=== PATIENT | male | born 1945 | race Caucasian/White ===

== ENCOUNTER 2017-09-14 15:09 | Inpatient (IN) | payer MEDICARE, OTHER ==
[~2017-09-14] VITALS: Ht 172.7 cm; Wt 85.5 kg
[2017-09-14] MEDS ORDERED: ASPIRIN 324 MG CHEW PO STA (15:37)
[2017-09-14] MEDS ORDERED: ALBUT/IPRATROP 3MG/0.5MG NEB 3 ML VIAL INH STA (15:42)
--- NOTE | 2017-09-14 15:45 | EMERGENCY ROOM VISIT NOTE ---
History Report prepared by Nely: Dory Santiago Under the Supervision of: Dr. Ailyn Shepherd M.D. First contact with patient: 15:31 Chief Complaint: RESPIRATORY PROBLEMS Stated Complaint: DIFFICULTY BREATHING Nursing Triage Summary: Patient report shortness of breath for last 3-4 weeks. Patient was admitted to [facility] for shortness of breath and an elevated troponin this weekend. Patient reports that he is feeling more short of breath today than he was this weekend. Shortness of breath worse when lying flat or with exertion. Denies chest pain. Denies cough or congestion. History of Present Illness The patient is a 72 year old male who presents to the Emergency Room with complaints of worsening respiratory problems for the past 3-4 weeks. The patient was hospitalized in [place] 4 days ago. He was kept for 24 hours and discharged 3 days ago. He states that he was feeling better at the time of discharge. He felt fine the next day. Yesterday the patient began to feel short of breath again. He states that this has worsened today. His shortness of breath is worse with exertion or lying flat. He does not have a nebulizer but he does have 2 inhalers. The patient denies fevers, cough, chest pain, and abdominal pain. He had an appointment with his PCP yesterday and they scheduled follow-up with pulmonology for next week. The patient is currently taking Levaquin and steroids. He has a history of an aortic aneurysm. He quit smoking about 2 months ago. Source of History: patient Onset: 3-4 weeks ago Position: chest (respiratory) Quality: other (shortness of breath) Timing: worsening Modifying Factors (Worsening): exertion, other (laying flat) Associated Symptoms: No fevers, No cough, No chest pain, No abdominal pain Review of Systems See HPI for pertinent positives & negatives. A total of 10 systems reviewed and were otherwise negative. Past Medical & Surgical Medical Problems: (1) Aortic aneurysm Family History No pertinent history stated. Social History Smoking Status: Former Smoker Marital Status: Housing Status: lives with family Occupation Status: retired Current/Historical Medications Scheduled Amlodipine (Norvasc), 2.5 MG PO DAILY Clopidogrel (Plavix), 75 MG PO DAILY Fluticasone Furoate-Vilanterol (Breo Ellipta 200-25 Mcg/INH), 1 PUFF PO DAILY Hydrochlorothiazide (Hydrochlorothiazide), 25 MG PO DAILY Levofloxacin (Levaquin), 500 MG PO DAILY Levothyroxine Sodium (Synthroid), 125 MCG PO DAILY Magnesium Oxide (Mag-Ox), 400 MG PO DAILY Prednisone (Sterapred 12 Day), Unknown Dose PO UD Sertraline (Zoloft), 25 MG PO DAILY Scheduled PRN Albuterol Hfa (Ventolin Hfa), 2 PUFFS INH Q6H PRN for SOB/Wheezing Lorazepam (Ativan), 0.5 MG PO DAILY PRN for Anxiety Allergies Coded Allergies: No Known Allergies (Unverified , 09/14/17) Physical Exam Vital Signs Date Time Temp Pulse Resp B/P (MAP) Pulse Ox O2 Delivery O2 Flow Rate FiO2 09/14/17 15:26 80 09/14/17 15:20 97 Room Air 09/14/17 15:16 97 Room Air 09/14/17 15:15 36.5 85 145/91 96 Room Air Physical Exam Vital signs reviewed. General: Chronically ill-appearing male, in no significant distress. HEENT: No scleral icterus, PERRLA, neck supple. Atraumatic. Cardiovascular: Regular rate and rhythm, no extra sounds. Pulmonary: Clear to auscultation bilaterally, normal work of breathing. Abdomen: Soft, nontender, nondistended, positive bowel sounds. Musculoskeletal: Atraumatic, no peripheral edema. Neurologic: Patient awake alert and oriented x 3, full strength in all 4 extremities. Cranial nerves 2 through 12 grossly intact. Skin: Warm, dry, no rash Medical Decision & Procedures ER Provider Diagnostic Interpretation: Radiology results as stated below per my review and radiologist interpretation: CHEST ONE VIEW PORTABLE HISTORY: 72 years-old Male CP, CHF acute atypical chest pain with difficulty breathing. History of congestive heart failure COMPARISON: None available TECHNIQUE: Portable upright AP view of the chest FINDINGS: Cardiac silhouette is mildly enlarged, unchanged. There is atherosclerosis of the aorta. No pneumothorax, pleural effusion or focal airspace consolidation. Linear subsegmental right perihilar opacity is noted. The bones are grossly intact. IMPRESSION: Linear subsegmental right perihilar opacity suggest atelectasis or scarring. The above report was generated using voice recognition software. It may contain grammatical, syntax or spelling errors. Electronically signed by: Sergio Rich M.D. 09/14/2017 3:57 PM Laboratory Results 09/14/17 14:45 Red Blood Count 4.62, Mean Corpuscular Volume 94.2, Mean Corpuscular Hemoglobin 35.3, Mean Corpuscular Hemoglobin Concent 37.5, Mean Platelet Volume 9.5, Neutrophils (%) (Auto) 85.6, Lymphocytes (%) (Auto) 8.4, Monocytes (%) (Auto) 5.5, Eosinophils (%) (Auto) 0.0, Basophils (%) (Auto) 0.0, Neutrophils # (Auto) 6.52, Lymphocytes # (Auto) 0.64, Monocytes # (Auto) 0.42, Eosinophils # (Auto) 0.00, Basophils # (Auto) 0.00 09/14/17 14:45 Test 09/14/17 14:45 09/14/17 15:56 White Blood Count 7.62 K/uL (4.8-10.8) Red Blood Count 4.62 M/uL (4.7-6.1) Hemoglobin 16.3 g/dL (14.0-18.0) Hematocrit 43.5 % (42-52) Mean Corpuscular Volume 94.2 fL (80-100) Mean Corpuscular Hemoglobin 35.3 pg (25-34) Mean Corpuscular Hemoglobin Concent 37.5 g/dl (32-36) Platelet Count 190 K/uL (130-400) Mean Platelet Volume 9.5 fL (7.4-10.4) Neutrophils (%) (Auto) 85.6 % Lymphocytes (%) (Auto) 8.4 % Monocytes (%) (Auto) 5.5 % Eosinophils (%) (Auto) 0.0 % Basophils (%) (Auto) 0.0 % Neutrophils # (Auto) 6.52 K/uL (1.4-6.5) Lymphocytes # (Auto) 0.64 K/uL (1.2-3.4) Monocytes # (Auto) 0.42 K/uL (0.11-0.59) Eosinophils # (Auto) 0.00 K/uL (0-0.5) Basophils # (Auto) 0.00 K/uL (0-0.2) RDW Standard Deviation 44.2 fL (36.4-46.3) RDW Coefficient of Variation 12.8 % (11.5-14.5) Immature Granulocyte % (Auto) 0.5 % Immature Granulocyte # (Auto) 0.04 K/uL (0.00-0.02) Anion Gap 12.0 mmol/L (3-11) Est Creatinine Clear Calc Drug Dose 69.9 ml/min Estimated GFR () 84.5 Estimated GFR (Non- 72.9 BUN/Creatinine Ratio 13.0 (10-20) Calcium Level 9.2 mg/dl (8.5-10.1) Magnesium Level 1.9 mg/dl (1.8-2.4) Total Bilirubin 1.3 mg/dl (0.2-1) Direct Bilirubin 0.3 mg/dl (0-0.2) Aspartate Amino Transf (AST/SGOT) 39 U/L (15-37) Alanine Aminotransferase (ALT/SGPT) 26 U/L (12-78) Alkaline Phosphatase 126 U/L (45-117) Total Creatine Kinase 27 U/L (39-308) Creatine Kinase MB < 0.5 ng/ml (0.5-3.6) Creatine Kinase MB Ratio (0-3.0) Total Protein 8.0 gm/dl (6.4-8.2) Albumin 3.9 gm/dl (3.4-5.0) Bedside Troponin I 0.060 ng/ml (0-0.045) Laboratory results per my review. Medications Administered Medications (Trade) Dose Ordered Sig/Gus Route Start Time Stop Time Status Last Admin Dose Admin Aspirin (Aspirin Chew) 324 mg NOW STAT PO 09/14/17 15:37 09/14/17 15:39 DC 09/14/17 15:57 324 MG Albuterol/ Ipratropium (Duoneb) 3 ml NOW STAT INH 09/14/17 15:42 09/14/17 15:43 DC 09/14/17 15:58 3 ML ECG Indication: SOB/dyspnea Rate (beats per minute): 79 Rhythm: normal sinus Findings: no acute ischemic change, no ectopy Comparison ECG Date: no prior available ED Course 1531: Past medical records reviewed. The patient was evaluated in room C11B. A complete history and physical examination was performed. 1537: Aspirin 324 mg PO 1542: Duoneb 3 ml INH 1634: I reassessed the patient at this time. He is feeling better and resting comfortably. I discussed the results and treatment plan with the patient. I answered all pertaining questions that he had. He expressed understanding and verbalized agreement. 1639: I spoke with Dr. Moreno. We discussed the patient's case. The patient will be evaluated by the [facility] for further management. Medical Decision The patient is a 72 year old male who presents to the ED with complaints of shortness of breath. Differentials include infections, reactive airway disease , pneumonia, pneumothorax, COPD, CHF, cardiac ischemia, pulmonary embolism, musculoskeletal, gastrointestinal, as well as others were entertained. This patient was evaluated and appeared to be in no significant distress. IV access was obtained and laboratory work was drawn. EKG reveals no evidence of acute ischemic change. Patient was given a DuoNeb treatments and subsequently had some discomfort, anxiety. Patient was placed on nasal cannula oxygen with improvement. Chest x-ray was obtained and is clear. Patient's laboratory work reveals a mildly elevated troponin at 0.06. Patient's sodium is found be 123. According to laboratory work from the weekend at the outside hospital, the patient's sodium was 131. The etiology of the hyponatremia is unclear. Normal saline solution 125 MLS per hour has been initiated. Case was discussed with the hospitalist service will evaluate the patient for further management. Medication Reconcilliation Current Medication List: was personally reviewed by me Blood Pressure Screening Patient's blood pressure: Elevated blood pressure Blood pressure disposition: Referred to PCP Consults Time Called: 1636 Consulting Physician: Dr. Moreno Returned Call: [phone] Moreno. We discussed the patient's case. The patient will be evaluated by the [facility] for further management. Impression Primary Impression: Elevated troponin Additional Impressions: Dyspnea on exertion Hyponatremia Scribe Attestation The scribe's documentation has been prepared under my direction and personally reviewed by me in its entirety. I confirm that the note above accurately reflects all work, treatment, procedures, and medical decision making performed by me. Departure Information Dispostion Being Evaluated By Hospitalist Referrals Meenu Avitia D.O. (PCP) Patient Instructions My [facility] Problem Qualifiers
--- NOTE | 2017-09-14 15:58 | DIAGNOSTIC IMAGING REPORT ---
CHEST ONE VIEW PORTABLE HISTORY: 72 years-old Male CP, CHF acute atypical chest pain with difficulty breathing. History of congestive heart failure COMPARISON: None available TECHNIQUE: Portable upright AP view of the chest FINDINGS: Cardiac silhouette is mildly enlarged, unchanged. There is atherosclerosis of the aorta. No pneumothorax, pleural effusion or focal airspace consolidation. Linear subsegmental right perihilar opacity is noted. The bones are grossly intact. IMPRESSION: Linear subsegmental right perihilar opacity suggest atelectasis or scarring. The above report was generated using voice recognition software. It may contain grammatical, syntax or spelling errors. Electronically signed by: Sergio Rich M.D. 09/14/2017 3:57 PM Dictated Date/Time: 09/14/2017 3:55 PM
[2017-09-14 16:03] LABS: ALT/SGPT 26 U/L (12-78); BLOOD UREA NITROGEN 13 mg/dl (7-18); CALCIUM 9.2 mg/dl (8.5-10.1); CARBON DIOXIDE 21 mmol/L (21-32); CHLORIDE 90 mmol/L (98-107); CREATININE 1.01 mg/dl (0.60-1.40); GLUCOSE 193 mg/dl (70-99); MAGNESIUM 1.9 mg/dl (1.8-2.4); POTASSIUM 3.4 mmol/L (3.5-5.1); SODIUM 123 mmol/L (136-145)
[2017-09-14 16:06] LABS: COMPLETE YES; HEMATOCRIT 43.5 % (42-52); IG% 0.5 %; LYMPH % 8.4 %; LYMPH ABS # 0.64 K/uL (1.2-3.4); MEAN CELL VOLUME 94.2 fL (80-100); MEAN CORPUSCULAR HEMOGLOBIN 35.3 pg (25-34); MEAN CORPUSCULAR HGB CONC 37.5 g/dl (32-36); MEAN PLATELET VOLUME 9.5 fL (7.4-10.4); MONO % 5.5 %; NEUT % 85.6 %; PLATELET COUNT 190 K/uL (130-400); RED BLOOD COUNT 4.62 M/uL (4.7-6.1); WHITE BLOOD COUNT 7.62 K/uL (4.8-10.8)
[2017-09-14 16:08] LABS: ALKALINE PHOSPHATASE 126 U/L (45-117); AST/SGOT 39 U/L (15-37)
[2017-09-14] MEDS ORDERED: FLUT1INH7 PO (16:12)
[2017-09-14] MEDS ORDERED: CLOP1TAB15 PO (16:12)
[2017-09-14] MEDS ORDERED: AMLO2.5T PO (16:12)
[2017-09-14] MEDS ORDERED: VNTHFA/IN INH (16:12)
[2017-09-14] MEDS ORDERED: PRED5PAK3 PO (16:12)
[2017-09-14] MEDS ORDERED: LEVO1TAB34 PO (16:12)
[2017-09-14] MEDS ORDERED: MAGN400T6 PO (16:12)
[2017-09-14] MEDS ORDERED: LEVO125T72 PO (16:12)
[2017-09-14] MEDS ORDERED: HYDR25TA5 PO (16:12)
[2017-09-14] MEDS ORDERED: LORA-741 PO (16:12)
[2017-09-14] MEDS ORDERED: SERT25TA PO (16:12)
[2017-09-14] MEDS ORDERED: SODIUM CHLORIDE 0.9% 1000ML 1,000 ML IV STA (16:40)
--- NOTE | 2017-09-14 16:46 | History and Physical ---
History & Physical Date & Time of Service: Sep 14, 2017 at 16:45 Chief Complaint: Difficulty Breathing Primary Care Physician: Meenu Avitia D.O. History of Present Illness This is a 72-year-old male with PMHx COPD, of 45 year 1-2+ ppd smoking history and quit 2 months ago, KRISTEN, hypothyroidism, CAD, aortic aneurysm and anxiety. He reports after a worsening shortness of breath 3 days. Patient reports he was recently hospitalized in [place] on 09/12 for a 24-hour period, and that on Tuesday when he was there, his breathing felt quite good. He was sent home on a 5 day Levaquin course, as well as a prednisone taper. He denies any cough, sputum production, sneeze, runny nose, upper respiratory infection like symptoms or sick contacts. The patient has been using his home Ventolin and Breo elliptra inhaler as directed. He does not have a nebulizer at home. The patient does not wear any supplemental O2 at baseline. The patient reports he did turn on his heat and his home within the past month, and that it is hot oil heat. He also has a wood burner in his garage which he uses often. The patient typically has no trouble with ambulation, and is able to walk up and down his driveway ~25 yard and on a steep incline without difficulty. He reports being short of breath with exertion and unable to ambulate much at present. He has been afraid to eat due to fear of not being able to breathe, so therefore his diet has been quite poor in the past 3 days. He has been able to keep some fluids down. Here in the ER the patient was treated with a nebulizer treatment CXR reviewed without any acute process. EKG showing NSR, he is slightly tachy upon my exam. Hyponatremic, decreased magnesium, no WBC, afebrile. Past Medical/Surgical History Medical Problems: (1) Aortic aneurysm Status: Resolved COPD exacerbation ? KRISTEN Elevated troponin CAD Aortic aneurysm History of tobacco smoking Hypothyroidism Hypomagnesemia Hyponatremia Elevated transaminase Social History Smoking Status: Former Smoker (45 years with 1-2+ ppd, quit 2 month ago) Smokeless Tobacco Use: No Alcohol Use: none Drug Use: none Marital Status: Housing status: lives with family Occupational Status: retired Allergies Coded Allergies: No Known Allergies (Unverified , 09/14/17) Home Medications Scheduled Amlodipine (Norvasc), 2.5 MG PO DAILY Clopidogrel (Plavix), 75 MG PO DAILY Fluticasone Furoate-Vilanterol (Breo Ellipta 200-25 Mcg/INH), 1 PUFF PO DAILY Hydrochlorothiazide (Hydrochlorothiazide), 25 MG PO DAILY Levofloxacin (Levaquin), 500 MG PO DAILY Levothyroxine Sodium (Synthroid), 125 MCG PO DAILY Magnesium Oxide (Mag-Ox), 400 MG PO DAILY Prednisone (Sterapred 12 Day), Unknown Dose PO UD Sertraline (Zoloft), 25 MG PO DAILY Scheduled PRN Albuterol Hfa (Ventolin Hfa), 2 PUFFS INH Q6H PRN for SOB/Wheezing Lorazepam (Ativan), 0.5 MG PO DAILY PRN for Anxiety Review of Systems Constitutional: No fever, sweats or chills Eyes: No diplopia, no worsening or blurred vision ENT: normal hearing, no trouble swallowing Respiratory: See history of present illness Cardiovascular: No chest pain, tightness or palpitations Abdomen: No pain, nausea, vomiting, diarrhea or constipation Musculoskeletal: No joint pain, calf pain, swelling Neurologic: No weakness, numbness/tingling, or balance problems Psychiatric: + anxiety, no depression Skin: No rash or itch Physical Exam Vital Signs Date Time Temp Pulse Resp B/P (MAP) Pulse Ox O2 Delivery O2 Flow Rate FiO2 09/14/17 15:26 80 09/14/17 15:20 97 Room Air 09/14/17 15:16 97 Room Air 09/14/17 15:15 36.5 85 145/91 96 Room Air General: awake, alert, mild apparent distress on 2 L via NC Head: Normocephalic, atraumatic ENT: PERRL, EOMI, no pharyngeal exudate, mucous membranes moist Chest: ON 2 L via NC, diminished breath sounds throughout, no wheezing rhonchi or rales. Cardiac: + Tachycardic, Regular rhythm, no murmur, no JVD, normal peripheral pulses, good capillary refill Abdominal: NABS x 4 quadrants, soft, nontender to palpation, no rebound, guarding or tenderness Extremities: Normal inspection, no peripheral edema or erythema, calfs nontender to palpation Psych: Normal mood and affect Neuro: AAO x 3, strength intact bilaterally and related 5/5, no motor deficits, speech is clear, no peripheral sensory deficits Diagnostics Laboratory Results Results Past 24 Hours Test 09/14/17 14:45 09/14/17 15:56 Range/Units White Blood Count 7.62 4.8-10.8 K/uL Red Blood Count 4.62 4.7-6.1 M/uL Hemoglobin 16.3 14.0-18.0 g/dL Hematocrit 43.5 42-52 % Mean Corpuscular Volume 94.2 80-100 fL Mean Corpuscular Hemoglobin 35.3 25-34 pg Mean Corpuscular Hemoglobin Concent 37.5 32-36 g/dl Platelet Count 190 130-400 K/uL Mean Platelet Volume 9.5 7.4-10.4 fL Neutrophils (%) (Auto) 85.6 % Lymphocytes (%) (Auto) 8.4 % Monocytes (%) (Auto) 5.5 % Eosinophils (%) (Auto) 0.0 % Basophils (%) (Auto) 0.0 % Neutrophils # (Auto) 6.52 1.4-6.5 K/uL Lymphocytes # (Auto) 0.64 1.2-3.4 K/uL Monocytes # (Auto) 0.42 0.11-0.59 K/uL Eosinophils # (Auto) 0.00 0-0.5 K/uL Basophils # (Auto) 0.00 0-0.2 K/uL RDW Standard Deviation 44.2 36.4-46.3 fL RDW Coefficient of Variation 12.8 11.5-14.5 % Immature Granulocyte % (Auto) 0.5 % Immature Granulocyte # (Auto) 0.04 0.00-0.02 K/uL Sodium Level 123 136-145 mmol/L Potassium Level 3.4 3.5-5.1 mmol/L Chloride Level 90 98-107 mmol/L Carbon Dioxide Level 21 21-32 mmol/L Anion Gap 12.0 3-11 mmol/L Blood Urea Nitrogen 13 7-18 mg/dl Creatinine 1.01 0.60-1.40 mg/dl Est Creatinine Clear Calc Drug Dose 69.9 ml/min Estimated GFR () 84.5 Estimated GFR (Non- 72.9 BUN/Creatinine Ratio 13.0 10-20 Random Glucose 193 70-99 mg/dl Calcium Level 9.2 8.5-10.1 mg/dl Magnesium Level 1.9 1.8-2.4 mg/dl Total Bilirubin 1.3 0.2-1 mg/dl Direct Bilirubin 0.3 0-0.2 mg/dl Aspartate Amino Transf (AST/SGOT) 39 15-37 U/L Alanine Aminotransferase (ALT/SGPT) 26 12-78 U/L Alkaline Phosphatase 126 45-117 U/L Total Creatine Kinase 27 39-308 U/L Creatine Kinase MB < 0.5 0.5-3.6 ng/ml Creatine Kinase MB Ratio 0-3.0 Total Protein 8.0 6.4-8.2 gm/dl Albumin 3.9 3.4-5.0 gm/dl Bedside Troponin I 0.060 0-0.045 ng/ml Diagnostic Radiology CHEST ONE VIEW PORTABLE HISTORY: 72 years-old Male CP, CHF acute atypical chest pain with difficulty breathing. History of congestive heart failure COMPARISON: None available TECHNIQUE: Portable upright AP view of the chest FINDINGS: Cardiac silhouette is mildly enlarged, unchanged. There is atherosclerosis of the aorta. No pneumothorax, pleural effusion or focal airspace consolidation. Linear subsegmental right perihilar opacity is noted. The bones are grossly intact. IMPRESSION: Linear subsegmental right perihilar opacity suggest atelectasis or scarring. The above report was generated using voice recognition software. It may contain grammatical, syntax or spelling errors. Electronically signed by: Sergio Rich M.D. 09/14/2017 3:57 PM EKG Normal sinus rhythm Normal ECG No previous ECGs available Vent. rate 79 BPM NC interval 148 ms QRS duration 88 ms QT/QTc 406/465 ms P-R-T axes 60 45 62 Impression Assessment and Plan This is a 72-year-old male with PMHx COPD, of 45 year 1-2+ ppd, smoking history , quit 2 months ago, KRISTEN and anxiety. He reports after a worsening shortness of breath 3 days. COPD exacerbation ? KRISTEN - Admit patient to telemetry - Pulmonary consult - Start the patient on Solu-Medrol 40 mg Q8H, and continue on levaquin 500 mg daily, this will be day #3 for the patient. - Check CTA for PE since there was minimal improvement with prednisone taper and Levaquin in the past 3 days since patient was discharged from [place]. Also check Dopplers of bilateral lower extremity to rule out DVT - CXR reviewed showing atelectasis and/or scarring but no focal infiltrate - Xopenex inhalers Q6H and Q2H prn sob - Normally does not require supplemental O2, currently on 2 L Elevated troponin CAD HTN - Initial elevated at 0.060, will trend cardiac biomarkers 2 more sets - EKG reviewed and is in normal sinus rhythm without ST-T wave inversions or signs of ischemia - Continue plavix - hold hydrochlorothiazide while on IVFs Aortic aneurysm - Patient follows with cardiology in [place] - Unable to tell me how large the aneurysm is but reports no history of surgical intervention, will see size on CTA as above. Patient without chest pain. History of tobacco smoking - Noted, increased anxiety related to lack of nicotine as the patient quit cold turkey 2 months ago Hypothyroidism Continue levothyroxine sodium 125 g daily Hypomagnesemia - Slightly decreased at 1.5, continue daily Mag-Ox for replacement, trend with prp Hyponatremia - We will start the patient on NSS at 125 ml/hr for 12 hours as PO intake has been poor - Follow prp Elevated transaminase - Trend LFTs with a.m. labs, total bili elevated at 1.3, direct 0.3, AST was 39 , alkaline phosphatase equals 126 - Patient denies any EtOH use Anxiety - Continue Zoloft 25 mg daily, and Ativan 0.5 mg twice a day DVT ppx: heparin subq q12 CODE STATUS: DO NOT RESUSCITATE Disposition: Patient from home, lives with , admit to telemetry Level of Care Telemetry Resuscitation Status DO NOT RESUSCITATE VTE Prophylaxis Risk Level: Low Given or contraindicated: Unfractionated heparin SQ Note Supervising Note I agree with above note. I examined patient and discussed analysis and plan with patient and APC. I answered all of the patients questions. My exam did not differ from the one presented by the APC.
[2017-09-14] MEDS ORDERED: POLYETHYLENE (MIRALAX) 17 GM PACK PO PRN (17:15)
[2017-09-14] MEDS ORDERED: ACETAMINOPHEN 325 MG TAB PO PRN (17:15)
[2017-09-14] MEDS ORDERED: MAGNESIUM HYDROXIDE SUSP 30 ML UDC PO PRN (17:15)
[2017-09-14] MEDS ORDERED: LORAZEPAM 0.5 MG TAB PO PRN (17:15)
[2017-09-14] MEDS ORDERED: ONDANSETRON INJ 2 MG/ML 2 ML VIAL IV PRN (17:15)
[2017-09-14] MEDS ORDERED: OPTIRAY 320 IV PRN (17:30)
--- NOTE | 2017-09-14 18:06 | DIAGNOSTIC IMAGING REPORT ---
ULTRASOUND BILATERAL LOWER EXTREMITY VENOUS CLINICAL HISTORY: Dyspnea. Clinical concern for deep venous thrombosis. COMPARISON STUDY: No priors. TECHNIQUE: Real-time, grayscale, and color Doppler sonography of the deep veins of the right and left lower extremity was performed from the inguinal crease to the calf. Compression and augmentation were utilized. FINDINGS: There is no sonographic evidence of deep venous thrombosis identified in the right or left lower extremity. The common femoral, superficial femoral, and popliteal veins are patent and normally compressible bilaterally. The greater saphenous vein and the profunda femoris vein at the junction with the common femoral vein are clear in both legs. The visualized calf veins are patent bilaterally. IMPRESSION: There is no sonographic evidence of deep venous thrombosis identified in the right or left lower extremity. Electronically signed by: Haroon Jurado M.D. 09/14/2017 6:05 PM Dictated Date/Time: 09/14/2017 6:05 PM
[2017-09-14] MEDS: SODIUM CHLORIDE 0.9% 1000ML 1,000 ML IV SCH (19:51)
[2017-09-14] MEDS: METHYLPREDNISOLONE IV 40 MG in SYRINGE 0 ML IV SCH (19:52)
[2017-09-14 20:07] VITALS: BP 144/87; PULSE 82; TEMP 36.5; O2SAT 97; Ht 172.7 cm; Wt 85.5 kg
[2017-09-14] MEDS: LEVOFLOXACIN 500 MG TAB PO SCH (20:29)
[2017-09-14] MEDS: LEVALBUTEROL 1.25MG/3ML NEB INH SCH (20:42)
[2017-09-14 20:43] VITALS: PULSE 83; O2SAT 97
--- NOTE | 2017-09-14 21:59 | DIAGNOSTIC IMAGING REPORT ---
CT ANGIOGRAM OF THE CHEST CLINICAL HISTORY: Dyspnea. COMPARISON STUDY: Chest x-ray dated 09/14/2017. TECHNIQUE: Following the IV administration of 99 cc of Optiray 320, CT angiogram of the chest was performed from the upper abdomen to the thoracic inlet utilizing the pulmonary embolus protocol. Images are reviewed in the axial, sagittal, and coronal planes. 3-D MIPS images are created and assessed. IV contrast was administered without complication. A dose lowering technique was utilized adhering to the principles of ALARA. The examination is degraded by motion artifact. CT DOSE: 468.58 mGy.cm FINDINGS: Thyroid: Imaged portions of the thyroid gland are enlarged and heterogeneous and attenuation. Thoracic aorta: There is after sclerotic calcification of the thoracic aorta, which is normal in caliber and demonstrates standard 3-vessel arch anatomy. No dissection is seen. Pulmonary vasculature: The pulmonary trunk is normal in caliber. There are no central filling defects identified in main, lobar, or proximal segmental pulmonary branches to suggest pulmonary embolus. Evaluation of the peripheral branches is degraded by motion artifact. Heart: The heart is mild enlarged and there is a small to moderate pericardial effusion. The coronary arteries are densely calcified. Lungs and pleural spaces: Evaluation of the lung parenchyma is significantly degraded by motion artifact. Emphysematous change is seen at the apices. No airspace consolidation is identified. There is no pleural effusion. Linear scarring versus atelectasis is present in the lung bases. The trachea and central airways are clear. Mediastinum: There is no mediastinal lymphadenopathy. [place]: Clear. Axillae: There is no axillary lymphadenopathy. Upper abdomen: A stent graft is partially visualized in the abdominal aorta. There is a 1.4 cm ovoid water attenuation lesion in the pancreatic neck seen on image #36, typical in appearance for small sidebranch IPMN. A tiny hiatal hernia is observed. Skeletal structures: The skeletal structures are osteopenic. No lytic or blastic bony lesions are seen. Arthritic change is noted in the shoulders. IMPRESSION: 1. Motion compromise examination. 2. There is no evidence of central pulmonary embolus in the main, lobar, or proximal segmental pulmonary arteries. 3. Mild cardiomegaly and emphysema. 4. There is a small to moderate pericardial effusion. 5. No airspace consolidation or pleural effusion is identified. 6. Additional findings as above. Electronically signed by: Haroon Jurado M.D. 09/14/2017 9:58 PM Dictated Date/Time: 09/14/2017 9:51 PM
[2017-09-14] MEDS ORDERED: INFLUENZA ADMINISTRATION CHARGE ONE (22:00)
[2017-09-14] MEDS ORDERED: INFLUENZA VACCINE HIGH DOSE 65+ 0.5 ML SYR IM. ONE (22:00)
[2017-09-14] MEDS ORDERED: CALCIUM CARBONATE 500 MG CHEWABLE PO ONE (22:30)
[2017-09-14 22:51] LABS: PARTIAL THROMBOPLASTIN RATIO 1.1; PROTHROMBIN TIME (PATIENT) 10.8 SECONDS (9.0-12.0)
[2017-09-14] MEDS: LORAZEPAM 0.5 MG TAB PO PRN (22:55)
[2017-09-14 23:40] VITALS: BP 151/87; PULSE 76; TEMP 36.6; O2SAT 94
[2017-09-15] VITALS (12 sets, daily range): BP systolic 109–151; BP diastolic 73–91; PULSE 82–100; TEMP 36.4–37.5; O2SAT 90–98
[2017-09-15] MEDS: HEPARIN SOD 5000 UNIT/0.5 ML CARP SQ SCH ×4 (00:09→22:15)
[2017-09-15] MEDS: LEVALBUTEROL 1.25MG/3ML NEB INH SCH ×4 (01:55→23:14)
[2017-09-15] MEDS: METHYLPREDNISOLONE IV 40 MG in SYRINGE 0 ML IV SCH ×3 (04:11→19:41)
[2017-09-15] MEDS: SODIUM CHLORIDE 0.9% 1000ML 1,000 ML IV SCH (04:11)
[2017-09-15] MEDS: LEVOTHYROXINE 125 MCG TAB PO SCH (06:00)
[2017-09-15] MEDS: BREO ELLIPTA: ORDER AWAITING ACTION SCH ×3 (08:00→15:27)
[2017-09-15] MEDS: SERTRALINE HCL 50 MG TAB PO SCH (08:08)
[2017-09-15] MEDS: AMLODIPINE BESYLATE 5 MG TAB PO SCH (08:08)
[2017-09-15] MEDS: CLOPIDOGREL BISULFATE 75 MG TAB PO SCH (08:08)
[2017-09-15] MEDS: MAGNESIUM OXIDE 400 MG TAB PO SCH (08:08)
[2017-09-15 08:16] LABS: COMPLETE YES; HEMATOCRIT 43.2 % (42-52); IG% 0.6 %; LYMPH ABS # 0.53 K/uL (1.2-3.4); MEAN CELL VOLUME 94.1 fL (80-100); MEAN CORPUSCULAR HEMOGLOBIN 34.4 pg (25-34); MEAN CORPUSCULAR HGB CONC 36.6 g/dl (32-36); MEAN PLATELET VOLUME 9.2 fL (7.4-10.4); MONO % 2.7 %; NEUT % 88.7 %; PLATELET COUNT 195 K/uL (130-400); RED BLOOD COUNT 4.59 M/uL (4.7-6.1)
[2017-09-15 08:47] LABS: BUN/CREATININE RATIO 14.5 (10-20); CREATININE 0.88 mg/dl (0.60-1.40); POTASSIUM 3.4 mmol/L (3.5-5.1)
[2017-09-15 08:51] LABS: CHOLESTEROL/HDL RATIO 2.3
[2017-09-15] MEDS ORDERED: HYDROCHLOROTHIAZIDE 25 MG TAB PO SCH (09:00)
--- NOTE | 2017-09-15 09:51 | Progress Note ---
Subjective Date of Service: Sep 15, 2017. Subjective Pt evaluation today including: conversation w/ patient, conversation w/ family , physical exam, chart review, lab review, review of studies, review of inpatient medication list Still has difficulty breathing, some cough with white sputum and wheezing, has dyspnea on exertion when up to the restroom, however oxygen level is normal in room air Problem List Medical Problems: (1) Dyspnea on exertion Status: Acute (2) Elevated troponin Status: Acute (3) Hyponatremia Status: Acute Review of Systems Constitutional: + weakness, + fatigue, No fever, No chills, No sweats, No weight loss, No problem reported Eyes: No worsening of vision, No eye pain, No redness, No discharge, No diplopia ENT: No hearing loss, No unusual epistaxis, No nasal symptoms, No sore throat, No tinnitus, No dental problems, No trouble swallowing Respiratory: + see HPI, + cough, + wheezing, + shortness of breath, No sputum, No dyspnea on exertion, No dyspnea at rest, No hemoptysis Cardiac: No chest pain, No orthopnea, No PND, No edema, No claudication, No palpitations Abdomen: No pain, No nausea, No vomiting, No diarrhea, No constipation Musculoskeletal: No joint pain, No muscle pain, No swelling, No calf pain Male : No dysuria, No urinary frequency, No incontinence, No nocturia more than once/night, No slowing stream, No hematuria Neurologic: No memory loss, No paralysis, No weakness, No numbness/tingling, No vertigo, No balance problems Psychiatric: No depression symptoms, No anhedonism, No anxiety, No insomnia, No substance abuse Heme: No abnormal bleeding/bruising, No clotting problems, No swollen lymph nodes, No night sweats Endo: No fatigue, No excessive thirst, No excessive urination Skin: No rash, No itch, No new/changing skin lesions, No color change, No bleeding Objective Vital Signs Date Time Temp Pulse Resp B/P (MAP) Pulse Ox O2 Delivery O2 Flow Rate FiO2 09/15/17 09:30 94 Room Air 09/15/17 07:10 90 16 98 Room Air 09/15/17 07:03 36.4 82 18 151/88 (109) 94 Room Air 09/15/17 04:27 36.5 84 20 143/90 (107) 96 Room Air 09/15/17 04:00 97 Nasal Cannula 2.0 09/15/17 00:00 97 Nasal Cannula 2.0 09/14/17 23:40 36.6 76 18 151/87 (108) 94 Room Air 09/14/17 20:43 83 16 97 Nasal Cannula 2.0 09/14/17 20:07 36.5 82 18 144/87 97 Nasal Cannula 2.0 09/14/17 18:49 82 142/74 97 09/14/17 17:07 82 20 132/79 97 Nasal Cannula 3.0 09/14/17 15:26 80 09/14/17 15:20 97 Room Air 09/14/17 15:16 97 Room Air 09/14/17 15:15 36.5 85 145/91 96 Room Air Physical Exam General Appearance: WD/WN, no apparent distress, + obese Eyes: normal inspection, PERRL, EOMI, sclerae normal ENT: normal ENT inspection, hearing grossly normal, pharynx normal Neck: supple, no adenopathy, thyroid normal, no JVD, no carotid bruits, trachea midline Respiratory/Chest: chest non-tender, normal breath sounds, no respiratory distress, no accessory muscle use, + decreased breath sounds, + wheezing (`) Cardiovascular: regular rate, rhythm, no edema, no gallop, no JVD, no murmur Abdomen: normal bowel sounds, non tender, soft, no organomegaly, no pulsatile mass Extremities: normal range of motion, non-tender, normal inspection, no pedal edema, no calf tenderness, normal capillary refill, pelvis stable Neurologic/Psychiatric: 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, no motor/sensory deficits, alert, normal mood/affect, oriented x 3, + abnormal cerebellar tests Skin: normal color, warm/dry, no rash Lymphatic: no adenopathy Laboratory Results Last 24 Hours Test 09/14/17 14:45 09/14/17 15:56 09/14/17 22:24 09/15/17 08:02 White Blood Count 7.62 K/uL 6.60 K/uL Red Blood Count 4.62 M/uL 4.59 M/uL Hemoglobin 16.3 g/dL 15.8 g/dL Hematocrit 43.5 % 43.2 % Mean Corpuscular Volume 94.2 fL 94.1 fL Mean Corpuscular Hemoglobin 35.3 pg 34.4 pg Mean Corpuscular Hemoglobin Concent 37.5 g/dl 36.6 g/dl Platelet Count 190 K/uL 195 K/uL Mean Platelet Volume 9.5 fL 9.2 fL Neutrophils (%) (Auto) 85.6 % 88.7 % Lymphocytes (%) (Auto) 8.4 % 8.0 % Monocytes (%) (Auto) 5.5 % 2.7 % Eosinophils (%) (Auto) 0.0 % 0.0 % Basophils (%) (Auto) 0.0 % 0.0 % Neutrophils # (Auto) 6.52 K/uL 5.85 K/uL Lymphocytes # (Auto) 0.64 K/uL 0.53 K/uL Monocytes # (Auto) 0.42 K/uL 0.18 K/uL Eosinophils # (Auto) 0.00 K/uL 0.00 K/uL Basophils # (Auto) 0.00 K/uL 0.00 K/uL RDW Standard Deviation 44.2 fL 43.5 fL RDW Coefficient of Variation 12.8 % 12.7 % Immature Granulocyte % (Auto) 0.5 % 0.6 % Immature Granulocyte # (Auto) 0.04 K/uL 0.04 K/uL Sodium Level 123 mmol/L 127 mmol/L Potassium Level 3.4 mmol/L 3.4 mmol/L Chloride Level 90 mmol/L 92 mmol/L Carbon Dioxide Level 21 mmol/L 24 mmol/L Anion Gap 12.0 mmol/L 11.0 mmol/L Blood Urea Nitrogen 13 mg/dl 13 mg/dl Creatinine 1.01 mg/dl 0.88 mg/dl Est Creatinine Clear Calc Drug Dose 69.9 ml/min 78.4 ml/min Estimated GFR () 84.5 98.1 Estimated GFR (Non- 72.9 84.6 BUN/Creatinine Ratio 13.0 14.5 Random Glucose 193 mg/dl 174 mg/dl Calcium Level 9.2 mg/dl 9.0 mg/dl Magnesium Level 1.9 mg/dl Total Bilirubin 1.3 mg/dl 1.3 mg/dl Direct Bilirubin 0.3 mg/dl 0.4 mg/dl Aspartate Amino Transf (AST/SGOT) 39 U/L 30 U/L Alanine Aminotransferase (ALT/SGPT) 26 U/L 22 U/L Alkaline Phosphatase 126 U/L 111 U/L Total Creatine Kinase 27 U/L Creatine Kinase MB < 0.5 ng/ml Creatine Kinase MB Ratio Total Protein 8.0 gm/dl 7.4 gm/dl Albumin 3.9 gm/dl 3.5 gm/dl Bedside Troponin I 0.060 ng/ml Prothrombin Time 10.8 SECONDS Prothromb Time International Ratio 1.0 Activated Partial Thromboplast Time 27.4 SECONDS Partial Thromboplastin Ratio 1.1 Troponin I 0.032 ng/ml 0.034 ng/ml Triglycerides Level 48 mg/dl Cholesterol Level 158 mg/dl HDL Cholesterol 68 mg/dl LDL Cholesterol, Calculated 80 mg/dl VLDL Cholesterol, Calculated 10 mg/dl Cholesterol/HDL Ratio 2.3 Assessment and Plan 72-year-old male with admitted on 09/14/2017 because of worsening shortness of breath 3 days. PMHx COPD, of 45 year 1-2+ ppd, smoking history, quit 2 months ago, KRISTEN and anxiety, PCP in [place] prior medical [facility] Dr. Avitia, pulmonary just is Dr.Garphary Dr. Walker in [facility] COPD exacerbation, possible KRISTEN, continue telemetry Pending Pulmonary consult, patient reported possible pulmonary function test was done in [facility] Will request medical record from there Continue Solu-Medrol 40 mg Q8H, and continue on levaquin 500 mg daily, this will be day #4 for the patient. CTA for PE , Dopplers of bilateral lower extremity were negative for PE or DVT respectively Continue Xopenex inhalers Q6H and Q2H prn sob, per report Normally does not require supplemental O2, was on 2 L, currently is on room air, pulse ox is 93-94 % Minimal elevated troponin, in point of care, of troponin was negative 2 sets hx of CAD, HTN, EKG in normal sinus rhythm without ST-T wave inversions or signs of ischemia Continue plavix Aortic aneurysm, follows with cardiology in [place], History of tobacco smoking, recently quit cold turkey 2 months ago Hypothyroidism Continue levothyroxine sodium 125 g daily Hypomagnesemia, replaced Hyponatremia, possible secondary to diuretic of HCTZ, improved today, will follow-up Anxiety, Continue Zoloft 25 mg daily, and Ativan 0.5 mg twice a day DVT ppx: heparin subq q12 CODE STATUS: DO NOT RESUSCITATE Disposition: Patient from home, lives with , admit to telemetry Continued [facility] stay due to: multiple IV medications needed Discharge planning: home
[2017-09-15 10:00] LABS: ESTIMATED AVERAGE GLUCOSE 131 mg/dl; HA1C FLAG Normal (Normal)
[2017-09-15 10:46] LABS: URINE APPEARANCE CLEAR (CLEAR); URINE BILIRUBIN NEG (NEG); URINE COLOR YELLOW; URINE NITRITE NEG (NEG); URINE SPECIFIC GRAVITY 1.031 (1.000-1.030); UROBILINOGEN NEG (NEG); ZZUR CULT IF INDIC CLEAN CATCH NO
[2017-09-15 10:51] LABS: MANUAL MICROSCOPIC REQUIRED? NO; REVIEW REQ? NO
[2017-09-15] MEDS: LEVOFLOXACIN 500 MG TAB PO SCH (11:25)
[2017-09-15] MEDS ORDERED: NURSING VERBAL MED ORDER ONE (12:15)
[2017-09-15] MEDS ORDERED: ALUMINUM/MAGNESIUM SUSP 30 ML UDC ONE (12:20)
[2017-09-15] MEDS ORDERED: ALUMINUM/MAGNESIUM SUSP 30 ML UDC PO PRN (12:45)
--- NOTE | 2017-09-15 13:20 | ECHOCARDIOGRAM REPORT ---
*NOTICE TO RECEIVING CONSTITUTION PARTY AGENCY This information is strictly Confidential and protected under [place] law. [place] law prohibits you from making any further disclosure of this information unless further disclosure is expressly permitted by the written consent of the person to whom it pertains or is authorized by law. A general authorization for the release of medical or other information is not sufficient for this purpose. Hospital accepts no responsibility if the information is made available to any other person, INCLUDING THE PATIENT. Interpretation Summary * Conclusions -- * Left ventricular systolic function is normal. * Grade I diastolic dysfunction, (abnormal relaxation pattern). * The left atrium is mildly dilated. * Right ventricular systolic pressure is normal. Procedure Details * A complete two-dimensional transthoracic echocardiogram was performed (2D, M-mode, Doppler and color flow Doppler). Left Ventricle * The left ventricle is normal in size. * There is normal left ventricular wall thickness. * Ejection Fraction = 60-65%. * Left ventricular systolic function is normal. * Grade I diastolic dysfunction, (abnormal relaxation pattern). * The left ventricular wall motion is normal. Right Ventricle * The right ventricle is normal in size and function. * The right ventricular systolic function is normal as assessed by tricuspid annular plane systolic excursion (TAPSE) (normal >1.5 cm). Atria * The left atrium is mildly dilated. * Right atrial size is normal. Mitral Valve * The mitral valve anatomy is normal. * Significant mitral regurgitation is absent. Tricuspid Valve * The tricuspid valve anatomy is normal. * There is trace tricuspid regurgitation. * Right ventricular systolic pressure is normal. Aortic Valve * The aortic valve is normal in structure and function. * No hemodynamically significant valvular aortic stenosis. * There is no significant aortic regurgitation. Great Vessels * The aortic root is normal size. Pericardium/Pleural * There is no pericardial effusion. MMode 2D Measurements and Calculations IVSd 1.0 cm IVSs 1.4 cm LVIDd 4.8 cm LVIDs 2.8 cm LVPWd 1.0 cm LVPWs 1.3 cm IVS/LVPW 1.0 FS 42.3 % EDV(Teich) 107.7 ml ESV(Teich) 28.8 ml EF(Teich) 73.3 % EDV(cubed) 110.9 ml ESV(cubed) 21.3 ml EF(cubed) 80.8 % % IVS thick 35.9 % % LVPW thick 26.6 % LV mass(C)d 176.1 grams LV mass(C)dI 86.5 grams/m\S\2 LV mass(C)s 118.3 grams LV mass(C)sI 58.1 grams/m\S\2 SV(Teich) 78.9 ml SI(Teich) 38.8 ml/m\S\2 SV(cubed) 89.6 ml SI(cubed) 44.0 ml/m\S\2 Ao root diam 3.5 cm Ao root area 9.9 cm\S\2 ACS 1.9 cm LA dimension 4.1 cm asc Aorta Diam 2.5 cm LA/Ao 1.2 EDV(MOD-sp4) 104.1 ml ESV(MOD-sp4) 39.6 ml EF(MOD-sp4) 62.0 % EDV(MOD-sp2) 114.9 ml ESV(MOD-sp2) 32.1 ml EF(MOD-sp2) 72.1 % SV(MOD-sp4) 64.5 ml SI(MOD-sp4) 31.7 ml/m\S\2 SV(MOD-sp2) 82.9 ml SI(MOD-sp2) 40.7 ml/m\S\2 Doppler Measurements and Calculations MV E max tye 85.0 cm/sec MV A max tye 118.6 cm/sec MV E/A 0.72 MV P1/2t max tye 92.7 cm/sec MV P1/2t 72.2 msec MVA(P1/2t) 3.0 cm\S\2 MV dec slope 376.3 cm/sec\S\2 MV dec time 0.38 sec Ao V2 max 126.7 cm/sec Ao max PG 6.4 mmHg Ao max PG (full) 2.3 mmHg LV V1 max PG 4.1 mmHg LV V1 max 101.7 cm/sec PA V2 max 106.8 cm/sec PA max PG 4.6 mmHg PI max tye 150.4 cm/sec PI max PG 9.1 mmHg PI dec slope 118.4 cm/sec\S\2 PI P1/2t 372.2 msec TR max tye 183.2 cm/sec
[2017-09-15] MEDS: LORAZEPAM 0.5 MG TAB PO PRN ×2 (15:26→22:15)
--- NOTE | 2017-09-15 17:58 | Pulmonary Consultation ---
History General Date of Service: Sep 15, 2017. Stated Complaint: Copd Exacerbation HPI The patient is a 72 year old male who presents to [facility] with complaints of Copd Exacerbation. The patient's primary care provider is Meenu Avitia D.O.. Mr. Morrissey is a 72-year-old male with past medical history of AAA status post endovascular repair, anxiety disorder, alcohol use disorder who presents to [facility] with complaints of 3 month history of shortness of breath. He was recently diagnosed with COPD (PFT done, FEV1 unknown) and started on Breo ellipta 200/25 mg one puff inhalation daily and albuterol, by rawhide bone roller . This provided minimal relief. He was seen at [facility] on for similar complaints. On initial evaluation there he was noted to be hypoxemic to 88% on room air. Overnight for observation and discharged home on Levaquin 500 mg for 7 days and steroid taper. He was started on Zoloft and Ativan for anxiety. He had a two-step done at that time which showed no desaturations. He denies any fever, chills, cough, or chest pain. He does admit to palpitations that are often associated with anxiety. He states that recently he has been under a lot of stress. He recently had a [birth year] on 09/13/2019. Often notes that he gets stressed out around this time. He is the primary caregiver for his and she recently had hip surgery and he is unable to care for her. He also is having car difficulties. He states that his symptoms are worsened when he lays flat or sitting still for any period of time. His mind starts to race and then he becomes progressively short of breath as if his throat is closing. He is able to ambulate without dyspnea. He also complains of paroxysmal nocturnal dyspnea and often awakens from sleep with this sensation of panic, palpitations and shortness of breath. He also admits to decreased appetite over the last week associated with the 5-6 pound weight loss. Vital signs our ER were temperature 36.5, pulse 85, blood pressure 145/91, pulse oximetry 96% on room air. Chest x-ray showed linear subsegmental right perihilar opacity suggest atelectasis or scarring. Lower extremity Dopplers were negative for DVT. A chest showed no pulmonary emboli, mild cardiomegaly and emphysematous changes. There was a small to moderate pericardial effusion. No airspace consolidation or pleural effusions noted. He was admitted for COPD exacerbation. He was continued on Levaquin 500 mg by mouth daily, Xopenex/ipratropium nebulizer and given Solu-Medrol 40 mg every 8 hours IV. At the time of my evaluation patient, complaining that he is having palpitations and short of breath while talking to me, associated with hyperventilation. Intermittently resolves with deep breathing. Requesting that levalbuterol be discontinued as it causes him palpitations. 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 Family History Father had history of colon cancer Mother had history of pulmonary embolism Siblings have history of diabetes. Social History He is . Has 3 children. Has [id number] history of smoking, quit in July 2017. He drinks about 4 beers a day for the last 50 years. Last drink was on Tuesday evening. He denies any illicit drug use. Hx Tobacco Use In Past Year?: Yes Smoking Status: Former Smoker Marital status: Housing status: lives with family Occupational Status: retired Allergies Coded Allergies: No Known Allergies (Unverified , 09/14/17) Current Medications Reported Home Medications Medications Dose Route/Sig Max Daily Dose Days Date Category Dose Instructions Hydrochlorothiazide 25 Mg Tab 25 Mg PO DAILY 09/14/17 Reported Ventolin Hfa (Albuterol) 200 Puffs/97829 Mcg Aers 2 Puffs INH Q6H PRN 09/14/17 Reported Synthroid (Levothyroxine Sodium) 125 Mcg Tab 125 Mcg PO DAILY 09/14/17 Reported Plavix (Clopidogrel Bisulfate) 75 Mg Tab 75 Mg PO DAILY 09/14/17 Reported Breo Ellipta 200-25 Mcg/INH (Fluticasone Furoate-Vilanterol) 1 Inh Inh 1 Puff PO DAILY 09/14/17 Reported Norvasc (Amlodipine Besylate) 2.5 Mg Tab 2.5 Mg PO DAILY 09/14/17 Reported Mag-Ox (Magnesium Oxide) 400 Mg Tab 400 Mg PO DAILY 09/14/17 Reported Ativan (Lorazepam) 0.5 Mg Tab 0.5 Mg PO DAILY PRN 09/14/17 Reported Zoloft (Sertraline HCl) 25 Mg Tab 25 Mg PO DAILY 09/14/17 Reported Sterapred 12 Day (Prednisone) 5 Mg Janusz Unknown Dose PO UD 09/14/17 Reported oral, as directed sterapred 10mg 6 day taper, take as directed Levaquin (Levofloxacin) 500 Mg Tab 500 Mg PO DAILY 7 09/14/17 Reported Physical Physical Exam Vital Signs: Date Time Temp Pulse Resp B/P (MAP) Pulse Ox O2 Delivery O2 Flow Rate FiO2 09/15/17 09:30 94 Room Air 09/15/17 08:15 97 Room Air 09/15/17 07:10 90 16 98 Room Air 09/15/17 07:03 36.4 82 18 151/88 (109) 94 Room Air 09/15/17 04:27 36.5 84 20 143/90 (107) 96 Room Air 09/15/17 04:00 97 Nasal Cannula 2.0 09/15/17 00:00 97 Nasal Cannula 2.0 09/14/17 23:40 36.6 76 18 151/87 (108) 94 Room Air 09/14/17 20:43 83 16 97 Nasal Cannula 2.0 09/14/17 20:07 36.5 82 18 144/87 97 Nasal Cannula 2.0 09/14/17 18:49 82 142/74 97 09/14/17 17:07 82 20 132/79 97 Nasal Cannula 3.0 09/14/17 15:26 80 09/14/17 15:20 97 Room Air 09/14/17 15:16 97 Room Air 09/14/17 15:15 36.5 85 145/91 96 Room Air General Appearance: WELL-APPEARING, uncomfortable, moderate distress Head: NORMOCEPHALIC, ATRAUMATIC Eyes: PERRLA, NO DISCHARGE, EOMI ENT: other (thrush in oropharynx) Neck: NORMAL RANGE OF MOTION, NO TENDERNESS, TRACHEA MIDLINE, NO STRIDOR Respiratory: BREATH SOUNDS NORMAL, CLEAR TO PERCUSSION Cardiovasular: REGULAR RATE/RHYTHM, NORMAL S1S2, NO M/G/R Abdomen: NON TENDER, NORMAL BOWEL SOUNDS, NO REBOUND Back: NORMAL INSPECTION, NO MIDLINE TENDERNESS Upper Extremities: NO EDEMA, NO DEFORMITY, NORMAL ROM, other (no cyanosis, no clubbing) Lower Extremities: NO EDEMA, NO DEFORMITY, NORMAL ROM Pulses: dorsalis pedis (R) (2+), dorsalis pedis (L) (2+) Neuro: ALERT, ORIENTED x 3, NORMAL MOTOR EXAM, NORMAL SPEECH, NORMAL MEMORY Psychiatric: depressed, anxious, paranoid Diagnostics Labs Results Past 24 Hours Test 09/14/17 14:45 09/14/17 15:56 09/14/17 22:24 09/15/17 08:02 Range/Units White Blood Count 7.62 6.60 4.8-10.8 K/uL Red Blood Count 4.62 4.59 4.7-6.1 M/uL Hemoglobin 16.3 15.8 14.0-18.0 g/dL Hematocrit 43.5 43.2 42-52 % Mean Corpuscular Volume 94.2 94.1 80-100 fL Mean Corpuscular Hemoglobin 35.3 34.4 25-34 pg Mean Corpuscular Hemoglobin Concent 37.5 36.6 32-36 g/dl Platelet Count 190 195 130-400 K/uL Mean Platelet Volume 9.5 9.2 7.4-10.4 fL Neutrophils (%) (Auto) 85.6 88.7 % Lymphocytes (%) (Auto) 8.4 8.0 % Monocytes (%) (Auto) 5.5 2.7 % Eosinophils (%) (Auto) 0.0 0.0 % Basophils (%) (Auto) 0.0 0.0 % Neutrophils # (Auto) 6.52 5.85 1.4-6.5 K/uL Lymphocytes # (Auto) 0.64 0.53 1.2-3.4 K/uL Monocytes # (Auto) 0.42 0.18 0.11-0.59 K/uL Eosinophils # (Auto) 0.00 0.00 0-0.5 K/uL Basophils # (Auto) 0.00 0.00 0-0.2 K/uL RDW Standard Deviation 44.2 43.5 36.4-46.3 fL RDW Coefficient of Variation 12.8 12.7 11.5-14.5 % Immature Granulocyte % (Auto) 0.5 0.6 % Immature Granulocyte # (Auto) 0.04 0.04 0.00-0.02 K/uL Sodium Level 123 127 136-145 mmol/L Potassium Level 3.4 3.4 3.5-5.1 mmol/L Chloride Level 90 92 98-107 mmol/L Carbon Dioxide Level 21 24 21-32 mmol/L Anion Gap 12.0 11.0 3-11 mmol/L Blood Urea Nitrogen 13 13 7-18 mg/dl Creatinine 1.01 0.88 0.60-1.40 mg/dl Est Creatinine Clear Calc Drug Dose 69.9 78.4 ml/min Estimated GFR () 84.5 98.1 Estimated GFR (Non- 72.9 84.6 BUN/Creatinine Ratio 13.0 14.5 10-20 Random Glucose 193 174 70-99 mg/dl Calcium Level 9.2 9.0 8.5-10.1 mg/dl Magnesium Level 1.9 1.8-2.4 mg/dl Total Bilirubin 1.3 1.3 0.2-1 mg/dl Direct Bilirubin 0.3 0.4 0-0.2 mg/dl Aspartate Amino Transf (AST/SGOT) 39 30 15-37 U/L Alanine Aminotransferase (ALT/SGPT) 26 22 12-78 U/L Alkaline Phosphatase 126 111 45-117 U/L Total Creatine Kinase 27 39-308 U/L Creatine Kinase MB < 0.5 0.5-3.6 ng/ml Creatine Kinase MB Ratio 0-3.0 Total Protein 8.0 7.4 6.4-8.2 gm/dl Albumin 3.9 3.5 3.4-5.0 gm/dl Bedside Troponin I 0.060 0-0.045 ng/ml Prothrombin Time 10.8 9.0-12.0 SECONDS Prothromb Time International Ratio 1.0 0.9-1.1 Activated Partial Thromboplast Time 27.4 21.0-31.0 SECONDS Partial Thromboplastin Ratio 1.1 Troponin I 0.032 0.034 0-0.045 ng/ml Estimated Average Glucose 131 mg/dl Hemoglobin A1c 6.2 4.5-5.6 % Triglycerides Level 48 0-150 mg/dl Cholesterol Level 158 0-200 mg/dl HDL Cholesterol 68 mg/dl LDL Cholesterol, Calculated 80 mg/dl VLDL Cholesterol, Calculated 10 mg/dl Cholesterol/HDL Ratio 2.3 Test 09/15/17 10:15 Range/Units Urine Color YELLOW Urine Appearance CLEAR CLEAR Urine pH 6.0 4.5-7.5 Urine Specific [place] 1.031 1.000-1.030 Urine Protein NEG NEG Urine Glucose (UA) TRACE NEG Urine Ketones TRACE NEG Urine Occult Blood NEG NEG Urine Nitrite NEG NEG Urine Bilirubin NEG NEG Urine Urobilinogen NEG NEG Urine Leukocyte Esterase NEG NEG Diagnostic Radiology TTE * The left ventricle is normal in size. * There is normal left ventricular wall thickness. * Ejection Fraction = 60-65%. * Left ventricular systolic function is normal. * Grade I diastolic dysfunction, (abnormal relaxation pattern). * The left ventricular wall motion is normal. CT ANGIOGRAM OF THE CHEST CLINICAL HISTORY: Dyspnea. COMPARISON STUDY: Chest x-ray dated 09/14/2017. TECHNIQUE: Following the IV administration of 99 cc of Optiray 320, CT angiogram of the chest was performed from the upper abdomen to the thoracic inlet utilizing the pulmonary embolus protocol. Images are reviewed in the axial, sagittal, and coronal planes. 3-D MIPS images are created and assessed. IV contrast was administered without complication. A dose lowering technique was utilized adhering to the principles of ALARA. The examination is degraded by motion artifact. CT DOSE: 468.58 mGy.cm FINDINGS: Thyroid: Imaged portions of the thyroid gland are enlarged and heterogeneous and attenuation. Thoracic aorta: There is after sclerotic calcification of the thoracic aorta, which is normal in caliber and demonstrates standard 3-vessel arch anatomy. No dissection is seen. Pulmonary vasculature: The pulmonary trunk is normal in caliber. There are no central filling defects identified in main, lobar, or proximal segmental pulmonary branches to suggest pulmonary embolus. Evaluation of the peripheral branches is degraded by motion artifact. Heart: The heart is mild enlarged and there is a small to moderate pericardial effusion. The coronary arteries are densely calcified. Lungs and pleural spaces: Evaluation of the lung parenchyma is significantly degraded by motion artifact. Emphysematous change is seen at the apices. No airspace consolidation is identified. There is no pleural effusion. Linear scarring versus atelectasis is present in the lung bases. The trachea and central airways are clear. Mediastinum: There is no mediastinal lymphadenopathy. [place]: Clear. Axillae: There is no axillary lymphadenopathy. Upper abdomen: A stent graft is partially visualized in the abdominal aorta. There is a 1.4 cm ovoid water attenuation lesion in the pancreatic neck seen on image #36, typical in appearance for small sidebranch IPMN. A tiny hiatal hernia is observed. Skeletal structures: The skeletal structures are osteopenic. No lytic or blastic bony lesions are seen. Arthritic change is noted in the shoulders. IMPRESSION: 1. Motion compromise examination. 2. There is no evidence of central pulmonary embolus in the main, lobar, or proximal segmental pulmonary arteries. 3. Mild cardiomegaly and emphysema. 4. There is a small to moderate pericardial effusion. 5. No airspace consolidation or pleural effusion is identified. 6. Additional findings as above. ULTRASOUND BILATERAL LOWER EXTREMITY VENOUS CLINICAL HISTORY: Dyspnea. Clinical concern for deep venous thrombosis. COMPARISON STUDY: No priors. TECHNIQUE: Real-time, grayscale, and color Doppler sonography of the deep veins of the right and left lower extremity was performed from the inguinal crease to the calf. Compression and augmentation were utilized. FINDINGS: There is no sonographic evidence of deep venous thrombosis identified in the right or left lower extremity. The common femoral, superficial femoral, and popliteal veins are patent and normally compressible bilaterally. The greater saphenous vein and the profunda femoris vein at the junction with the common femoral vein are clear in both legs. The visualized calf veins are patent bilaterally. IMPRESSION: There is no sonographic evidence of deep venous thrombosis identified in the right or left lower extremity. CHEST ONE VIEW PORTABLE HISTORY: 72 years-old Male CP, CHF acute atypical chest pain with difficulty breathing. History of congestive heart failure COMPARISON: None available TECHNIQUE: Portable upright AP view of the chest FINDINGS: Cardiac silhouette is mildly enlarged, unchanged. There is atherosclerosis of the aorta. No pneumothorax, pleural effusion or focal airspace consolidation. Linear subsegmental right perihilar opacity is noted. The bones are grossly intact. IMPRESSION: Linear subsegmental right perihilar opacity suggest atelectasis or scarring. EKG EKG from 09/14/2017 Ventricular rate Sinus rhythm with occasional Premature ventricular complexes Prolonged QT Abnormal ECG Impression Assessment and Plan Dyspnea COPD (FEV1 unknown) Diastolic dysfunction, grade 1 Anxiety/depressive disorder Alcohol abuse disorder Hyponatremia Oral thrush Mr. Morrissey is a 72-year-old male with 3 month history of shortness of breath. He was recently diagnosed with COPD via PFT, FEV1 unknown. Nonetheless he was started on Breo Ellipta and albuterol. He states that these are not relieving his symptoms. Technique reviewed. Imaging is negative for pulmonary embolism, pleural effusion and pneumothorax or pneumonia. CT chest did show mild-to- moderate pericardial effusion. TTE shows mild diastolic dysfunction, no hemodynamic compromise. Patient appears to be quite anxious. His symptoms are more severe when he is still then on exertion. He also has history of alcohol use daily and states that he sometimes gets tremulous when he does not drink in the evenings. This may be contributing to the hyponatremia that we're seeing on his labs. I feel that his dyspnea is much due to his anxiety/depressive disorder with an COPD exacerbation. Recommendations I would empirically continue to treat for COPD exacerbation for 5 days total of antibiotics. I would switch him over to prednisone 20 mg 5 days. He should continue on ICS upon hospital discharge. Recommend that he presents mouth as this can persist precipitate oral thrush which was seen examination today. He should start statin swish and swallow. He would benefit from a psychiatric evaluation to optimize medications. The Zoloft and Ativan did not appear adequate at this time. I would monitor him for alcohol withdrawal. Give folate and vitamin B12. Continue with DVT prophylaxis and PPI. I appreciate the consult.
[2017-09-15] MEDS ORDERED: POTASSIUM CHLORIDE 10 MEQ TABCR PO STA (17:59)
[2017-09-16] MEDS: BREO ELLIPTA: ORDER AWAITING ACTION SCH
[2017-09-16 03:50] VITALS: BP 130/75; PULSE 62; TEMP 37; O2SAT 95
[2017-09-16] MEDS: METHYLPREDNISOLONE IV 40 MG in SYRINGE 0 ML IV SCH (04:45)
[2017-09-16] MEDS: LEVOTHYROXINE 125 MCG TAB PO SCH (06:00)
[2017-09-16] MEDS: HEPARIN SOD 5000 UNIT/0.5 ML CARP SQ SCH ×3 (06:00→21:03)
[2017-09-16 07:46] VITALS: BP 154/83; PULSE 80; TEMP 36.9; O2SAT 94
[2017-09-16] MEDS: LEVALBUTEROL 1.25MG/3ML NEB INH SCH ×3 (08:00→19:44)
[2017-09-16 08:10] LABS: BASO % 0.1 %; BASO ABS # 0.01 K/uL (0-0.2); COMPLETE YES; HEMATOCRIT 41.7 % (42-52); IG% 0.6 %; LYMPH ABS # 0.76 K/uL (1.2-3.4); MEAN CELL VOLUME 94.6 fL (80-100); MEAN CORPUSCULAR HEMOGLOBIN 34.7 pg (25-34); MEAN CORPUSCULAR HGB CONC 36.7 g/dl (32-36); MEAN PLATELET VOLUME 9.5 fL (7.4-10.4); MONO % 6.5 %; NEUT % 86.8 %; PLATELET COUNT 215 K/uL (130-400); RED BLOOD COUNT 4.41 M/uL (4.7-6.1); WHITE BLOOD COUNT 12.57 K/uL (4.8-10.8)
[2017-09-16] MEDS ORDERED: LORAZEPAM 0.5 MG TAB PO PRN (08:15)
[2017-09-16 08:40] LABS: BUN/CREATININE RATIO 24.2 (10-20); CREATININE 0.83 mg/dl (0.60-1.40); POTASSIUM 3.8 mmol/L (3.5-5.1)
[2017-09-16] MEDS ORDERED: FLUTICASONE/SALMETEROL 250/50 (ADVAIR) 14 PUFF/1 INHALER INH SCH (09:00)
[2017-09-16] MEDS: MULTI-VITAMIN INFUSION INJ 10 ML, THIAMINE HCL INJ 100 MG, FoLIC ACID INJ 1 MG in SODIU... IV SCH (09:14)
[2017-09-16] MEDS: MAGNESIUM OXIDE 400 MG TAB PO SCH (09:15)
[2017-09-16] MEDS: AMLODIPINE BESYLATE 5 MG TAB PO SCH (09:16)
[2017-09-16] MEDS: SERTRALINE HCL 50 MG TAB PO SCH (09:17)
[2017-09-16] MEDS: CLOPIDOGREL BISULFATE 75 MG TAB PO SCH (09:17)
[2017-09-16] MEDS: LEVOFLOXACIN 500 MG TAB PO SCH (10:35)
[2017-09-16] MEDS: NYSTATIN SUSP 500,000 U/5 ML UDC PO SCH ×3 (10:35→21:01)
--- NOTE | 2017-09-16 14:02 | Psychiatric Consultation ---
Consultation Date of Consultation Sep 16, 2017. Identifying Data The patient is a 72-year-old male with the diagnosis of COPD after a 45 year history of smoking between 1 and 2 packs of cigarettes daily. He reports that he quit 2 months ago, essentially "cold turkey" because he realized he was having progressive difficulty breathing. He initially experienced withdrawal symptoms, including anxiety and cravings, but he reports that the cravings have. The patient also has diagnoses of hypothyroidism, CAD, aortic aneurysm ( repaired) and anxiety. He reports after a worsening shortness of breath 3 days. Patient reports he was recently hospitalized in [place] on 09/12 for a 24- hour period, and that on Tuesday when he was there, his breathing felt quite good. He was sent home on a 5 day Levaquin course, as well as a prednisone taper. The patient reports that he has lost approximately 9 pounds in the past 2 weeks, circumstance that he attributes to low oral intake. At admission, on PE and testing: CXR reviewed without any acute process. EKG showing NSR, he is slightly tachy upon exam. He was Hyponatremic,with decreased magnesium, no WBC elevation and he was afebrile. The record indicates the patient carries a diagnosis of obstructive sleep apnea, but the patient tells me that he has not had sleep studies and does not use a CPAP or BiPAP machine. Chief Complaint "I have these spells where I can't breath." History of Present Illness This 72-year-old man was admitted to [facility] on 09/14/2017 because of an increase in his chronic shortness of breath. The patient tells me that at least several times a day he experiences the acute onset of shortness of breath, and describes the sensation as being similar to that which one might experience if once had was being held underwater. Within this context , he notes that he feels extremely anxious, and has the feeling that he is about to . He says that he is not aware of any increased heartbeat, does not experience diaphoresis, and does not describe associated paresthesias. Mr. Morrissey tells me that he is always been a fairly "nervous person," and that he tends to "be a worrier." For example, he worries about his 's health, he worries about money, he worries if the house is properly heated celibate pipe performed freeze, he worries if the appliances will work properly, etc. However , the patient notes that for at least the past several weeks his level of anxiety has been higher, and he tends to ruminate more frequently about various things that "might go wrong." Further, the patient says that sometimes when he is trying to fall asleep he suddenly finds that he can't breathe, just as he enters in the hypnagogic state, and awakens with a startle and a panic feeling. Of note is the fact that the patient's roommate here at [facility] tells me that last night the patient had a number of episodes during which he appeared to be gasping for air, followed by periods during which the roommate heard no breath sounds. The roommates estimate was that this happened about 5 times during the night, and the patient says that he does not remember them and does not believe that he was awake. He reports that he does not carry a known diagnosis of obstructive sleep apnea, and he does not recall ever having had sleep studies or using a BiPAP or CPAP machine. However, the admission history and physical indicates that he has a diagnosis of obstructive sleep apnea. The patient does not endorse vegetative symptoms of depression, other than fatigue, circumstance that he attributes to poor sleep which, in turn , he relates to his shortness of breath and anxiety. He denies anhedonia, denies that he feels hopeless, denies feeling worthless, says that he feels that he can concentrate well, and has had no thoughts of suicide. He has never previously seen a psychiatrist. As noted above, the patient has lost approximately 9 pounds over the past 2 weeks. He notes that he is sometimes "afraid to eat," because he worries that if a episode of shortness of breath occurs while he has his mouthful he may choke or suffocate. Currently, he is prescribed sertraline (Zoloft) 25 mg daily and lorazepam 0.5 mg daily as needed for anxiety. Past Psychiatric History Current OP Treatment: no current treatment Prior OP Treatment: no prior treatment Prior Psych Hospitalizations: none Access to a Gun: Yes (the patient says that he has several firearms in the house, and enjoys hunting as a hobby) Suicide Attempts: No Past Medication Trials None Past Medical/Surgical History History of Concussion/Seizure: No Allergies Allergies: Coded Allergies: No Known Allergies (Unverified , 09/14/17) Home Medications Scheduled Amlodipine (Norvasc), 2.5 MG PO DAILY Clopidogrel (Plavix), 75 MG PO DAILY Fluticasone Furoate-Vilanterol (Breo Ellipta 200-25 Mcg/INH), 1 PUFF PO DAILY Hydrochlorothiazide (Hydrochlorothiazide), 25 MG PO DAILY Levofloxacin (Levaquin), 500 MG PO DAILY Levothyroxine Sodium (Synthroid), 125 MCG PO DAILY Magnesium Oxide (Mag-Ox), 400 MG PO DAILY Prednisone (Sterapred 12 Day), Unknown Dose PO UD Sertraline (Zoloft), 25 MG PO DAILY Scheduled PRN Albuterol Hfa (Ventolin Hfa), 2 PUFFS INH Q6H PRN for SOB/Wheezing Lorazepam (Ativan), 0.5 MG PO DAILY PRN for Anxiety Family History History of Suicide: No History of Substance Abuse: No Psychiatric History: No Alcohol Use Alcohol Use In Past 12 Months: No Smoking Use Smoking Status: Former Smoker (the patient reports a 45-90 pack-year history, and quit smoking approximately 2 months ago.) Substance History none Personal History Lives in: Near [place] Education: graduated from high school Relationship History: (The patient reports that he has been for 54-years.) Spiritual Affiliation: "[employer]." Legal History: none Psychological Trauma History: Denies Hx Traumatic Event (Lost his right index finger in an accident) Review of Systems Cardiovascular: reports: other (hypertension, coronary artery disease) Respiratory: reports: short of breath, other (patient carries a diagnosis of COPD but does not typically where nasal oxygen) Gastrointestinal: denies no symptoms reported, denies see HPI, denies abdominal pain, denies constipation, denies diarrhea, denies nausea, denies vomiting, denies other Genitourinary - Male: denies: no symptoms, see HPI, rash, amenorrhea, penile itching, penile discharge, testicular pain, testicular swelling, impotence, other Musculoskeletal: denies no symptoms reported, denies see HPI, denies back pain , denies gout, denies joint pain, denies joint swelling, denies muscle pain, denies muscle stiffness, denies neck pain, denies other Integumentary: denies no symptoms reported, denies see HPI, denies change in color, denies change in hair/nails, denies dryness, denies lesions, denies lumps , denies rash, denies other Neurologic: denies: no symptoms, see HPI, headache, numbness, paresthesias, pre -existing deficit, seizure, tingling, tremors, general weakness, tics, focal weakness, vertigo, lethargy, memory loss, dizziness, other Endocrine: other (hypothyroidism) Hematologic / Lymphatic: other (hyponatremia) Examination Vital Signs Vital Signs Past 12 Hours Date Time Temp Pulse Resp B/P (MAP) Pulse Ox O2 Delivery O2 Flow Rate FiO2 09/16/17 12:00 Room Air 09/16/17 08:00 Room Air 09/16/17 07:46 36.9 80 16 154/83 (106) 94 Room Air 09/16/17 04:00 Nasal Cannula 2.0 09/16/17 03:50 37.0 62 16 130/75 (93) 95 Room Air Laboratory Results Last 24 Hours Test 09/16/17 07:27 09/16/17 07:40 09/16/17 11:38 Bedside Glucose 149 mg/dl 147 mg/dl White Blood Count 12.57 K/uL Red Blood Count 4.41 M/uL Hemoglobin 15.3 g/dL Hematocrit 41.7 % Mean Corpuscular Volume 94.6 fL Mean Corpuscular Hemoglobin 34.7 pg Mean Corpuscular Hemoglobin Concent 36.7 g/dl Platelet Count 215 K/uL Mean Platelet Volume 9.5 fL Neutrophils (%) (Auto) 86.8 % Lymphocytes (%) (Auto) 6.0 % Monocytes (%) (Auto) 6.5 % Eosinophils (%) (Auto) 0.0 % Basophils (%) (Auto) 0.1 % Neutrophils # (Auto) 10.91 K/uL Lymphocytes # (Auto) 0.76 K/uL Monocytes # (Auto) 0.82 K/uL Eosinophils # (Auto) 0.00 K/uL Basophils # (Auto) 0.01 K/uL RDW Standard Deviation 44.0 fL RDW Coefficient of Variation 12.8 % Immature Granulocyte % (Auto) 0.6 % Immature Granulocyte # (Auto) 0.07 K/uL Sodium Level 128 mmol/L Potassium Level 3.8 mmol/L Chloride Level 95 mmol/L Carbon Dioxide Level 24 mmol/L Anion Gap 9.0 mmol/L Blood Urea Nitrogen 20 mg/dl Creatinine 0.83 mg/dl Est Creatinine Clear Calc Drug Dose 82.9 ml/min Estimated GFR () 100.5 Estimated GFR (Non- 86.7 BUN/Creatinine Ratio 24.2 Random Glucose 144 mg/dl Calcium Level 9.0 mg/dl Mental Examination During interview pt is: alert and oriented, cooperative Appearance: appropriately dressed Eye contact is: good Motor behavior is: steady gait & station Speech: normal in rate, rhythm & volume Affect: anxious Mood is: anxious Thought process: goal directed, linear, logical Thought content: preoccupation, reality based without delusions Suicidal thought are: denied Homicidal thoughts are: denied Hallucinations: denies auditory, denies visual Cognition: memory grossly intact Intelligence estimated to be: average Insight: fair Judgement: good Impression / Recommendations Impression This 72-year-old man has chronic shortness of breath on exertion, but has had episodes several times a day and at night during which, at rest, he suddenly has difficulty breathing, and feels as if he is suffocating. Within that context, experiences extreme anxiety and a sense of terror. He does not use supplemental oxygen at home, and in the hospital his oxygen saturation has been in the mid 90s on room air. According to the patient's roommate here in the hospital, the patient has had recurrent episodes at night during which she appears to be still sleeping, but gasping for air or choking, and then his breathing falls silent briefly before resuming. I believe that the differential diagnosis in this case includes panic disorder and obstructive sleep apnea. My understanding is that sleep studies have been discussed or are planned. In the meantime, I would recommend continued use of sertraline to treat anxiety and prevent panic episodes. Also, given the frequency of the episodes, a trial of a standing dose of a benzodiazepine may be indicated. Certainly, benzodiazepines in the elderly pros risks, including risks of falling and habituation. May also suppress the patient's respirations. However , I would think that this risk is outweighed by the anticipated benefits associated with preventing what appears to be anxiety-related shortness of breath during the day. It is possible that the daytime episodes of shortness of breath occur with the patient is beginning to doze off to sleep, as he says he sometimes does, but is not clear that this is the case. A benzodiazepine would not be indicated at bedtime as a way of preventing nocturnal episodes of apnea, and for that reason I would make a sleep study a priority. Today, I am recommending that we increase the dose of sertraline from 25 mg daily to 50 mg daily. Also, while in the hospital, I would suggest we try a standing dose of clonazepam 0.5 mg twice a day in order to see if this relieves the patient's episodes of anxiety and shortness of breath. If it does not, I would recommend discontinuing it prior to discharge. Inventory Assets Strengths: Supportive family. Motivated to wellness Needs: Multiple somatic problems. Possible obstructive sleep apnea. Risk Factors Assessment Male: Yes : Yes /single/: No Higher / Fall in social status: No Access to guns: Yes Health problems: Yes Mental Health Diagnoses: No Substance use disorders: No Previous attempt: No Family history of suicide: No Previous psychiatric stay: No Hopelessness: No Smoker: No Protective Factors Assessment Christianity beliefs: Yes : Yes Responsible for young children: No Employed: No Stable relationships: Yes Supportive family: Yes Good rapport with provider: Yes Absence of risk factors above: No Recommendations (1) Generalized anxiety disorder The patient's underlying anxiety symptoms may respond favorably to sertralineat a somewhat higher dose than his current dose of 25 mg daily. Today, I will increase his dose of sertraline to 50 mg daily, and would recommend titrating the dose higher to 100 or 125 mg daily as tolerated, based upon his response. (2) Panic attacks It is my hope that the increased dose of sertraline well help control the patient's panic episodes/anxiety symptoms. In the meantime, I would like to offer him a trial of clonazepam 0.5 mg twice a day on a standing dose basis while in the hospital just see if this medication relieves his problematic symptoms of sudden onset shortness of breath. The episodes of apnea at night certainly would suggest obstructive sleep apnea, and it does not clear at this point if the patient has actually had a sleep study or he is supposed to be wearing a CPAP/BiPAP. Evidently, he is not wearing one in the hospital and this may explain the nocturnal episodes of gasping for air, as described by his roommate.
--- NOTE | 2017-09-16 14:07 | Progress Note ---
Subjective Date of Service: Sep 16, 2017. Subjective Pt evaluation today including: conversation w/ patient, conversation w/ family , physical exam, chart review, lab review, review of studies, conversation w/ [facility] consultant, review of inpatient medication list looks calm, not anxious, some dry cough, no difficulty breathing, not really anxious, Problem List Medical Problems: (1) Dyspnea on exertion Status: Acute (2) Elevated troponin Status: Acute (3) Hyponatremia Status: Acute Review of Systems Constitutional: + fatigue, No fever, No chills, No sweats, No weight loss, No weakness, No problem reported Eyes: No worsening of vision, No eye pain, No redness, No discharge, No diplopia ENT: No hearing loss, No unusual epistaxis, No nasal symptoms, No sore throat, No tinnitus, No dental problems, No trouble swallowing Respiratory: No cough, No sputum, No wheezing, No shortness of breath, No dyspnea on exertion, No dyspnea at rest, No hemoptysis Cardiac: No chest pain, No orthopnea, No PND, No edema, No claudication, No palpitations Abdomen: No pain, No nausea, No vomiting, No diarrhea, No constipation Musculoskeletal: No joint pain, No muscle pain, No swelling, No calf pain Male : No dysuria, No urinary frequency, No incontinence, No nocturia more than once/night, No slowing stream, No hematuria Neurologic: No memory loss, No paralysis, No weakness, No numbness/tingling, No vertigo, No balance problems Psychiatric: + anxiety, No depression symptoms, No anhedonism, No insomnia, No substance abuse Heme: No abnormal bleeding/bruising, No clotting problems, No swollen lymph nodes, No night sweats Endo: No fatigue, No excessive thirst, No excessive urination Skin: No rash, No itch, No new/changing skin lesions, No color change, No bleeding Objective Vital Signs Date Time Temp Pulse Resp B/P (MAP) Pulse Ox O2 Delivery O2 Flow Rate FiO2 09/16/17 12:00 Room Air 09/16/17 08:00 Room Air 09/16/17 07:46 36.9 80 16 154/83 (106) 94 Room Air 09/16/17 04:00 Nasal Cannula 2.0 09/16/17 03:50 37.0 62 16 130/75 (93) 95 Room Air 09/16/17 00:00 Nasal Cannula 2.0 09/15/17 23:35 36.8 86 18 126/75 (92) 96 09/15/17 20:00 Nasal Cannula 2.0 09/15/17 19:41 37.5 100 18 109/73 (85) 90 2.0 09/15/17 19:37 36.5 90 18 148/86 (106) 93 09/15/17 16:00 Nasal Cannula 2.0 09/15/17 15:26 37.0 93 18 139/89 (106) 92 Room Air Physical Exam General Appearance: WD/WN, no apparent distress Eyes: normal inspection, PERRL, EOMI, sclerae normal ENT: normal ENT inspection, hearing grossly normal, pharynx normal Neck: supple, no adenopathy, thyroid normal, no JVD, no carotid bruits, trachea midline Respiratory/Chest: chest non-tender, normal breath sounds, no respiratory distress, no accessory muscle use, + decreased breath sounds Cardiovascular: regular rate, rhythm, no edema, no gallop, no JVD, no murmur Abdomen: normal bowel sounds, non tender, soft, no organomegaly, no pulsatile mass Extremities: normal range of motion, non-tender, normal inspection, no pedal edema, no calf tenderness, normal capillary refill, pelvis stable Neurologic/Psychiatric: blocker heated metal forms II-XII nml as tested, no motor/sensory deficits, alert, normal mood/affect, oriented x 3 Skin: normal color, warm/dry, no rash Lymphatic: no adenopathy Laboratory Results Last 24 Hours Test 09/16/17 07:27 09/16/17 07:40 09/16/17 11:38 Bedside Glucose 149 mg/dl 147 mg/dl White Blood Count 12.57 K/uL Red Blood Count 4.41 M/uL Hemoglobin 15.3 g/dL Hematocrit 41.7 % Mean Corpuscular Volume 94.6 fL Mean Corpuscular Hemoglobin 34.7 pg Mean Corpuscular Hemoglobin Concent 36.7 g/dl Platelet Count 215 K/uL Mean Platelet Volume 9.5 fL Neutrophils (%) (Auto) 86.8 % Lymphocytes (%) (Auto) 6.0 % Monocytes (%) (Auto) 6.5 % Eosinophils (%) (Auto) 0.0 % Basophils (%) (Auto) 0.1 % Neutrophils # (Auto) 10.91 K/uL Lymphocytes # (Auto) 0.76 K/uL Monocytes # (Auto) 0.82 K/uL Eosinophils # (Auto) 0.00 K/uL Basophils # (Auto) 0.01 K/uL RDW Standard Deviation 44.0 fL RDW Coefficient of Variation 12.8 % Immature Granulocyte % (Auto) 0.6 % Immature Granulocyte # (Auto) 0.07 K/uL Sodium Level 128 mmol/L Potassium Level 3.8 mmol/L Chloride Level 95 mmol/L Carbon Dioxide Level 24 mmol/L Anion Gap 9.0 mmol/L Blood Urea Nitrogen 20 mg/dl Creatinine 0.83 mg/dl Est Creatinine Clear Calc Drug Dose 82.9 ml/min Estimated GFR () 100.5 Estimated GFR (Non- 86.7 BUN/Creatinine Ratio 24.2 Random Glucose 144 mg/dl Calcium Level 9.0 mg/dl Assessment and Plan 72-year-old male with admitted on 09/14/2017 because of worsening shortness of breath 3 days. PMHx COPD, of 45 year 1-2+ ppd, smoking history, quit 2 months ago, KRISTEN and anxiety, PCP in [facility] Dr. Avitia, pulmonary just is Dr.Garphary Dr. Walker in [facility] COPD versus asthma exacerbation, possible KRISTEN, pulm input appreciated , switch Solu-Medrol , to by mouth prednisone 20 mg by mouth daily, and continue on levaquin 500 mg daily for total 5 days, this will be day #5 for the patient, we'll discontinue CTA for PE , Dopplers of bilateral lower extremity were negative for PE or DVT respectively, should start statin swish and swallow. Possible sleep apnea because he reported has stop breathing, will order nocturnal possible studies for nighttime oxygen need during the sleep, and may encourage patient to follow-up with PCP/deck supervisor in [place] Continued [facility] stay due to: home environment unsafe for pt Discharge planning: home
[2017-09-16] MEDS: CLONAZEPAM 0.5 MG TAB PO SCH ×2 (15:10→17:29)
[2017-09-16 16:20] VITALS: BP 138/83; PULSE 87; TEMP 36.4; O2SAT 93
--- NOTE | 2017-09-16 17:07 | Pulmonology Progress Note ---
Pulmonary Progress Note Date of Service Sep 16, 2017. Attending Dr. James Subjective Patient seen and examined at bedside. States he is quite anxious. He still feeling some shortness of breath at rest. He is ambulated the halls several times this morning and denies any episodes of dyspnea on exertion. According to remain patient had several episodes of paroxysmal nocturnal dyspnea which awakened him from sleep and were associated with episodes of choking sensation and gastric for breath. He requests to have his pulse oximetry taken while I was in the room. Pulse oximeter when I was at bedside showed SaO2 of 98% with a heart rate of 82%. After seeing these results patient request to see psychiatrist to help optimize medications for anxiety. Objective Vital signs reviewed. Saturating 98% on room air with a heart rate of 82 when I was at bedside. Gen.: Awake, alert and oriented 3, patient intermittently tremulous secondary to anxiety. CVS: S1-S2 regular rate and rhythm Lungs: Clear to auscultation bilaterally, no wheezing Abdomen: Bowel sounds positive, soft, nontender, nondistended Extremities: No cyanosis, no clubbing and no edema. Labs reviewed. Imaging reviewed and reviewed by me Medications reviewed. Assessment & Plan Dyspnea COPD (FEV1 unknown) Diastolic dysfunction, grade 1 Anxiety/depressive disorder Alcohol abuse disorder Hyponatremia Oral thrush Mr. Morrissey is a 72-year-old male with 3 month history of shortness of breath. He was recently diagnosed with COPD, FEV1 unknown. He has a strong element of panic/anxiety disorder. Also long history of chronic alcohol use. From a respiratory standpoint, patient saturating well. No episodes of desaturation. Patient feels better with exertion and then at rest. Noted by a roommate to have episodes of apnea followed by paroxysmal nocturnal dyspnea and anxiety. Patient requesting to see psychiatrist. Recommendations Continue to use supplemental oxygenation when necessary. Recommend overnight sleep oximetry to evaluate for nocturnal oxygen. He should have a sleep study arranged upon discharge for possible CPAP. I would switch him over to prednisone 20 mg 5 days. Continue with the statin swish and swallow for oral thrush. Resume inhaled corticosteroid/LABA upon discharge. He also may benefit from Spiriva. Patient seen by psychiatry. See recommendations. Continue to monitor for alcohol withdrawal. Continue with DVT prophylaxis. I will sign off case today. Please consult me if you've any further questions or concerns. Data Medications: Current Inpatient Medications Medications (Trade) Dose Ordered Sig/Gus Route Start Time Stop Time Status Last Admin Dose Admin Acetaminophen (Tylenol Tab) 650 mg Q4H PRN PO 09/14/17 17:15 10/14/17 17:14 Magnesium Hydroxide (Milk Of Magnesia Susp) 30 ml Q12H PRN PO 09/14/17 17:15 10/14/17 17:14 Ondansetron HCl (Zofran Inj) 4 mg Q6H PRN IV 09/14/17 17:15 10/14/17 17:14 Polyethylene (Miralax Powder Packet) 17 gm DAILY PRN PO 09/14/17 17:15 10/14/17 17:14 Amlodipine Besylate (Norvasc Tab) 2.5 mg DAILY PO 09/15/17 09:00 10/15/17 08:59 09/16/17 09:16 2.5 MG Clopidogrel Bisulfate (plAVix TAB) 75 mg DAILY PO 09/15/17 09:00 10/15/17 08:59 09/16/17 09:17 75 MG Levothyroxine Sodium (Synthroid Tab) 125 mcg DAILYBB PO 09/15/17 06:30 10/15/17 06:59 09/16/17 06:00 125 MCG Magnesium Oxide (Mag-Ox Tab) 400 mg DAILY PO 09/15/17 09:00 10/15/17 08:59 09/16/17 09:15 400 MG Ioversol (Optiray 320) 100 ml UD PRN IV 09/14/17 17:30 09/18/17 17:29 Levofloxacin (Levaquin Tab) 500 mg DAILY@11 PO 09/14/17 20:00 09/16/17 19:59 09/16/17 10:35 500 MG Heparin Sodium (Porcine) (Heparin Sq 5000 Unit/0.5ml) 5,000 unit Q8 SQ 09/14/17 23:00 10/14/17 22:59 09/16/17 14:32 5,000 UNIT Levalbuterol (Xopenex 1.25MG/ 3ML Neb) 1.25 mg Q8R INH 09/15/17 16:00 10/15/17 15:59 Al Hydroxide/Mg Hydroxide (Maalox Susp) 30 ml Q6H PRN PO 09/15/17 12:45 10/15/17 12:44 Prednisone (PredniSONE TAB) 20 mg DAILY PO 09/16/17 09:00 10/16/17 08:59 09/16/17 09:15 20 MG Nystatin (Mycostatin Susp) 10 ml ACHS PO 09/16/17 11:00 09/26/17 10:59 09/16/17 10:35 10 ML Multivitamins 10 ml/Thiamine HCl 100 mg/Folic Acid 1 mg/Sodium Chloride 1,011.2 ml @ 100 mls/ hr DAILY IV 09/16/17 09:00 10/16/17 08:59 09/16/17 09:14 100 MLS/HR Lorazepam (Ativan Tab) 0.5 mg Q8 PRN PO 09/16/17 08:15 10/16/17 08:14 Budesonide/ Formoterol Fumarate (Symbicort 160/ 4.5 Inh) 2 puffs BID INH 09/16/17 21:00 10/16/17 20:59 Clonazepam (Klonopin Tab) 0.5 mg BID17 PO 09/16/17 14:27 10/16/17 14:26 09/16/17 15:10 0.5 MG Sertraline HCl (Zoloft Tab) 50 mg QAM PO 09/17/17 09:00 10/17/17 08:59 I & O: 24-Hour Column 09/17/17 08:00 Intake Total 902 ml Balance 902 ml Vital Signs: Date Time Temp Pulse Resp B/P (MAP) Pulse Ox O2 Delivery O2 Flow Rate FiO2 09/16/17 16:20 36.4 87 18 138/83 (101) 93 Room Air 09/16/17 16:00 Room Air 09/16/17 12:00 Room Air 09/16/17 08:00 Room Air 09/16/17 07:46 36.9 80 16 154/83 (106) 94 Room Air 09/16/17 04:00 Nasal Cannula 2.0 09/16/17 03:50 37.0 62 16 130/75 (93) 95 Room Air 09/16/17 00:00 Nasal Cannula 2.0 09/15/17 23:35 36.8 86 18 126/75 (92) 96 09/15/17 20:00 Nasal Cannula 2.0 09/15/17 19:41 37.5 100 18 109/73 (85) 90 2.0 09/15/17 19:37 36.5 90 18 148/86 (106) 93 Laboratory Results: Last 24 Hours Test 09/16/17 07:27 09/16/17 07:40 09/16/17 11:38 Bedside Glucose 149 mg/dl 147 mg/dl White Blood Count 12.57 K/uL Red Blood Count 4.41 M/uL Hemoglobin 15.3 g/dL Hematocrit 41.7 % Mean Corpuscular Volume 94.6 fL Mean Corpuscular Hemoglobin 34.7 pg Mean Corpuscular Hemoglobin Concent 36.7 g/dl Platelet Count 215 K/uL Mean Platelet Volume 9.5 fL Neutrophils (%) (Auto) 86.8 % Lymphocytes (%) (Auto) 6.0 % Monocytes (%) (Auto) 6.5 % Eosinophils (%) (Auto) 0.0 % Basophils (%) (Auto) 0.1 % Neutrophils # (Auto) 10.91 K/uL Lymphocytes # (Auto) 0.76 K/uL Monocytes # (Auto) 0.82 K/uL Eosinophils # (Auto) 0.00 K/uL Basophils # (Auto) 0.01 K/uL RDW Standard Deviation 44.0 fL RDW Coefficient of Variation 12.8 % Immature Granulocyte % (Auto) 0.6 % Immature Granulocyte # (Auto) 0.07 K/uL Sodium Level 128 mmol/L Potassium Level 3.8 mmol/L Chloride Level 95 mmol/L Carbon Dioxide Level 24 mmol/L Anion Gap 9.0 mmol/L Blood Urea Nitrogen 20 mg/dl Creatinine 0.83 mg/dl Est Creatinine Clear Calc Drug Dose 82.9 ml/min Estimated GFR () 100.5 Estimated GFR (Non- 86.7 BUN/Creatinine Ratio 24.2 Random Glucose 144 mg/dl Calcium Level 9.0 mg/dl
[2017-09-16 19:48] VITALS: BP 158/86; PULSE 96; TEMP 36.4; O2SAT 94
[2017-09-16] MEDS: BUDESONIDE/FORMOTEROL FUMARATE 160/4.5 60 PUFFS/INHALER INH SCH (21:00)
[2017-09-16 22:51] VITALS: BP 126/74; PULSE 76; TEMP 36.7; O2SAT 94
[2017-09-17 04:02] VITALS: BP 134/85; PULSE 78; TEMP 36.7; O2SAT 95
[2017-09-17 05:35] VITALS: O2SAT 91
[2017-09-17] MEDS: NYSTATIN SUSP 500,000 U/5 ML UDC PO SCH ×2 (06:08→10:11)
[2017-09-17] MEDS: LEVOTHYROXINE 125 MCG TAB PO SCH (06:08)
[2017-09-17] MEDS: HEPARIN SOD 5000 UNIT/0.5 ML CARP SQ SCH (06:09)
[2017-09-17 07:45] VITALS: BP 133/79; PULSE 71; TEMP 36.6; O2SAT 97
[2017-09-17 08:14] LABS: BASO % 0.1 %; BASO ABS # 0.01 K/uL (0-0.2); COMPLETE YES; EOS % 0.3 %; HEMATOCRIT 40.4 % (42-52); IG% 0.9 %; LYMPH % 27.7 %; LYMPH ABS # 2.78 K/uL (1.2-3.4); MEAN CELL VOLUME 95.1 fL (80-100); MEAN CORPUSCULAR HEMOGLOBIN 34.8 pg (25-34); MEAN CORPUSCULAR HGB CONC 36.6 g/dl (32-36); MEAN PLATELET VOLUME 9.4 fL (7.4-10.4); MONO % 10.5 %; NEUT % 60.5 %; PLATELET COUNT 179 K/uL (130-400); RED BLOOD COUNT 4.25 M/uL (4.7-6.1); WHITE BLOOD COUNT 10.02 K/uL (4.8-10.8)
[2017-09-17] MEDS: BUDESONIDE/FORMOTEROL FUMARATE 160/4.5 60 PUFFS/INHALER INH SCH (08:23)
[2017-09-17] MEDS: MAGNESIUM OXIDE 400 MG TAB PO SCH (08:23)
[2017-09-17] MEDS: CLONAZEPAM 0.5 MG TAB PO SCH (08:23)
[2017-09-17] MEDS: AMLODIPINE BESYLATE 5 MG TAB PO SCH (08:24)
[2017-09-17] MEDS: CLOPIDOGREL BISULFATE 75 MG TAB PO SCH (08:26)
[2017-09-17] MEDS: MULTI-VITAMIN INFUSION INJ 10 ML, THIAMINE HCL INJ 100 MG, FoLIC ACID INJ 1 MG in SODIU... IV SCH (08:40)
[2017-09-17] MEDS ORDERED: SERTRALINE HCL 50 MG TAB PO SCH (09:00)
[2017-09-17] MEDS ORDERED: SYMIN INH (14:10)
[2017-09-17] MEDS ORDERED: MULT-513 PO (14:10)
[2017-09-17] MEDS ORDERED: FOLI1TAB7 PO (14:10)
[2017-09-17] MEDS ORDERED: NYSS5 PO (14:10)
[2017-09-17] MEDS ORDERED: THIA100T11 PO (14:10)
[2017-09-17] MEDS ORDERED: PRED10TA PO (14:10)
[2017-09-17] MEDS ORDERED: ZLF50 PO (14:10)
[2017-09-17] MEDS ORDERED: SPRIN INH (14:10)
--- NOTE | 2017-09-17 14:11 | Discharge Instructions ---
Discharge Instructions Date of Service Sep 17, 2017. Admission Reason for Admission: Copd Exacerbation Discharge Discharge Diagnosis / Problem: asthma exacerbation, possible KRISTEN, Discharge Goals Goal(s): Decrease discomfort, Improve function, Increase independence, Improve disease control, Improve nutritional status, Learn about illness, Diagnostic testing, Therapeutic intervention, Prevent Disease Progression, Specific goals Activity Recommendations Activity Limitations: resume your previous activity . Instructions / Follow-Up Instructions / Follow-Up you have asthma exacerbation, possible KRISTEN, hypoxia during sleep need oxygen during the sleep You need to sleep studies when follow-up with PCP/patient access manager in [place] I'm giving you tapering dose of prednisone 10 mg 2 tab po dialy for 2 days then 1 tab by mouth daily for 2 days, Then half tab by mouth daily for another 2 days , then Stop You've had heavy alcohol drink, recommend quit drinking, I give him James acid, thiamine, multiple vitamin, - you need to follow up with your primary care physician in 1 week, - take medication as instructed, never overdose or any misuse, or take with alcohol, because misuse of medicine may cause organ damage or , call your primary care physician if have questions of medicaitons. - call your primary care physician OR go to local emergency room if has any fever/chill, chest pain, shortness of breathing, nausea/vomiting/abdominal pain , facial droop/slurry speech/local weakness, or if has any questions. - fall precaution - diet as instructed - you need to follow up with your subspecialists - you should understand that it is important to follow up the above instruction , and "not following the above instruction" may cause delayed or missed care of your medical conditions which may cause permanent organ damage and even . Current Hospital Diet Patient's current hospital diet: AHA Diet (Heart Healthy) Discharge Diet Recommended Diet: AHA Diet (Heart Healthy) Procedures Procedures Performed: no Pending Studies Studies pending at discharge: no Laboratory Results Hemoglobin A1c Test 09/15/17 08:02 Range/Units Estimated Average Glucose 131 mg/dl Hemoglobin A1c 6.2 H 4.5-5.6 % Lipid Panel Test 09/15/17 08:02 Range/Units Triglycerides Level 48 0-150 mg/dl Cholesterol Level 158 0-200 mg/dl HDL Cholesterol 68 mg/dl Cholesterol/HDL Ratio 2.3 LDL Cholesterol, Calculated 80 mg/dl Medical Emergencies . Who to Call and When: Medical Emergencies: If at any time you feel your situation is an emergency, please call 911 immediately. . Non-Emergent Contact Non-Emergency issues call your: Primary Care Provider, Heddle Machine Operator . . "Provider Documentation" section prepared by Alex De La Torre. . VTE Core Measure Inpt VTE Proph given/why not?: Unfractionated heparin SQ
[2017-09-17 14:22] VITALS: BP 133/79; PULSE 71; TEMP 36.6; O2SAT 97
--- NOTE | 2017-09-17 14:27 | Discharge Summary ---
Discharge Summary Date of Service Sep 17, 2017. Discharge Summary Admission Date: Sep 14, 2017 at 17:17 Discharge Date: Sep 17, 2017 Principal Diagnosis: asthma exacerbation, possible KRISTEN, Problems/Secondary Diagnoses: heavy alcohol drink, Procedures: No Consultations: Judge Medication Reconciliation New Medications: Folic Acid (Folvite) 1 Mg Tab 1 TAB PO DAILY for 30 Days, #30 TAB 5 Refills Multivitamins/Minerals (Mvi With Minerals) Tab 1 TAB PO DAILY for 30 Days, TAB Prednisone Tab (Prednisone) 10 Mg Tab 10 MG PO DAILY for 8 Days, #7 TAB 2 tab po dialy for 2 days then 1 tab by mouth daily for 2 days Then half tab by mouth daily for another 2 days, then Stop Thiamine Hcl (Vitamin B-1) 100 Mg Tab 100 MG PO DAILY for 30 Days, #30 TAB Budesonide/Formoterol Fumarate (Symbicort 160-4.5 Mcg/Act) 60 Puffs/Inhaler Aero 2 PUFFS INH BID for 7 Days, #1 Nystatin (Nystatin) 5 Ml Susp 10 ML PO ACHS for 7 Days Sertraline HCl (Sertraline HCl) 50 Mg Tab 50 MG PO QAM for 30 Days, #30 TAB Tiotropium [place] (Spiriva Handihaler) 5 Puff/90 Mcg Aerp 1 PUFF INH QAM for 7 Days Continued Medications: Albuterol Hfa (Ventolin Hfa) 200 Puffs/00251 Mcg Aers 2 PUFFS INH Q6H PRN for SOB/Wheezing, #1 INHALER Amlodipine (Norvasc) 2.5 Mg Tab 2.5 MG PO DAILY, TAB Clopidogrel (Plavix) 75 Mg Tab 75 MG PO DAILY, TAB Fluticasone Furoate-Vilanterol (Breo Ellipta 200-25 Mcg/INH) 1 Inh Inh 1 PUFF PO DAILY Hydrochlorothiazide (Hydrochlorothiazide) 25 Mg Tab 25 MG PO DAILY Levothyroxine Sodium (Synthroid) 125 Mcg Tab 125 MCG PO DAILY, TAB Lorazepam (Ativan) 0.5 Mg Tab 0.5 MG PO DAILY PRN for Anxiety, TAB Magnesium Oxide (Mag-Ox) 400 Mg Tab 400 MG PO DAILY, TAB Discontinued Medications: Levofloxacin (Levaquin) 500 Mg Tab 500 MG PO DAILY for 7 Days, TAB Prednisone (Sterapred 12 Day) 5 Mg Janusz Unknown Dose PO UD, #1 oral, as directed sterapred 10mg 6 day taper, take as directed Sertraline (Zoloft) 25 Mg Tab 25 MG PO DAILY, TAB Discharge Exam Reports the wellness night, did not anxiety, denied difficulty breathing, nocturnal osat studies was done Review of Systems: Constitutional: No fever, No chills, No sweats, No weight loss, No weakness , No fatigue, No problem reported Eyes: No worsening of vision, No eye pain, No redness, No discharge, No diplopia, No problem reported ENT: No hearing loss, No unusual epistaxis, No nasal symptoms, No sore throat, No tinnitus, No dental problems, No trouble swallowing, No problem reported Respiratory: No cough, No sputum, No wheezing, No shortness of breath, No dyspnea on exertion, No dyspnea at rest, No hemoptysis, No problem reported Cardiovascular: No chest pain, No orthopnea, No PND, No edema, No claudication, No palpitations, No problem reported Abdomen: No pain, No nausea, No vomiting, No diarrhea, No constipation, No GI bleeding, No problem reported Musculoskeletal: No joint pain, No muscle pain, No swelling, No calf pain, No problem reported Genitourinary - Male: No hematuria, No dysuria, No urinary frequency, No urinary urgency, No urinary hesitancy, No urinary retention, No urinary incontinence, No penile discharge, No lesions, No impotence, No problem reported Neurologic: No memory loss, No paralysis, No weakness, No numbness/tingling , No vertigo, No balance problems, No problem reported Psychiatric: No depression symptoms, No anhedonism, No anxiety, No insomnia , No substance abuse, No problem reported Endocrine: No fatigue, No excessive thirst, No excessive urination, No problem reported Hematologic / Lymphatic: No abnormal bleeding/bruising, No clotting problems , No swollen lymph nodes, No night sweats, No problem reported Integumentary: No rash, No itch, No new/changing skin lesions, No color change, No bleeding, No problem reported Physical Exam: General Appearance: WD/WN, no apparent distress Eyes: normal inspection, PERRL, EOMI ENT: normal ENT inspection, hearing grossly normal, TMs normal, pharynx normal Neck: supple, no adenopathy, thyroid normal Respiratory/Chest: chest non-tender, normal breath sounds, no respiratory distress, no accessory muscle use, + decreased breath sounds Cardiovascular: regular rate, rhythm, no edema, no gallop, no JVD, no murmur , normal peripheral pulses Abdomen / GI: normal bowel sounds, non tender, soft, no organomegaly, no pulsatile mass Extremities: normal inspection, no calf tenderness, normal capillary refill , no pedal edema, normal range of motion Neurologic/Psychiatric: veterinary technician II-XII nml as tested, no motor/sensory deficits , alert, normal mood/affect, normal reflexes, oriented x 3 Skin: normal color, warm/dry, no rash Hospital Course 72-year-old male with admitted on 09/14/2017 because of worsening shortness of breath 3 days. PMHx COPD, of 45 year 1-2+ ppd, smoking history, quit 2 months ago, KRISTEN and anxiety, PCP in Home prior medical Association Dr. Avitia, pulmonary just is Dr.Garphary Dr. Walker in [facility] COPD versus asthma exacerbation, likely asthma exacerbation , possible KRISTEN, pulm input appreciated , was treated with Solu-Medrol , has switched to oral prednisone , continue tapering dose of prednisone , and continue on levaquin 500 mg daily for total 5 days, this will be day #5 for the patient, which has complete treatment including patient was taking it at home. CTA for PE , Dopplers of bilateral lower extremity were negative for PE or DVT respectively, should start statin swish and swallow. Possible sleep apnea because he reported has stop breathing, will order nocturnal possible studies for nighttime oxygen need during the sleep, the study was done, patient qualified for home O2 and nighttime during the sleep, sample case porter has setting up home O2, and may encourage patient to follow-up with PCP/grill attendant in Home Instructions / Follow-Up you have asthma exacerbation, possible KRISTEN, hypoxia during sleep need oxygen during the sleep You need to sleep studies when follow-up with PCP/grill attendant in Home I'm giving you tapering dose of prednisone 10 mg 2 tab po dialy for 2 days then 1 tab by mouth daily for 2 days, Then half tab by mouth daily for another 2 days , then Stop You've had heavy alcohol drink, recommend quit drinking, I give him Ajmes acid, thiamine, multiple vitamin, - you need to follow up with your primary care physician in 1 week, - take medication as instructed, never overdose or any misuse, or take with alcohol, because misuse of medicine may cause organ damage or , call your primary care physician if have questions of medicaitons. - call your primary care physician OR go to local emergency room if has any fever/chill, chest pain, shortness of breathing, nausea/vomiting/abdominal pain , facial droop/slurry speech/local weakness, or if has any questions. - fall precaution - diet as instructed - you need to follow up with your subspecialists - you should understand that it is important to follow up the above instruction , and "not following the above instruction" may cause delayed or missed care of your medical conditions which may cause permanent organ damage and even . Total Time Spent: Greater than 30 minutes This includes examination of the patient, discharge planning, medication reconciliation, and communication with other providers. Discharge Instructions Please refer to the electronic Patient Visit Report (Discharge Instructions) for additional information.
[2017-09-18] MEDS ORDERED: TIOTROPIUM BROMIDE 5 PUFF/90 MCG INH INH SCH (09:00)
== END 2017-09-17 14:50 | disposition home or self-care (01) | DRG 202 ==
LOC: EDBD 15:09 → C.EDC 15:12 → C.MED 17:17 → ENRESERV 17:42 → CANRESERV 17:42 → ENRESERV 17:46 → C.MED 19:24
PROVIDERS: ADMIT Internal Medicine Sports Medicine; ATTEND Hospitalist
DX: J45.901 Unspecified asthma with (acute) exacerbation (principal); E87.1 Hypo-osmolality and hyponatremia; B37.0 Candidal stomatitis; J44.1 Chronic obstructive pulmonary disease with (acute) exacerbation; G47.33 Obstructive sleep apnea (adult) (pediatric); E03.9 Hypothyroidism, unspecified; I10 Essential (primary) hypertension; I71.9 Aortic aneurysm of unspecified site, without rupture; E83.42 Hypomagnesemia; F41.0 Panic disorder [episodic paroxysmal anxiety]; F41.1 Generalized anxiety disorder; Z66 Do not resuscitate; Z79.02 Long term (current) use of antithrombotics/antiplatelets; Z79.899 Other long term (current) drug therapy; Z87.891 Personal history of nicotine dependence

== ENCOUNTER 2020-09-12 08:42 | Observation (INO) ==
--- OUTSIDE RECORDS SUMMARY | 2020-09-12 08:45 | External Medical Summary | Continuity of Care Document ---
:1945 Author Name Abrahan Samayoa Address Unavailable Unavailable , Care Team Providers Name Role Phone Koby Samayoa Unavailable [email or web address] PCP, UNKNOWN Unavailable Unavailable Problems Active medical history not documented Allergies and Adverse Reactions Allergy history not documented Medications Medications not documented Procedures Procedures not documented Immunizations Immunizations not documented Plan of Treatment Planned Observations Planned Goals not documented Results No Known Results Results not documented
--- OUTSIDE RECORDS SUMMARY | 2020-09-12 08:46 | External Medical Summary | Continuity of Care Document ---
:1945 Author Name Abrahan Samayoa Address Unavailable Unavailable , Care Team Providers Name Role Phone Koby Samayoa Unavailable [email or web address] PCP, UNKNOWN Unavailable Unavailable Problems Active medical history not documented Allergies and Adverse Reactions Allergy history not documented Medications Medications not documented Procedures Procedures not documented Immunizations Immunizations not documented Plan of Treatment Planned Observations Planned Goals not documented Results No Known Results Results not documented
[2020-09-12 09:22] LABS: Basophils # (auto) 0.02 K/uL (0-0.2); Basophils % (auto) 0.4 %; Eosinophils # (auto) 0.24 K/uL (0-0.5); Eosinophils % (auto) 4.3 %; Hematocrit (blood only) 40.1 % (42-52); Immature Granulocytes # (auto) 0.01 K/uL (0.00-0.02); Immature Granulocytes % (auto) 0.2 %; Lymphocytes # (auto) 1.41 K/uL (1.2-3.4); Lymphocytes % (auto) 25.2 %; Mean Corpuscular Hemoglobin 33.9 pg (25-34); Mean Corpuscular Hgb Conc 34.9 g/dL (32-36); Mean Corpuscular Volume 97.1 fL (80-100); Mean Platelet Volume 9.7 fL (7.4-10.4); Monocytes # (auto) 0.64 K/uL (0.11-0.59); Monocytes % (auto) 11.4 %; Neutrophils # (auto) 3.27 K/uL (1.4-6.5); Neutrophils % (auto) 58.5 %; Platelet Count 169 K/uL (130-400); RDW Coefficient of Variation 13.2 % (11.5-14.5); Red Blood Count 4.13 M/uL (4.7-6.1); White Blood Count 5.59 K/uL (4.8-10.8)
[2020-09-12 09:41] LABS: Albumin Level 3.8 gm/dl (3.4-5.0); BUN Creatinine Ratio 12.5 (10-20); Calcium 9.4 mg/dl (8.5-10.1); Creatinine Clr Calc Pharmacy 57.4 ml/min; Est GFR (African American) 65.7; Est GFR (Non-African American) 56.7; Potassium 3.7 mmol/L (3.5-5.1)
[2020-09-12 09:42] LABS: INR 1.1 (0.9-1.1); Partial Thromboplastin Time 26.7 Seconds (21.0-31.0); Prothrombin Time 11.2 Seconds (9.0-12.0)
[2020-09-12 09:46] LABS: Albumin Globulin Ratio 0.8 (0.9-2); Bilirubin,Total 0.8 mg/dl (0.2-1); Globulin 4.5 gm/dl (2.5-4.0); Total Protein 8.3 gm/dl (6.4-8.2); Troponin I 0.02 ng/ml (0-0.045)
[2020-09-12] MEDS ORDERED: OPTIRAY 320 125ml IV ONE (09:54)
--- NOTE | 2020-09-12 10:12 | CT Scan Report ---
HEAD CT NONCONTRAST CT DOSE: HISTORY: Right hand weakness. Stroke evaluation TECHNIQUE: Multiaxial CT images of the head were performed without the use of intravenous contrast. A utomated exposure control was utilized for this study. A dose lowering technique was utilized adheri ng to the principles of ALARA. Comparison: None. Findings: The paranasal sinuses and mastoid air cells are clear. The calvarium and skull base are int act. There is no mass, hematoma, midline shift, acute infarct. White matter hypodensity is nonspecifi c but suggestive of microvascular ischemic change. The ventricles and sulci demonstrate mild age-rela melvin involutional changes. An 11 mm focal lucent lesion within the left parietal bone near the high co nvexity this is technically indeterminate but may represent a small hemangioma. Impression: No acute intracranial abnormality. Atrophy and microvascular ischemic changes. ACT 112: Negative or not required by law. Electronically signed by: Juan Alberto Guido M.D. 09/12/2020 10:11 AM
--- NOTE | 2020-09-12 10:12 | Emergency Department Note ---
History of Present Illness General Chief complaint: Stroke/CVA Symptoms Stated complaint: DROOPING MOUTH/SLURRED SPEECH/DIZZY Time Seen by Provider: 09/12/20 08:55 Source: patient and family Mode of arrival: ambulatory Limitations: no limitations History of Present Illness Provider complaint: right arm/hand weakness Onset (ago): day(s) 2 Location: upper extremity Radiation: non-radiation Severity: mild Maximum Pain Intensity: 0 Current Pain Intensity: 0 Quality: + constant Relieved By: + none Exacerbated By: + none Associated symptoms: + denies other symptoms Treatments prior to arrival: none This is a 75 yo male who presents from home with family due to right arm/hand weakness. Pt states 2 days ago he noted he had numbness in his right arm/hand. He thought perhaps he slept wrong or "overdid it". 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 Pt states yesterday the arm felt slightly better. Denies headache, dizziness, neck pain, shoulder pain. Pt is right hand dominant. Pt states this am he had numbness and weakness, worse in the hand. Pt states it feels as though he may drop something. Pt denies pain or swelling in the arm. No recent change in activity. No prior injury to RUE/hand. No prior similar symptoms. No change in medications. Pt is a former smoker. Pt does have a hx of DM. Daughter states when she came to check on him today, she felt his speech was off and believed she also noted a facial droop on the right. At this time she feels his face is improved, however feels his speech is still not normal. Pt seen during a time of high acuity and national emergency pandemic while wearing PPE. Home Medications Home Medications Medication Instructions Recorded Confirmed Type Breo Ellipta 1 inh INHALATION DAILY 09/12/20 09/12/20 History albuterol sulfate 2 puff INHALATION Q6H PRN 09/12/20 09/12/20 History amlodipine 5 mg PO DAILY 09/12/20 09/12/20 History clopidogrel 75 mg PO DAILY 09/12/20 09/12/20 History hydrochlorothiazide 25 mg PO UD 09/12/20 09/12/20 History levothyroxine 137 mcg PO DAILYBB 09/12/20 09/12/20 History lorazepam 0.5 mg PO BID PRN 09/12/20 09/12/20 History melatonin 5 mg PO HS 09/12/20 09/12/20 History metronidazole 1 applic TOPICAL UD 09/12/20 09/12/20 History aspirin 81 mg PO DAILY #21 tab 09/14/20 Rx atorvastatin 40 mg PO HS #90 tab 09/14/20 Rx metformin 500 mg PO PM #90 tab 09/14/20 Rx Allergies Allergy/AdvReac Type Severity Reaction Status Date / Time sertraline [From Zoloft] Allergy Rash Verified 09/13/20 17:38 Past Med/Surg History Medical History Hypertension Hypothyroidism Social History Smoking Status: Former smoker Second Hand Exposure: No; Hx Alcohol Use: Yes Hx Substance Use: No Preferred Language: Palauan Communication Ability: Effective 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 and A total of 10 systems reviewed and were otherwise negative Physical Exam Vital Signs Vital Signs - 24 hr 09/12/20 09:02 09/12/20 10:43 Temperature 36.4 C L Temperature Source Oral Pulse Rate 71 Pulse Rate [Apical] 60 Respiratory Rate 18 18 Blood Pressure 165/101 H Blood Pressure [Left Arm] 147/82 H Blood Pressure Mean 122 Blood Pressure Mean [Left Arm] 103 Pulse Oximetry 98 96 Oxygen Delivery Method Room Air Room Air Sepsis Recent Fever Within 48 Hours No Sepsis New/Unexplained Change in Mental Status No Sepsis Action Taken by Nursing No Action Required GENERAL: alert, well appearing, well nourished, no distress, non-toxic EYE EXAM: normal conjunctiva, PERRL and EOM's grossly intact OROPHARYNX: no exudate, no erythema, lips, buccal mucosa, and tongue normal and mucous membranes are moist NECK: supple, no nuchal rigidity, no adenopathy, non-tender LUNGS: Clear to auscultation. Normal chest wall mechanics, no w/r/r HEART: no murmurs, S1 normal and S2 normal ABDOMEN: abdomen soft, non-tender, normo-active bowel sounds, no masses, no rebound or guarding. BACK: Back is symmetrical on inspection and there is no deformity, no midline tenderness, no CVA tenderness. SKIN: no rashes and no bruising UPPER EXTREMITIES: upper extremities are grossly normal. FROM, nml pulses b/l. 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 Pt denies sensory difference with light/painful touch b/l. LOWER EXTREMITIES: No pitting edema. FROM, nml pulses b/l. NEURO EXAM: Normal sensorium, cranial nerves II-XII grossly intact, normal speech, slightly decreased strength with hand rn ed on right, no gross weakness of legs. Gross sensation intact. Course Course 1100: Updated pt on all results. Pt states no change in condition. Extensive bedside conversation regarding his current condition, risk factors for cva/tia, no other clear etiology of his symptoms. After discussion with daughter at bedside, pt in agreement with the plan. 1145: Discussed with Dr. Klein for admission. Administered Medications Discontinued Medications Amlodipine Besylate (Amlodipine Besylate 5 Mg Tab) 5 mg PO DAILY JOSÉ MIGUEL Stop: 10/13/20 08:59 Last Admin: 09/14/20 08:08 Dose: 5 mg Documented by: [id number] Admin: 09/13/20 08:23 Dose: 5 mg Documented by: [id number] Aspirin (Aspirin 81 Mg Ectab) 81 mg PO DAILY JOSÉ MIGUEL Stop: 10/12/20 13:59 Last Admin: 09/14/20 08:09 Dose: 81 mg Documented by: [id number] Admin: 09/13/20 08:23 Dose: 81 mg Documented by: [id number] Admin: 09/12/20 15:47 Dose: 81 mg Documented by: [id number] Atorvastatin Calcium (Atorvastatin 40 Mg Tab) 40 mg PO HS JOSÉ MIGUEL Stop: 10/12/20 20:59 Last Admin: 09/13/20 21:27 Dose: 40 mg Documented by: [id number] Admin: 09/12/20 21:03 Dose: 40 mg Documented by: [id number] Clopidogrel Bisulfate (Clopidogrel Bisulfate 75 Mg Tab) 75 mg PO DAILY JOSÉ MIGUEL Stop: 10/13/20 08:59 Last Admin: 09/14/20 08:09 Dose: 75 mg Documented by: [id number] Admin: 09/13/20 08:23 Dose: 75 mg Documented by: [id number] Enoxaparin Sodium (Enoxaparin Inj 40 Mg/0.4 Ml Syr) 40 mg SQ Q24H JOSÉ MIGUEL Stop: 10/12/20 13:59 Last Admin: 09/13/20 12:41 Dose: 40 mg Documented by: [id number] Admin: 09/12/20 15:47 Dose: 40 mg Documented by: [id number] Fluticasone/Vilanterol (Fluticasone/Vilanterol 200/25mcg 14 Puffs/Inhaler) 1 puffs INH DAILY JOSÉ MIGUEL Stop: 10/13/20 08:59 Last Admin: 09/14/20 08:09 Dose: 1 puffs Documented by: [id number] Admin: 09/13/20 08:22 Dose: 1 puffs Documented by: [id number] Hydrochlorothiazide (Hydrochlorothiazide 25 Mg Tab) 25 mg PO Q2D JOSÉ MIGUEL Stop: 10/12/20 13:59 Last Admin: 09/12/20 15:47 Dose: 25 mg Documented by: [id number] Ioversol (Optiray 320 125ml) 120 ml IV ONCE ONE Stop: 09/12/20 09:55 Last Admin: 09/12/20 09:55 Dose: 120 ml Documented by: [id number] Levothyroxine Sodium (Levothyroxine Sodium 137 Mcg Tablet) 137 mcg PO DAILYBB [facility] Stop: 10/13/20 06:29 Last Admin: 09/14/20 05:49 Dose: 137 mcg Documented by: [id number] Admin: 09/13/20 06:20 Dose: 137 mcg Documented by: [id number] Lorazepam (Lorazepam 0.5 Mg Tab) 0.5 mg PO NOW STA Stop: 09/12/20 12:34 Last Admin: 09/12/20 12:49 Dose: 0.5 mg Documented by: [id number] Lorazepam (Lorazepam 1 Mg Tab) 1 mg PO TID PRN PRN Reason: Anxiety Stop: 10/12/20 13:10 Last Admin: 09/14/20 08:12 Dose: 1 mg Documented by: [id number] Admin: 09/13/20 12:41 Dose: 1 mg Documented by: [id number] Admin: 09/13/20 04:24 Dose: 1 mg Documented by: [id number] Admin: 09/12/20 18:45 Dose: 1 mg Documented by: [id number] Melatonin (Melatonin 3 Mg Tab) 3 mg PO [facility]; Protocol Stop: 10/12/20 20:59 Last Admin: 09/13/20 21:27 Dose: 3 mg Documented by: [id number] Admin: 09/12/20 21:03 Dose: 3 mg Documented by: [id number] Medical Decision Making Differential Diagnosis Differential Diagnosis includes but is not limited to dehydration, stroke, anemia, hypoglycemia, hyponatremia, hypernatremia, urinary tract infection, pneumonia, bronchitis, sepsis, gastroenteritis, additional abdominal pathology, metabolic abnormalities and infections. Medical Records Attestation: I reviewed the patient's medical records. Home Medications Current Medication List: was personally reviewed by me Laboratory Data Attestation: I reviewed the patient's lab results. Result diagrams: 09/14/20 08:07 09/14/20 08:07 Lab Results 09/12/20 09/12/20 09/12/20 Range/Units 09:12 09:12 09:12 WBC 5.59 (4.8-10.8) K/uL RBC 4.13 L (4.7-6.1) M/uL Hgb 14.0 (14.0-18.0) g/dL Hct 40.1 L (42-52) % MCV 97.1 (80-100) fL MCH 33.9 (25-34) pg MCHC 34.9 (32-36) g/dL RDW Std Deviation 47.0 H (36.4-46.3) fL RDW Coeff of [place] 13.2 (11.5-14.5) % Plt Count 169 (130-400) K/uL MPV 9.7 (7.4-10.4) fL Immature Gran % (Auto) 0.2 % Neut % (Auto) 58.5 % Lymph % (Auto) 25.2 % [place] % (Auto) 11.4 % Eos % (Auto) 4.3 % Baso % (Auto) 0.4 % Neut # (Auto) 3.27 (1.4-6.5) K/uL Lymph # (Auto) 1.41 (1.2-3.4) K/uL [place] # (Auto) 0.64 H (0.11-0.59) K/uL Eos # (Auto) 0.24 (0-0.5) K/uL Baso # (Auto) 0.02 (0-0.2) K/uL Immature Gran # (Auto) 0.01 (0.00-0.02) K/uL PT 11.2 (9.0-12.0) Seconds INR 1.1 (0.9-1.1) APTT 26.7 (21.0-31.0) Seconds PTT Ratio 1.0 Sodium 137 (136-145) mmol/L Potassium 3.7 (3.5-5.1) mmol/L Chloride 104 (98-107) mmol/L Carbon Dioxide 29 (21-32) mmol/L Anion Gap 4.0 (3-11) BUN 15 (7-18) mg/dl Creatinine 1.23 (0.6-1.4) mg/dl Est Cr Clr Drug Dosing 57.4 ml/min Est GFR ( Amer) 65.7 Est GFR (Non-Af Amer) 56.7 BUN/Creatinine Ratio 12.5 (10-20) Glucose 157 H (70-99) mg/dl Calcium 9.4 (8.5-10.1) mg/dl Magnesium 2.0 (1.8-2.4) mg/dl Total Bilirubin 0.8 (0.2-1) mg/dl AST 42 H (15-37) U/L ALT 36 (12-78) U/L Alkaline Phosphatase 115 (45-117) U/L Troponin I 0.020 (0-0.045) ng/ml Total Protein 8.3 H (6.4-8.2) gm/dl Albumin 3.8 (3.4-5.0) gm/dl Globulin 4.5 H (2.5-4.0) gm/dl Albumin/Globulin Ratio 0.8 L (0.9-2) Imaging Data Radiologist's Impression: HEAD CT NONCONTRAST CT DOSE: HISTORY: Right hand weakness. Stroke evaluation TECHNIQUE: Multiaxial CT images of the head were performed without the use of intravenous contrast. Automated exposure control was utilized for this study. A dose lowering technique was utilized adhering to the principles of ALARA. Comparison: None. Findings: The paranasal sinuses and mastoid air cells are clear. The calvarium and skull base are intact. There is no mass, hematoma, midline shift, acute infarct. White matter hypodensity is nonspecific but suggestive of microvascular ischemic change. The ventricles and sulci demonstrate mild age-related involutional changes. An 11 mm focal lucent lesion within the left parietal bone near the high convexity this is technically indeterminate but may represent a small hemangioma. Impression: No acute intracranial abnormality. Atrophy and microvascular ischemic changes. ACT 112: Negative or not required by law. Electronically signed by: Juan Alberto Guido M.D. 09/12/2020 10:11 AM HEAD CTA HISTORY: Right hand weakness. Stroke evaluation TECHNIQUE: Multiaxial CT images of the head were performed following the intravenous administration of contrast to evaluate the major cerebral vessels. Maximum intensity projection images were also obtained. A dose lowering technique was utilized adhering to the principles of ALARA. COMPARISON: None. FINDINGS: There is no mass, hematoma, midline shift, or acute infarct. Visualized intracranial internal carotid arteries, distal vertebral arteries, and basilar artery are widely patent. There is no significant stenosis, occlusion, or aneurysm seen within the bilateral ACAs, MCAs, or right REO ASSET MANAGER. Incidental note is made of a persistent right posterior circulation. This is considered to be a normal variant. Mild focal narrowing within a left P2 branch best seen on axial image 101. Moderate calcified plaque within the bilateral carotid siphons. Hypoplastic right A1 segment in comparison to the left. This is also considered to be a normal variant. The major dural venous sinuses appear patent. IMPRESSION: 1. Mild stenosis within a branch of the mid left REO ASSET MANAGER. 2. Otherwise, no areas of significant stenosis within the [place]. 3. Moderate calcified plaque within the bilateral carotid siphons. 4. No occlusion or aneurysm within the major cerebral arteries. ACT 112: Negative or not required by law. Electronically signed by: Juan Alberto Guido M.D. 09/12/2020 10:[address] angio neck with con CLINICAL HISTORY: Stroke evaluation COMPARISON STUDY: No previous studies for comparison. TECHNIQUE: CT angiography was performed from the aortic arch to the skull base. MIP imaging was performed. The patient was scanned in a dynamic helical fashion during intravenous administration of 120 cc of Optiray 320. A dose lowering technique was utilized adhering to the principles of ALARA. CT DOSE: Technique: CT angiogram of the carotid and vertebral arteries was obtained using intravenous contrast and 3-D reconstruction. NASCET criteria was utilized. Findings: The right carotid revealed no evidence of aneurysm and no evidence of dissection. There is no evidence of hemodynamic significant stenosis. The left carotid revealed no evidence of hemodynamic significant stenosis. There is no evidence of aneurysm. There is no evidence of dissection. The carotids have a retropharyngeal course. There is a moderate (approximately 75%) stenosis of the left vertebral artery origin. There is no evidence of vertebral dissection. IMPRESSION: 1. No evidence of hemodynamically significant carotid stenosis 2. Moderate stenosis of the left vertebral artery origin. ACT 112: Negative or not required by law. Electronically signed by: Nicanor Nova M.D. 09/12/2020 10:12 AM SINGLE VIEW CHEST CLINICAL HISTORY: Generalized weakness. FINDINGS: An AP, portable, upright chest radiograph is compared to chest x-ray and chest CT dated 09/14/2017. Heart is enlarged noting atherosclerotic calcification of the thoracic aorta. The pulmonary vasculature is noncongested. Chronic interstitial thickening is similar to previous. No airspace consolidation or large pleural effusion is identified. Scarring/atelectasis is noted at the lung bases. No pneumothorax is seen. The skeletal structures are osteopenic. The bony thorax is grossly intact. IMPRESSION: Cardiomegaly with no acute cardiopulmonary abnormality. ACT 112: Negative or not required by law. Electronically signed by: Haroon Jurado M.D. 09/12/2020 10:24 AM Blood Pressure Blood Pressure Findings: Elevated blood pressure Blood Pressure Disposition: further management by hospitalist MDM Narrative This is a 75 yo male here with RUE weakness/numbness. No trauma, no similar prior hx. Pt with risk factors for stroke but given symptoms started 2 days ago, stroke alert not activated. Pt sent for CT and CTA which didn't show cva despite risk factors and other abnormalities noted. Discussed with pt bettina ibrahim inpatient evaluation for CVA/TIA and PT/OT eval potentially, he discussed with daughter and after additional bedside discussion he was in agreement with the plan. We did discuss possible other etiology although my concern at this time is primarily for CVA. VS stable throughout, pt with a hx of htn. Mild hyperglycemia noted, pt is a known diabetic. I do not suspect acute spine pathology. No evidence of infectious etiology. An order was placed for continuous cardiac monitoring. The monitor shows a rate of _80_ with _normal sinus rhythm. Impression & Plan Right arm weakness, Hypertension, Paresthesia of right arm Discharge Plan Visit Data Chief Complaint: Stroke/CVA Symptoms Stated Complaint: DROOPING MOUTH/SLURRED SPEECH/DIZZY ED Provider: Nancy Fatima Discharge Problem: Right arm weakness, Hypertension, Paresthesia of right arm Patient Disposition: Admitted As Inpatient Discharge Instructions Interventions: ED Discharge Assessment Last Done: 09/12/20 12:55 Discharge Problem: Hypertension Qualifiers: Hypertension type: essential hypertension Qualified Code(s): I10 - Essential (primary) hypertension
--- NOTE | 2020-09-12 10:13 | CT Scan Report ---
CT angio neck with con CLINICAL HISTORY: Stroke evaluation COMPARISON STUDY: No previous studies for comparison. TECHNIQUE: CT angiography was performed from the aortic arch to the skull base. MIP imaging was perfo rmed. The patient was scanned in a dynamic helical fashion during intravenous administration of 120 c c of Optiray 320. A dose lowering technique was utilized adhering to the principles of ALARA. CT DOSE: Technique: CT angiogram of the carotid and vertebral arteries was obtained using intravenous contrast and 3-D reconstruction. NASCET criteria was utilized. Findings: The right carotid revealed no evidence of aneurysm and no evidence of dissection. There is no evidenc e of hemodynamic significant stenosis. The left carotid revealed no evidence of hemodynamic significant stenosis. There is no evidence of an eurysm. There is no evidence of dissection. The carotids have a retropharyngeal course. There is a moderate (approximately 75%) stenosis of the left vertebral artery origin. There is no guido dence of vertebral dissection. IMPRESSION: 1. No evidence of hemodynamically significant carotid stenosis 2. Moderate stenosis of the left vertebral artery origin. ACT 112: Negative or not required by law. Electronically signed by: Nicanor Nova M.D. 09/12/2020 10:12 AM
--- NOTE | 2020-09-12 10:19 | CT Scan Report ---
HEAD CTA HISTORY: Right hand weakness. Stroke evaluation TECHNIQUE: Multiaxial CT images of the head were performed following the intravenous administration o f contrast to evaluate the major cerebral vessels. Maximum intensity projection images were also obta ined. A dose lowering technique was utilized adhering to the principles of ALARA. COMPARISON: None. FINDINGS: There is no mass, hematoma, midline shift, or acute infarct. Visualized intracranial manufacturing intern al carotid arteries, distal vertebral arteries, and basilar artery are widely patent. There is no sig nificant stenosis, occlusion, or aneurysm seen within the bilateral ACAs, MCAs, or right ELIGIBILITY SUPERVISOR. Inciden kavin note is made of a persistent right posterior circulation. This is considered to be a normal variant. Mild focal narrowing within a left P2 branch best seen on axial image 101. Moderate calcifi ed plaque within the bilateral carotid siphons. Hypoplastic right A1 segment in comparison to the lef t. This is also considered to be a normal variant. The major dural venous sinuses appear patent. IMPRESSION: 1. Mild stenosis within a branch of the mid left ELIGIBILITY SUPERVISOR. 2. Otherwise, no areas of significant stenosis within the [place]. 3. Moderate calcified plaque within the bilateral carotid siphons. 4. No occlusion or aneurysm within the major cerebral arteries. ACT 112: Negative or not required by law. Electronically signed by: Juan Alberto Guido M.D. 09/12/2020 10:18 AM
--- NOTE | 2020-09-12 10:26 | XRay Report ---
SINGLE VIEW CHEST CLINICAL HISTORY: Generalized weakness. FINDINGS: An AP, portable, upright chest radiograph is compared to chest x-ray and chest CT dated 09/14/2017. Heart is enlarged noting atherosclerotic calcification of the thoracic aorta. The pulmonary v asculature is noncongested. Chronic interstitial thickening is similar to previous. No airspace conso lidation or large pleural effusion is identified. Scarring/atelectasis is noted at the lung bases. No pneumothorax is seen. The skeletal structures are osteopenic. The bony thorax is grossly intact. IMPRESSION: Cardiomegaly with no acute cardiopulmonary abnormality. ACT 112: Negative or not required by law. Electronically signed by: Haroon Jurado M.D. 09/12/2020 10:24 AM
--- NOTE | 2020-09-12 12:10 | History & Physical Report ---
Date of Service September 12, 2020 Assessment & Plan (1) CVA (cerebral vascular accident): Concern for left temporal CVA given the focality of symptoms. CTA head/neck on 09/12 showed mild left vertebral stenosis, but no stenoses in the carotids & no significant stenosis, occlusion, or aneurysm seen within the bilateral ACAs, MCAs, or right [employer]. - Brain MRI ordered - Consulted neurology - A1c, lipids, and TTE ordered - Continue home Plavix. Added ASA as he fits CHANCE trial characteristics and repeat CVA of concern. Will likely take this x 3 weeks, then continue his home Plavix. - Continue statin, but increased to 40 mg for high-dose - Monitor BP - Will also check Lyme titer and peripheral smear given his time spent outdoors. Would be unexpected, but treatable. (2) Hypertension: BP is presently 150/80 in the ED. - Continue home amlodipine & HCTZ (3) Aortic aneurysm: Hx of endovascular repair in 2017. Will discuss with MRI to see if this precludes MRI, but I don't think so. - Monitor (4) COPD (chronic obstructive pulmonary disease): No present exacerbation. - Continue home Breo or equivalent - DuoNebs PRN (5) Generalized anxiety disorder: - Increased home Ativan to 1 mg for hospitalization and need for MRI (6) Hypothyroidism: No TSH in charts, but indication of hypo or hyperthyroidism at present. - Continue home levothyroxine 137 mcg daily - Recheck TSH (7) DVT prophylaxis: Lovenox 40 mg SQ daily History of Present Illness Primary Care Provider: Meenu Avitia, 74yo M w/ hx of tobacco use and HTN who presents with concern for CVA. Noticed some right hand numbness yesterday, but didn't think much about it. He also reports some right hand weakness that has somewhat improved. Today, his daughter is present and feels today he has a very mild facial asymmetry and slightly slurred speech. He is also more unbalanced and has some gait trouble. Allergies Allergy/AdvReac Type Severity Reaction Status Date / Time No Known Allergies Allergy Unverified 09/12/20 09:41 Home Medications Home Medications Medication Instructions Recorded Confirmed Type albuterol sulfate 2 puff INHALATION Q6H PRN 09/12/20 09/12/20 History amlodipine 5 mg PO DAILY 09/12/20 09/12/20 History atorvastatin 10 mg PO HS 09/12/20 09/12/20 History clopidogrel 75 mg PO DAILY 09/12/20 09/12/20 History fluticasone furoate-vilanterol 1 inh INHALATION DAILY 09/12/20 09/12/20 History [Breo Ellipta] hydrochlorothiazide 25 mg PO UD 09/12/20 09/12/20 History levothyroxine 137 mcg PO DAILYBB 09/12/20 09/12/20 History lorazepam 0.5 mg PO BID PRN 09/12/20 09/12/20 History melatonin 5 mg PO HS 09/12/20 09/12/20 History metronidazole 1 applic TOPICAL UD 09/12/20 09/12/20 History Past Med/Surg History Medical History (Updated 09/12/20 @ 12:08 by Tacho Klein MD) Hypertension Hypothyroidism Social History Smoking Status: Former smoker Second Hand Exposure: No; Do You Dip or Chew Tobacco: No; Tobacco Cessation Education Requested by Patient: No Hx Alcohol Use: Yes Hx Substance Use: No Preferred Language: Palestinian Communication Ability: Effective Communication Ability Comment: trouble using right hand to sign Media Liaison Officer Required: No Beliefs That Will Affect Care: None Current Living Situation: Spouse Other Information That Helps Us Care for You: No Feels Safe at Home: Yes Safety Concerns: Feels Safe At This Time Assistive Devices: Denture - Upper, Glasses and Oxygen - at Night Assistive Devices Comment: unknown liters of O2, no tank with patient Review of Systems Review of Systems: All systems reviewed & are unremarkable except as noted in HPI & below Physical Exam Constitutional: WD/WN, vitals as above Eyes: EOM intact bilaterally; no conjunctival abnormality ENMT: external ear and nose normal, oropharynx normal Neck: trachea midline, no thyromegaly normal visual inspection Respiratory: normal respiratory effort, lungs clear to auscultation no respiratory distress Cardiovascular: RRR, no murmur, no edema Gastrointestinal (Abdomen): Inspection/Auscultation: abdomen normal to inspection; abdomen not distended Musculoskeletal: no cyanosis or clubbing, extremities motor strength 5/5 Skin: no rashes, warm and dry Neurologic: moves all extremities, + focal motor deficit (Mild right hand weakness) and awake; not confused Cranial Nerves: PERRL, EOM intact bilaterally, normal facial strength (Mild right ptosis), tongue midline, normal hearing, able to rotate head bilaterally and able to elevate shoulders bilaterally Psychiatric: Orientation: alert, oriented to person and cooperative Results & Data Results & Data ([facility]) Vital Signs (Past 12 Hours) Vital Signs Temp Pulse Pulse Resp BP BP Pulse Ox 09/12/20 10:43 60 18 147/82 H 96 09/12/20 09:02 36.4 C L 71 18 165/101 H 98 Code Status & VTE Plan VTE Prophylaxis Plan VTE Prophylaxis will be ordered: Yes PG Care Time/CCT Total # of Minutes Spent Total Time Spent with Patient: Total time spent is greater than 50% in coordination of care (as documented) at patient's floor/unit and/or counseling patient: Coding Level of Care Code 66217 OBS Care - Level 3 Diagnoses CVA (cerebral vascular accident) I63.9 Hypertension I10 Aortic aneurysm I71.9 COPD (chronic obstructive pulmonary disease) J44.9 Generalized anxiety disorder F41.1 Hypothyroidism E03.9 DVT prophylaxis Z29.9
[2020-09-12] MEDS ORDERED: LORazepam 0.5 MG TAB PO STA (12:33)
[2020-09-12] MEDS ORDERED: ALBUTEROL HFA 8 GM INHALER INH PRN (13:11)
[2020-09-12] MEDS ORDERED: ALBUT/IPRATROP 3MG/0.5MG NEB 3 ML VIAL NEB PRN (13:11)
[2020-09-12] MEDS ORDERED: ACETAMINOPHEN 325 MG TAB PO PRN (13:11)
[2020-09-12] MEDS ORDERED: ONDANSETRON INJ 2 MG/ML 2 ML VIAL IV PRN (13:11)
[2020-09-12 13:42] LABS: Estimated Average Glucose 148 mg/dl; Hemoglobin A1C 6.8 % (4.5-5.6)
[2020-09-12] MEDS ORDERED: hydroCHLOROthiazide 25 MG TAB PO SCH (14:00)
[2020-09-12] MEDS: ASPIRIN 81 MG ECTAB PO SCH (15:47)
[2020-09-12] MEDS: ENOXAPARIN INJ 40 MG/0.4 ML SYR SQ SCH (15:47)
[2020-09-12 16:09] LABS: Lyme Ab IgG w/WB Rflx Negative (Negative); Lyme Ab IgM w/WB Rflx Negative (Negative)
--- NOTE | 2020-09-12 17:50 | XCELERA ---
[id number]
--- NOTE | 2020-09-12 18:16 | Electrocardiogram Report ---
Test Reason : Blood Pressure : / mmHG Vent. Rate : 070 BPM Atrial Rate : 070 BPM P-R Int : 170 ms QRS Dur : 088 ms QT Int : 420 ms P-R-T Axes : 051 016 041 degrees QTc Int : 453 ms Normal sinus rhythm Nonspecific T wave abnormality Abnormal ECG When compared with ECG of 14-SEP-2017 16:31, Premature ventricular complexes are no longer Present Confirmed by Vaibhav Whalen ([id number]) on 09/12/2020 6:16:06 PM Referred By: Confirmed By:Gabino Whalen
[2020-09-12] MEDS: LORazepam 1 MG TAB PO PRN (18:45)
--- NOTE | 2020-09-12 19:56 | Communication Note ---
Date of Service: September 12, 2020 Received message from RN that MRI unable to be completed due to radiologist concern for appearance of metal around eye that was seen on CT. 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 Confirmed readings with MRI department. Holding off on MRI imaging at this time. Resident Activity Tracking Resident Involvement: Resident Care Provided Care Provided: Adult [facility]
[2020-09-12] MEDS: MELATONIN 3 MG TAB PO SCH (21:03)
[2020-09-12] MEDS: ATORVASTATIN 40 MG TAB PO SCH (21:03)
[2020-09-13] MEDS: LORazepam 1 MG TAB PO PRN ×2 (04:24→12:41)
[2020-09-13] MEDS: LEVOTHYROXINE SODIUM 137 MCG TABLET PO SCH (06:20)
[2020-09-13 07:09] LABS: Hematocrit (blood only) 41.8 % (42-52); Hemoglobin 13.9 g/dL (14.0-18.0); Mean Corpuscular Hgb Conc 33.3 g/dL (32-36); Mean Corpuscular Volume 99.3 fL (80-100); Platelet Count 187 K/uL (130-400); RDW Coefficient of Variation 13.5 % (11.5-14.5); RDW Standard Deviation 48.3 fL (36.4-46.3); Red Blood Count 4.21 M/uL (4.7-6.1)
[2020-09-13 07:43] LABS: BUN Creatinine Ratio 13.9 (10-20); Calcium 9.3 mg/dl (8.5-10.1); Creatinine Clr Calc Pharmacy 53.3 ml/min; Est GFR (African American) 62.2; Est GFR (Non-African American) 53.6; Potassium 3.7 mmol/L (3.5-5.1)
[2020-09-13] MEDS: FLUTICASONE/VILANTEROL 200/25MCG 14 PUFFS/INHALER INH SCH (08:22)
[2020-09-13] MEDS: CLOPIDOGREL BISULFATE 75 MG TAB PO SCH (08:23)
[2020-09-13] MEDS: amLODIPine BESYLATE 5 MG TAB PO SCH (08:23)
[2020-09-13] MEDS: ASPIRIN 81 MG ECTAB PO SCH (08:23)
--- NOTE | 2020-09-13 09:11 | Neurology Consultation ---
Date of Consultation September 13, 2020 Assessment & Plan (1) CVA (cerebral vascular accident): Probable acute ischemic stroke resulting in what looks like clumsy hand dysarthria lacunar stroke syndrome. The most common localization for a stroke of this type would be the internal capsule, idris, or moore radiata. Unfortunately, patient appears to be unable to proceed with MRI due to a potential foreign metallic body around the right eye observed on his head CT. There is no evidence of hemorrhage or obvious acute process on his head CT. He does not appear to have a hemodynamically significant vascular lesion on CT angiography of the head and neck. No obvious cardioembolic source on echocardiography. No evidence of atrial fibrillation. Hypertension appears to be this patient's most significant stroke risk factor at this time although he is a former smoker and appears to have mild diabetes mellitus based on his recent hemoglobin A1c. I agree with the addition of daily low-dose aspirin to this patient's medication regimen. He will continue with both aspirin and clopidogrel for the next 3 weeks, after which he should discontinue the aspirin as the risk of long-term dual antiplatelet therapy likely exceeds the benefit. I agree with increasing his dosage of atorvastatin. He will need additional follow-up with his PCP for ongoing management of hypertension and monitoring of mild diabetes mellitus. His blood pressure has been moderately elevated during this hospitalization although acceptable in the context of acute ischemic stroke. He should be able to continue with amlodipine and hydrochlorothiazide as prescribed with additional adjustments potentially made by his PCP to bring the systolic blood pressure a bit closer down to 140 mmHg or slightly less. Consultation with PT/OT/speech therapy. No further immediate recommendations. History of Present Illness Reason for Consultation: CVA Requesting Physician: Tacho Klein MD Attending Physician: Chau Espinal DO History of Present Illness The patient is a 75-year-old male with a chief complaint of right hand weakness and slurred speech that began about 2 days ago. He believes the symptoms were mild at onset but got progressively worse. Symptoms have been stable for at [address] st the past 24 hours. 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 Nonetheless, he reports worsening motor control of the right hand relatively subacute onset and persistence over the past 2 days. He also complains of some associated slurred speech and drooling out of the corner of the mouth that is new as well. He denies any motor symptoms affecting the legs. He denies any vision change, vertigo, or fall/drop attack. History notable for an endovascular repair of an aortic aneurysm 3 years ago and hypertension. He is a former smoker but quit in the context of progressive COPD. He has been taking atorvastatin, clopidogrel, amlodipine, and hydrochlorothiazide. He has undergone a fairly thorough stroke evaluation thus far including CT of the head, CT angiography of the head and neck, echocardiography, and an up-to-date lipid panel. There is concern for a metal fragment or foreign body adjacent to the right eye seen on head CT which has precluded completion of an MRI. Patient's imaging and test results are described in further detail below. Allergies Allergy/AdvReac Type Severity Reaction Status Date / Time No Known Allergies Allergy Unverified 09/12/20 09:41 Home Medications Home Medications Medication Instructions Recorded Confirmed Type albuterol sulfate 2 puff INHALATION Q6H PRN 09/12/20 09/12/20 History amlodipine 5 mg PO DAILY 09/12/20 09/12/20 History atorvastatin 10 mg PO HS 09/12/20 09/12/20 History clopidogrel 75 mg PO DAILY 09/12/20 09/12/20 History fluticasone furoate-vilanterol 1 inh INHALATION DAILY 09/12/20 09/12/20 History [Breo Ellipta] hydrochlorothiazide 25 mg PO UD 09/12/20 09/12/20 History levothyroxine 137 mcg PO DAILYBB 09/12/20 09/12/20 History lorazepam 0.5 mg PO BID PRN 09/12/20 09/12/20 History melatonin 5 mg PO HS 09/12/20 09/12/20 History metronidazole 1 applic TOPICAL UD 09/12/20 09/12/20 History Patient History Medical History Hypertension Hypothyroidism Social History Smoking Status: Former smoker Second Hand Exposure: No; Do You Dip or Chew Tobacco: No; Tobacco Cessation Education Requested by Patient: No Hx Alcohol Use: Yes Hx Substance Use: No Preferred Language: Tunisian Communication Ability: Effective Communication Ability Comment: trouble using right hand to sign Rush Seater Required: No Beliefs That Will Affect Care: None Current Living Situation: Spouse Other Information That Helps Us Care for You: No Feels Safe at Home: Yes Safety Concerns: Feels Safe At This Time Assistive Devices: CPAP, Denture - Upper and Glasses Assistive Devices Comment: unknown liters of O2, no tank with patient Review of Systems Constitutional: no fever and no chills Eyes: no blind spots and no diplopia Ear, Nose, Mouth, Throat: no hearing loss Respiratory: no cough and no dyspnea Cardiovascular: no chest pain and no palpitations Gastrointestinal: no nausea and no vomiting Genitourinary: no dysuria Musculoskeletal: no myalgia Integumentary: no rash and no lesions Neurologic: as per Subjective / HPI and + localized weakness; no dizziness, no headache(s), no confusion and no memory loss Psychiatric: no depression and no anxiety Hematologic / Lymphatic: no easy bleeding and no easy bruising Exam (Neuro) Constitutional: well developed and well nourished; no acute distress Eyes: normal visual rice by confrontation, PERRL, normal accommodation and EOM intact bilaterally; no fundoscopic abnormality, no nystagmus and no papilledema Cardiovascular: Vessels: normal carotid upstroke; no carotid bruit Neurologic: Oriented to:: Person, Place and Time Memory: Short Term Intact and Remote Intact Attention: Span Intact and Concentration Intact Language: Naming Objects and Repeating Phrases Speech Fluency: negative Dysarthria Speech Aphasia: negative Aphasia Fund of Knowledge: Current Events, Past History and Vocabulary Cranial Nerves: Normal II (Visual rice full to confrontation, visual acuity normal), III, IV, (Pupils equal round reactive to light and accommodation, eye movements normal), V (Facial sensation intact), VIII (Hearing intact), IX, X (Palate elevates to midline), XI (Shoulder shrug intact) and XII (Tongue protrudes to midline); Abnorm VII (There is a moderate right lower facial droop noted.) Motor Strength: Normal Lower Extremities and Pronator Drift Laterality: Right; negative Normal Upper Extremities (There is mild weakness of the right upper extremity, notably broadloom weaver strength and facility of the hand, although occurring in the context of an amputation of the right index finger and chronic contracture of the right middle finger.) Motor Tone: Normal Lower Extremities and Normal Upper Extremities Muscle Bulk/Involuntary Movements: No Involuntary Movements; negative Muscle Atrophy Sensation: Light Touch Intact, Pain/Temperature Intact, Vibration Intact and Proprioception Intact Coordination: Normal and Finger-Nose Abnormal (There is mild dysmetria [id number] on the right) Laterality: Right; negative Limited Balance, Dysdiadochokinesia and Heel-Cintron Abnormal Deep Tendon Reflexes: Rt Triceps: 2+, Lt Triceps: 2+, Rt Biceps: 2+, Lt Biceps: 2+, Rt Brachioradialis: 2+, Lt Brachioradialis: 2+, Rt Patellar: 2+, Lt Patellar: 2+, Rt Ankle: 1+ and Lt Ankle: 1+ Special Tests: Babinski Present (Plantar responses upgoing on the right, downgoing on the left.) Details: Gait not tested in the context of patient's current neurological/medical condition due to safety concerns. Results & Data ([facility]) Vital Signs (Past 12 Hours) Vital Signs Temp Pulse Pulse Resp BP Pulse Ox 09/13/20 08:00 36.4 C L 70 20 148/92 H 97 09/13/20 07:13 72 09/13/20 03:57 36.5 C 73 18 140/87 96 09/12/20 23:33 77 09/12/20 23:00 36.4 C L 66 18 142/88 H 98 Laboratory Results WBC 5.90, hemoglobin 13.9, hematocrit 41.8, platelet count 187, sodium 137, potassium 3.7, BUN 18, creatinine 1.28, glucose 154, hemoglobin A1c 6.8, AST 42, ALT 36, troponin 0 0.020, triglycerides 79, cholesterol 139, LDL 69, VLDL 16, HDL 54, TSH 2.800, Lyme antibody screening negative. Diagnostic Findings A CT of the head reveals atrophy and chronic microvascular ischemic disease. No hemorrhage or acute process. CT angiography of the head reveals mild stenosis within a branch of the mid left posterior cerebral artery. There is moderate calcified plaque within the bilateral carotid siphons. No significant occlusive lesion or other vascular abnormality identified. CT angiography of the neck is negative for hemodynamically significant stenosis within the carotid systems. There is a moderate left vertebral artery stenosis at its origin. I reviewed the images as well as the radiologist's interpretation of these tests. An echocardiogram reveals normal left ventricular systolic function, mild right ventricular hypertrophy and a small pericardial effusion. The left and right atrial sizes are normal. No obvious cardioembolic source identified. An electrocardiogram reveals a normal sinus rhythm. Coding Level of Care Code 20429 Initial In Care Lvl 3 Diagnoses CVA (cerebral vascular accident) I63.9
--- NOTE | 2020-09-13 09:53 | Hospitalist Progress Note ---
Date of Service September 13, 2020 Assessment & Plan (1) CVA (cerebral vascular accident): Parker Morrissey is a 75yo male with a history of HTN, hypothyroidism, COPD, right index finger amputation, and aortic aneurysm s/p endovascular repair (2017) who presented to the ED with right hand weakness, facial droop, and slurred speech that began about 2 days prior; symptoms are likely due to acute ischemic stroke of the left internal capsule or nearby structures. Per neurology, patient is unable to undergo MRI due to potential metallic foreign body near the patients right eye observed on CT. CVA, HLD -risk factors include HTN, untreated DM2, and smoking history -no evidence of acute bleed on CT or vascular lesion -outside the window for tPA administration -no clear thromboembolic source -three weeks of ASA and clopidogrel 75mg daily to be followed by clopidogrel 75mg daily without ASA -increase atorvastatin to 40mg daily -initiate DM2 treatment as noted below -goal BP per neuro: systolic under 140 DM2: yet-untreated -start with metformin 500mg (extended release) daily at nighttime; increase dose to 1000mg after 1-2 weeks of tolerating starting dose -education about diet and lifestyle risk factor modification -FSG premeal and qhs -close outpatient follow-up HTN -continue amlodipine 5mg PO qd -continue HCTZ 25m PO qd -long-term goal of systolic < 140 Anxiety -home dose lorazepam 0.5mg tid prn increased to 1mg tid prn due to stressful circumstances -melatonin 3mg PO qhs prn Hypothyroidism -continue levothyroxine 137mcg PO qd COPD -continue albuterol nebulizer as needed -continue fluticasone/vilanterol 1puff daily FENGI: DM2 diet DVTp: lovenox 40mg sq q24h Code status: DNR/DNI Dispo: med/surg tele (2) Hypothyroidism: (3) COPD (chronic obstructive pulmonary disease): (4) Hypertension: (5) Type 2 diabetes mellitus: (6) Generalized anxiety disorder: Admission and Anticipated Discharge Date Admission Date: September 12, 2020 Supervising Physician Co-Signing Physician Notes I saw the patient independent of the resident physician and confirmed holland portions of the clinical history and physical exam. The patient's daughter was also at bedside and review all laboratory studies and imaging that have been completed this admission. At present, the patient is eating lunch; reports having a good appetite and no difficulty swallowing. He is still having some problems with his right hand, but he states this is improving. His second digit has been previously amputated, so he always struggles a little with his hand. Blood pressure 165/81, heart rate 76, respiratory rate 20, temperature 36.3 C, pulse oximetry 97% on room air He is pleasant alert and oriented; no distress. cardiovascular regular lungs are clear DATA hemoglobin 13.9 hemoglobin A1c 6.8% TSH 2.8 total cholesterol 139, LDL 69, HDL 54. CT scans reports reviewed with family MRI unobtainable due to metallic foreign body IMPRESSION: CVA hypertension diabetes (newly diagnosed) hypothyroidism, biochemically and clinically euthyroid 1) Add aspirin 81 mg daily, in addition to Plavix 75 mg daily, for 21 days then resume Plavix alone 2) PT and Occupational Therapy 3) Add metformin 500 mg XR daily 4) SBP goal less than 140mHg, OK with slightly higher while in hospital. 5) Continue statin Subjective Parker Morrissey is a 75yo male with a history of HTN, hypothyroidism, COPD, right index finger amputation, and aortic aneurysm s/p endovascular repair (2017) who presented to the ED with right hand weakness, facial droop, and slurred speech that began about 2 days prior. Patient was seen at the bedside this morning. He reports his symptoms including right hand weakness, facial droop, unilateral drooling, and slurred speech remain roughly the same as they have been since admission. He has no new complaints. He does endorse a challenging amount of anxiety at the moment because his brother reportedly has residual deficits from a stroke. Patient was tearful during interview but was consolable and his concerns were able to be redirected towards optimism. He seems to be goal-directed regarding lifestyle changes moving foward. Review of Systems Constitutional: no fever and no chills Eyes: no blind spots, no diplopia and no loss of peripheral vision Respiratory: no cough, no chest congestion, no dyspnea, no pain on inspiration and no wheezing Cardiovascular: no chest pain, no radiating jaw, neck or arm pain, no dyspnea, no palpitations, no lightheadedness, no syncope, no calf pain and no claudication Gastrointestinal: no abdominal pain, no nausea, no vomiting, no constipation and no diarrhea/loose stools Genitourinary: no dysuria Musculoskeletal: no back pain and no swelling Psychiatric: no difficulty concentrating and no confusion Physical Exam Constitutional: + disheveled; no acute distress and not ill appearing Eyes: PERRL, conjunctivae normal, anicteric sclerae normal visual rice by confrontation Respiratory: normal respiratory effort; no respiratory distress and no cough Auscultation: + diminished lung sounds Cardiovascular: Rate/Rhythm: regular rate and regular rhythm Vessels: no carotid bruit Gastrointestinal (Abdomen): normal bowel sounds, soft, nontender, no hepatosplenomegaly Neurologic: mild weakness of the right hand but overall strength is 5/5 in RUE as well as all other extremities; mild lower right facial droop appreciated; mild slurring of speech appreciated although baseline articulation and fluency is unknown for comparison Psychiatric: Orientation: alert and oriented x 3 Eye Contact: + fair eye contact Affect: + tearful affect Results & Data Results & Data ([facility]) Vital Signs (Past 12 Hours) Vital Signs Temp Pulse Pulse Resp BP Pulse Ox 09/13/20 08:00 36.4 C L 70 20 148/92 H 97 09/13/20 07:13 72 09/13/20 03:57 36.5 C 73 18 140/87 96 09/12/20 23:33 77 09/12/20 23:00 36.4 C L 66 18 142/88 H 98 Resident Activity Tracking Resident Involvement: Resident Care Provided Care Provided: Adult Hospital Medicine
[2020-09-13] MEDS: ENOXAPARIN INJ 40 MG/0.4 ML SYR SQ SCH (12:41)
[2020-09-13] MEDS: MELATONIN 3 MG TAB PO SCH (21:27)
[2020-09-13] MEDS: ATORVASTATIN 40 MG TAB PO SCH (21:27)
[2020-09-14] MEDS: LEVOTHYROXINE SODIUM 137 MCG TABLET PO SCH (05:49)
[2020-09-14] MEDS: amLODIPine BESYLATE 5 MG TAB PO SCH (08:08)
[2020-09-14] MEDS: CLOPIDOGREL BISULFATE 75 MG TAB PO SCH (08:09)
[2020-09-14] MEDS: FLUTICASONE/VILANTEROL 200/25MCG 14 PUFFS/INHALER INH SCH (08:09)
[2020-09-14] MEDS: ASPIRIN 81 MG ECTAB PO SCH (08:09)
[2020-09-14] MEDS: LORazepam 1 MG TAB PO PRN (08:12)
[2020-09-14 08:37] LABS: Basophils # (auto) 0.02 K/uL (0-0.2); Basophils % (auto) 0.3 %; Eosinophils # (auto) 0.32 K/uL (0-0.5); Hematocrit (blood only) 42.3 % (42-52); Hemoglobin 14.5 g/dL (14.0-18.0); Immature Granulocytes # (auto) 0.01 K/uL (0.00-0.02); Immature Granulocytes % (auto) 0.2 %; Lymphocytes # (auto) 1.38 K/uL (1.2-3.4); Lymphocytes % (auto) 21.7 %; Mean Corpuscular Hemoglobin 33.6 pg (25-34); Mean Corpuscular Hgb Conc 34.3 g/dL (32-36); Mean Corpuscular Volume 97.9 fL (80-100); Monocytes # (auto) 0.61 K/uL (0.11-0.59); Monocytes % (auto) 9.6 %; Neutrophils # (auto) 4.01 K/uL (1.4-6.5); Neutrophils % (auto) 63.2 %; Platelet Count 187 K/uL (130-400); RDW Coefficient of Variation 13.4 % (11.5-14.5); Red Blood Count 4.32 M/uL (4.7-6.1); White Blood Count 6.35 K/uL (4.8-10.8)
[2020-09-14 09:02] LABS: BUN Creatinine Ratio 17.4 (10-20); Calcium 9.7 mg/dl (8.5-10.1); Creatinine Clr Calc Pharmacy 58.3 ml/min; Est GFR (African American) 68.6; Est GFR (Non-African American) 59.2; Potassium 3.7 mmol/L (3.5-5.1)
--- NOTE | 2020-09-14 13:32 | Discharge Summary ---
Date of Service September 14, 2020 Admission HPI Per Admitting Provider 74yo M w/ hx of tobacco use and HTN who presents with concern for CVA. Noticed some right hand numbness yesterday, but didn't think much about it. He also reports some right hand weakness that has somewhat improved. Today, his daughter is present and feels today he has a very mild facial asymmetry and slightly slurred speech. He is also more unbalanced and has some gait trouble. Admission Exam Per Admitting Provider Constitutional: WD/WN, vitals as above Eyes: EOM intact bilaterally; no conjunctival abnormality ENMT: external ear and nose normal, oropharynx normal Neck: trachea midline, no thyromegaly normal visual inspection Respiratory: normal respiratory effort, lungs clear to auscultation no respiratory distress Cardiovascular: RRR, no murmur, no edema Gastrointestinal (Abdomen): Inspection/Auscultation: abdomen normal to inspection; abdomen not distended Musculoskeletal: no cyanosis or clubbing, extremities motor strength 5/5 Skin: no rashes, warm and dry Neurologic: moves all extremities, + focal motor deficit (Mild right hand weakness) and awake; not confused Cranial Nerves: PERRL, EOM intact bilaterally, normal facial strength (Mild right ptosis), tongue midline, normal hearing, able to rotate head bilaterally and able to elevate shoulders bilaterally Psychiatric: Orientation: alert, oriented to person and cooperative Principal Diagnosis Cerebrovascular Accident Discharge Exam Constitutional WD/WN, vitals as above Respiratory normal respiratory effort, lungs clear to auscultation Cardiovascular RRR, no murmur, no edema Gastrointestinal (Abdomen) normal bowel sounds, soft, nontender, no hepatosplenomegaly Skin no rashes, warm and dry Neurologic patellar DTR's 2+ bilat, sensation intact normal touch/pain/proprioception, CN's II-XI intact bilaterally, deep tendon reflexes 2+ bilaterally and moves all extremities R upper and lower facial droop with right hand dysarthria on chronic right hand weakness. facial muscles intact bilaterally, EOMI, bilateral 5/5 strength apart from right fingers Discharge Data Allergies Allergy/AdvReac Type Severity Reaction Status Date / Time sertraline [From Zoloft] Allergy Rash Verified 09/13/20 17:38 Consultations 09/12/20 13:11 Consult Neurology Routine 09/13/20 22:36 Consult Case Management - Discharge Planning Routine Ordered Studies 09/12/20 09:05 CT angio head w con Stat CT angio neck with con Stat CT head/brain wo con Stat Diabetes Follow up Diabetes Follow-up Needed for Newly Diagnosed Diabetes Hospital Course (1) CVA (cerebral vascular accident): Parker Morrissey is a 75yo male with a history of HTN, hypothyroidism, COPD, right index finger amputation, and aortic aneurysm s/p endovascular repair (2017) who presented to the ED with right hand weakness, facial droop, and slurred speech that began about 2 days prior; symptoms are likely due to acute ischemic stroke of the left internal capsule or nearby structures. MRI unable to be obtained due to presence of metal around right eye. CVA - risk factors include HTN, mild DM2, and smoking history - no evidence of acute bleed on CT or hemodynamically significant vascular stenosis on CTA head/neck; no evidence of cardioembolic source on TTE - unable to obtain MRI brain as mentioned above - patient's right hand dysarthria and right facial droop stable during hospitalization; neuro exam otherwise unremarkable - Neuro consulted; patient's characteristics and symptoms qualify him for three weeks of baby aspirin and clopidogrel 75mg daily to be followed by clopidogrel 75mg daily only (CHANCE trial) - patient will follow up with PCP and Neurologist - recommend outpatient PT DM2: - A1c 6.8 on 09/12/2020; untreated - start metformin 500mg ER QHS - continue after discharge - education about diet and lifestyle risk factor modification - follow up with PCP as above HLD - increased Lipitor to high-dose: 40 mg PO QHS HTN - continue amlodipine 5mg PO qd - continue HCTZ 25m PO qd Anxiety - continue home meds Hypothyroidism - continue levothyroxine 137mcg PO qd COPD - continue fluticasone/vilanterol 1puff daily (2) Hypothyroidism: (3) COPD (chronic obstructive pulmonary disease): (4) Hypertension: (5) Type 2 diabetes mellitus: (6) Generalized anxiety disorder: Total Time Total Time Spent Total Time Spent (In Minutes): 30 minutes Total Time Includes: Examination of the Patient, Discharge Planning and Medication Reconciliation Discharge Plan Discharge Items Patient Disposition: Home - Self-Care Reason For Visit: CONCERN FOR CVA Discharge Diagnosis: Cerebrovascular Accident Activity: Per Instructions section Non-emergency contact: Primary Care Provider and Neurologist Call non-emergency contact if: you have any medication questions and your symptoms worsen Follow-up/Referrals: Meenu Avitia DO [Primary Care Provider] - Diet: Carb Consistent or DM2 Addtl Attending Provider Instructions: You were admitted to [facility] on 09/12/2020 for concern for a stroke, as you had an acute development of a right-sided facial droop as well as right hand clumsiness. You had a CT scan of your head which did not show ev idence of a brain bleed or other acute process, but you were unable to have an MRI done due to the presence of metal near your right eye. You also had a vascular CT scan of your head and neck which did not show signs of blood vessel blockage or closure. You also had a heart ultrasound (Echocardiogram) which did not show evidence of clots either. You most likely experienced a small stroke; your symptoms of right hand clumsiness and right-sided facial droop were relatively stable during this hospitalization, and you did not experience other symptoms which is reassuring. You will be discharged on 09/14/2020 in stable condition. You should continue to take the baby Aspirin in addition to your regular Plavix for a total of 3 weeks together. After 3 weeks you can stop the baby Aspirin. You should also continue to take the increased dose of Atorvastatin (Lipitor) - 40 mg nightly. You should also continue to take Metformin daily for diabetes. You should continue to take all of your other medications as prescribed. You should follow up in several weeks with your Neurologist and you should also follow up with your PCP for continued management of your high blood pressure, diabetes and remainder of overall care. Additionally, we recommend that you go to physical therapy as an outpatient. Risk Factors for Stroke: You can reduce your chances of stroke by working with your medical provider to adopt a healthy lifestyle. Some specific ways to lower your chance of stroke are: * If you are a smoker, now is the time to stop smoking cigarettes * If you are diabetic, improve the control of your blood sugars * Avoid excessive amounts of alcohol * Control high blood pressure * Lose weight if you are overweight * Be sure to lead an active lifestyle * Eat a healthy diet low in salt, cholesterol and fat You should know about other risk factors for stroke that you are unable to control. These include: * Age 55 years or older * Male gender * Certain racial groups: , or / * Family History of Stroke, Mini stroke or Heart Attack * Sickle Cell Disease Follow Up: It is important for you to keep your follow up appointments with your medical provider. Who to Call and When: Medical Emergencies: Call 911 immediately if you experience any of the [facility] warning signs and symptoms of Stroke: * Sudden numbness or weakness of the face, arm or leg, especially on one side of the body * Sudden confusion, trouble speaking or understanding * Sudden trouble seeing in one or both eyes * Sudden trouble walking, dizziness, loss of balance or coordination * Sudden severe headache with no cause Do not delay calling 911 if you experience any warning signs or symptoms of a stroke. Delay in seeking medical attention may affect what treatments can be given to you. . Pending Studies at Discharge: No Stand-Alone Forms: My [facility], Smoking Cessation Medications and DC Order Prescriptions: New atorvastatin 40 mg tablet 40 mg PO HS Qty: 90 RF: 3 aspirin 81 mg tablet,delayed release (DR/EC) 81 mg PO DAILY Qty: 21 RF: 0 metformin 500 mg tablet extended release 24 hr 500 mg PO PM Qty: 90 RF: 3 Continued levothyroxine 137 mcg tablet 137 mcg PO DAILYBB RF: 0 clopidogrel 75 mg tablet 75 mg PO DAILY RF: 0 amlodipine 5 mg tablet 5 mg PO DAILY RF: 0 lorazepam 0.5 mg tablet 0.5 mg PO BID PRN (Reason: Anxiety) RF: 0 hydrochlorothiazide 25 mg tablet 25 mg PO UD RF: 0 albuterol sulfate 90 mcg/actuation HFA aerosol inhaler 2 puff INHALATION Q6H PRN (Reason: Wheezing) RF: 0 metronidazole 1 % gel 1 applic TOPICAL UD RF: 0 melatonin 5 mg Tablet 5 mg PO HS RF: 0 Breo Ellipta 200-25 mcg/dose blister with device 1 inh INHALATION DAILY RF: 0 Discontinued atorvastatin 10 mg tablet 10 mg PO HS RF: 0 Discharge Orders: Discharge Order (Routine); Ordered 09/14/20 Ordered By: Alex Peters/Other Patient Handouts: Managing Type 2 Diabetes, Diabetes: Meal Planning, Eating Heart-Healthy Foods, A1C Admission Data Admit Date/Time: 09/12/20 12:00 Attending Provider: Chau Espinal Admit Provider: Tacho Klein Primary Care Provider: Meenu Avitia Other Providers: Senthil Marion Other Interventions: Discharge Summary Assessment (RN) Last Done: 09/14/20 12:52 Supervising Physician Co-Signing Physician Notes I saw the patient independent of the resident physician and confirmed holland portions of the clinical history and physical exam. I also discussed the case with neurology. The patient states that he overall feels better -function of his hand has somewhat improved and his balance is much better according to him. He did not sleep well overnight due to being in the hospital. His blood pressure has been a little elevated of though he thinks it is due to anxiety related to the hospitalization. Blood pressure 160/90, 86, 20, 36.3, 97%. He is pleasant alert and oriented; no distress. cardiovascular regular lungs are clear DATA Labs unremarkable except for elevated glucose. IMPRESSION: CVA hypertension diabetes (newly diagnosed) hypothyroidism, biochemically and clinically euthyroid 1) Aspirin 81 mg daily, in addition to Plavix 75 mg daily, for 21 days then resume Plavix alone 2) PT as outpatient 3) Add metformin 500 mg XR daily 4) SBP goal less than 140mHg, OK with slightly higher while in hospital. Discussed that he can monitor this at home and see his PCP within 1 to 2 weeks; systolic goal of less than 140 mmHg. 5) Continue statin Resident Activity Tracking Resident Involvement: Resident Care Provided Care Provided: Adult Hospital Medicine
[2020-09-14] MEDS ORDERED: STROKE PATIENT DISCHARGE PRN (14:28)
[2020-09-14] MEDS ORDERED: PHARMACIST DISCHARGE MED REC CONSULT PRN (14:28)
[2020-09-14] MEDS ORDERED: metFORMIN HCL ER 500 MG TABCR PO SCH (21:00)
== END 2020-09-14 14:23 | disposition home or self-care (01) ==
LOC: ED 08:42 → 2N 08:42 → SUATTDRO 12:00 → 2N 12:55

== ENCOUNTER 2025-01-14 19:31 | Inpatient (IN) ==
[2025-01-14] MEDS: OPTIRAY 320 125ml IV ONE (19:56)
--- NOTE | 2025-01-14 19:58 | Emergency Department Note ---
Impression & Plan Stroke-like symptoms ED Provider Note ED Provider Note NAME: TAMARA VICTOR AGE:79 SEX: Male : 1945 ARRIVES VIA: Private vehicle INFORMANT: Patient, family ED PROVIDER(s): Nancy Fatima DO CHIEF COMPLAINT: Strokelike symptoms HPI: This is an 79-year-old male who presents to the emergency department due to concern for strokelike symptoms. Family states when he got home today at 6 PM they noticed that he had slight right-sided facial droop and slightly slurred speech. They state they had not seen him earlier in the day. While discussing today's events and history they were able to contact the patient's who stated that he has had the symptoms all day and also complained of a headache last night. Patient states he does still have a slight headache at this time. He denies dizziness. He states he has chronic lower extremity paresthesias due to his "arthritis". Family notes he has had a worsening gait and he appears to shuffle however this has been evolving over the course of the last year. They state he did have a stroke in 2019 and does take Plavix daily. No other recent illness, no trauma, no change in medications. Patient denies chest pain, difficulty breathing, abdominal pain, nausea or vomiting. PAST MEDICAL HISTORY:See Below PAST SURGICAL HISTORY:See Below FAMILY HISTORY:See Below SOCIAL HISTORY:See Below HOME MEDICATIONS:See Below ALLERGIES:See Below VITALS:See Below PHYSICAL EXAMINATION: GENERAL: alert, well appearing, well nourished, no distress, non-toxic EYE EXAM: normal conjunctiva, PERRL and EOM's grossly intact OROPHARYNX: no exudate, no erythema, lips, buccal mucosa, and tongue normal and mucous membranes are moist NECK: supple, no nuchal rigidity, no adenopathy, non-tender LUNGS: Clear to auscultation. Normal chest wall mechanics, no w/r/r HEART: no murmurs, S1 normal and S2 normal ABDOMEN: abdomen soft, non-tender, normo-active bowel sounds, no masses, no rebound or guarding. BACK: Back is symmetrical on inspection and there is no deformity, no midline tenderness, no CVA tenderness. SKIN: no rashes, petechiae, orbruising UPPER EXTREMITIES: upper extremities are grossly normal. FROM, nml pulses b/l. LOWER EXTREMITIES: No pitting edema. FROM, nml pulses b/l. NEURO EXAM: Normal sensorium, cranial nerves II-XII grossly intact, sluggish speech, no obvious facial droop,nogross weakness of arms, no gross weakness of legs. Gross sensation intact. No ataxia.NIHSS 0. Vital Signs: reviewed and remarkable Differential Diagnosis: ischemic Stroke, hemorrhagic stroke, bells palsy, mass, neoplasm, migraine headache, seizure, subarachnoid hemorrhage, TIA, transient global amnesia, medication ADR, as well as others were considered MEDICAL DECISION MAKING: This is a 79-year-old male presents emergency department due to concern for right facial droop and slurred speech as noted by family when they saw him around 6 PM. He was afebrile and hemodynamically stable. Mild hypertension noted although within parameters for an acute stroke. Patient was made a stroke alert from triage. Upon additional discussion with family at bedside, another family member via telephone call head related that he had had the symptoms all day. Due to inability to determine last known well or exact time of onset, patient not a candidate for TNK. I discussed the case with on-call [facility]. Labs drawn and sent, IV established, patient sent for CT/CTA per protocol. Upon return to room he was monitored on telemetry. He was started on gentle IV fluid hydration. On my bedside exam patient had an NIHSS of 0. Patient's labs reassuring. Patient's blood pressure improved without any further intervention. Family felt symptoms were improving while monitored here. [facility] did review CTs additionally and made further recommendations including further inpatient management. No evidence of LVO. Case discussed with hospitalist team for additional evaluation and management. Consultation(s): 1958: Discussed with Dr. Segura, [facility]. 2026: Discussed with [facility]. 2054: Discussed with admitting hospitalist team for additional evaluation and management. ER Treatment Provided: See below Diagnostics Interpreted By Me: -ECG: Normal sinus at 78, normal axis, normal intervals, no acute ST/T wave changes -Cardiac Monitoring: An order was placed for continuous cardiac monitoring. The monitor shows a rate of 74 with normal sinus rhythm. -Laboratory studies: As stated above and show below. -Imaging studies: ct head: no ICH Triage Nursing Note Reviewed Prior/Outside Records Reviewed -prior neurology evaluation for strokelike symptoms in 2019 reviewed Thrombolytics MDM Did the patient receive IV thrombolytics?: No Was there any delay in administration?: No Past Med/Surg History Problem List (Updated 01/15/25 @ 00:05 by Nancy Fatima, DO) Stroke-like symptoms (Acute) GERD (gastroesophageal reflux disease) Cholecystitis Peripheral vascular disease Right arm weakness (Acute) Paresthesia of right arm (Acute) Type 2 diabetes mellitus Hypothyroidism COPD (chronic obstructive pulmonary disease) CVA (cerebral vascular accident) Hypertension (Acute) COPD exacerbation Generalized anxiety disorder (Chronic) Panic attacks (Acute) Medical History Hypertension Hypothyroidism Social History (Updated 05/07/22 @ 05:47 by Rowdy Krause PA-C) Smoking Status: Former smoker Second Hand Exposure: No; Do You Dip or Chew Tobacco: No; Hx Alcohol Use: Yes Hx Substance Use: No Preferred Language: Urdu Communication Ability: Effective Communication Ability Comment: trouble using right hand to sign Partnership Manager Required: No Beliefs That Will Affect Care: None Current Living Situation: Spouse Feels Safe at Home: Yes Assistive Devices: CPAP Allergies Allergies Allergy/AdvReac Type Severity Reaction Status Date / Time sertraline [From Zoloft] Allergy Intermediate Rash Verified 05/07/22 00:53 ciprofloxacin Allergy Unknown Unverified 01/14/25 21:26 Home Meds Home Medications Medication Instructions Recorded Confirmed albuterol sulfate 90 mcg/actuation 2 puff inhalation Q6H PRN Wheezing 09/12/20 01/14/25 aerosol inhaler amlodipine 5 mg tablet 5 mg PO DAILY 09/12/20 01/14/25 clopidogrel 75 mg tablet 75 mg PO HS 09/12/20 01/14/25 fluticasone furoate 200 1 inh inhalation HS 09/12/20 01/14/25 mcg-vilanterol 25 mcg/dose inhalation powder (Breo Ellipta) levothyroxine 137 mcg tablet 137 mcg PO DAILYBB 09/12/20 01/14/25 lorazepam 0.5 mg tablet 0.5 mg PO BID PRN Anxiety 09/12/20 01/14/25 melatonin 5 mg tablet 5 mg PO HS PRN Sleep 09/12/20 01/14/25 metformin 500 mg tablet,extended 500 mg PO BID 05/23/21 01/14/25 release 24 hr cyanocobalamin (vitamin B-12) 1,000 mcg IM MONTHLY 01/14/25 01/14/25 1,000 mcg/mL injection solution pantoprazole 40 mg tablet,delayed 40 mg PO DAILY 01/14/25 01/14/25 release rosuvastatin 10 mg tablet 10 mg PO DAILY 01/14/25 01/14/25 Previous Rx's Medication Instructions Recorded atorvastatin 40 mg tablet 40 mg PO HS #90 tabs 09/14/20 Results & Data (ED) Vital Signs Vital Signs - 24 hr 01/14/25 19:36 01/14/25 20:22 01/14/25 20:24 Temperature 36.5 C Temperature Source Temporal Artery Scan Pulse Rate 80 Pulse Rate [Apical] 82 Pulse Rate from SpO2 Sensor Pulse Rhythm Regular Respiratory Rate 19 17 Respiratory Effort / Characteristics Non-Labored Non-Labored Spontaneous Respiratory Depth Normal Normal Blood Pressure 165/94 H Blood Pressure [Right Arm] 151/92 H Blood Pressure Mean 117 Blood Pressure Mean [Right Arm] 111 Pulse Oximetry 97 97 Oxygen Delivery Method Room Air Room Air Sepsis Recent Fever Within 48 Hours No Sepsis New/Unexplained Change in Mental Status No Sepsis Action Taken by Nursing No Action Required 01/14/25 20:30 01/14/25 20:36 01/14/25 20:51 Temperature Temperature Source Pulse Rate 81 81 Pulse Rate [Apical] Pulse Rate from SpO2 Sensor 81 81 Pulse Rhythm Respiratory Rate 17 20 Respiratory Effort / Characteristics Respiratory Depth Blood Pressure 159/89 H Blood Pressure [Right Arm] Blood Pressure Mean 113 Blood Pressure Mean [Right Arm] Pulse Oximetry 94 97 Oxygen Delivery Method Sepsis Recent Fever Within 48 Hours Sepsis New/Unexplained Change in Mental Status Sepsis Action Taken by Nursing 01/14/25 21:03 Temperature Temperature Source Pulse Rate 78 Pulse Rate [Apical] Pulse Rate from SpO2 Sensor 78 Pulse Rhythm Respiratory Rate 17 Respiratory Effort / Characteristics Respiratory Depth Blood Pressure 170/92 H Blood Pressure [Right Arm] Blood Pressure Mean 118 Blood Pressure Mean [Right Arm] Pulse Oximetry 97 Oxygen Delivery Method Sepsis Recent Fever Within 48 Hours Sepsis New/Unexplained Change in Mental Status Sepsis Action Taken by Nursing Laboratory Data 01/14/25 19:46 01/14/25 19:46 Lab Results 01/14/25 01/14/25 01/14/25 Range/Units 19:46 19:51 20:03 WBC 5.60 (4.8-10.8) K/ul RBC 3.89 L (4.70-6.10) M/uL Hgb 11.2 L (14.0-18.0) g/dl POC Hgb 12.2 L (14.0-18.0) g/dl Hct 35.5 L (42.0-52.0) % POC Hct 36 L (42-52) % MCV 91.3 (80.0-100.0) fL MCH 28.8 (25.0-34.0) pg MCHC 31.5 L (32.0-36.0) g/dL RDW Std Deviation 48.0 H (36.4-46.3) fL RDW Coeff of [place] 14.4 (11.5-14.5) % Plt Count 230 (130-400) K/uL MPV 9.8 (9.4-12.4) fL Immature Gran % (Auto) 0.2 % Neut % (Auto) 70.9 % Lymph % (Auto) 15.0 % [place] % (Auto) 10.0 % Eos % (Auto) 3.2 % Baso % (Auto) 0.7 % Neut # (Auto) 3.97 (1.40-6.50) K/uL Lymph # (Auto) 0.84 L (1.20-3.40) K/uL [place] # (Auto) 0.56 (0.11-0.59) K/uL Eos # (Auto) 0.18 (0.00-0.50) K/uL Baso # (Auto) 0.04 (0.00-0.20) K/uL Immature Gran # (Auto) 0.01 (0.01-0.20) K/uL PT 10.6 (9.0-12.0) Seconds INR 1.0 (0.9-1.1) APTT 25 (21-31) Seconds PTT Ratio 0.9 POC Sodium 140 (135-144) mmol/L Sodium 137 (136-145) mmol/L POC Potassium 3.8 (3.3-5.0) mmol/L Potassium 3.8 (3.5-5.1) mmol/L POC Chloride 101 (101-112) mmol/L Chloride 103 (98-107) mmol/L Carbon Dioxide 28 (21-32) mmol/L POC Total CO2 25 (24-31) mmol/L Anion Gap 6 (3-11) POC Anion Gap 18.0 (16-25) mmol/L POC BUN 11 (7-18) mg/dl BUN 12 (6-23) mg/dl Creatinine 1.15 (0.6-1.4) mg/dl POC Creatinine 1.2 (0.6-1.3) mg/dl Est Cr Clr Drug Dosing Not Reportable eGFR 63.94 BUN/Creatinine Ratio 10.4 (10-20) Glucose 126 H (70-99(Fasting)) mg/dl POC Glucose (other) 122 H (70-99) mg/dl Calcium 10.5 H (8.6-10.3) mg/dl POC Ioniz Calcium Wei 1.28 (1.12-1.32) mmol/l Magnesium 1.9 (1.7-2.4) mg/dl Total Bilirubin 0.5 (0.2-1.0) mg/dl AST 22 (13-39) U/L ALT 12 (7-52) U/L Alkaline Phosphatase 121 H (34-104) U/L Troponin I High Sens 5.9 (0-20) pg/ml Total Protein 8.2 (6.0-8.3) gm/dl Albumin 4.7 (3.4-5.0) gm/dl Globulin 3.5 (2.5-4.0) gm/dl Albumin/Globulin Ratio 1.3 (0.9-2) Ethyl Alcohol mg/dL < 10.0 (<10.0) mg/dl Blood Type O Positive Antibody Screen NEGATIVE Administered Medications Sodium Chloride (Nss) 1,000 mls @ 125 mls/hr IV .Q8H [facility] Stop: 01/15/25 19:59 Last Admin: 01/14/25 20:27 Dose: 125 mls/hr Documented By: CORY Discontinued Medications Aspirin (Aspirin 81 Mg Ectab) 81 mg PO NOW STA Stop: 01/14/25 21:26 Last Admin: 01/14/25 22:15 Dose: 81 mg Documented By: CEF Ioversol (Optiray 320 125ml) 115 ml IV ONCE ONE Stop: 01/14/25 19:57 Last Admin: 01/14/25 19:56 Dose: 115 ml Documented By: KORINA Imaging Data Radiologist's Impression: Chest X-Ray 01/14/25 19:51 Exam(s): XR CXR 1 VIEW EXAM: XR Chest, 1 View CLINICAL HISTORY: Reason for exam: neuro deficit, acute stroke suspected. TECHNIQUE: Frontal view of the chest. COMPARISON: None. FINDINGS: Lungs: No definite focal infiltrate, pleural effusion or consolidation. There is scattered atelectasis or scarring. Lungs are otherwise clear. Pleural space: No pneumothorax. Heart: Mild to moderate cardiomegaly. Mediastinum: Atherosclerotic aorta. Bones/Soft Tissues: No acute abnormality. IMPRESSION: 1. No acute process in the chest. Electronically signed by: Joyce Alexandre M.D. 01/14/25 20:[address] 01/14/25 19:51 CR Exam(s): CT HEAD Without Contrast EXAM: CT Head Without Intravenous Contrast CLINICAL HISTORY: Reason for exam: neuro deficit, acute stroke suspected. TECHNIQUE: Axial computed tomography images of the head/brain without intravenous contrast. CTDI is 63 mGy and DLP is 961 mGy-cm. Automated exposure control was utilized for the study. A dose lowering technique was utilized adhering to the principles of ALARA. Mild motion artifact. COMPARISON: None. FINDINGS: Brain: No mass effect or acute infarct. No acute hemorrhage. Moderate atrophy and chronic white matter disease. Ventricles: No hydrocephalus or midline shift. Bones/joints: No skull fracture. Soft tissues: No scalp hematoma. Visualized Sinuses: Clear. Mastoid air cells: No mastoid effusion. IMPRESSION: 1. Moderate age-related findings. 2. No acute infarct, bleed, or acute intracranial abnormality. Communications: Call Doctor Stroke Electronically signed by: Joyce Alexandre M.D. 01/14/25 20:25 PM Head CTA 01/14/25 19:51 CR Exam(s): CTA HEAD With Contrast IV Amt: 115 ml optiray 320 EXAM: CT Angiography Head With Intravenous Contrast CLINICAL HISTORY: Reason for exam: neuro deficit, acute stroke suspected. TECHNIQUE: Axial computed tomographic angiography images of the head with intravenous contrast. CTDI is 63 mGy and DLP is 961 mGy-cm. Automated exposure control was utilized for the study. A dose lowering technique was utilized adhering to the principles of ALARA. MIP reconstructed images were created and reviewed. CONTRAST: 115 ml optiray 320 given IV COMPARISON: Head CT same day. FINDINGS: Right internal carotid artery: Patent. Right anterior cerebral artery: Patent. Right middle cerebral artery: Patent. Right posterior cerebral artery: Patent. origin. Right vertebral artery: Patent. Left internal carotid artery: Patent. Left anterior cerebral artery: Patent. Left middle cerebral artery: Patent. Left posterior cerebral artery: Patent. Left vertebral artery: Patent. Basilar artery: Patent. Other: Moderate atherosclerosis bilateral cavernous ICA which are also ectatic. No significant stenosis. IMPRESSION: 1. No aneurysm or large vessel occlusion. Communications: Call Doctor Stroke Electronically signed by: Joyce Alexandre M.D. 01/14/25 20:25 PM Neck CTA 01/14/25 19:51 CR Exam(s): CTA NECK With Contrast IV Amt: 115 ml optiray 320 EXAM: CT Angiography Neck With Intravenous Contrast CLINICAL HISTORY: Reason for exam: neuro deficit, acute stroke suspected. TECHNIQUE: Routine carotid CT angiography protocol was performed with intravenous contrast. NASCET criteria using the distal ICAs for comparison were used for evaluation of stenoses. Automated exposure control was utilized for the study. A dose lowering technique was utilized adhering to the principles of ALARA. MIP reconstructed images were created and reviewed. Mild motion artifact. CONTRAST: 115 ml optiray 320 given IV COMPARISON: None. FINDINGS: Right common carotid artery: Patent. Right internal carotid artery: Patent. Right vertebral artery: Patent. Codominant. Left common carotid artery: Patent. Left internal carotid artery: Patent. Left vertebral artery: Patent. Other: Moderate to severe atherosclerosis aortic arch, great vessels and carotid bifurcations. No significant stenosis, vessel narrowing or occlusion. IMPRESSION: 1. Moderate to severe atherosclerosis. 2. No dissection, occlusion, or significant stenosis. CAROTID STENOSIS REFERENCE USING NASCET CRITERIA: % ICA stenosis = (1 - narrowest ICA diameter/diameter of distal cervical ICA) x 100. Mild - <50% stenosis. Moderate - 50-69% stenosis. Severe - 70-94% stenosis. Near occlusion - 95-99% stenosis. Occluded - 100% stenosis. Communications: Call Doctor Stroke Electronically signed by: Joyce Alexandre M.D. 01/14/25 20:25 PM Discharge Plan Visit Data Chief Complaint: Stroke Alert Stated Complaint: TIA SYMPTOMS, FACIAL DROOP, SLURRED SPEACH ED Provider: Nancy Fatima Discharge Problem: Stroke-like symptoms Discharge Instructions Interventions: ED Discharge Assessment Last Done: 01/14/25 22:58
[2025-01-14 20:02] LABS: iSTAT Creatinine 1.2 mg/dl (0.6-1.3); iSTAT Hemoglobin 12.2 g/dl (14.0-18.0); iSTAT Ionized Calcium 1.28 mmol/l (1.12-1.32); iSTAT Potassium 3.8 mmol/L (3.3-5.0)
[2025-01-14 20:04] LABS: Basophils # (auto) 0.04 K/uL (0.00-0.20); Basophils % (auto) 0.7 %; Eosinophils # (auto) 0.18 K/uL (0.00-0.50); Eosinophils % (auto) 3.2 %; Hematocrit (blood only) 35.5 % (42.0-52.0); Hemoglobin 11.2 g/dl (14.0-18.0); Immature Granulocytes # (auto) 0.01 K/uL (0.01-0.20); Immature Granulocytes % (auto) 0.2 %; Lymphocytes # (auto) 0.84 K/uL (1.20-3.40); Mean Corpuscular Hemoglobin 28.8 pg (25.0-34.0); Mean Corpuscular Hgb Conc 31.5 g/dL (32.0-36.0); Mean Corpuscular Volume 91.3 fL (80.0-100.0); Mean Platelet Volume 9.8 fL (9.4-12.4); Monocytes # (auto) 0.56 K/uL (0.11-0.59); Neutrophils # (auto) 3.97 K/uL (1.40-6.50); Neutrophils % (auto) 70.9 %; Platelet Count 230 K/uL (130-400); RDW Coefficient of Variation 14.4 % (11.5-14.5); Red Blood Count 3.89 M/uL (4.70-6.10)
[2025-01-14 20:20] LABS: Alanine Aminotransferase 12 U/L (7-52); Albumin Globulin Ratio 1.3 (0.9-2); Albumin Level 4.7 gm/dl (3.4-5.0); Alkaline Phosphatase 121 U/L (34-104); Anion Gap 6 (3-11); Aspartate Aminotransferase 22 U/L (13-39); BUN Creatinine Ratio 10.4 (10-20); Bilirubin,Total 0.5 mg/dl (0.2-1.0); Blood Urea Nitrogen 12 mg/dl (6-23); Calcium 10.5 mg/dl (8.6-10.3); Carbon Dioxide 28 mmol/L (21-32); Chloride 103 mmol/L (98-107); Globulin 3.5 gm/dl (2.5-4.0); Glucose 126 mg/dl (70-99(Fasting)); Magnesium 1.9 mg/dl (1.7-2.4); Potassium 3.8 mmol/L (3.5-5.1); Sodium 137 mmol/L (136-145); Total Protein 8.2 gm/dl (6.0-8.3)
[2025-01-14 20:25] LABS: Troponin I High Sensitivity 5.9 pg/ml (0-20)
--- NOTE | 2025-01-14 20:26 | CT Scan Report ---
Exam(s): CTA HEAD With Contrast IV Amt: 115 ml optiray 320 EXAM: CT Angiography Head With Intravenous Contrast CLINICAL HISTORY: Reason for exam: neuro deficit, acute stroke suspected. TECHNIQUE: Axial computed tomographic angiography images of the head with intravenous contrast. CTDI is 63 mGy and DLP is 961 mGy-cm. Automated exposure control was utilized for the study. A dose lowering technique was utilized adhering to the principles of ALARA. MIP reconstructed images were created and reviewed. CONTRAST: 115 ml optiray 320 given IV COMPARISON: Head CT same day. FINDINGS: Right internal carotid artery: Patent. Right anterior cerebral artery: Patent. Right middle cerebral artery: Patent. Right posterior cerebral artery: Patent. origin. Right vertebral artery: Patent. Left internal carotid artery: Patent. Left anterior cerebral artery: Patent. Left middle cerebral artery: Patent. Left posterior cerebral artery: Patent. Left vertebral artery: Patent. Basilar artery: Patent. Other: Moderate atherosclerosis bilateral cavernous ICA which are also ectatic. No significant stenosis. IMPRESSION: 1. No aneurysm or large vessel occlusion. Communications: Call Doctor Stroke Electronically signed by: Joyce Alexandre M.D. 01/14/25 20:25 PM
--- NOTE | 2025-01-14 20:26 | CT Scan Report ---
Exam(s): CTA NECK With Contrast IV Amt: 115 ml optiray 320 EXAM: CT Angiography Neck With Intravenous Contrast CLINICAL HISTORY: Reason for exam: neuro deficit, acute stroke suspected. TECHNIQUE: Routine carotid CT angiography protocol was performed with intravenous contrast. NASCET criteria using the distal ICAs for comparison were used for evaluation of stenoses. Automated exposure control was utilized for the study. A dose lowering technique was utilized adhering to the principles of ALARA. MIP reconstructed images were created and reviewed. Mild motion artifact. CONTRAST: 115 ml optiray 320 given IV COMPARISON: None. FINDINGS: Right common carotid artery: Patent. Right internal carotid artery: Patent. Right vertebral artery: Patent. Codominant. Left common carotid artery: Patent. Left internal carotid artery: Patent. Left vertebral artery: Patent. Other: Moderate to severe atherosclerosis aortic arch, great vessels and carotid bifurcations. No significant stenosis, vessel narrowing or occlusion. IMPRESSION: 1. Moderate to severe atherosclerosis. 2. No dissection, occlusion, or significant stenosis. CAROTID STENOSIS REFERENCE USING NASCET CRITERIA: % ICA stenosis = (1 - narrowest ICA diameter/diameter of distal cervical ICA) x 100. Mild - <50% stenosis. Moderate - 50-69% stenosis. Severe - 70-94% stenosis. Near occlusion - 95-99% stenosis. Occluded - 100% stenosis. Communications: Call Doctor Stroke Electronically signed by: Joyce Alexandre M.D. 01/14/25 20:25 PM
--- NOTE | 2025-01-14 20:26 | CT Scan Report ---
Exam(s): CT HEAD Without Contrast EXAM: CT Head Without Intravenous Contrast CLINICAL HISTORY: Reason for exam: neuro deficit, acute stroke suspected. TECHNIQUE: Axial computed tomography images of the head/brain without intravenous contrast. CTDI is 63 mGy and DLP is 961 mGy-cm. Automated exposure control was utilized for the study. A dose lowering technique was utilized adhering to the principles of ALARA. Mild motion artifact. COMPARISON: None. FINDINGS: Brain: No mass effect or acute infarct. No acute hemorrhage. Moderate atrophy and chronic white matter disease. Ventricles: No hydrocephalus or midline shift. Bones/joints: No skull fracture. Soft tissues: No scalp hematoma. Visualized Sinuses: Clear. Mastoid air cells: No mastoid effusion. IMPRESSION: 1. Moderate age-related findings. 2. No acute infarct, bleed, or acute intracranial abnormality. Communications: Call Doctor Stroke Electronically signed by: Joyce Alexandre M.D. 01/14/25 20:25 PM
[2025-01-14] MEDS: SODIUM CHLORIDE 0.9% 1,000 ML IV SCH (20:27)
--- NOTE | 2025-01-14 20:28 | XRay Report ---
Exam(s): XR CXR 1 VIEW EXAM: XR Chest, 1 View CLINICAL HISTORY: Reason for exam: neuro deficit, acute stroke suspected. TECHNIQUE: Frontal view of the chest. COMPARISON: None. FINDINGS: Lungs: No definite focal infiltrate, pleural effusion or consolidation. There is scattered atelectasis or scarring. Lungs are otherwise clear. Pleural space: No pneumothorax. Heart: Mild to moderate cardiomegaly. Mediastinum: Atherosclerotic aorta. Bones/Soft Tissues: No acute abnormality. IMPRESSION: 1. No acute process in the chest. Electronically signed by: Joyce Alexandre M.D. 01/14/25 20:27 PM
[2025-01-14 20:40] LABS: Partial Thromboplastin Ratio 0.9; Partial Thromboplastin Time 25 Seconds (21-31); Prothrombin Time 10.6 Seconds (9.0-12.0)
--- NOTE | 2025-01-14 21:13 | History & Physical Report ---
Date of Service January 14, 2025 Assessment & Plan (1) CVA (cerebral vascular accident): (2) Hypertension: (3) COPD (chronic obstructive pulmonary disease): (4) Hypothyroidism: (5) Type 2 diabetes mellitus: (6) Generalized anxiety disorder: (7) Peripheral vascular disease: (8) GERD (gastroesophageal reflux disease): Plan 79 yo male PMHx previous CVA 2019 on Plavix, T2DM not on insulin, HTN, COPD, CECILE, GERD, hypothyroidism, PVD admitted with R facial droop, slurred speech. #CVA CT head, angio head/neck w/o acute change No MRI 2/2 metal present in R eyelid - consider repeat CT in 12hrs Check echo Cont. Plavix, add ASA 79 daily Check A1c, lipids AM PT/OT/Speech consults ordered Passed bedside dysphagia screen in ED Permissive HTN, labetalol for BP > 180 Neuro consult, appreciate recs #T2DM Check A1c Cont metoprolol #HLD Med rec states pt taking Crestor and Lipitor Will continue Lipitor, hold Crestor PLEASE CLARIFY #CECILE Pt with diagnosis of anxiety that is not managed on chronic controller medication States that he has had increased stress recently with regard to money/bills Family states that during times of stress he may exhibit some of the weakness type symptoms observed today Would be worth further conversation re: chronic control medication on discharge #COPD Not in acute exacerbation Continue Breo Albuterol PRN #GERD Cont Protonix #Hypothyroid Cont Synthroid FENGI: heart healthy, T2DM Code status: DNR/DNI DVT prophylaxis: Lovenox Isolation: none Disposition: med/tele History of Present Illness Primary Care Provider: Meenu Avitia, 79 yo male PMHx previous CVA 2019 on Plavix, T2DM not on insulin, HTN, COPD, CECILE, GERD, hypothyroidism, PVD admitted with R facial droop, slurred speech. Per pts , these symptoms have been present all day today and he did have headache yesterday. Of note, he has had slightly worsening gait over the course of the last year, this is not acute. Denies dizziness, CP, SOB, N/V/D, LE edema. No recent illness or changes to medications. Of note, patient reports being under a great deal of stress re: finances currently. His family states that when he has periods of increased stress he tends to have some of the deficits described above. It has been suggested that he be on anxiety medication in the past but the patient refuses, states that he does not like the way the medications he has tried make him feel. At the time of admission, symptoms have resolved. ED course: Pt was made a stroke alert CT head, angio brain, angio neck negative for acute process, does note metal in the r eyelid present since at least 2019 Mild HTN in emergency department, otherwise VSS Labs largely unremarkable Received 1L NSS Allergies Allergy/AdvReac Type Severity Reaction Status Date / Time sertraline [From Zoloft] Allergy Intermediate Rash Verified 05/07/22 00:53 ciprofloxacin Allergy Unknown Unverified 01/14/25 21:26 Home Medications Medication Instructions Recorded Confirmed Type albuterol sulfate 90 mcg/actuation 2 puff inhalation Q6H PRN Wheezing 09/12/20 01/14/25 History aerosol inhaler amlodipine 5 mg tablet 5 mg PO DAILY 09/12/20 01/14/25 History clopidogrel 75 mg tablet 75 mg PO HS 09/12/20 01/14/25 History fluticasone furoate 200 1 inh inhalation HS 09/12/20 01/14/25 History mcg-vilanterol 25 mcg/dose inhalation powder (Breo Ellipta) levothyroxine 137 mcg tablet 137 mcg PO DAILYBB 09/12/20 01/14/25 History lorazepam 0.5 mg tablet 0.5 mg PO BID PRN Anxiety 09/12/20 01/14/25 History melatonin 5 mg tablet 5 mg PO HS PRN Sleep 09/12/20 01/14/25 History atorvastatin 40 mg tablet 40 mg PO HS #90 tabs 09/14/20 01/14/25 Rx metformin 500 mg tablet,extended 500 mg PO BID 05/23/21 01/14/25 History release 24 hr cyanocobalamin (vitamin B-12) 1,000 mcg IM MONTHLY 01/14/25 01/14/25 History 1,000 mcg/mL injection solution pantoprazole 40 mg tablet,delayed 40 mg PO DAILY 01/14/25 01/14/25 History release rosuvastatin 10 mg tablet 10 mg PO DAILY 01/14/25 01/14/25 History Past Med/Surg History Problem List (Updated 01/15/25 @ 00:05 by Nancy Fatima, ) Stroke-like symptoms (Acute) GERD (gastroesophageal reflux disease) Cholecystitis Peripheral vascular disease Right arm weakness (Acute) Paresthesia of right arm (Acute) Type 2 diabetes mellitus Hypothyroidism COPD (chronic obstructive pulmonary disease) CVA (cerebral vascular accident) Hypertension (Acute) COPD exacerbation Generalized anxiety disorder (Chronic) Panic attacks (Acute) Medical History Hypertension Hypothyroidism Social History (Updated 05/07/22 @ 05:47 by Rowdy Krause PA-C) Smoking Status: Former smoker Smoking End Date: 10 years ago; Second Hand Exposure: No; Do You Dip or Chew Tobacco: No; Hx Alcohol Use: Yes Alcohol type: beer Hx Substance Use: No Preferred Language: [place]i Communication Ability: Effective Communication Ability Comment: trouble using right hand to sign Content Developer Required: No Beliefs That Will Affect Care: None Current Living Situation: Spouse Other Information That Helps Us Care for You: No Feels Safe at Home: Yes Safety Concerns: Feels Safe At This Time Assistive Devices: CPAP and Glasses Review of Systems Review of Systems: reviewed, per HPI Physical Exam Physical Exam: Constitutional: age appropriate, no acute distress HEENT: NCAT, no conjunctival injection CV: regular rhythm, no murmur appreciated, extremities well-perfused, no LE edema Resp: decreased air movement b/l, CTABL, no wheezes/rales/rhonchi appreciated, no increased work of breathing GI: nondistended MSK: amputation of L index finger Skin: warm, dry, no rash appreciated Neuro: alert, oriented, no focal neurologic deficit appreciated Results & Data Results & Data Vital Signs (Past 12 Hours) Vital Signs Temp Pulse Pulse Resp BP BP Pulse Ox 01/14/25 20:24 97 01/14/25 20:22 82 17 151/92 H 97 01/14/25 19:36 36.5 C 80 19 165/94 H O2 Del Method 01/14/25 20:24 Room Air 01/14/25 20:22 Room Air 01/14/25 19:36 Code Status & VTE Plan VTE Prophylaxis Plan VTE Prophylaxis will be ordered: Yes Supervising Physician Co-Signing Physician Notes Attending addendum: I have physically seen this patient, have supervised the medical residents activities, and agree with the H&P unless as otherwise noted. Assessment and Plan: The patient is an 79-year-old male with a past medical history including GERD, peripheral vascular disease, right arm weakness, diabetes mellitus type 2, hypothyroidism, COPD, hypertension, generalized anxiety disorder, and history of panic attacks. He was noted by family at about 6:00 this evening, to have a right facial droop, slurred speech. When they called his , he was noted to have had a headache last evening, and symptoms have been persistent throughout the day. His last known well time, was therefore unclear. He did have resolution of symptoms while in the emergency department. He underwent full complete stroke evaluation, and was then referred for evaluation for admission to the [facility] service. #CVA/strokelike symptoms/history of CVA- CT head, CTA head and neck all without acute change. CTA neck does note moderately severe aortic arch atherosclerosis involving the great vessels and bilateral carotid bifurcations. Unable to perform MRI brain due to presence of metal in right eyelid Will therefore repeat CT scan of brain/head in 12 hours The patient will be admitted to telemetry for serial cardiac enzymes, serial EKG's, cardiac rhythm monitoring and a 2-D echocardiogram with Dopplers. Check a fasting lipid panel and hemoglobin A1c Order stroke without tPA order set Consult PT/OT/speech/neurology Patient did pass bedside dysphagia screen in the ED Permissive hypertension with labetalol IV as noted Continue clopidogrel 75 mg daily, add aspirin 81 mg daily Chronic medical conditions: Hyperlipidemia-continue atorvastatin/rosuvastatin, patient reports taking both. Continuing Lipitor, holding Crestor for now. Checking a fasting lipid panel Hypothyroidism-continue levothyroxine Diabetes mellitus-holding metformin, place Accu-Cheks with NovoLog SSI GERD-continue pantoprazole COPD-continue inhalers Resident Activity Tracking Resident Involvement: Resident Care Provided Care Provided: Adult Hospital Medicine (2) Hypertension Hypertension type: essential hypertension Qualified Code(s): I10 - Essential (primary) hypertension
[2025-01-14] MEDS: ASPIRIN 81 MG ECTAB PO STA (22:15)
[2025-01-14 22:35] LABS: Appearance Urine Clear (Clear); Bilirubin Urine Negative (Negative); Blood Urine Negative (Negative); Color Urine Yellow; Glucose Urine UA Negative (Negative); Ketones Urine Negative (Negative); Leukocyte Esterase Urine Negative (Negative); Nitrite Urine Negative (Negative); Protein Urine Negative (Negative); Specific Gravity Urine 1.039 (1.000-1.030); Urobilinogen Urine Negative (Negative); pH Urine 6.5 (4.5-7.5)
[2025-01-14] MEDS ORDERED: metFORMIN HCL ER 500 MG TABCR PO SCH (22:58)
[2025-01-14] MEDS ORDERED: MAGNESIUM HYDROXIDE SUSP 30 ML UDC PO PRN (22:58)
[2025-01-14] MEDS ORDERED: ALUMINUM/MAGNESIUM SUSP 30 ML UDC PO PRN (22:58)
[2025-01-14] MEDS ORDERED: ONDANSETRON INJ 2 MG/ML 2 ML VIAL IV PRN (22:58)
[2025-01-14] MEDS ORDERED: GLUCAGON FOR INJ 1 MG VIAL SQ PRN (23:45)
[2025-01-14] MEDS ORDERED: GLUCOSE 40% GEL 15 GM TUBE PO PRN (23:45)
[2025-01-14] MEDS ORDERED: CARBOHYDRATES FOR HYPOGLYCEMIA PO PRN (23:45)
[2025-01-14] MEDS ORDERED: GLUCOSE 10 TAB/TUBE PO PRN (23:45)
[2025-01-14] MEDS ORDERED: DEXTROSE 50% 50 ML SYRINGE IV PRN (23:45)
--- OUTSIDE RECORDS SUMMARY | 2025-01-15 00:27 | External Medical Summary ---
Author Name Unknown Address Unknown Organization : Laboratory Report Ordering Provider Test Date Status JANKI GARCIA 10/02/2024 08:07:10 Final Observation Date Value Abnormality Reference (Units ) Status Glucose Point of Care 10/02/2024 08:07:10 143 Above high normal 70-120 (mg/dL) Final Performing Location
--- OUTSIDE RECORDS SUMMARY | 2025-01-15 00:27 | External Medical Summary | Summary of Care ---
Author Name Unknown Organization [facility] Address [address] [place] [address] Phone [phone] Care Team Providers Care Merchandise Director Name Role Phone Meenu Avitia Primary Care Provider Reason for Visit * Reason Onset Date Comments STAIR AAA 10/25/2024 Encounter Details Date Type Department Care Team (Late st Contact Info) Description 10/25/2024 Telephone STAIR [facility] [address] [place] [address] Program, Stair [address] [place] [address] STAIR [facility] Allergies Active Allergy Reactions Criticality Noted Date Comments Cephalexin Hives,Rash Low 05/20/2021 Latex Rash Low 01/21/2023 Sertraline Rash High 11/20/2019 documented as of this encounter (statuses as of 10/25/2024) Medications Albuterol Sulfate (PROAIR HFA) 108 (90 Base) MCG/ACT AERS Take 1 Puff by mouth every 6 hours as needed for Shortness of Breath or Wheezing. Active amLODIPine (NORVASC) 5 MG Tablet Take 1 Tablet by mouth in the morning. Active clopidogrel (PLAVIX) 75 MG Tablet Take 1 Tablet by mouth in the morning. Active LORAzepam (ATIVAN) 0.5 MG Tablet Take 1 Tablet by mouth every 12 hours as needed. Active Melatonin 5 MG Tablet Take 1 Tablet by mouth at bedtime as needed. Active fluticasone furoate-vilante rol (BREO ELLIPTA) 200-25 MCG/INH AEPB Inhale 1 Puff by mouth in the morning. 0 Active Levothyroxine Sodium 137 MCG Tablet daily. 0 Active B-12 Compliance Injection 1000 MCG/ML Injection Kit (Cyanocobalamin ) Inject 1,000 mcg into a large muscle every 30 days. Active CPAP every night at bedtime . Active metFORMIN HCl 500 MG Oral Tablet (Glucophage) Take 1 Tablet by mouth daily with breakfast. 4 Active Rosuvastatin Calcium 10 MG Oral Tablet (Crestor) Take 1 Tablet by mouth in the morning. 90 Tablet 3 4 Active Meloxicam 15 MG Oral Tablet (Mobic) Take 1 Tablet by mouth as needed. 4 Active DULoxetine HCl 30 MG Oral Capsule Delayed Release Particles (Cymbalta) Take 1 Capsule by mouth in the morning. 4 Active Triamcinolone Acetonide 0.1 % External Ointment (Aristocort) 4 Active Aspirin 81 MG Oral Tablet Delayed Release Take 1 Tablet by mouth in the morning. 30 Tablet 2 4 12/31/19 25 Active Additional Information Patient not taking.Reported on 10/24/2024 oxyCODONE HCl 5 MG Oral Tablet (Oxy IR) Take 1 Tablet by mouth every 8 hours as needed for Pain, Severe for up to 9 doses. 9 Tablet 4 Active Additional Information Patient not taking.Reported on 10/24/2024 documented as of this encounter (statuses as of 10/25/2024) Active Problems Problem Noted Date Diagnosed Date History of endovascular sten t graft for abdominal aortic aneurysm 07/25/2024 KRISTEN on CPAP 05/08/2022 Essential hypertension with goal blood pressure less than 130/80 01/22/2020 AAA (abdominal aortic aneurysm) without rupture 12/31/2019 Overview (12/31/2019): S/p repair Dyslipidemia, goal LDL below 70 Tobacco abuse, in remission COPD (chronic obstructive pulmonary disease) documented as of this encounter (statuses as of 10/25/2024) Resolved Problems Problem Noted Date Diagnosed Date Resolved Date Postoperative ileus 05/12/2022 05/12/20 RUFUS (acute kidney injury) 05/10/2022 Hypokalemia 05/10/2022 05/12/2022 Acute cholecystitis 05/08/2022 05/12/20 22 documented as of this encounter (statuses as of 10/25/2024) Immunizations Name Administration Dates Next Due COVID-19 mRNA, LNP-s, No Pre serve, 2-Dose Series (Moderna) 02/24/2021,01/22/2021 Season Influenza, Quad, PF, Adjuvanted, 65+ Yrs, IM (FLUAD) 08/05/2020 documented as of this encounter Social History Tobacco Use Types Packs/Day Years Used Date Smoking Tobacco: Former Cigarettes 1 53.6 0 11/07/1963 - 06/07/2017 Smokeless Tobacco: Never Alcohol Use Standard Drinks/Week Comments Yes 0 (1 standard drink = 0.6 oz pur e alcohol) average 3-4 bottles a day AUDIT-C Answer Date Recorded Frequency of Alcohol Consumption 4 or more times a week 11/20/2019 Average Number of Drinks 3 or 4 020 Frequency of Binge Drinking Not on file 11/07 Personal Safety Answer Date Recorded Do you feel unsafe or have concerns for your saf ety? No 10/01/2024 Do you have concerns for you r family's safety? (Household - for ages 0-17 years) Not on file 10/01/2024 Utilities Answer Date Recorded Do you have trouble paying y our heating, water, or electric bill? No 10/01/2024 Is your family able to pay t he heat, water, or electric bill? (Household - for ages 0-17 years) Not on file 10/01/2024 Does your family have access to good internet? (Household - for ages 0-17 years) Not on file 10/01/2024 Transportation Needs Answer Date Record ed Do you have trouble getting a ride to medical visits or work? (Adult - for ages 18 years and over) Not on file 10/01/2024 Does your family have a hard time getting a ride to doctors visits? (Household - for ages 0-17 years) Not on file 10/01/2024 Has lack of transportation k ept you from medical appointments, meetings, work, or from getting things needed for daily living? Check all that apply. No 10/01/2024 Do you (or your family) have trouble finding or paying for a ride (transportation)? (Household - for ages 0-17 years) Not on file 10/01/2024 Housing Stability Answer Date Recorded Do you currently live in a s helter or have no steady place to sleep at night? (Adult - for ages 18 years and over) Not on file 10/01/2024 Do you think you are at risk of becoming homeless? (Adult - for ages 18 years and over) Not on file 10/01/2024 Does your family worry about paying for your home or becoming homeless? (Household - for ages 0-17 years) Not on file 1 12/01/2023 Are you homeless or worried that you might be in the future? No 10/01/2024 Are you (or your family) reema eless or worried that you might be in the future? (Household - for ages 0-17 years) Not on file Food Insecurity Answer Date Recorded Do you need food for this week? No 10/01/2024 Are you able to get enough f ood for your family? (Household - for ages 0-17 years) Not on file 10/01/2024 Does your family need food t his week? (Household - for ages 0-17 years) Not on file 10/01/2024 Do you always have enough fo od for your family? (Household - for ages 0-17 years) Not on file 10/01/2024 Sex and Gender Information Value Date Recorded Sex Assigned at Not on file Legal Sex Male 5:27 AM EST Gender Identity Not on file Sexual Orientation Not on file documented as of this encounter Functional Status * Are you deaf or do you have serious difficulty hearing? Answer Date of Assessment Author No 10/01/2024 12:39 PM Alisson Baker RN * Are you blind or do you have serious difficulty seeing, even when wearing glasses? Answer Date of Assessment Author No 10/01/2024 12:39 PM Alisson Baker RN * Do you have serious difficulty walking or climbing stairs? (5 years old or older) Answer Date of Assessment Author No 10/01/2024 12:39 PM Alisson Baker RN * Do you have difficulty dressing or bathing? (5 years old or older) Answer Date of Assessment Author No 10/01/2024 12:39 PM Alisson Baker RN * Because of a physical, mental, or emotional condition, do you have difficulty doing errands alone such as visiting a doctors office or shopping? (15 years old or older) Answer Date of Assessment Author No 10/01/2024 12:39 PM Alisson Baker RN documented as of this encounter Mental Status * Because of a physical, mental, or emotional condition, do you have serious difficulty concentrating, remembering, or making decisions? (5 years old or older) Answer Entry Date Author No 10/01/2024 12:39 PM Alisson Baker RN documented in this encounter Miscellaneous Notes * Telephone Encounter - Ann Puri LPN - 10/25/2024 8:13 AM EST AAA - Clinical Summary Name: Parker Morrissey Age: [age] year old AAA Review: Follow-up Follow-up Encounter Provider: Toby Mccormick MD Patient Identified by: Problem List Report Imaging Interpretation: CTA Type of Result: SP EVAR AAA Care Plan Imaging Recommendation: CTA - details below Details: in 1 year AAA Care Plan Visit Recommendation: Return visit in Vascular Surgery Details: in 1 year Next steps: No action needed at this time. Patient was seen by vascular surgery yesterday. Next clinic visit with testing prior is already scheduled. Will continue to track. Time spent: 10 minutes Ann Puri LPN Coordinator BREONNA (System to Track Abnormalities of Importance Reliably) CTA ABD/PELVIS 10/18/2024 Narrative EXAM EXAM: CTA ABD/PELVIS DATE and TIME: 10/18/2024 4:09 pm HISTORY CLINICAL INFORMATION: S/P EVAR, remote coils, recent extension graft right limb TECHNIQUE High resolution helical ct angiogram of the abdomen, and pelvis was performed following administration of intravenous contrast. Advanced 3d reconstructions of the aorta and its branch vessels were performed for optimal vascularevaluation on a [employer] work station. COMPARISON CTA ABD_PELVIS, ACC: [id number], dated 2021-09-23 09:14:42 FINDINGS VASCULAR: Status post endovascular repair of infrarenal abdominal aortic aneurysm and endoleak repair. Streak artifact from coil packs limits evaluation for persistent endoleak. Within limitation of streak artifact, no definite endoleak is identified. There is no evidence of stent migration. Recentextension of right iliac limb stent extending to the proximal external iliac artery which is patent. [place] aneurysmal sac measures 10.1 cm in maximum dimension, previously measured 10.1 cm. Plug embolization of right internal iliac artery. Left internal iliac artery is patent. Bilateral external iliac arteries are patent. Bilateral common femoral arteries are patent. Bilateral deep and superficial femoral arteries are patent to the extent visualized. Celiac artery is patent. Superior mesenteric artery is patent. Mild ostial stenosis of left renal artery. Severe ostial stenosis of right renal artery. An accessory right renal artery is patent. Inferior mesenteric artery is occluded at its origin. Lower Lungs: No focal airspace consolidation or suspicious pulmonary nodules. Similar small pericardial effusion. Coronary artery calcifications. ABDOMEN: Cholecystectomy. Cystic lesion in the mid pancreatic body measuring up to 25 mm common notsignificantly changed since prior exam. No pancreatic ductal dilatation. The liver, spleen, kidneys and adrenal glands are unremarkable. No evidence of free fluid or free air. Prominent right retrocrural lymph node measuring up to 22 mm, unchanged. The small and large bowel demonstrate no evidence of obstruction or ileus. Large amount of stool in the rectum. Colonic dive rticulosis without acute diverticulitis. Pelvis: Urinary bladder is partially distended with nonspecific diffuse bladder wall thickening. Nopelvic free fluid or enlarged lymph nodes. Osseous structures: No suspicious lytic or blastic lesions. Polyarticular degenerative changes. Impression IMPRESSION Status post EVAR and endoleak repair. No definite evidence of persistent endoleak allowing for streak artifact from coil packs. [place] aneurysmal sac is stable in size measuring up to 10.1 cm. 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 documented in this encounter Plan of Treatment Health Maintenance Due Date Last Done Comments Depression Screening 1955 Alpha-1 Antitrypsin 1961 DTap/Tdap Vaccines (1 - Tdap) 1962 Zoster Vaccines (1 of 2) 1993 *COPD SEVERITY VERIFIED BY PFT 12/15/2019 TSH 12/30/2022 12/30/2021, 11/08, 12/11/2019 COVID-19 Vaccine ( season) 2024 02/24/2021, 01/22/2021 Influenza Vaccine (FLU shot) (#1) 2024 08/24/2023, 09/22/2021, 09/22/2021, Additional history exists Albumin/Creatinine Ratio 12/30/2024 12/30/2021 O2 ASSESSMENT COMPLETED IN PAST YEAR FOR COPD 10/01/2025 10/01/2024 GFR 10/02/2025 10/02/2024, 09/08, 06/22/2024, Additional history exists Pneumococcal Vaccine: 65+ Years Completed 06/29/2017, 09/25/2015 HPV (Gardasil) Vaccine Aged Out No lo nger eligible based on patient's age to complete this topic Hepatitis B Vaccine Aged Out No longe r eligible based on patient's age to complete this topic MENINGOCOCCAL (MENACTRA/MENVEO) Aged Out No longer eligible based on patient's age to complete this topic documented as of this encounter Medical Devices Implanted Type Area Holter Technician Device Identifier Shelf Expiration Date Model / Serial / Lot Graft Excludr [id number] - [id number] Implanted:Qty: 1 on 10/01/2024 by Toby Mccormick MD at [place] [facility] [place] Graft Right: Iliac [employer] [id number] 07/24/2027 [id number] / [id number] / [id number] Azur Peripheral Coil System Implanted:Qty: 9 on 01/02/2020 by Shawn Cordoba MD at [facility] [place] N/A: Aorta [employer] 09/06/2022 [id number] 0 / / [id number] Coil Vortex 35 Pltinm [id number] - [id number] Implanted:Qty: 1 on 01/02/2020 by Shawn Cordoba MD at [facility] [place] N/A: Aorta [employer] : NEURO INTR [id number] 07/11/2022 [id number] 06 / / [id number] Coil Vortex 35 Pltinm [id number] - [id number] Implanted:Qty: 1 on 01/02/2020 by Shawn Cordoba MD at [facility] [place] Aorta [employer] : NEURO INTR [id number] 07/11/2022 [id number] 06 / / [id number] Coil Azur .035 [id number] - [id number] Implanted:Qty: 9 on 01/02/2020 by Shawn Cordoba MD at [facility] [place] N/A: Aorta [employer] 05/06/2021 [id number] 0 / / [id number] Coil Azur .035 [id number] - [id number] Implanted:Qty: 9 on 01/02/2020 by Shawn Cordoba MD at [facility] [place] N/A: Aorta [employer] 01/04/2021 [id number] 0 / / [id number] Coil Azur 16mm 20cm Implanted:Qty: 2 on 01/02/2020 by Shawn Cordoba MD at [facility] [place] N/A: Aorta [employer] 05/06/2021 [id number] 0 / / [id number] Coil Azur 16mm 20cm Implanted:Qty: 3 on 01/02/2020 by Shawn Cordoba MD at [facility] [place] N/A: Aorta [employer] 06/06/2021 [id number] 0 / / [id number] Coil Azur 16mm 20cm Implanted:Qty: 6 on 01/02/2020 by Shawn Cordoba MD at [facility] [place] N/A: Aorta [employer] 09/06/2022 [id number] 0 / / [id number] Coil Azur 16mm 20cm Implanted:Qty: 3 on 01/02/2020 by Shawn Cordoba MD at [facility] [place] N/A: Aorta [employer] 06/06/2021 [id number] 0 / / [id number] Coil Azur .035 [id number] - [id number] Implanted:Qty: 7 on 01/02/2020 by Shawn Cordoba MD at [facility] [place] N/A: Aorta [employer] 05/06/2021 [id number] 0 / / [id number] Coil Vortex 35 Pltinm [id number] - [id number] Implanted:Qty: 1 on 01/02/2020 by Shawn Cordoba MD at [facility] [place] N/A: Aorta [employer] : [employer]TR [id number] 02/28/2022 [id number] 061 / / [id number] Coil Helical 2 20mm [id number] - [id number] Implanted:Qty: 1 on 10/01/2024 by Toby Mccormick MD at [facility] [place] N/A: Abdomen [employer] : NE[employer] INTR [id number] 02/21/2026 [id number] / / [id number] Coil Vortex 2x4mm [id number] - [id number] Implanted:Qty: 1 on 10/01/2024 by Toby Mccormick MD at [facility] [place] Left: Iliac [employer] : PERIPHL IV [id number] 07/27/2026 [id number] 041 / / [id number] Plug Vasc Ampl 12mm 9-Plug-012 - [id number] Implanted:Qty: 1 on 10/01/2024 by Toby Mccormick MD at [facility] [place] Right: Iliac [employer] [id number] 05/06/2029 9-PLUG-0 12 / / [id number] 14.5mm X 14cm Contralateral Leg Endoprosthesis, Conformable Aaa Implanted:Qty: 1 on 10/01/2024 by Toby Mccormick MD at [facility] [place] Right: Iliac [employer] [id number] 03/20/2027 [id number] 0 / [id number] / [id number] documented as of this encounter Advance Directives * Full Code (Latest Code Status on File) Date Activated Date Inactivated Comments 10/01/2024 11:27 AM 10/02/2024 2:35 PM This orde r reflects the patients wishes and were consensually agreed upon. Question Answer Comments Discussion of Advance Direct mirta occurred with: Not Discussed due to patient's condition * Limited Code Date Activated Date Inactivated Comments 05/08/2022 1:51 AM 05/12/2022 6:36 PM This order ref lects the patients wishes and were consensually agreed upon. Question Answer Comments Discussion of Advance Directives occurred with: Patient Bag Valve Device? Yes Intubation? No Defibrillation? Yes Synchronized Cardioversion? Yes External Pacemaker? Yes Cardiac Drugs? Yes * Full Code Date Activated Date Inactivated Comments 05/08/2022 1:28 AM 05/08/2022 1:51 AM This order ref lects the patients wishes and were consensually agreed upon. Question Answer Comments Discussion of Advance Directives occurred with: Not Discussed * Full Code Date Activated Date Inactivated Comments 01/02/2020 12:00 PM 01/03/2020 2:49 PM Care Teams Merchandise Director Relationship Specialty Start Date End Date Meenu Avitia DO [address] [place] [address] BHANU Yoder [id number] PCP - General Family Medicine 11/20/19 documented as of this encounter
--- OUTSIDE RECORDS SUMMARY | 2025-01-15 00:27 | External Medical Summary | Summary of Care ---
Author Name Unknown Organization [facility] Address [address] [place] [address] Phone [phone] Care Team Providers Care Water Mangle Tender Name Role Phone AdoreMeenu herrera Hattie GONZALEZ Primary Care Provider Reason for Visit * Auth/Cert Specialty Diagnoses / Procedures Referred By Michel t Referred To Contact Diagnoses Infrarenal abdominal aortic aneurysm (AAA) without rupture (HCC) KRISTEN on CPAP Essential hypertension with goal blood pressure less than 130/80 Chronic obstructive pulmonary disease, unspecified COPD type (HCC) Dyslipidemia, goal LDL below 70 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 Infrarenal abdominal aortic aneurysm (AAA) without rupture (HCC) [I71.43] KRISTEN on CPAP [G47.33] Essential hypertension with goal blood pressure less than 130/80 [I10] Chronic obstructive pulmonary disease, unspecified COPD type (HCC) [J44.9] Dyslipidemia, goal LDL below 70 [E78.5] 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 [Z95.828] Procedures PLACE CATHETER IN ARTERY, FIRST IR ARTERIOGRAM EXTREMITY BILATERAL AORTOGRAM ABDOMINAL-TECH ONLY DELAYED PLACEMENT EXTENSION PROSTHESIS 1ST VESSEL IR EMBOLIZATION ARTERIAL NON HEMMORHAGE CATHETER PLACEMENT, ABDOMINAL-LOWER EXTREMITY, FIRST ORDER BRANCH ANGIOGRAPHY EXTREMITY BILATERAL IMAGING SUPERVISION & INTERPRETATION ABDOMINAL AO PLACEMENT DISTAL OR PROXIMAL EXTENSION ENDOVASCULAR PROSTHESIS DELAYED, INC. RADIOLOGY SUPERVISION & INTERPRETATION, INFRARENAL AORTIC OR ILIAC ANEURYSM EMBOLIZATION ARTERIAL; SUPERVISION & INTERPRETATION Toby Mccormick MD [address] [place] [address] Phone: tel: fax: OR [facility], OPERATING ROOM [facility], TONYA MCGEE [address] [place] [address] Phone: tel: Referral ID Status Reason Start Date Expiration Date Visits Re quested Visits Authorized [id number] Encounter Details Date Type Department Care Team (Latest Contact Info) Description 10/01/2024 5:14 AM EST - 10/02/2024 10:30 AM EST Hospital Encounter [facility], [facility] 8th Floor [address] [place] [address] Toby Mccormick MD [address] [place] [address] Pt Handout (on AVS) Discharge Disposition: Home - Self Care Allergies Active Allergy Reactions Criticality Noted Date Comments Cephalexin Hives,Rash Low 05/20/2021 Latex Rash Low 01/21/2023 Sertraline Rash High 11/20/2019 documented as of this encounter (statuses as of 10/02/2024) Medications Albuterol Sulfate (PROAIR HFA) 108 (90 [...] 30 Tablet 2 4 12/31/19 25 Active oxyCODONE HCl 5 MG Oral Tablet (Oxy IR) Take 1 Tablet by mouth every 8 hours as needed for Pain, Severe for up to 9 doses. 9 Tablet 4 Active documented as of this encounter (statuses as of 10/02/2024) Active Problems Problem Noted Date Diagnosed Date [...] as of this encounter (statuses as of 10/02/2024) Resolved Problems Problem Noted Date Diagnosed Date Resolved Date Postoperative ileus 05/12/2022 05/12/20 22 RUFUS (acute kidney injury) 05/10/2022 Hypokalemia 05/10/2022 05/12/2022 Acute cholecystitis 05/08/2022 05/12/20 22 documented as of this encounter (statuses as of 10/02/2024) Immunizations Name Administration Dates Next Due COVID-19 [...] on file documented as of this encounter Last Filed Vital Signs Vital Sign Reading Time Taken Comments Blood Pressure 175/95 10/02/2024 7:51 AM EST Pulse 63 10/02/2024 7:51 AM EST Temperature 36.2 C (97.2 F) 10/02/2024 7:51 AM ES T Respiratory Rate 18 10/02/2024 7:51 AM EST Oxygen Saturation 95% 10/02/2024 7:51 AM EST Inhaled Oxygen Concentration - - Weight 88.8 kg (195 lb 12.8 oz) 10/01/2024 5:37 AM EST Height 170.2 cm (5' 7") 10/01/2024 5:37 AM EST Body Mass Index 30.67 10/01/2024 5:37 AM EST documented in this encounter Functional Status * Are you deaf or do you have serious difficulty hearing? Answer Date of Assessment Author No 10/01/2024 12:39 PM EST Alisson Patel RN * Are you blind or do you have serious difficulty seeing, even when wearing glasses? Answer Date of Assessment Author No 10/01/2024 12:39 PM EST Alisson Patel RN * Do you have serious difficulty [...] Alisson Baker RN documented in this encounter Discharge Summaries * Jorge Alberto Ivy MD - 10/02/2024 9:05 AM EST [address] [address] Admission Date: 10/01/2024 Discharge Date: 10/02/2024 DISCHARGE DIAGNOSES: Active Hospital Problems Diagnosis *Principal Diagnosis - 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 KRISTEN on CPAP Essential hypertension with goal blood pressure less than 130/80 AAA (abdominal aortic aneurysm) without rupture (HCC) COPD (chronic obstructive pulmonary disease) (HCC) Dyslipidemia, goal LDL below 70 Resolved Hospital Problems No resolved problems to display. Other Significant Diagnoses: none CONDITION ON DISCHARGE: stable Cognition: normal DISPOSITION ON DISCHARGE: home FOLLOW-UP: Future Appointments Appt Date/Time Provider Department 10/16/2024 2:30 PM CT1 [facility] Radiology [address] 10/24/2024 2:30 PM Toby Mccormick MD Vascular Surgery, [facility] Outpatient testing already scheduled: per above Outpatient testing that needs to be arranged: none Inpatient test results pending: none MEDICATIONS ON DISCHARGE: MEDICATION UPDATES AT DISCHARGE START taking these medications INSTRUCTIONS aspirin enteric coated 81 MG Tbec Take 1 Tablet by mouth in the morning. oxyCODONE 5 MG immediate release tablet Commonly known as: Oxy IR Take 1 Tablet by mouth every 8 hours as needed for Pain, Severe for up to 9 doses. CONTINUE taking these medications INSTRUCTIONS amLODIPine 5 MG Tablet Commonly known as: Norvasc Take 1 Tablet by mouth in the morning. B-12 Compliance Injection 1000 MCG/ML injection Generic drug: Cyanocobalamin Inject 1,000 mcg into a large muscle every 30 days. CPAP every night at bedtime . fluticasone furoate-vilanterol 200-25 MCG/ACT Aepb Commonly known as: BREO ellipta Inhale 1 Puff by mouth in the morning. Levothyroxine Sodium 137 MCG Tablet daily. LORAzepam 0.5 MG Tablet Commonly known as: Ativan Take 1 Tablet by mouth every 12 hours as needed. Melatonin 5 MG Tablet Take 1 Tablet by mouth at bedtime as needed. Meloxicam 15 MG Tablet Commonly known as: Mobic Take 1 Tablet by mouth as needed. metFORMIN 500 MG Tablet Commonly known as: Glucophage Take 1 Tablet by mouth daily with breakfast. Plavix 75 MG Tablet Generic drug: clopidogrel Take 1 Tablet by mouth in the morning. ProAir HFA 108 (90 Base) MCG/ACT Aers Take 1 Puff by mouth every 6 hours as needed for Shortness of Breath or Wheezing. rosuvastatin 10 MG Tablet Commonly known as: Crestor Take 1 Tablet by mouth in the morning. Triamcinolone Acetonide 0.1 % ointment Commonly known as: Aristocort CONTINUE taking these medications but follow up with your Primary Care Physician (PCP). INSTRUCTIONS DULoxetine 30 MG Cpep Commonly known as: Cymbalta Take 1 Capsule by mouth in the morning. ALLERGIES: Zoloft [sertraline], Cephalexin, and Latex INSTRUCTIONS: Activity: slowly resume normal pre-operative activity levels. Avoid overly strenuous activities for4 weeks Diet: heart healthy diet Code Status: Full Code Indwelling devices: none ADMISSION HISTORY & PHYSICAL EXAM (focused): HISTORY OF PRESENT ILLNESS: Parker Morrissey is a 79 year old, male that presents to pre-op today for aortogram, possible embolization of endoleak, possible iliac branch device, possible internal illiac embolization and coverage of stent with Dr. Mccormick. Since the last clinic visit, no ED visits or hospitalizations. Reported having a cough and recent "cold like" viral symptoms but did not need hospitalized or go to ED. Patient does not report any new issues or complaints since the last clinic visit. Also denies fevers, chills, night sweats, nausea, vomiting, diarrhea, chest pain, and shortness of breath. Does the patient take Coumadin (warfarin)? no Does the patient take any other anticoagulants? yes plavix 75 mg, reported he stopped taking it "a few days ago" daughter is nurse and handles his medications. Does patient take a beta saúl? No Last Clinic Visit (07/25/2024) HPI: Patient is a reformed smoker with dyslipidemia, HTN, COPD, and KRISTEN He underwent EVAR in 2014 by Jack Clement He states he did have follow-up imaging after this repair, last imaging being in 2018/early 2018 He does recall being told there was an endoleak. Was seen by Dr. Underwood (Cardiology) for chest pain on 11/20/19. Per Dr. Underwood's note: -the patient has a history of past endovascular abdominal aortic aneurysm repair. He has not had imaging follow-up of this, I discussed the importance of serial follow-up of the graft. I recommended that either he returns to his previous vascular surgery provider in [place], or if he prefers to establish with [facility] vascular surgery, and he would like to establish with [facility]. I've therefore placed a referral. We obtained a CTA 12/03/2019 prior to our appointment with him which noted 8.2 cm aneurysm sac with endoleak present. Subsequently underwent endoleak repair via transcaval laser fenestration approach with placement ofmultiple coils and fibrin sealant, inferior vena cavagram via right femoral venous approach, aortography via left femoral approach with aortic catheter and transcatheter coil embolization of left ilio lumbar branch of internal iliac artery by Dr. 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 FHx with his brother having a AAA. Has not required repair. ABDOMINAL AORTIC ANEURYSM: Patient denies any symptoms related to AAA. Patient denies new abdominal pain, flank pain and back pain. GENERAL MULTI-SYSTEM PHYSICAL EXAM: GENERAL: Normal grooming habits, no acute distress and appears stated age. NECK: No masses. RESPIRATORY: Respiratory effort normal, CTA. CARDIOVASCULAR: No heart murmurs, no edema and no varicosities. GASTROINTESTINAL: No tenderness, obese and abdominal aorta not palpable. LYMPHATIC: Cervical and inguinial lymph nodes normal. SKIN: No ulcers, no induration, capillary refill normal and no dependent rubor. PSYCHIATRIC: Orientation to time, place and person normal and recent and remote memory normal. EYES: Conjunctivae normal. NEUROLOGIC: Motor function grossly intact PULSE SCALE: Carotid Right:----Bruit: No Left:----Bruit: No Radial Right: 3 Left: 3 Femoral Right: 3 Left: 3 Popliteal Right: 3 Left: 3 Dorsalis Pedis Right: 2 Left: 2 Posterior Tibial Right: 3 Left: 3 PULSE SCALE: 4=Aneurysmal; 3=Normal; 2=Diminished; 1=Barely Palpable; 0=Absent HOSPITAL PROBLEM LIST: Problem List Patient Active Problem List Diagnosis Dyslipidemia, goal LDL below 70 Tobacco abuse, in remission COPD (chronic obstructive pulmonary disease) (HCC) AAA (abdominal aortic aneurysm) without rupture (HCC) Essential hypertension with goal blood pressure less than 130/80 KRISTEN on CPAP 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 PAST MEDICAL HISTORY: Past Medical History Past Medical History: Diagnosis Date COPD (chronic obstructive pulmonary disease) (HCC) Dyslipidemia Hypothyroidism KRISTEN on CPAP Tobacco abuse, in remission PAST SURGICAL HISTORY: Past Surgical History Past Surgical History: Procedure Laterality Date INTRODUCTION OF CATHETER, AORTA N/A 01/02/2020 CATHETER PLACEMENT, AORTA performed by Shawn Cordoba MD at OR [facility] IR EMBOLIZATION ARTERIAL NON HEMMORHAGE N/A 01/02/2020 trans-caval fenestrated embolization of aortic aneurysm sac with endoleak, and transcatheter embolization of left internal iliac artery branch performed by Shawn Cordoba MD at OR [facility] LAPAROSCOPY, CHOLECYSTECTOMY WITH CHOLANGIOGRAPHY N/A 05/09/2022 LAPAROSCOPIC CHOLECYSTECTOMY WITH CHOLANGIOGRAM performed by Shawn Samuel MD at OR [facility] PLACE CATHETER IN VENA CAVA Right 01/02/2020 CATHETER PLACEMENT, VENOUS ACCESS performed by Shawn Cordoba MD at OR [facility] ENDOVASCULAR REPAIR AAA -TECH FAMILY HISTORY: Family History No family history on file. SOCIAL HISTORY: Social History Social History Tobacco Use Smoking status: Former Current packs/day: 0.00 Average packs/day: 1 pack/day for 53.6 years (53.6 ttl pk-yrs) Types: Cigarettes Start date: 11/07/1963 Quit date: 06/07/2017 Years since quittin.3 Smokeless tobacco: Never Vaping Use Vaping status: Never Used Substance Use Topics Alcohol use: Yes Comment: average 3-4 bottles a day Drug use: Never CURRENT HOSPITAL MEDICATIONS: Note that completed medications (per the MAR) continue to display for 24 hours. Ordered medicationsto be given in the future also display. No current facility-administered medications for this encounter. ALLERGIES: Allergies Zoloft [sertraline], Cephalexin, and Latex ROS: All other systems negative except for those in the history of present illness (HPI). PHYSICAL EXAMINATION: BP: 166 mmHg/85 mmHg (10/01/24 0600) Pulse: 61 (10/01/24 0600) Resp: 15 (10/01/24 0600) Temp: 36.28 C (10/01/24599) Temp Summary: No data recorded SpO2: 99 % (10/01/24 0600) O2 flow rate: Supplemental O2 Delivery: Room Air, None (10/01/24 06) Gen: A&Ox3 HENT: Supple, No LAD Pulm: Comfortable on RA Cardio: RRR on monitor Abd: soft, non tender to palpation MSK: Spont moves extremities Neuro: No obvious deficits Vascular Exam: Carotid - R - no bruit heard on auscultation Carotid - L - no bruit heard on auscultation Radial - R - palpable Radial - L - palpable Femoral - R - palpable Femoral - L - palpable Tibialis posterior - R - palpable Tibialis posterior - L - palpable Dorsalis Pedis - R - palpable Dorsalis Pedis - L - palpable LE edema - noted no B LE edema HOSPITAL COURSE (focused): Patient was admitted to hospital on 10/02/24 for planned procedure for continued sac growth of abdominal aortic aneurysm. Patient had procedure with the following: Abdominal aortogram, Embolization of left lumbar branch, Embolization of right internal iliac artery, Delayed extension of right iliac limb of EVAR to the external iliac artery, Percutaneous access and preclosure for 12 moroccan or greater sheath. There were no complications during the procedure. In post- operative phase, patient was stable and kept overnight per protocol. This morning (10/02/2024), patient continued to be stable and was able to be discharged. Follow up is scheduled for vascular surgery 10/24/24. Operations & Procedures: Abdominal aortogram, Embolization of left lumbar branch, Embolization of right internal iliac artery, Delayed extension of right iliac limb of EVAR to the external iliac artery, Percutaneous access and preclosure for 12 moroccan or greater sheath. Complications: none SIGNIFICANT RESULTS: Vital Signs (last recorded): Most Recent Systolic BP: 175 mmHg (10/02/24 075) Most Recent Diastolic BP: 95 mmHg (10/02/24750) Pulse: 63 (10/02/24750) Resp: 18 (10/02/24750) Most Recent Temperature: 36.22 C (10/02/24750) Weight: 88.8 kg (195 lb 12.8 oz) (10/01/24 0537) SpO2: 95 % (10/02/24750) O2 flow rate: 2 L/MIN (10/01/242240) Labs: CHEMISTRY: BUN, Creatinine, GFR Estimated, Sodium, Potassium, Chloride, Carbon Dioxide, Glucose, Calcium (see below for most recent value): Lab Results Component Value Date/Time BUN 13 10/02/2024 06:20 AM BUN 18 10/24/2020 10:18 AM CREAT 0.8 10/02/2024 06:20 AM CREAT 1.2 10/24/2020 10:18 AM GFRESTIMATED 58.6 (L) 10/24/2020 10:18 AM NA 141 10/02/2024 06:20 AM NA 138 01/03/2020 05:40 AM POTASSIUM 3.7 10/02/2024 06:20 AM POTASSIUM 3.3 (L) 10/01/2024 09:41 AM POTASSIUM 4.0 01/03/2020 05:40 AM CL 104 10/02/2024 06:20 AM CL 101 01/03/2020 05:40 AM CO2 27 10/02/2024 06:20 AM CO2 28 01/03/2020 05:40 AM CA 9.1 10/02/2024 06:20 AM CA 8.9 01/03/2020 05:40 AM COAGS: PT, INR (see below for three most recent values): Lab Results Component Value Date/Time INR 1.01 05/12/2022 08:48 AM INR 1.06 05/11/2022 06:02 AM INR 1.24 (H) 05/10/2022 07:11 AM BLOOD COUNT: WBC, Hgb, Platelets (see below for most recent value): Lab Results Component Value Date/Time WBC 6.24 10/02/2024 06:20 AM WBC 7.25 01/03/2020 05:40 AM HGB 11.2 (L) 10/02/2024 06:20 AM HGB 12.6 (L) 01/03/2020 05:40 AM PLT 172 10/02/2024 06:20 AM PLT 154 01/03/2020 05:40 AM Imaging (focused): No imaging results in the last 72 hours CONSULTS ORDERED: CARE MANAGEMENT CONSULT IP REFERRING PHYSICIAN: REF: MEENU MORALEZ PRIMARY CARE PROVIDER: PCP: DO [place] / [place] [phone] (office) [phone] (fax) Note: To contact a physician responsible for this patients hospital care, please call [employer] [phone]. Cosigned by Toby Mccormick MD at 10/02/2024 7:14 PM EST Associated attestation - Toby Mccormick MD - 10/02/2024 7:14 PM EST I saw and evaluated the patient today. I have reviewed the resident/fellow physician note and agree. documented in this encounter Discharge Instructions * Discharge Instr - AVS* Jannet Mueller DO - 10/02/2024 8:30 AM EST Discharge Date: 10/02/2024 You may call Toby Mccormick MD of the department of Vascular Surgery at the [facility] office in [place] [phone] option 2. After business hours, you may call with emergency questions to [phone] and ask that the on-call Vascular Surgery provider be paged. The information below provides you with the instructions and the list of medications you need to betaking following discharge from the hospital. If you have any questions, please ask before leaving.Please carry this letter with you when you see your doctor in the clinic. If you have questions, you can reach us at the numbers above. Brief summary of your inpatient care: You had an embolization of your left lumbar artery and stending of your right internal iliac for your endoleak. You were observed overnight and found to be stable to discharge on 10/02/2024. Your primary diagnosis at discharge was Abdominal aortic aneurysm status post EVAR with continued sac growth . Your doctors during this hospitalization included: Toby Mccormick MD Inpatient test results pending: None Complications: none Advance Directive Documented: Advance Directive Does the Patient have an Advance Directive? No SUPPLEMENTAL INSTRUCTIONS: POST-OP INSTRUCTIONS Incision Care: Remove any dressing(s) in 24 hours. You may shower at this point, but no tub baths. You should clean with mild soap and water. Replace the dressings as needed for any drainage. Driving: Do not drive for 1 to 2 weeks and until you are walking normally. You should not drive if you are on narcotics. Diet: You should eat a heart-healthy low-fat diet. If your throat is sore, try eating soft foods. Activity: You may slowly resume normal pre-operative activity levels. You may go up steps and go for walks. However, you should avoid overly strenuous activities for 4 weeks. Return to work: You should wait 2 to 4 weeks to go back to work. Please call our office at the number listed above if you need any paperwork completed. Invasive Procedures: Any invasive procedure, such as dental work, endoscopy, colonoscopy, etc. should be avoided in the first 3 months following surgery. Routine dental work should be avoided in the first three months after your aneurysm surgery. For the rest of your life, any invasive dental work (more than just a routine cleaning), such as root canal procedures, dental extractions, or periodontal scaling will require oral antibiotic prophylaxis (taking an antibiotic pill prior to your dental procedure), which canbe ordered by your primary care provider or dentist. When to call your surgeon: Persistent fever over 101.5 degrees Fahrenheit (39 degrees Celsius) Pain that is not relieved by your medications Persistent nausea or vomiting Persistent cough or shortness of breath Purulent drainage (pus) or bleeding from any incision Redness surrounding any of your incisions that is worsening or getting bigger If you are unable to eat or drink liquids In case of emergency, you surgeon is available 24 hours a day. You may call our office at the phonenumber listed above, go to the Emergency Room, or dial 911. See your primary care physician (Meenu Moralez DO) in 2 weeks. For routine questions, your [facility] Vascular Surgery Team prefers the use of magnify360. [email or web address] is an online internet tool to help you meet your health care needs quickly by providing a secure, confidential way to view your health records and communicate with your [facility] Vascular SurgeryTeam. To sign up for [email or web address] go to [email or web address], "Click" [place] Now on the right side o f the screen and complete the user registration information. documented in this encounter H&P Notes * Jorge Alberto Ivy MD - 10/01/2024 5:17 AM EST HISTORY AND PHYSICAL EXAMINATION - Vascular surgery [address] [address] Name: Parker Morrissey Location: OR [facility]/OR Date: 10/01/2024 Time: 5:18 AM PRESENTING PROBLEM: enlarging AAA HISTORY OF PRESENT ILLNESS: Parker Morrissey is a 79 year old, male that presents to pre-op today for aortogram, possible embolization of endoleak, possible iliac branch device, possible internal illiac embolization and coverage of stent with Dr. Mccormick. Since the last clinic visit, no ED visits or hospitalizations. Reported having a cough and recent "cold like" viral symptoms but did not need hospitalized or go to ED. Patient does not report any new issues or complaints since the last clinic visit. Also denies fevers, chills, night sweats, nausea, vomiting, diarrhea, chest pain, and shortness of breath. Does the patient take Coumadin (warfarin)? no Does the patient take any other anticoagulants? yes plavix 75 mg, reported he stopped taking it "a few days ago" daughter is nurse and handles his medications. Does patient take a beta saúl? No Last Clinic Visit (07/25/2024) HPI: Patient is a reformed smoker with dyslipidemia, HTN, COPD, and KRISTEN He underwent EVAR in 2015 by Jack Clement He states he did have follow-up imaging after this repair, last imaging being in 2018/early 2019 He does recall being told there was an endoleak. Was seen by Dr. Underwood (Cardiology) for chest pain on 11/20/19. Per Dr. Underwood's note: -the patient has a history of past endovascular abdominal aortic aneurysm repair. He has not had imaging follow-up of this, I discussed the importance of serial follow-up of the graft. I recommended that either he returns to his previous vascular surgery provider in [place], or if he prefers to establish with [facility] vascular surgery, and he would like to establish with [facility]. I've therefore placed a referral. We obtained a CTA 12/03/2019 prior to our appointment with him which noted 8.2 cm aneurysm sac with endoleak present. Subsequently underwent endoleak repair via transcaval laser fenestration approach with placement ofmultiple coils and fibrin sealant, inferior vena cavagram via right femoral venous approach, aortography via left femoral approach with aortic catheter and transcatheter coil embolization of left ilio lumbar branch of internal iliac artery by Dr. 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 FHx with his brother having a AAA. Has not required repair. ABDOMINAL AORTIC ANEURYSM: Patient denies any symptoms related to AAA. Patient denies new abdominal pain, flank pain and back pain. GENERAL MULTI-SYSTEM PHYSICAL EXAM: GENERAL: Normal grooming habits, no acute distress and appears stated age. NECK: No masses. RESPIRATORY: Respiratory effort normal, CTA. CARDIOVASCULAR: No heart murmurs, no edema and no varicosities. GASTROINTESTINAL: No tenderness, obese and abdominal aorta not palpable. LYMPHATIC: Cervical and inguinial lymph nodes normal. SKIN: No ulcers, no induration, capillary refill normal and no dependent rubor. PSYCHIATRIC: Orientation to time, place and person normal and recent and remote memory normal. EYES: Conjunctivae normal. NEUROLOGIC: Motor function grossly intact PULSE SCALE: Carotid Right:----Bruit: No Left:----Bruit: No Radial Right: 3 Left: 3 Femoral Right: 3 Left: 3 Popliteal Right: 3 Left: 3 Dorsalis Pedis Right: 2 Left: 2 Posterior Tibial Right: 3 Left: 3 PULSE SCALE: 4=Aneurysmal; 3=Normal; 2=Diminished; 1=Barely Palpable; 0=Absent HOSPITAL PROBLEM LIST: Patient Active Problem List Diagnosis Dyslipidemia, goal LDL below 70 Tobacco abuse, in remission COPD (chronic obstructive pulmonary disease) (HCC) AAA (abdominal aortic aneurysm) without rupture (HCC) Essential hypertension with goal blood pressure less than 130/80 KRISTEN on CPAP 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 PAST MEDICAL HISTORY: Past Medical History: Diagnosis Date COPD (chronic obstructive pulmonary disease) (HCC) Dyslipidemia Hypothyroidism KRISTEN on CPAP Tobacco abuse, in remission PAST SURGICAL HISTORY: Past Surgical History: Procedure Laterality Date INTRODUCTION OF CATHETER, AORTA N/A 01/02/2020 CATHETER PLACEMENT, AORTA performed by Shawn Cordoba MD at OR [facility] IR EMBOLIZATION ARTERIAL NON HEMMORHAGE N/A 01/02/2020 trans-caval fenestrated embolization of aortic aneurysm sac with endoleak, and transcatheter embolization of left internal iliac artery branch performed by Shawn Cordoba MD at OR [facility] LAPAROSCOPY, CHOLECYSTECTOMY WITH CHOLANGIOGRAPHY N/A 05/09/2022 LAPAROSCOPIC CHOLECYSTECTOMY WITH CHOLANGIOGRAM performed by Shawn Samuel MD at OR [facility] PLACE CATHETER IN VENA CAVA Right 01/02/2020 CATHETER PLACEMENT, VENOUS ACCESS performed by Shawn Cordoba MD at OR [facility] ENDOVASCULAR REPAIR AAA -TECH FAMILY HISTORY: No family history on file. SOCIAL HISTORY: Social History Tobacco Use Smoking status: Former Current packs/day: 0.00 Average packs/day: 1 pack/day for 53.6 years (53.6 ttl pk-yrs) Types: Cigarettes Start date: 11/07/1963 Quit date: 06/07/2017 Years since quittin.3 Smokeless tobacco: Never Vaping Use Vaping status: Never Used Substance Use Topics Alcohol use: Yes Comment: average 3-4 bottles a day Drug use: Never CURRENT HOSPITAL MEDICATIONS: Note that completed medications (per the MAR) continue to display for 24 hours. Ordered medicationsto be given in the future also display. No current facility-administered medications for this encounter. ALLERGIES: Zoloft [sertraline], Cephalexin, and Latex ROS: All other systems negative except for those in the history of present illness (HPI). PHYSICAL EXAMINATION: BP: 166 mmHg/85 mmHg (10/01/24599) Pulse: 61 (10/01/24599) Resp: 15 (10/01/24599) Temp: 36.28 C (10/01/24599) Temp Summary: No data recorded SpO2: 99 % (10/01/24599) O2 flow rate: Supplemental O2 Delivery: Room Air, None (10/01/24599) Gen: A&Ox3 HENT: Supple, No LAD Pulm: Comfortable on RA Cardio: RRR on monitor Abd: soft, non tender to palpation MSK: Spont moves extremities Neuro: No obvious deficits Vascular Exam: Carotid - R - no bruit heard on auscultation Carotid - L - no bruit heard on auscultation Radial - R - palpable Radial - L - palpable Femoral - R - palpable Femoral - L - palpable Tibialis posterior - R - palpable Tibialis posterior - L - palpable Dorsalis Pedis - R - palpable Dorsalis Pedis - L - palpable LE edema - noted no B LE edema LABS: Labs reviewed as indicated below: No results found for this or any previous visit (from the past 12 hours). IMAGING: No imaging results in the last 72 hours IMPRESSION and PLAN: - Plan for OR today with Dr. Mccormick for an aortogram, possible embolization of endoleak, possible iliac branch device, possible internal illiac embolization and coverage of stent. This patient was seen and examined at bedside and will be/was discussed with Dr. Mccormick. Jorge Alberto Ivy MD PGY-1 10/01/2024 5:18 AM Cosigned by Toby Mccormick MD at 10/01/2024 7:57 AM EST * Jorge Alberto Ivy MD - 07/25/2024 12:11 PM EDT Images from the original note were not included. Date of Service: 07/25/2024 12:11 PM Parker Morrissey is a 78 year old male. Referring Physician: Meenu Moralez DO Chief Complaint: Return, following updated CTA Previously lost to follow up, last seen 2020, prior to our 07/04/24 visit S/P EVAR in 2014 at OSH followed by endoleak repair on 01/02/[address] Cordoba. Patient cancelled a scheduled RTC 6 month appointment for fall but did have CTA and abd aortic duplex done No reported changes in overall health. HPI: Patient is a reformed smoker with dyslipidemia, HTN, COPD, and KRISTEN He underwent EVAR in 2014 by Jack Clement He states he did have follow-up imaging after this repair, last imaging being in 2018/early 2018 He does recall being told there was an endoleak. Was seen by Dr. Underwood (Cardiology) for chest pain on 11/20/19. Per Dr. Underwood's note: -the patient has a history of past endovascular abdominal aortic aneurysm repair. He has not had imaging follow-up of this, I discussed the importance of serial follow-up of the graft. I recommended that either he returns to his previous vascular surgery provider in [place], or if he prefers to establish with [facility] vascular surgery, and he would like to establish with [facility]. I've therefore placed a referral. We obtained a CTA 12/03/2019 prior to our appointment with him which noted 8.2 cm aneurysm sac with endoleak present. Subsequently underwent endoleak repair via transcaval laser fenestration approach with placement ofmultiple coils and fibrin sealant, inferior vena cavagram via right femoral venous approach, aortography via left femoral approach with aortic catheter and transcatheter coil embolization of left ilio lumbar branch of internal iliac artery by Dr. 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 FHx with his brother having a AAA. Has not required repair. ABDOMINAL AORTIC ANEURYSM: Patient denies any symptoms related to AAA. Patient denies new abdominal pain, flank pain and back pain. Current Outpatient Medications Medication Sig Dispense Refill Albuterol Sulfate (PROAIR HFA) 108 (90 Base) MCG/ACT AERS Take 1 Puff by mouth every 6 hours as needed for Shortness of Breath or Wheezing. amLODIPine (NORVASC) 5 MG Tablet Take 1 Tablet by mouth in the morning. clopidogrel (PLAVIX) 75 MG Tablet Take 1 Tablet by mouth in the morning. LORAzepam (ATIVAN) 0.5 MG Tablet Take 1 Tablet by mouth every 12 hours as needed. Melatonin 5 MG Tablet Take 1 Tablet by mouth at bedtime as needed. fluticasone furoate-vilanterol (BREO ELLIPTA) 200-25 MCG/INH AEPB Inhale 1 Puff by mouth in the morning. Levothyroxine Sodium 137 MCG Tablet daily. B-12 Compliance Injection 1000 MCG/ML Injection Kit (Cyanocobalamin) Inject 1,000 mcg into a large muscle every 30 days. CPAP every night at bedtime . metFORMIN HCl 500 MG Oral Tablet (Glucophage) Take 1 Tablet by mouth daily with breakfast. Rosuvastatin Calcium 10 MG Oral Tablet (Crestor) Take 1 Tablet by mouth in the morning. 90 Tablet 3 Meloxicam 15 MG Oral Tablet (Mobic) Take 1 Tablet by mouth as needed. DULoxetine HCl 30 MG Oral Capsule Delayed Release Particles (Cymbalta) Take 1 Capsule by mouth in the morning. Triamcinolone Acetonide 0.1 % External Ointment (Aristocort) No current facility-administered medications for this visit. Allergies Review of patient's allergies indicates: Allergen Reactions Zoloft [Sertraline] Rash Cephalexin Hives and Rash Latex Rash Problem List Patient Active Problem List Diagnosis Dyslipidemia, goal LDL below 70 Tobacco abuse, in remission COPD (chronic obstructive pulmonary disease) (HCC) AAA (abdominal aortic aneurysm) without rupture (HCC) Essential hypertension with goal blood pressure less than 130/80 KRISTEN on CPAP Past Medical History Past Medical History: Diagnosis Date COPD (chronic obstructive pulmonary disease) (HCC) Dyslipidemia Hypothyroidism KRISTEN on CPAP Tobacco abuse, in remission Past Surgical History Past Surgical History: Procedure Laterality Date INTRODUCTION OF CATHETER, AORTA N/A 01/02/2020 CATHETER PLACEMENT, AORTA performed by Shawn Cordoba MD at OR [facility] IR EMBOLIZATION ARTERIAL NON HEMMORHAGE N/A 01/02/2020 trans-caval fenestrated embolization of aortic aneurysm sac with endoleak, and transcatheter embolization of left internal iliac artery branch performed by Shawn Cordoba MD at OR [facility] LAPAROSCOPY, CHOLECYSTECTOMY WITH CHOLANGIOGRAPHY N/A 05/09/2022 LAPAROSCOPIC CHOLECYSTECTOMY WITH CHOLANGIOGRAM performed by Shawn Samuel MD at OR [facility] PLACE CATHETER IN VENA CAVA Right 01/02/2020 CATHETER PLACEMENT, VENOUS ACCESS performed by Shawn Cordoba MD at OR [facility] ENDOVASCULAR REPAIR AAA -TECH Family History No family history on file. Social History Socioeconomic History Marital status: Spouse name: Not on file Number of children: Not on file Years of education: Not on file Highest education level: Not on file Occupational History Not on file Tobacco Use Smoking status: Former Current packs/day: 0.00 Average packs/day: 1 pack/day for 53.6 years (53.6 ttl pk-yrs) Types: Cigarettes Start date: 11/07/1963 Quit date: 06/07/2017 Years since quittin.1 Smokeless tobacco: Never Vaping Use Vaping status: Never Used Substance and Sexual Activity Alcohol use: Yes Comment: average 3-4 bottles a day Drug use: Never Sexual activity: Not on file Other Topics Concern Not on file Social History Narrative Not on file Social Determinants of Health Financial Resource Strain: Not on file Food Insecurity: Not on file Transportation Needs: Not on file Social Connections: Unknown (07/25/2024) Social Connections How often do you feel lonely or isolated from those around you? (Adult - for ages 18 years and over): Not on file Housing Stability: Not on file REVIEW OF SYSTEMS: Constitutional: Denies fever/chills. Ear, Nose, Throat and Mouth: Hard of hearing. Cardiovascular: Denies NV, denies CHF, denies palpitations, occasional chest pain followed by Dr. Underwood. Respiratory: Denies shortness of breath, reports MELARA, reports COPD and KRISTEN. Gastrointestinal: Denies melena, denies bright red blood per rectum. Genitourinary: Denies hematuria. Musculoskeletal: Reports arthritis. Skin: Denies ulcers. 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 Neurological: Denies TIA, denies CVA, denies amaurosis fugax, reports Dizziness. Endocrine: Denies NIDDM, denies IDDM, reports hyperlipidemia, reports thyroid disease. Hematologic: Denies anemia, denies blood clotting problems. GENERAL MULTI-SYSTEM PHYSICAL EXAM: GENERAL: Normal grooming habits, no acute distress and appears stated age. NECK: No masses. RESPIRATORY: Respiratory effort normal, CTA. CARDIOVASCULAR: No heart murmurs, no edema and no varicosities. GASTROINTESTINAL: No tenderness, obese and abdominal aorta not palpable. LYMPHATIC: Cervical and inguinial lymph nodes normal. SKIN: No ulcers, no induration, capillary refill normal and no dependent rubor. PSYCHIATRIC: Orientation to time, place and person normal and recent and remote memory normal. EYES: Conjunctivae normal. NEUROLOGIC: Motor function grossly intact PULSE SCALE: Carotid Right:----Bruit: No Left:----Bruit: No Radial Right: 3 Left: 3 Femoral Right: 3 Left: 3 Popliteal Right: 3 Left: 3 Dorsalis Pedis Right: 2 Left: 2 Posterior Tibial Right: 3 Left: 3 PULSE SCALE: 4=Aneurysmal; 3=Normal; 2=Diminished; 1=Barely Palpable; 0=Absent DIAGNOSTIC STUDIES: 07/17/24 CTA Abd/Pelvis: AAA sac 9.2 x 9.8 cm in axial views, 10 cm in coronal. No obvious endoleak but there is a degree of artifact from prior coils The above diagnostic images were directly visualized and independently interpreted by me on 07/25/2024 with results as above 06/29/24 Abd Aortic Duplex: 9.5 cm endosac, patent graft and limbs, no endoleak 05/07/22 CT Abd/Pelvis: 9.2 x 9.6 cm endosac, no obvious endoleak, good proximal and limb seals 09/23/21 CTA Abd/Pelvis: Streak artifact from coil mass limits evaluation. Within this limitation, no discrete endoleak identified. EVAR sac 8.5 x 9.0 cm 09/23/21 Abd Aortic Duplex: 8.2 x 8.2 cm endosac w/out endoleak 11/04/20 Limited Aortic Duplex: - There appears to be a small echogenic area adjacent to the aorta, but it does not appear to be a part of the aortic wall. - There is no evidence of an endoleak. 10/27/20 Carotid Duplex KRISSY 61/22 and LICA 59/19. 10/27/20; Location of Study: [facility]; Modality: duplex; AAA measures 7.8 cm in greatest transverse dimension. No endoleak. 10/27/20; Location of Study: [facility]; Modality: CT; AAA measures 8.6 cm in greatest transverse dimension. (This is essentially unchanged compared to 04/25/20 CTA). No overt evidence of endoleak. [place] aneurysmal sac along the left lateral wall measuring approximately 2.7 x 1.82 cm. 10/27/20 BLE Art Duplex R MOWER OPERATOR 1.2 cm, R SFA 1.2 cm, R Pop .9 cm, L MOWER OPERATOR 1.2 cm, L SFA .9 cm and L Ppop .9 cm. 04/25/20; Location of Study: [facility]; Modality: CT; AAA measures 8.0 cm in greatest transverse dimension. 8.2 on coronal view. No overt evidence of endoleak. 04/25/20; Location of Study: [facility]; Modality: duplex; AAA measures 8.0 cm in greatest transversedimension. No endoleak appreciated. 12/12/19; Location of Study: [facility]; Modality: CT; AAA measures 8.2 cm in greatest transverse dimension with evidence of endoleak. 11/28/19 nuclear stress: negative for inducible ischemia 11/28/19 Echo: 61% EF, moderate AV sclerosis, no aortic stenosis CARDIAC STUDIES: IMPRESSIONS: S/P endoleak repair via transcaval laser fenestration approach with placement of multiple coils andfibrin sealant, inferior vena cavagram via right femoral venous approach, aortography via left femoral approach with aortic catheter and transcatheter coil embolization of left iliolumbar branch of internal iliac artery by Dr. 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 Recent updated CTA revealed AAA sac upto 10 cm, as seen on coronal views, again w/out obvious endoleak S/P EVAR in 2014 at [facility]. 11/28/19 Nuc Stress Test negative for inducible ischemia. Chronic, since 2019, small pericardial effusion w/out tamponade physiology, followed by [facility]. Last routine visit 04/09/24 HTN. Dyslipidemia Reformed smoker. COPD Known pulm nodule KRISTEN Hypothyroidism [place]. PLAN: The patient was counseled regarding the pathophysiology and natural history of AAA, as well as the signs of rupture and the need to initiate emergency medical attention in that situation. Given slight increase in AAA sac, consider extension graft for right iliac artery limb & coiling of RIIA vs iliac artery branch extension Continue daily Plavix 75 mg for platelet inhibition Continue daily Crestor 10 mg for dyslipidemia Cosigned by Toby Mccormick MD at 10/01/2024 7:57 AM EST documented in this encounter Consult Notes * Callie Treivño RN - 10/02/2024 9:42 AM ESTAssociated Order(s): CARE MANAGEMENT CONSULT IP Chart reviewed. Patient discussed with Family. No Care Management needs identified at this time. Care Management will continue to follow. documented in this encounter Nursing Notes * Radha Loza NA - 10/01/2024 1:45 PM EST Post Anesthesia Care Unit Transport Note [address] [id number] Dept. Parker Morrissey Transported from PeriOp to : [facility] Time: 1330 Care of patient transferred to: Suzi FREDERICK Transported via: Bed Belongings with Patient: YES Pulse : 56 Temp : 95.8 BP : 128/72 Respirations : 16 Pulse Ox : 99 O2 : Room Air SCDS: N/A * Brissa Patel RN - 10/01/2024 12:32 PM EST PERIOP TO IP HANDOFF COMMUNICATION NOTE [address] [id number] Name: Parker Morrissey AGE: [id number] year old Location: OR [facility]/OR Date: 10/01/2024 Attention to: Suzi Rodrigues Report from: Brissa Patel RN Patient arriving via: Bed Time of call: 12:32 PM Phone Ext: [phone] Reason for SBAR (Situation, Background, Assessment, Recommendation) handoff: OR Sending to: [place] [id number] Emotional/Personal Events & Special Needs: needs to be flat until 1450 Prescriptions in chart: No Code Status: Full Code Safety Concerns: no safety concerns identified Allergies: Zoloft [sertraline], Cephalexin, and Latex PMH: Past Medical History: Diagnosis Date COPD (chronic obstructive pulmonary disease) (HCC) Dyslipidemia Hypothyroidism KRISTEN on CPAP Tobacco abuse, in remission PSH: Past Surgical History: Procedure Laterality Date INTRODUCTION OF CATHETER, AORTA N/A 01/02/2020 CATHETER PLACEMENT, AORTA performed by Shawn Cordoba MD at OR [facility] IR EMBOLIZATION ARTERIAL NON HEMMORHAGE N/A 01/02/2020 trans-caval fenestrated embolization of aortic aneurysm sac with endoleak, and transcatheter embolization of left internal iliac artery branch performed by Shawn Cordoba MD at OR [facility] LAPAROSCOPY, CHOLECYSTECTOMY WITH CHOLANGIOGRAPHY N/A 05/09/2022 LAPAROSCOPIC CHOLECYSTECTOMY WITH CHOLANGIOGRAM performed by Shawn Samuel MD at OR [facility] PLACE CATHETER IN VENA CAVA Right 01/02/2020 CATHETER PLACEMENT, VENOUS ACCESS performed by Shawn Cordoba MD at OR [facility] ENDOVASCULAR REPAIR AAA -TECH Isolation: Isolation: Procedure: CATHETER PLACEMENT, ABDOMINAL-LOWER EXTREMITY, FIRST ORDER BRANCH - Bilateral Type of Anesthesia: General endotracheal anesthesia Block: n/a IV intake: 1500 mL EBL: OR: 5 mL PACU: 0 mL Urine output: OR 0 mL PACU 0 mL IUBC (Storm): 400 Incision location: bilateral groin site Dressing location: bilateral groin Time of last skin assessment: 1123 Pressure injuries or areas of concern: n/a Lines: Urethral Catheter Regular catheter;Non-latex (Active) Site Assessment Clean;Skin intact 10/01/24 1130 Securement Method Leg strap 10/01/24 1130 Catheter secured to leg? Yes 10/01/24 1130 Catheter bag below bladder? Yes 10/01/24 1130 Has IUBC been removed? (If yes, ensure the order is discontinued.) No, perioperative, or scheduled for return to OR within 48 hrs 10/01/24 1100 IUBC Tubing Disconnected This Shift? No 10/01/24 1130 Collection Container Standard drainage 10/01/24 1130 Urine Description Clear;Yellow 10/01/24 1130 Number of days: 0 Peripheral Line Left Arm 18 Gauge (Active) Status Flushes easily;Fluids infusing;Positive blood return 11/25/24 0631 Tubing Changed Yes 10/01/24630 Phlebitis Scale 0 10/01/24630 Infiltration Scale 0 10/01/24630 Site Description (Other) Without redness, swelling or drainage 10/01/24630 Site Intervention Flushed 10/01/24630 Dressing Assessment Dressing clean, dry, and intact;Transparent dressing 10/01/24630 Dressing Intervention Applied 10/01/24630 Number of days: 0 Peripheral Line Right Arm 18 Gauge (Active) Number of days: 0 Vital Signs: BP: 127/66 (10/01/24 1200) Temp: 36.1 C (97 F) (10/01/24 1130) Pulse: 51 (10/01/241199) Resp: 12 (10/01/241199) SpO2: 99 % (10/01/24 1200) O2 flow rate: 2 L/MIN (10/01/24 1200) Glucose (Bedside): 155 (10/01/24630) Time of last pain medication: 1213 Med: oxycodone Time of last antibiotic: intraop Med: vanco Time of last antiemetic: intraop Med: zofran SKEWER UP: no Drips: no Neurological: Neuro WNL: X - Exceptions to WNL as documented below (10/01/24 1130) Speech: Clear (10/01/24 1200) Level of Consciousness: Alert (10/01/24 1200) Right Pupil Size (mm): 2 (10/01/24 1200) Right Pupil Reaction: Reactive (10/01/24 1200) Left Pupil Size (mm): 2 (10/01/24 1200) Left Pupil Reaction: Reactive (10/01/24 1200) Coma Score: 15 (10/01/24 1200) Respiratory: Respiratory WNL: WNL- within normal limits (10/01/24 1100) Effort: Unlabored (10/01/241099) Oxygen therapy/ Mechanical vent Supplemental O2 Delivery: Nasal Cannula (10/01/241199) O2 flow rate: 2 L/MIN (10/01/24 1200) Cardiac: Cardiovascular WNL: X - Exceptions to WNL as documented below (10/01/24 1130) Heart Sounds: S1;S2 (10/01/24 1100) Rhythm: SB (10/01/24 1100) Pulses Right: Dorsalis Pedis +;Palpable;Radial + (10/01/24 1130) Pulses Left: Dorsalis Pedis +;Palpable;Radial + (10/01/24 1130) Capillary Refill: 3 seconds (10/01/24 1100) GI: GI WNL: WNL - within normal limits (10/01/24 1100) : WNL: X - Exceptions to WNL as documented below (10/01/24 1130) Urine Description: Clear;Yellow (10/01/24 1046) Urethral Catheter Regular catheter;Non-latex (Active) Site Assessment Clean;Skin intact 10/01/241129 Securement Method Leg strap 10/01/241129 Catheter secured to leg? Yes 10/01/241129 Catheter bag below bladder? Yes 10/01/241129 Has IUBC been removed? (If yes, ensure the order is discontinued.) No, perioperative, or scheduled for return to OR within 48 hrs 10/01/24 1100 IUBC Tubing Disconnected This Shift? No 10/01/241129 Collection Container Standard drainage 10/01/241129 Urine Description Clear;Yellow 10/01/24 113 Number of days: 0 Due to Void: storm Integumentary:Integumentary WNL: X - Exceptions to WNL as documented below (10/01/24 113) Skin Description: Dry;Warm (10/01/24 113) Family updated on transfer: yes Additional Assessment Information: Needs to remain flat until 1450. Immobilizers to legs may come off at that time.daughter at bedside and will accompany * Brissa Patel RN - 10/01/2024 11:23 AM EST Dual Licensed Skin Assessment completed by kaya and hortencia. The patient is/has a N/A Skin Breakdown (includes non blanchable erythema): Yes - Surgical/Procedural changes only. * Danyelle Diaz RN - 10/01/2024 6:35 AM EST Dual Licensed Skin Assessment completed by Rod Diaz RN and Radha Sun RN. The patient is/has a N/A Skin Breakdown (includes non blanchable erythema): No * LorinarnavHattie RN - 09/26/2024 12:48 PM EST Attempted to contact and unable to reach patient/parent/guardian at number provided. Message left informing the patient/parent/guardian that a telephone call to provide instructions will be received the business day prior to their scheduled appointment. Patient instructions sent via [email or web address] portal. Pre-operative chart review completed. NO ANESTHESIA EVAL REQUESTED PER CASE DOCUMENTATION. PREOP PATIENT INFORMATION AND EDUCATION: MEDICATION INSTRUCTIONS: The day of surgery/procedure, you may TAKE the following medications with a sip of water up to 2 hours prior to your arrival time: Please follow the pre-operative instructions provided by your vascular surgeon. If you have any questions regarding these instructions please contact your surgeon's office at [phone]. Nothing to eat or drink by mouth after midnight the night before surgery including no food, no gum/hard candy, coffee, tea, other drink, or tobacco product. Continue all of your normal morning medications with a few sips of water on day of surgery unless otherwise instructed. CONTINUE your PLAVIX, including morning of surgery. STOP your Glucophage (Metformin) 48 hours before surgery STOP taking the following medications the noted number of days prior to surgery/procedure unless otherwise specified by your surgeon: Please follow surgeon's instructions regarding use of Aspirin, Coumadin, Plavix, Eliquis, and any other blood thinner including NSAIDs (non-steroidal anti- inflammatory drugs, eg, Advil, Ibuprofen, Motrin, Aleve, Naproxen); if you have any questions regarding your anticoagulation therapy please contact your surgeon's clinic. Please verify any proposed stoppage of your anticoagulation therapy with the agent's prescribing provider. 10 days prior to surgery/procedure Stop all Herbal supplements, Green Tea, Turmeric, Melatonin, CBD, THC, etc. Stop all Vitamins (including Vitamin E) 24 hours prior to surgery/procedure DO NOT consume any alcohol. DO NOT use medical marijuana. DO NOT smoke or use tobacco products of any kind after midnight prior to surgery. *Using any of these products may increase your risks of procedural complications. IF IT IS LESS THAN RECOMMENDED STOPPAGE TIME PLEASE STOP AT TIME OF NOTIFICATION. THE DAY BEFORE YOUR SURGERY: -Drink plenty of fluid the day before your surgery. Contact your surgeon's office if you develop any of the following within 2 weeks of surgery: A cold Infection Fever Shingles Chicken pox or exposure to chicken pox Open areas such as scrapes, cuts, cook or other skin conditions [facility] GENERAL INSTRUCTIONS FOR PREPARING FOR SURGERY: BATHING INSTRUCTIONS: Bathe the evening prior to and the morning of surgery/procedure. Cleanse your body using ONLY anti-bacterial soap (eg, Dial, Safeguard) or any specific soap/cleansers and instructions provided by your surgeon (eg, Chlorhexidine). -You should brush your teeth the morning of surgery. Do NOT apply any lotions, powders, sprays, creams, oils, make-up, or deodorants after bathing. No hairspray, or nail syriac on fingers or toes. Day of surgery/procedure do not use tampons. If you wear contacts wear your eyeglasses if available otherwise bring your contact supplies with you to remove them prior to your surgery/procedure. If you wear glasses or dentures, please bring cases in which you can store them during your surgery. Please remove all piercings and jewelry and leave them at home. Wear comfortable and loose clothing. -Please leave all valuables at home. -If you use a CPAP and are staying overnight, please bring your mask and tubing with you to the hospital. -If you use an assistive mobility device (walker, cane, etc), please label it with your name and bring to hospital. -An escort motor coach bus driver is required if you are being discharged the same day of the surgery. You should have a responsible adult over the age of 18 [address] you home. This person should be present with youin the hospital at the time of discharge and for the first 24 hours after the surgery to support your needs. If you are taking a taxi home, you must have your responsible republican accompany you in the taxi ride home at the time of discharge. OR times subject to change. Please check voicemail messages the day/evening before your surgery forany updates. PRE-OP: You will be taken to the pre-op area where your vital signs (blood pressure, pulse and temperature)will be taken. Any preparations that need to be done will be done there. When it is time for your surgery, you will be taken to the operating room. PARENTS OF PEDIATRIC PATIENTS WILL BE ALLOWED TO STAY WITH THEIR CHILDREN UNTIL THEY ARE ESCORTED TO THE OPERATING ROOM OUTPATIENT SURGERY PATIENTS: After your surgery you will be taken to the Same Day Surgery Unit when you are awake and will go home from there. You will get instructions about your home care before you leave. Arrange to have someone drive you home from the hospital. You may not drive for 24 hours after anesthesia. You must havean adult stay with you at home for 24 hours after your operation. This is very important. If you are not able to comply with these guidelines, your Short Stay surgery cannot be done. ADMISSION PATIENTS: After your stay in the recovery area, you will be taken to your room. Your family may visit you in your room based on current visitation policy. If a next day discharge is expected, it is important to make arrangements for a motor coach bus driver to take you home. Please be aware our visitation policies are subject to change Professionals, attendants, caregivers or family members are allowable visitors for patients with intellectual, developmental or cognitive disabilities, communication barriers or behavioral concerns. Because patients' and families' needs vary, they will be taken into account when applying visitation restrictions. [facility]: Contact # [phone] Directions to Surgical Suite in from the [facility] Entrance The Surgical Waiting Room can be found in the Lobby [facility]. [facility] and the Waiting Room is directly in front of you. Proceed to check in and give them your name. Directions to Surgical Suite from the East Entrance Enter the East entrance and follow the hallway to the J elevator. Take the J elevator up to Level 1. [facility] The [facility] Waiting Room will be on your Right. Proceed to check in and give them your Name. Directions to Surgical Suite from the Parking Garage Enter the [facility] lobby and proceed down the coronado to the left. At the end of the coronado, turn right. Continue down the long hallway to the main [facility]. The Surgical Waiting Room will be on your Right. Proceed to check in and give them your Name. Hattie M. Belles, MSN, RN [facility] 09/26/2024 documented in this encounter OR Notes * OR Surgeon - Toby Mccormick MD - 10/01/2024 10:22 AM EST [address] [id number] OPERATIVE REPORT Name: Parker Morrissey Date: 10/01/2024 Time: 10:22 AM Location: OR [facility] Service: Vascular Surgery Date of Operation: 10/01/2024 Pre-op Diagnosis: Abdominal aortic aneurysm status post EVAR with continued sac growth Post-op Diagnosis: Same. Surgeon: Toby Mccormick MD Assistants: Flavio Bailon MD Anesthesia: General endotracheal anesthesia Operation: Abdominal aortogram Embolization of left lumbar branch Embolization of right internal iliac artery Delayed extension of right iliac limb of EVAR to the external iliac artery Percutaneous access and preclosure for 12 moroccan or greater sheath Findings: Delayed type II endoleak from left internal iliac to lumbar collateralization no longer fills after embolization. No breana IB endoleak from right iliac limb compromised seal. After embolization of the right internal iliac artery and extension of the iliac limb into the right external iliac artery no obvious remaining endoleaks. Specimen and Disposition: None Estimated Blood Loss: 25 ml Fluids: 1800 ml crystalloid Urine output: 250 mL. Drains/Implants: Coils left internal to lumbar branch Amplatzer plug right internal iliac artery Stent grafts right iliac extension Implant Name Type Inv. Item Serial No. Chemical Plant Manager Lot No. LRB No. Used Action COIL HELICAL 2 20MM [id number] - [id number] COIL HELICAL 2 20MM [id number] [employer] : NEURO INTR [id number] N/A 1 Implanted COIL VORTEX 2X4MM [id number] - [id number] COIL VORTEX 2X4MM [id number] [employer] : PERIPHL IV [id number] Left 1 Implanted PLUG VASC AMPL 12MM 9-PLUG-012 - [id number] PLUG VASC AMPL 12MM 9-PLUG-012 [employer] [id number] Right 1 Implanted GRAFT EXCLUDR [id number] - [id number] Graft GRAFT EXCLUDR [id number] [employer] [id number] Right 1 Implanted 14.5MM X 14CM CONTRALATERAL LEG ENDOPROSTHESIS, CONFORMABLE AAA [id number] [employer] [id number] Right 1 Implanted Complications: None Postoperative Condition: Stable Indications and History: The patient is a 79 year old male who presents for large abdominal aortic aneurysm status post endograft repair with large persistent sac which has slowly grown. There is no clear endoleak on CTA. Description of Operation: The patient was seen in the Holding Room and the site of surgery properly noted and marked. The patient was identified as Parker Morrissey, and the procedure verified. In the operating room a Time Out was held and the above information confirmed. General endotracheal anesthesia was provided by the anesthesia team. An arterial line and storm catheter were placed. The abdomen and bilateral groins were prepped and draped in standard fashion. A time out was performed. Utilizing real time ultrasound guidance the right common femoral artery was punctured and utilizing seldinger technique the access needle was exchanged for a transition sheath, then dilated with a 6 moroccan introducer. Two Perclose devises were deployed in pre-close fashion andan 8 moroccan sheath was left in place. Percloses were placed due to planned 12 moroccan sheath placement for iliac limb extension. The left common femoral artery was then punctured under real time ultrasound guidance and exchanged for a 5 moroccan sheath. The patient was systemically heparinized. An Omniflush catheter was advanced into the aorta and multiple aortograms in different projections were performed. The omni catheter was then withdrawn into the left iliac limb and additional images were captured. There was an ascending internal iliac to lumbar collateral branch which appeared to approach the sac. The internal iliac artery was selected and a 6 moroccan Flexor sheath was advanced into the internal iliac artery. The ascending branch was then selected and a GlideCath was left in place. The ProGreat catheter and a selection of wires were used to navigate towards the sac. We were unable to cannulate the sac proper, however angiography was concerning for Type II endoleak. Thereforeselective embolization of the ascending collateral branch of the internal iliac artery was performed with multiple coils. Completion angiography was satisfactory. Right iliac limb angiography was then performed without any sign of endoleak. We did plan pre-operatively to coil the right internal iliac artery and extend the stent graft due to compromised weal inthe right common iliac artery. The 8 moroccan sheath was exchanged for a 12 moroccan dry seal sheath. The right internal iliac artery was selected and a 6 moroccan Flexor sheath was advanced into the internal iliac artery, confirmed with angiography. A 12 mm Amplatzer plug was then deployed in the commoninternal iliac artery. The sheath was withdrawn after confirming adequate plug placement with angiography. A stiff wire was then advanced into the aorta and utilizing graft landmarks and an omniflushcatheter we measured for stent extension. A 14.5 mm x 14 cm extension piece was placed followed by a 14.5 mm x 10 cm limb. These were post dilated with the MOB balloon. Completion angiography was satisfactory with no residual endoleak noted. Balloons catheters wires and devices were removed and the preclose sutures were secured and hemostatic. Hemostasis of the left femoral access was achieved with a Mynx device. Pedal pulses were palpable at the completion. Heparin was reversed with protamine. Sponge count and needle counts were correct. The patient was transported in stable condition to the Recovery Room. Attestation: I was present and scrubbed for the entire procedure documented in this encounter Miscellaneous Notes * Pt Handout (on AVS) - Mary Baron RN - 10/02/2024 9:35 AM EST [id number] Aspirin Brand Name(s): Acuprin, Anacin Aspirin Regimen, Ascriptin, Aspergum, Aspidrox, Aspir-Mox, Aspirtab, Aspir-naren, Deni Aspirin, Bufferin, Buffex, Easprin, Ecotrin, Empirin,Entaprin, Entercote, Fasprin, Genacote, Gennin-FC, Genprin, Halfprin, Magnaprin, Miniprin, Minitabs, Ridiprin, Sloprin, Uni-Buff, Uni-Tren, Valomag, Zorprin, Magaly-Oakwood (as a combination product containing Aspirin, Citric Acid, Sodium Bicarbonate), Magaly-SeltzerExtra Strength (as a combination product containing Aspirin, Citric Acid, Sodium Bicarbonate), Magaly-Oakwood Morning Relief (as a combination product containing Aspirin, Caffeine), Magaly-Oakwood Plus Flu (as a combination product containing Aspirin, Chlorpheniramine, Dextromethorphan), Magaly-Oakwood PM (as a combination product containing Aspirin, Diphenhydramine), Alor (as a combination product containing Aspirin, Hydrocodone), Anacin (as a combination product containing Aspirin, Caffeine), Anacin Advanced Headache Formula (as a combination product containing Acetaminophen, Aspirin,Caffeine), Aspircaf (as a combination product containing Aspirin, Caffeine), Axotal (as a combination product containing Aspirin, Butalbital), Azdone (as a combination product containing Aspirin, Hydrocodone), Zhima Tech Aspirin Plus Calcium (as a combination product containing Aspirin, Calcium Carbonate), Zhima Tech Aspirin PM (as a combination product containing Aspirin, Diphenhydramine), Deni Back and Body Pain (as a combination product containing Aspirin, Caffeine), BC Headache (as a combination product containing Aspirin, Caffeine, Salicylamide), BC Powder (as a combination product containing Aspirin, Caffeine, Salicylamide), Damason-P (as a combination product containing Aspirin,Hydrocodone), Emagrin (as a combination product containing Aspirin, Caffeine, Salicylamide), Endodan (as a combination product containing Aspirin, Oxycodone), Equagesic (as a combination product containing Aspirin, Meprobamate), Excedrin (as a combination product containing Acetaminophen, Aspirin, Caffeine), Excedrin Back & Body (as a combination product containing Acetaminophen, Aspirin), Goody's Body Pain (as a combination product containing Acetaminophen, Aspirin), Levacet (as a combination product containing Acetaminophen, Aspirin, Caffeine, Salicylamide), Lortab ASA (as a combination product containing Aspirin, Hydrocodone), Micrainin (as a combination product containing Aspirin, Meprobamate), Momentum (as a combination product containing Aspirin, Phenyltoloxamine), Norgesic (as a combination product containing Aspirin, Caffeine, Orphenadrine), Orphengesic (as a combination product containing Aspirin, Caffeine, Orphenadrine), Panasal (as a combination product containing Aspirin, Hydrocodone), Percodan (as a combination product containing Aspirin, Oxycodone), Robaxisal (as a combination product containing Aspirin, Methocarbamol), Roxiprin (as a combination product containing Aspirin, Oxycodone), Saleto (as a combination product containing Acetaminophen, Aspirin, Caffeine, Salicylamide), Soma Compound (as a combination product containing Aspirin, Carisoprodol), Soma Compound with Codeine (as a combination product containing Aspirin, Carisoprodol, Codeine), Supac (as a combination product containing Acetaminophen, Aspirin, Caffeine), Synalgos-DC (as a combination product containing Aspirin, Caffeine, Dihydrocodeine), Talwin Compound (as a combination product containing Aspirin, Pentazocine), Vanquish (as a combinationproduct containing Acetaminophen, Aspirin, Caffeine); also available generically Acetylsalicylic acid, ASA WHY is this medicine prescribed? Prescription aspirin is used to relieve the symptoms of rheumatoid arthritis (arthritis caused by swelling of the lining of the joints), osteoarthritis (arthritis caused by breakdown of the lining ofthe joints), systemic lupus erythematosus (condition in which the immune system attacks the joints and organs and causes pain and swelling) and certain other rheumatologic conditions (conditions in which the immune system attacks parts of the body). Nonprescription aspirin is used to reduce fever and to relieve mild to moderate pain from headaches, menstrual periods, arthritis, toothaches, and muscle aches. Nonprescription aspirin is also used to prevent heart attacks in people who have had a heart attack in the past or who have angina (chest pain that occurs when the heart does not get enough oxygen). Nonprescription aspirin is also used to reduce the risk of in people who are experiencing or who have recently experienced a heart attack. Nonprescription aspirin is also used to prevent ischemic strokes (strokes that occur when a blood clot blocks the flow of blood to the brain) ormini-strokes (strokes that occur when the flow of blood to the brain is blocked for a short time) in people who have had this type of stroke or mini-stroke in the past. Aspirin will not prevent hemorrhagic strokes (strokes caused by bleeding in the brain). Aspirin is in a group of medications called salicylates. It works by stopping the production of certain natural substances that cause fever, pain, swelling, and blood clots. Aspirin is also available in combination with other medications such as antacids, pain relievers, and cough and cold medications. This monograph only includes information about the use of aspirin alone. If you are taking a combination product, read the information on the package or prescription label or ask your doctor or pharmacist for more information. HOW should this medicine be used? Prescription aspirin comes as an extended-release (long-acting) tablet. Nonprescription aspirin comes as a regular tablet, a delayed-release (releases the medication in the intestine to prevent damage to the stomach) tablet, a chewable tablet, powder, and a gum to take by mouth. Prescription aspirin is usually taken two or more times a day. Nonprescription aspirin is usually taken once a day to lower the risk of a heart attack or stroke. Nonprescription aspirin is usually taken every 4 to 6 hours as needed to treat fever or pain. Follow the directions on the package or prescription label carefully, and ask your doctor or pharmacist to explain any part you do not understand. Take aspirin exactly as directed. Do not take more or less of it or take it more often than directed by the package label or prescribed by your doctor. Swallow the extended-release tablets whole with a full glass of water. Do not break, crush, or chewthem. Swallow the delayed-release tablets with a full glass of water. Chewable aspirin tablets may be chewed, crushed, or swallowed whole. Drink a full glass of water, immediately after taking these tablets. Ask a doctor before you give aspirin to your child or teenager. Aspirin may cause Javi's syndrome (a serious condition in which fat builds up on the brain, liver, and other body organs) in children and teenagers, especially if they have a virus such as chicken pox or the flu. If you have had oral surgery or surgery to remove your tonsils in the last 7 days, talk to your doctor about which types of aspirin are safe for you. Delayed-release tablets begin to work some time after they are taken. Do not take delayed-release tablets for fever or pain that must be relieved quickly. Stop taking aspirin and call your doctor if your fever lasts longer than 3 days, if your pain lastslonger than 10 days, or if the part of your body that was painful becomes red or swollen. You may have a condition that must be treated by a doctor. Are there OTHER USES for this medicine? Aspirin is also sometimes used to treat rheumatic fever (a serious condition that may develop aftera strep throat infection and may cause swelling of the heart valves) and Kawasaki disease (an illness that may cause heart problems in children). Aspirin is also sometimes used to lower the risk of blood clots in patients who have artificial heart valves or certain other heart conditions and to prevent certain complications of . What SPECIAL PRECAUTIONS should I follow? Before taking aspirin, tell your doctor and pharmacist if you are allergic to aspirin, other medications for pain or fever, tartrazine dye, or any other medications. tell your doctor and pharmacist what prescription and nonprescription medications, vitamins, nutritional supplements, and herbal products you are taking or plan to take. Be sure to mention any of the following: acetazolamide (Diamox); angiotensin-converting enzyme (RICARDO) inhibitors such as benazepril (Lotensin), captopril (Capoten), enalapril (Vasotec), fosinopril (Monopril), lisinopril (Prinivil, Zestril), moexipril (Univasc), perindopril, (Aceon), quinapril (Accupril), ramipril (Altace), and trandolapril (Mavik); anticoagulants ('blood thinners') such as warfarin (Coumadin) and heparin; beta blockers such as atenolol (Tenormin), labetalol (Normodyne), metoprolol (Lopressor, Toprol XL), nadolol (Corgard), and propranolol (Inderal); diuretics ('water pills'); medications for diabetes orarthritis; medications for gout such as probenecid and sulfinpyrazone (Anturane); methotrexate (Trexall); other nonsteroidal anti-inflammatory drugs (NSAIDs) such as naproxen (Aleve, Naprosyn); phenytoin (Dilantin); and valproic acid (Depakene, Depakote). Your doctor may need to change the doses ofyour medications or monitor you more carefully for side effects. if you are taking aspirin on a regular basis to prevent heart attack or stroke, do not take ibuprofen (Advil, Motrin) to treat pain or fever without talking to your doctor. Your doctor will probably tell you to allow some time to pass between taking your daily dose of aspirin and taking a dose of ibuprofen. tell your doctor if you have or have ever had asthma, frequent stuffed or runny nose, or nasal polyps (growths on the linings of the nose). If you have these conditions, there is a risk that you will have an allergic reaction to aspirin. Your doctor may tell you that you should not take aspirin. tell your doctor if you often have heartburn, upset stomach, or stomach pain and if you have or have ever had ulcers, anemia, bleeding problems such as hemophilia, or kidney or liver disease. tell your doctor if you are , you plan to become , or if you are breast-feeding.Low dose aspirin 81-mg may be taken during , but aspirin doses greater that 81 mg may harmthe fetus and cause problems with delivery if it is taken around 20 weeks or later during . Do not take aspirin doses greater that 81 mg (e.g., 325 mg) around or after 20 weeks of ,unless told to do so by your doctor. If you become while taking aspirin or aspirin containing medications, call your doctor. if you are having surgery, including dental surgery, tell the doctor or dentist that you are taking aspirin. if you drink three or more alcoholic drinks every day, ask your doctor if you should take aspirin or other medications for pain and fever. What SPECIAL DIETARY instructions should I follow? Unless your doctor tells you otherwise, continue your normal diet. What should I do IF I FORGET to take a dose? If your doctor has told you to take aspirin on a regular basis and you miss a dose, take the misseddose as soon as you remember it. However, if it is almost time for the next dose, skip the missed dose and continue your regular dosing schedule. Do not take a double dose to make up for a missed one. What SIDE EFFECTS can this medicine cause? Aspirin may cause side effects. Tell your doctor if any of these symptoms are severe or do not go away: nausea vomiting stomach pain heartburn Some side effects can be serious. If you experience any of the following symptoms, call your doctorimmediately: hives rash swelling of the eyes, face, lips, tongue, or throat wheezing or difficulty breathing hoarseness fast heartbeat fast breathing cold, clammy skin ringing in the ears loss of hearing bloody vomit vomit that looks like coffee grounds bright red blood in stools black or tarry stools Aspirin may cause other side effects. Call your doctor if you experience any unusual problems whileyou are taking this medication. If you experience a serious side effect, you or your doctor may send a report to the Food and Drug Administration's (FDA) MedWatch Adverse Event Reporting program online (https://www.fda.gov/Safety/MedWatch) or by phone ( ). What should I know about STORAGE and DISPOSAL of this medication? Keep this medication in the container it came in, tightly closed, and out of reach of children. Store it at room temperature and away from excess heat and moisture (not in the bathroom). Dispose of any tablets that have a strong vinegar smell. It is important to keep all medication out of sight and reach of children as many containers (such as weekly pill minders and those for eye drops, creams, patches, and inhalers) are not child-resistant and young children can open them easily. To protect young children from poisoning, always lock safety caps and immediately place the medication in a safe location - one that is up and away and out of their sight and reach. https://www.upandmySupermarket.org Unneeded medications should be disposed of in special ways to ensure that pets, children, and otherpeople cannot consume them. However, you should not flush this medication down the toilet. Instead,the best way to dispose of your medication is through a medicine take-back program. Talk to your pharmacist or contact your local garbage/recycling department to learn about take-back programs in your community. See the FDA's Safe Disposal of Medicines website (https://goo.gl/c4Rm4p) for more information if you do not have access to a take-back program. What should I do in case of OVERDOSE? In case of overdose, call the poison control helpline at . Information is also available online at https://www.poisonhelp.org/help. If the victim has collapsed, had a seizure, has trouble breathing, or can't be awakened, immediately call emergency services at 911. Symptoms of overdose may include: burning pain in the throat or stomach vomiting decreased urination fever restlessness irritability talking a lot and saying things that do not make sense fear or nervousness dizziness double vision uncontrollable shaking of a part of the body confusion abnormally excited mood hallucination (seeing things or hearing voices that are not there) seizures drowsiness loss of consciousness for a period of time What OTHER INFORMATION should I know? Keep all appointments with your doctor. If you are taking prescription aspirin, do not let anyone else take your medication. Ask your pharmacist any questions you have about refilling your prescription. It is important for you to keep a written list of all of the prescription and nonprescription (lanu-rwz-ocfgeyy) medicines you are taking, as well as any products such as vitamins, minerals, or otherdietary supplements. You should bring this list with you each time you visit a doctor or if you areadmitted to a hospital. It is also important information to carry with you in case of emergencies. This report on medications is for your information only, and is not considered individual patient advice. Because of the changing nature of drug information, please consult your physician or pharmacist about specific clinical use. [employer] represents that the information provided hereunder was formulated with a reasonable standard of care, and in conformity with professional standards in the field. [employer] makes no representations or warranties, express or implied, including, but not limited to, any implied warranty of merchantability and/or fitness for a particular purpose, with respect to such information and specifically disclaims all such warranties. Users are advised that decisions regarding drug therapy are complex medical decisions requiring the independent, informed decision of an appropriate health patient care representative, and the information is provided for informational purposes only. The entire monograph for a drug should be reviewed for a thorough understanding of the drug's actions, uses and side effects. The [employer] does not endorse or recommend the use of any drug.The information is not a substitute for medical care. [facility] Patient Medication Information?. Copyright, 2023. [employer], [address], [address], [place], [place]. All Rights Reserved. Duplication for commercial use must be authorized by [facility]. Selected Revisions: March 21, 2021. [facility] Patient Medication Information?. Copyright, 2023 * Pt Handout (on AVS) - Mary Baron RN - 10/02/2024 9:35 AM EST [id number] Oxycodone Brand Name(s): Oxaydo, Oxycontin, Roxicodone, Roxybond, Xtampza ER, Combunox (as a combination product containing Ibuprofen, Oxycodone), Narvox (as a combination product containing Acetaminophen, Oxycodone), Oxycet (as a combination product containing Acetaminophen, Oxycodone), Percocet (as a combination product containing Acetaminophen, Oxycodone), Percodan (as a combination product containing Aspirin, Oxycodone), Roxicet (as a combination product containing Acetaminophen, Oxycodone), Roxilox (as a combination product containing Acetaminophen, Oxycodone), Roxiprin (as a combination product containing Aspirin, Oxycodone), Targiniq ER (as a combination product containing naloxone, oxycodone), Troxyca ER (as a combination product containing Naltrexone, Oxycodone), Tylox (as a combination product containing Acetaminophen, Oxycodone), Xartemis XR (as a combination product containing Acetaminophen, Oxycodone); also available generically IMPORTANT WARNING: Oxycodone may be habit-forming. Take oxycodone exactly as directed. Do not take more of it, take itmore often, or take it in a different way than directed by your doctor. While taking oxycodone, discuss with your healthcare provider your pain treatment goals, length of treatment, and other ways tomanage your pain. Tell your doctor if you or anyone in your family drinks or has ever drunk large amounts of alcohol, uses or has ever used street drugs, or has overused prescription medications, or has had an overdose, or if you have or have ever had depression or another mental illness. There is a greater risk that you will overuse oxycodone if you have or have ever had any of these conditions.Talk to your healthcare provider immediately and ask for guidance if you think that you have an opioid addiction or call the U.[place]. Substance Abuse and Mental Health Services Administration ([facility]) National Helpline at 1-638-124-GRBT. Oxycodone may cause serious or life-threatening breathing problems, especially during the first 24 to 72 hours of your treatment and any time your dose is increased. Your doctor will monitor you carefully during your treatment. Tell your doctor if you have or have ever had slowed breathing or asthma. Your doctor will probably tell you not to take oxycodone. Also tell your doctor if you have or have ever had lung disease such as chronic obstructive pulmonary disease (COPD; a group of diseases that affect the lungs and airways), a head injury a brain tumor, or any condition that increases the amount of pressure in your brain. The risk that you will develop breathing problems may be higher if you are an older adult or are weak or malnourished due to disease. If you experience any of the following symptoms, call your doctor immediately or get emergency medical treatment: slowed breathing, long pauses between breaths, or shortness of breath. Do not allow anyone else to take your medication. Oxycodone may harm or cause to other peoplewho take your medication, especially children. Keep oxycodone in a safe place so that no one else can take it accidentally or on purpose. Be especially careful to keep oxycodone out of the reach of children. Keep track of how many capsules, tablets, or oral solution is left so you will know if any medication is missing. Taking certain other medications with oxycodone may increase the risk of serious or life-threatening breathing problems, sedation, or coma. Tell your doctor and pharmacist what other prescription andnonprescription medications, vitamins, nutritional supplements, and herbal products you are taking or plan to take. Your doctor may need to change the doses of your medication and will monitor you carefully. If you take oxycodone with other medications and you develop any of the following symptoms,call your doctor immediately or seek emergency medical care: unusual dizziness, lightheadedness, extreme sleepiness, slowed or difficult breathing, or unresponsiveness. Be sure that your caregiver orfamily members know which symptoms may be serious so they can call the doctor or emergency medical care if you are unable to seek treatment on your own. Drinking alcohol, taking prescription or nonprescription medications that contain alcohol, or usingstreet drugs during your treatment with oxycodone increases the risk that you will experience serious, life-threatening side effects. Do not drink alcohol, take prescription or nonprescription medications that contain alcohol, or use street drugs during your treatment. If you are taking the oxycodone extended-release tablets, swallow them whole; do not chew, break, divide, crush, or dissolve them. Do not presoak, lick or otherwise wet the tablet prior to placing inthe mouth. Swallow each tablet right after you put it in your mouth. If you swallow broken, chewed,crushed, or dissolved extended-release tablets, you may receive too much oxycodone at once instead of slowly over 12 hours. This may cause serious problems, including overdose and . Oxycodone comes as a regular solution (liquid) and as a concentrated solution that contains more oxycodone in each milliliter of solution. Be sure that you know whether your doctor has prescribed theregular or concentrated solution and the dose in milliliters that your doctor has prescribed. Use the dosing cup, oral syringe, or dropper provided with your medication to carefully measure the number of milliliters of solution that your doctor prescribed. Read the directions that come with your medication carefully and ask your doctor or pharmacist if you have any questions about how to measure your dose or how much medication you should take. You may experience serious or life threatening side effects if you take an oxycodone solution with a different concentration or if you take a different amount of medication than prescribed by your doctor. Store oxycodone in a safe place so that no one else can take it accidentally or on purpose. Be especially careful to keep oxycodone out of the reach of children. Keep track of how many tablets or capsules, or how much liquid is left so you will know if any medication is missing. Dispose of unwantedcapsules, tablets, extended-release tablets, extended-release capsules, and liquid properly according to instructions. (See STORAGE and DISPOSAL). Tell your doctor if you are or plan to become . If you take oxycodone regularly during your , your baby may experience life- threatening withdrawal symptoms after . Tellyour baby's doctor right away if your baby experiences any of the following symptoms: irritability, hyperactivity, abnormal sleep, high-pitched cry, uncontrollable shaking of a part of the body, vomiting, diarrhea, or failure to gain weight. Talk to your doctor about the risks of taking oxycodone. Your doctor or pharmacist will give you the bookkeeping service sales agent's patient information sheet (Medication Guide) when you begin your treatment with oxycodone and each time you fill your prescription. Read theinformation carefully and ask your doctor or pharmacist if you have any questions. You can also visit the Food and Drug Administration (FDA) website (https://www.fda.gov/Drugs/DrugSafety/hzz540679.htm) or the bookkeeping service sales agent's website to obtain the Medication Guide. WHY is this medicine prescribed? Oxycodone immediate-release tablets, capsules, and oral solution are used to relieve severe, acute pain (pain that begins suddenly, has a specific cause, and is expected to go away when the cause of the pain is healed) in people who are expected to need an opioid pain medication and who cannot be treated with other pain medications. Oxycodone extended-release tablets and extended-release capsulesare used to relieve severe pain in people who are expected to need pain medication around the clockfor a long time and who cannot be treated with other medications. Oxycodone extended-release tablets and extended-release capsules should not be used to treat pain that can be controlled by medication that is taken as needed. Oxycodone concentrated solution should only be used to treat people who are tolerant (used to the effects of the medication) to opioid medications because they have taken this type of medication for at least one week. Oxycodone is in a class of medications called opiate (narcotic) analgesics. It works by changing the way the brain and nervous system respond to pain. Oxycodone is also available in combination with acetaminophen (Oxycet, Percocet, others) and aspirin (Percodan). This monograph only includes information about the use of oxycodone alone. If you are taking an oxycodone combination product, be sure to read information about all the ingredients in the product you are taking and ask your doctor or pharmacist for more information. HOW should this medicine be used? Oxycodone comes as a solution (liquid), a concentrated solution, a tablet, a capsule, an extended-release (long-acting) tablet (Oxycontin), and an extended- release capsule (Xtampza ER) to take by mouth. The solution, concentrated solution, tablet, and capsule are taken usually with or without food every 4 to 6 hours, either as needed for pain or as regularly scheduled medications. The extended-release tablets (Oxycontin) are taken every 12 hours with or without food. The extended-release capsules (Xtampza ER) are taken every 12 hours with food; eat the same amount of food with each dose. Follow the directions on your prescription label carefully, and ask your doctor or pharmacist to explainany part you do not understand. Take oxycodone exactly as directed. If you are taking the extended-release tablets (Oxycontin), swallow the tablets one at a time with plenty of water. Swallow the tablet or right after putting it in your mouth. Do not presoak, wet, orlick the tablets before you put them in your mouth. Do not chew or crush extended-release tablets. If you have trouble swallowing extended-release capsules (Xtampza ER), you can carefully open the capsule and sprinkle the contents on soft foods such as applesauce, pudding, yogurt, ice cream, or jam, then consume the mixture immediately. Dispose of the empty capsule shells right away by flushing them down a toilet. Do not store the mixture for future use. If you have a feeding tube, the extended-release capsule contents can be poured into the tube. Ask your doctor how you should take the medication and follow these directions carefully. Your doctor may adjust your dose of oxycodone during your treatment, depending on how well your pain is controlled and on the side effects that you experience. Talk to your doctor about how you are feeling during your treatment with oxycodone. Tell your doctor if you feel that your pain is not controlled or if your pain increases, becomes worse, or if you have new pain or an increased sensitivityto pain during your treatment with oxycodone. Do not take more of it or take it more often than prescribed by your doctor. Do not stop taking oxycodone without talking to your doctor. If you stop taking oxycodone suddenly,you may experience withdrawal symptoms such as restlessness, watery eyes, runny nose, sneezing, yawning, sweating, chills, muscle or joint aches or pains, weakness, irritability, anxiety, depression,difficulty falling asleep or staying asleep, cramps, nausea, vomiting, diarrhea, loss of appetite, fast heartbeat, and fast breathing. Your doctor will probably decrease your dose gradually. Are there OTHER USES for this medicine? This medication may be prescribed for other uses; ask your doctor or pharmacist for more information. What SPECIAL PRECAUTIONS should I follow? Before taking oxycodone, tell your doctor and pharmacist if you are allergic to oxycodone, any other medications, or any of the ingredients in the oxycodone product you plan to take. Ask your pharmacist or check the Medication Guide for a list of the ingredients. tell your doctor or pharmacist if you are taking the following medications or have stopped taking them within the past two weeks: isocarboxazid (Marplan), linezolid (Zyvox), methylene blue, phenelzine (Nardil), selegiline (Emsam, Zelapar), or tranylcypromine (Parnate). The following nonprescription or herbal products may interact with oxycodone: Mastic's wort and tryptophan. Be sure to let your doctor and pharmacist know that you are taking these medications before you start taking oxycodone. Do not start these medications while taking oxycodone without discussing it with your healthcare provider. tell your doctor if you have or have ever had any of the conditions mentioned in the IMPORTANT WARNING section, a blockage or narrowing of your stomach or intestines, or paralytic ileus (conditionin which digested food does not move through the intestines). Your doctor may tell you not to take oxycodone. Also tell your doctor if you have or have ever had low blood pressure; seizures; adrenal insufficiency (condition in which the adrenal glands do not produce enough of certain hormones needed for important body functions); seizures; urethral stricture (blockage of the tube that allows urine to leave the body), problems urinating; or heart, kidney, liver, pancreas, thyroid, or gall bladder disease. If you will be taking the extended-release tablets or extended-release capsules, also tell your doctor if you have or have ever had difficulty swallowing, diverticulitis (condition in which small pouches form in the intestines and become swollen and infected), colon cancer (cancer that begins inthe large intestine), or esophageal cancer (cancer that begins in the tube that connects the mouth and stomach). tell your doctor if you are . You should not breastfeed while you are taking oxycodone. Oxycodone can cause shallow breathing, difficulty or noisy breathing, confusion, more than usual sleepiness, trouble , or limpness in breastfed infants. you should know that this medication may decrease fertility in men and women. Talk to your doctor about the risks of taking oxycodone. if you are having surgery, including dental surgery, tell the doctor or dentist that you are taking oxycodone. you should know that this medication may make you drowsy. Do not drive a car, operate heavy machinery, or participate in any other possibly dangerous activities until you know how this medication affects you. you should know that oxycodone may cause dizziness, lightheadedness, and fainting when you get up too quickly from a lying position. To help avoid this problem, get out of bed slowly, resting yourfeet on the floor for a few minutes before standing up. you should know that oxycodone may cause constipation. Talk to your doctor about changing your diet or using other medications to prevent or treat constipation while you are taking oxycodone. What SPECIAL DIETARY instructions should I follow? Unless your doctor tells you otherwise, continue your normal diet. What should I do IF I FORGET to take a dose? If you are taking oxycodone on a regular schedule, take the missed dose as soon as you remember it.However, if it is almost time for the next dose, skip the missed dose and continue your regular dosing schedule. Do not take a double dose to make up for a missed one. Do not take more than one dose of the extended- release tablets or capsules in 12 hours. What SIDE EFFECTS can this medicine cause? Oxycodone may cause side effects. Tell your doctor if any of these symptoms, are severe or do not go away: dry mouth stomach pain drowsiness flushing headache mood changes Some side effects can be serious. If you experience any of these symptoms or those mentioned in theIMPORTANT WARNING section, call your doctor immediately or get emergency medical help: changes in heartbeat agitation, hallucinations (seeing things or hearing voices that do not exist), fever, sweating, confusion, fast heartbeat, shivering, severe muscle stiffness or twitching, loss of coordination, ordiarrhea nausea, vomiting, loss of appetite, weakness, or dizziness inability to get or keep an erection irregular menstruation decreased sexual desire chest pain rash; itching; hives; hoarseness; difficulty breathing or swallowing; or swelling of the face, mouth, tongue, lips, or throat swelling of the hands, feet, ankles, or lower legs seizures extreme drowsiness If you experience a serious side effect, you or your doctor may send a report to the Food and Drug Administration's (FDA) MedWatch Adverse Event Reporting program online (https://www.fda.gov/Safety/MedWatch) or by phone ( ). Oxycodone may cause other side effects. Call your doctor if you have any unusual problems while youare taking this medication. What should I know about STORAGE and DISPOSAL of this medication? Keep this medication in the container it came in, tightly closed, and out of reach of children, andin a location that is not easily accessible by others, including visitors to the home. Store it at room temperature and away from light and excess heat and moisture (not in the bathroom). You must immediately dispose of any medication that is outdated or no longer needed through a medicine take-back program. If you do not have a take-back program nearby or one that you can access promptly, flush any medication that is outdated or no longer needed down the toilet so that others will not take it.Talk to your pharmacist about the proper disposal of your medication. It is important to keep all medication out of sight and reach of children as many containers (such as weekly pill minders and those for eye drops, creams, patches, and inhalers) are not child-resistant and young children can open them easily. To protect young children from poisoning, always lock safety caps and immediately place the medication in a safe location - one that is up and away and out of their sight and reach. https://www.upandaway.org What should I do in case of OVERDOSE? In case of overdose, call the poison control helpline at . Information is also available online at https://www.poisonhelp.org/help. If the victim has collapsed, had a seizure, has trouble breathing, or can't be awakened, immediately call emergency services at 251. While taking oxycodone, you should talk to your doctor about having a rescue medication called naloxone readily available (e.g., home, office). Naloxone is used to reverse the life-threatening effects of an overdose. It works by blocking the effects of opiates to relieve dangerous symptoms caused by high levels of opiates in the blood. Your doctor may also prescribe you naloxone if you are livingin a household where there are small children or someone who has abused street or prescription drugs. You should make sure that you and your family members, caregivers, or the people who spend time with you know how to recognize an overdose, how to use naloxone, and what to do until emergency medical help arrives. Your doctor or pharmacist will show you and your family members how to use the medication. Ask your pharmacist for the instructions or visit the bookkeeping service sales agent's website to get the instructions. If symptoms of an overdose occur, a caregiver or family member should give the first dose of naloxone, call 911 immediately, and stay with you and watch you closely until emergency medical help arrives.Your symptoms may return within a few minutes after you receive naloxone. If your symptoms return, the person should give you another dose of naloxone. Additional doses may be given every 2 to 3 minutes, if symptoms return before medical help arrives. Symptoms of overdose may include the following: difficulty breathing slowed or shallow breathing excessive sleepiness limp or weak muscles narrowing or widening of the pupils (dark [place] in the eye) cold, clammy skin unable to respond or wake up slowed heartbeat unusual snoring What OTHER INFORMATION should I know? Keep all appointments with your doctor. Your doctor may order certain lab tests to check your body's response to oxycodone. Before having any laboratory test (especially those that involve methylene blue), tell your doctor and the laboratory personnel that you are taking oxycodone. This prescription is not refillable. If you continue to have pain after you finish the oxycodone, call your doctor. It is important for you to keep a written list of all of the prescription and nonprescription (kqfx-cxn-zddrjwk) medicines you are taking, as well as any products such as vitamins, minerals, or otherdietary supplements. You should bring this list with you each time you visit a doctor or if you areadmitted to a hospital. It is also important information to carry with you in case of emergencies. This report on medications is for your information only, and is not considered individual patient advice. Because of the changing nature of drug information, please consult your physician or pharmacist about specific clinical use. [employer] represents that the information provided hereunder was formulated with a reasonable standard of care, and in conformity with professional standards in the field. [employer] makes no representations or warranties, express or implied, including, but not limited to, any implied warranty of merchantability and/or fitness for a particular purpose, with respect to such information and specifically disclaims all such warranties. Users are advised that decisions regarding drug therapy are complex medical decisions requiring the independent, informed decision of an appropriate health patient care representative, and the information is provided for informational purposes only. The entire monograph for a drug should be reviewed for a thorough understanding of the drug's actions, uses and side effects. The [place] [employer] does not endorse or recommend the use of any drug.The information is not a substitute for medical care. [facility] Patient Medication Information?. Copyright, 2023. The [place] [employer], [facility], [address], [place], [place]. All Rights Reserved. Duplication for commercial use must be authorized by [facility]. Selected Revisions: January 20, 2024. [facility] Patient Medication Information?. 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 Mccormick SUBJECTIVE: NAEON. patient is resting comfortably. Pain is well-controlled. OBJECTIVE: Most Recent Vital Signs: BP: 175 mmHg/95 mmHg (10/02/24750) Pulse: 63 (10/02/24750) Resp: 18 (10/02/24750) Temp: 36.22 C (10/02/24750) Temp Summary: Temp Min: 35.4 C (95.8 F) Max: 36.2 C (97.2 F) SpO2: 95 % (10/02/24750) O2 flow rate: 2 L/MIN (10/01/242240) Supplemental O2 Delivery: Room Air, None (10/02/24246) Vital Signs Last 24 Hours: Most Recent Systolic BP Av.8 mmHg Min: 107 mmHg Max: 175 mmHg Most Recent Temperature Av C Min: 35.44 C Max: 36.22 C Pulse Av.5 Min: 48 Max: 68 Resp Av.7 Min: 10 Max: 18 SpO2 Av.5 % Min: 92 % Max: 100 % Intake/Output Summary (Last 24 hours) at 10/02/2024 0803 Last data filed at 10/02/2024 0300 Gross per 24 hour Intake 3191.52 ml Output 675 ml Net 2516.52 ml Physical Exam: Constitutional: No acute distress HEENT: Normocephalic, atraumatic with nasal cannula donned Cardiac: Regular rate and rhythm Resp: Satting well with nasal cannula Abdomen/Pelvis: soft, appropriately tender to palpation Extremities: moves bilateral upper extremities voluntarily Neuro: gross sensation and motor function intact bilaterally Vascular: Pulse Exam Right Radial Palpable Pulse DP pulse: Palpable Pulse PT Palpable Pulse Left Radial Palpable Pulse DP Palpable Pulse PT Palpable Pulse Bandage covering right groin appears clean, dry and intact. No hematoma or ecchymosis in groin bilaterally. LABS: CBC Lab results within last 7 days (see chart for full results) Units 10/02/24 0620 10/01/24 1152 10/01/24 0622 WBC K/uL 6.24 5.80 6.66 HGB g/dL 11.2* 10.6* 12.9* HCT % 35.0* 32.0* 39.0* PLT K/uL 172 171 196 BMP Lab results within last 7 days (see chart for full results) Units 10/02/24 0620 10/01/24 1152 10/01/24 0941 SODIUM mmol/L 141 141 -- POTASSIUM mmol/L 3.7 3.3* -- POTASSIUM - POCT mmol/L -- -- 3.3* CHLORIDE mmol/L 104 107 -- CO2 mmol/L 27 23 -- BUN mg/dL 13 14 -- CREATININE mg/dL 0.8 0.8 -- GLUCOSE mg/dL 152* 172* -- Ca, Mg, Phos Lab results within last 7 days (see chart for full results) Units 10/02/24 0620 10/01/24 1152 CALCIUM mg/dL 9.1 8.6 Recent Cultures (2 Weeks) No lab values to display. IMPRESSION and PLAN: Parker Morrissey is a 79 year old male with reformed smoker with dyslipidemia, HTN, COPD, and KRISTEN s/p abdominal aortogram, embolization of left lumbar branch, embolization of right internal iliac artery, delayed extension of right iliac limb of EVAR to the external iliac artery, percutaneously on 10/01/[address] Mccormick. Patient is stable postop Diet: regular Analgesia: tylenol, oxy Nausea: Zofran PRN Respiratory: Encourage IS. RPDP Home Medications: Restarted: amlodipine 5 mg qd, aspirin 81 mg qd, rosuvastatin 10 mg qd Anticoagulation/Antiplatelet/DVT/PE ppx: Heparin 5,000 u TID, aspirin 81 mg qd, plavix Bowel Regimen: none Storm: DC today, void trial Drains/Lines: 18 gauge left arm, 18 gauge right arm, storm catheter -Pulse checks, neuro checks, VS as per current orders -SBP goals <160 Dispo: anticipate DC today This patient was seen and examined at bedside and was discussed with Dr. Mccormick. Jannet Mueller DO Vascular Surgery Resident, PGY2 [facility] VASCULAR SURGERY 10/02/2024 10/02/2024 Cosigned by Toby Mccormick MD at 10/02/2024 10:19 AM EST Associated attestation - Toby Mccormick MD - 10/02/2024 10:19 AM EST I saw and evaluated the patient today. I have reviewed the resident/fellow physician note and agree. Questions answered Discharge today Toby Mccormick MD Section of Vascular [place] [address] [phone] * Care Plan - Roberto Guillen RN - 10/02/2024 6:32 AM EST Clinical Goal(s): patient will remain free from injury (10/01/24 1333) Possible barriers to meeting goal(s)/advancing plan of care: Altered mobility d/t groin access Stability of the patient: Moderately stable - low risk of patient condition declining or worsening Summary regarding today's goal(s): Met: Patient remained free from injury this shift Recommendations: Continue current fall prevention and safety plan * Pt Handout (on AVS) - Cari Pino RN - 10/01/2024 10:12 PM EST [id number] After Endovascular Abdominal Aortic Aneurysm Repair You have had a procedure to repair an abdominal aortic aneurysm (AAA). An AAA happens when a weakened part of a blood vessel in your belly (abdominal) area expanded like a balloon. During an endovascular repair, your healthcare provider created 2 small cuts (incisions) near your groin. A thin, flexible tube (catheter) was threaded into the artery at the incision. A graft was placed inside the catheter and guided toward the damaged part of your aorta to prevent more problems. Home care Recommendations for taking care of yourself at home include: Don't do strenuous activity for 7 to 10 days after your surgery. Ask your healthcare provider when you can expect to return to work. Slowly increase your activity. It may take some time for you to return to your normal activities. Don?t drive for 2 weeks after surgery, especially if you are still taking opioid pain medicines.Ask someone to take you to any appointments. Check your incision every day for signs of infection. These include swelling, redness, fluid leaking, or warmth. Keep your incision clean. Wash it gently with soap and water while you shower. Don?t swim or use a hot tub until your healthcare provider says it's OK. Don?t lift anything heavier than 5 pounds for 4 weeks after surgery. Don't sit or stand for long periods without moving your legs and feet. Keep your feet up when you sit in a chair. Take your medicines exactly as directed. Don?t skip doses. When to call your healthcare provider Call your healthcare provider right away if any of these occur: Redness, pain, swelling, or fluid leaking from your incision Fever of 100.4F (38C) or higher, or as advised by your provider Sudden coldness, pain, or paleness in your leg Loss of feeling in your legs Severe or sudden stomach pain Upset stomach (nausea) or vomiting Trouble breathing Pain or heaviness in your chest or arms Any abnormal bleeding Unable to pee Bloody poop or bloody diarrhea Follow-up Make a follow-up appointment to have your incisions checked and quinten removed within 7 to 10 days. Make follow-up appointments as advised. Last Reviewed Date: 2022 00:00:00 [id number] [employer]. All rights reserved. This information is not intended as a substitute for professional medical care. Always follow your healthcare professional's instructions. * Ancillary Progress Note - Patty House RRT - 10/01/2024 7:01 PM EST PATIENT DRIVEN PROTOCOL - Respiratory Care Services [address] [address] Name: Parker Morrissey Location: [facility] H865/A Date: 10/01/2024 Time: 7:01 PM Patient Driven Protocol Summary: Initial evaluation performed. This Treatment Plan and medications will be reviewed by the Primary Care Team for any contraindications. Respiratory Care Treatment Plan Aerosol Therapy Treatment:: Inhaler(s) QDAY with Breo Ellipta (Fluticasone furoate 200 mcg and Vilanterol 25 mcg inhalation powder) / 1 inhalation . to suppress bronchial inflammation and edema by the use of systemic steroid sparing therapy. Additional Aerosolized Treatments: Inhaler(s) PRN with Albuterol Sulfate: Unit dose 0.083%. to reduce work of breathing and improve pulmonary gas exchange. . Pulmonary Volume Expansion Therapy: Incentive Spirometry PRN to prevent or treat alveolar consolidation and atelectasis. . The patient will be re-evaluated: No re-evaluation needed. Indications for treatment met. The Triage Level is: (Assessment Score = 6 -10) Level 4. Triage Level Definitions: Level 1 Severe Respiratory/Airway Compromise Level 2 Moderate Respiratory/Airway Compromise or high risk for pulmonary complications Level 3 Mild Respiratory/Airway Compromise or moderate risk for pulmonary complications Level 4 Episodic Respiratory/Airway Compromise or low risk for pulmonary complications Level 5 No Respiratory/Airway Compromise Triage 1 Triage 2 Triage 3 Triage 4 Triage 5 greater than 20 16 - 20 11 - 15 6 - 10 0 - 5 Medical Record Assessment Clinical Findings Pulmonary Status: 3 - Pulm Impairment (acute or chronic) w/o exacerbation, or 1 - 2 rib fractures Surgical Status: 3 - Thoracic or Upper Abdominal Chest X-Ray: 0 - Not Performed or performed greater than 3 days ago Assessment Score: 6 Patient Assessment Clinical Findings Respiratory Pattern: 0 - RR 12 - 20; Patient only gets breathless with strenuous exercise. Breath Sounds: 0 - Clear to auscultation Cough Effectiveness: 0 - Strong non-productive Sputum Production: 0 - No sputum production Level of Activity: 1 - Ambulatory with assist O2 needed to keep SpO2 greater than or equal to 92%: 0 - Room Air Assessment Score: 1 Total Assessment Score: 7 Breath Sounds: Inspiratory and expiratory clear and diminished bilaterally.. Cough and Sputum: An effective cough produced no sputum... CXR: not performed. Vital Signs: Resp: 16 (10/01/24 1500) Pulse: 55 (10/01/24 1500) Temp: 35.4 C (95.8 F) (10/01/24 1333) BP: 140/72 (10/01/24 1500) SpO2: 96 % (10/01/24 1500) PFT: Minimal Predicted IC: 1.00 L. Inspiratory capacity: 2.5L. Primary Service: Vascular Surgery. Admitting Diagnosis: Infrarenal abdominal aortic aneurysm (AAA) without rupture (HCC) [I71.43] KRISTEN on CPAP [G47.33] Essential hypertension with goal blood pressure less than 130/80 [I10] Chronic obstructive pulmonary disease, unspecified COPD type (HCC) [J44.9] Dyslipidemia, goal LDL below 70 [E78.5] 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 [Z95.828] Pulmonary Diagnosis: COPD and KRISTEN. Prescriptions/Home Medications/Durable Medical Equipment: cpap, breo, prn albuterol. * Progress Notes - Post-Op Global - Jorge Alberto Ivy MD - 10/01/2024 11:01 AM EST VASCULAR SURGERY POSTOPERATIVE PROGRESS NOTE [facility] [address] Name: Parker Morrissey Location: OR [facility]/OR Date: 10/01/2024 Time: 11:30 am Patient is s/p abdominal aortogram, embolization of left lumbar branch, embolization of right internal iliac artery, delayed extension of right iliac limb of EVAR to the external iliac artery, percutaneous access and preclosure for 12 moroccan or greater sheath on 10/01/[address] Mccormick SUBJECTIVE: No acute events postop, patient is resting comfortably. Pain is well-controlled. Daughter at bedside OBJECTIVE: Most Recent Vital Signs: BP: 125 mmHg/58 mmHg (10/01/24 1200) Pulse: 51 (10/01/24 1200) Resp: 12 (10/01/24 1200) Temp: 36.11 C (10/01/24 1130) Temp Summary: Temp Min: 36 C (96.8 F) Max: 36.3 C (97.3 F) SpO2: 99 % (10/01/24 1200) O2 flow rate: Supplemental O2 Delivery: Nasal Cannula (10/01/24 1200) Vital Signs Last 24 Hours: Most Recent Systolic BP Av.1 mmHg Min: 107 mmHg Max: 166 mmHg Most Recent Temperature Av.1 C Min: 36 C Max: 36.28 C Pulse Av.9 Min: 48 Max: 61 Resp Av.9 Min: 10 Max: 15 SpO2 Av.5 % Min: 92 % Max: 99 % Intake/Output Summary (Last 24 hours) at 10/01/2024 1221 Last data filed at 10/01/2024 1101 Gross per 24 hour Intake 1800 ml Output 275 ml Net 1525 ml Physical Exam: Constitutional: No acute distress HEENT: Normocephalic, atraumatic with nasal cannula donned Cardiac: Regular rate and rhythm Resp: Satting well with nasal cannula Abdomen/Pelvis: soft, appropriately tender to palpation Extremities: moves bilateral upper extremities voluntarily, Right knee immobilizer donned. Neuro: gross sensation and motor function intact bilaterally Vascular: Pulse Exam Right Radial Palpable Pulse DP pulse: Palpable Pulse PT Palpable Pulse Left Radial Palpable Pulse Femoral Palpable Pulse DP Palpable Pulse PT Palpable Pulse Bandage covering right groin appears clean, dry and intact. No hematoma or ecchymosis in groin bilaterally. LABS: CBC Lab results within last 7 days (see chart for full results) Units 10/01/24 1152 10/01/24 0622 WBC K/uL 5.80 6.66 HGB g/dL 10.6* 12.9* HCT % 32.0* 39.0* PLT K/uL 171 196 BMP No results in the last 7 days - inpatent use only Ca, Mg, Phos No results in the last 7 days - inpatent use only Recent Cultures (2 Weeks) No lab values to display. IMPRESSION and PLAN: Parker Morrissey is a 79 year old male with reformed smoker with dyslipidemia, HTN, COPD, and KRISTEN s/p abdominal aortogram, embolization of left lumbar branch, embolization of right internal iliac artery, delayed extension of right iliac limb of EVAR to the external iliac artery, percutaneously on 10/01/[address] Mccormick. Patient is stable postop Diet: regular Analgesia: tylenol, oxy, Antibiotics: Vancomycin 1250 mg BID IVF: isolyte 25 ml/hr Nausea: Zofran PRN Respiratory: Encourage IS. RPDP Activity: Lay flat until 1450 today (10/01/24) Home Medications: Restarted: amlodipine 5 mg qd, aspirin 81 mg qd, rosuvastatin 10 mg qd Anticoagulation/Antiplatelet/DVT/PE ppx: Heparin 5,000 u TID, aspirin 81 mg qd Bowel Regimen: none Storm: Plan to remove POD 1 GI ppx: diet by mouth Drains/Lines: 18 gauge left arm, 18 gauge right arm, storm catheter -Pulse checks, neuro checks, VS as per current orders -SBP goals <160 Dispo: pending Jorge Alberto Ivy MD PGY-1 [facility] VASCULAR SURGERY 10/01/2024 Cosigned by Toby Mccormick MD at 10/01/2024 4:09 PM EST documented in this encounter Plan of Treatment Upcoming Encounters Date Type Department Care Team (Late st Contact Info) Description 10/16/2024 2:30 PM EST Imaging Radiology [address] [place] [address] 10/24/2024 2:30 PM EST Office Visit Vascular Surgery, [address] [place] [address] Toby Mccormick MD [address] [place] [address] Scheduled Orders Name Type Priority Associated Diagnoses Orde r Schedule EKG EKG Routine Chest pain Perform Now for 1 Occurrences starting 10/01/2024 until 10/01/2024 Health Maintenance Due Date Last Done Comments [...] this encounter Medical Devices Implanted Type Area Chemical Plant Manager Device Identifier Shelf Expiration Date Model / Serial / Lot Graft Excludr 35eyo15.5x10cm - [id number] Implanted:Qty: 1 on 10/01/2024 by Toby Mccormick MD at OR [facility] Graft Right: Iliac [employer] [id number] 07/24/2027 [id number] / [id number] / [id number] Azur Peripheral Coil System Implanted:Qty: 9 on 01/02/2020 by Shawn Cordoba MD at OR [facility] N/A: Aorta [employer] 09/06/2022 [id number] 0 / / [id number] Coil Vortex 35 Pltinm [id number] - [id number] Implanted:Qty: 1 on 01/02/2020 by Shawn Cordoba MD at OR [facility] N/A: Aorta [employer] : NEURO INTR [id number] 07/11/2022 [id number] / / [id number] Coil Vortex 35 Pltinm [id number] - [id number] Implanted:Qty: 1 on 01/02/2020 by Shawn Cordoba MD at OR [facility] Aorta [employer] : NEURO INTR [id number] 07/11/2022 [id number] / / [id number] Coil Azur .035 [id number] - [id number] Implanted:Qty: 9 on 01/02/2020 by Shawn Cordoba MD at OR [facility] N/A: Aorta [employer] 05/06/2021 [id number] 0 / / [id number] Coil Azur .035 [id number] - [id number] Implanted:Qty: 9 on 01/02/2020 by Shawn Cordoba MD at OR [facility] N/A: Aorta [employer] 01/04/2021 [id number] 0 / / [id number] Coil Azur 16mm 20cm Implanted:Qty: 2 on 01/02/2020 by Shawn Cordoba MD at OR [facility] N/A: Aorta [employer] 05/06/2021 [id number] 0 / / [id number] Coil Azur 16mm 20cm Implanted:Qty: 3 on 01/02/2020 by Shawn Cordoba MD at OR [facility] N/A: Aorta [employer] 06/06/2021 [id number] / / [id number] Coil Azur 16mm 20cm Implanted:Qty: 6 on 01/02/2020 by Shawn Cordoba MD at OR [facility] N/A: Aorta [employer] 09/06/2022 [id number] 0 / / [id number] Coil Azur 16mm 20cm Implanted:Qty: 3 on 01/02/2020 by Shawn Cordoba MD at OR [facility] N/A: Aorta [employer] 06/06/2021 [id number] 0 / / [id number] Coil Azur .035 [id number] - [id number] Implanted:Qty: 7 on 01/02/2020 by Shawn Cordoba MD at OR [facility] N/A: Aorta [employer] 05/06/2021 [id number] 0 / / [id number] Coil Vortex 35 Pltinm [id number] - [id number] Implanted:Qty: 1 on 01/02/2020 by Shawn Cordoba MD at OR [facility] N/A: Aorta [employer] : NEURO INTR [id number] 02/28/2022 [id number] / / [id number] Coil Helical 2 20mm [id number] - [id number] Implanted:Qty: 1 on 10/01/2024 by Toby Mccormick MD at OR [facility] N/A: Abdomen [employer] : NEURO INTR [id number] 02/21/2026 [id number] / / [id number] Coil Vortex 2x4mm [id number] - [id number] Implanted:Qty: 1 on 10/01/2024 by Toby Mccormick MD at OR [facility] Left: Iliac [employer] : PERIPHL IV [id number] 07/27/2026 [id number] 041 / / [id number] Plug Vasc Ampl 12mm 9-Plug-012 - [id number] Implanted:Qty: 1 on 10/01/2024 by Toby Mccormick MD at OR [facility] Right: Iliac [employer] [id number] 05/06/2029 9-PLUG-0 [id number] 14.5mm X 14cm Contralateral Leg Endoprosthesis, Conformable Aaa Implanted:Qty: 1 on 10/01/2024 by Toby Mccormick MD at OR [facility] Right: Iliac [employer] [id number] 03/20/2027 [id number] / [id number] / [id number] documented as of this encounter Procedures Procedure Name Priority Date/Time Associated Diagnosis Comments GLUCOSE METER, POINT OF CARE YANETH 10/02/2024 8:07 AM EST HEMOGLOBIN A1C Routine 10/02/2024 6:20 AM EST BASIC METABOLIC PANEL Routine 10/02/2024 6:20 AM EST CBC Routine 10/02/2024 6:20 AM EST GLUCOSE METER, POINT OF CARE YANETH 10/01/2024 9:10 PM EST GLUCOSE METER, POINT OF CARE YANETH 10/01/2024 4:24 PM EST BASIC METABOLIC PANEL STAT 10/01/2024 11:52 AM EST CBC STAT 10/01/2024 11:52 AM EST VASC PROCEDURE IN VASCULAR ANGIO SUITE Routine 10/01/2024 10:49 AM EST BLOOD GAS WITH CHEMISTRY, POINT OF CARE YANETH 10/01/2024 9:41 AM EST ACT, POINT OF CARE [facility] 10/01/2024 8: 27 AM EST IR Embolization Arterial Non Hemmorage 10/01/2024 6:30 AM EST Infrarenal abdominal aortic aneurysm (AAA) without rupture (HCC) KRISTEN on CPAP Essential hypertension with goal blood pressure less than 130/80 Chronic obstructive pulmonary disease, unspecified COPD type (HCC) Dyslipidemia, goal LDL below 70 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 Delayed Placement Extension Prosthesis 1st Vessel 10/01/2024 6:30 AM EST Infrarenal abdominal aortic aneurysm (AAA) without rupture (HCC) KRISTEN on CPAP Essential hypertension with goal blood pressure less than 130/80 Chronic obstructive pulmonary disease, unspecified COPD type (HCC) Dyslipidemia, goal LDL below 70 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 IMAGING SUPERVISION & INTERPRETATION ABDOMINAL AO 10/01/2024 6:30 AM EST Infrarenal abdominal aortic aneurysm (AAA) without rupture (HCC) KRISTEN on CPAP Essential hypertension with goal blood pressure less than 130/80 Chronic obstructive pulmonary disease, unspecified COPD type (HCC) Dyslipidemia, goal LDL below 70 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 Place Catheter in Artery, First 10/01/2024 6:30 AM EST Infrarenal abdominal aortic aneurysm (AAA) without rupture (HCC) KRISTEN on CPAP Essential hypertension with goal blood pressure less than 130/80 Chronic obstructive pulmonary disease, unspecified COPD type (HCC) Dyslipidemia, goal LDL below 70 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 GLUCOSE METER, POINT OF CARE [facility] 10/01/2024 6:30 AM EST TYPE AND SCREEN Routine 10/01/2024 6:22 AM EST CBC Routine 10/01/2024 6:22 AM EST documented in this encounter Results * (ABNORMAL) GLUCOSE METER, POINT OF CARE (10/02/2024 8:07 AM EST) GLUCOSE - POCT 143(H) 70 - 120 mg/dL 10/02/2024 8:21 AM EST [employer] Blood Whole blood specimen / Unknown 10/02/2024 8:07 AM EST 10/02/2024 8:21 AM EST us Toby Mccormick MD LAB POINT OF CARE TEST DOCKED DEVICE UNSOLICITED RESULTS Final Result [facility] [address] [place] [address] * (ABNORMAL) BASIC METABOLIC PANEL (10/02/2024 6:20 AM EST) Pathologist [facility] BUN 13 6 - 20 mg/dL 10/02/2024 7:05 AM EST [facility] CREATININE 0.8 0.6 - 1.2 mg/dL 10/02/2024 7:05 AM EST [facility] EGFR 88 >=60 mL/min 10/02/2024 7:05 AM EST [facility] Comment:eGFR is calculated b ased on the CKD-EPI 2020 equation. SODIUM 141 135 - 146 mmol/L 10/02/2024 7:05 AM EST [facility] POTASSIUM 3.7 3.5 - 5.1 mmol/L 10/02/2024 7:05 AM EST [facility] CHLORIDE 104 98 - 107 mmol/L 10/02/2024 7:05 AM EST [facility] CO2 27 22 - 32 mmol/L 10/02/2024 7:05 AM EST [facility] ANION GAP 10 7 - 15 mmol/L 10/02/2024 7:05 AM EST [facility] GLUCOSE 152(H) 70 - 120 mg/dL 10/02/2024 7:05 AM EST [facility] CALCIUM 9.1 8.4 - 10.2 mg/dL 10/02/2024 7:05 AM EST [facility] Blood Venous blood specimen / Unknown Venipuncture / Unknown 10/02/2024 6:20 AM EST 10/02/2024 6:26 AM EST us Flavio Bailon MD LAB BLOOD ORDERABLES Astrid l Result Performing Organization Address City/[facility]/ZIP Co de Phone Number [facility] [address] [place] [address] * (ABNORMAL) CBC (10/02/2024 6:20 AM EST) WBC 6.24 4.00 - 10.80 K/uL 10/02/2024 6:45 AM EST [facility] RBC 3.54 4.50 - 5.25 M/uL 10/02/2024 6:45 AM EST [facility] HGB 11.2(L) 14.0 - 16.8 g/dL 10/02/2024 6:45 AM EST [facility] HCT 35.0(L) 40.0 - 48.4 % 10/02/2024 6:45 AM EST [facility] MCV 98.9 82.0 - 99.5 fL 10/02/2024 6:45 AM EST [facility] MCH 31.6 27.0 - 34.0 pg 10/02/2024 6:45 AM EST LABORATORY [facility] MCHC 32.0 32.0 - 36.0 g/dL 10/02/2024 6:45 AM EST LABORATORY [facility] RDW 14.2 11.5 - 15.5 % 10/02/2024 6:45 AM EST [facility] PLT 172 140 - 400 K/uL 10/02/2024 6:45 AM EST [facility] MPV 10.4 6.6 - 11.1 fL 10/02/2024 6:45 AM EST LABORATORY GM nRBCs 0 <=0 /100 WBCs 10/02/2024 6:45 AM EST LABORATORY GM Blood Venous blood specimen / Unknown Venipuncture / Unknown 10/02/2024 6:20 AM EST 10/02/2024 6:26 AM EST us Flavio Bailon MD LAB BLOOD ORDERABLES Astrid l Result LABORATORY [facility] [address] [place] [address] * (ABNORMAL) HEMOGLOBIN A1C (10/02/2024 6:20 AM EST) Hemoglobin A1C 7.2(H) 4.0 - 5.6 % 10/02/2024 6:53 AM EST [facility] Comment:The use of HbA1c to monitor glycemic status is based on normal hemoglobin and HbA composition. This test should not be used in patients with abnormal hemoglobin that affects the half life of the red blood cell or the in vivo glycation rates. Estimated Average Glucose 160(H) <126 mg/dL 10/02/2024 6:53 AM EST LABORATORY [facility] Blood Venous blood specimen / Unknown Venipuncture / Unknown 10/02/2024 6:20 AM EST 10/02/2024 6:26 AM EST Flavio Bailon MD LAB BLOOD ORDERABLES Astrid l Result LABORATORY [facility] [address] [place] [address] * (ABNORMAL) GLUCOSE METER, POINT OF CARE (10/01/2024 9:10 PM EST) GLUCOSE - POCT 124(H) 70 - 120 mg/dL 10/01/2024 9:15 PM EST [employer] Blood Whole blood specimen / Unknown 10/01/2024 9:10 PM EST 10/01/2024 9:15 PM EST Toby Mccormick MD LAB POINT OF CARE TEST DOCKED DEVICE UNSOLICITED RESULTS Final Result Performing Organization Address City/[facility]/ZIP Co de Phone Number [facility] [address] [place] [address] * (ABNORMAL) GLUCOSE METER, POINT OF CARE (10/01/2024 4:24 PM EST) GLUCOSE - POCT 133(H) 70 - 120 mg/dL 10/01/2024 6:12 PM EST [employer] Blood Whole blood specimen / Unknown 10/01/2024 4:24 PM EST 10/01/2024 6:12 PM EST Toby Mccormick MD LAB POINT OF CARE TEST DOCKED DEVICE UNSOLICITED RESULTS Final Result Performing Organization Address City/[facility]/ZIP Co de Phone Number [facility] [address] [place] [address] * (ABNORMAL) BASIC METABOLIC PANEL (10/01/2024 11:52 AM EST) BUN 14 6 - 20 mg/dL 10/01/2024 12:30 PM EST [facility] CREATININE 0.8 0.6 - 1.2 mg/dL 10/01/2024 12:30 PM EST [facility] EGFR 90 >=60 mL/min 10/01/2024 12:30 PM EST [facility] Comment:eGFR is calculated b ased on the CKD-EPI 2020 equation. SODIUM 141 135 - 146 mmol/L 10/01/2024 12:30 PM EST [facility] POTASSIUM 3.3(L) 3.5 - 5.1 mmol/L 10/01/2024 12:30 PM EST [facility] CHLORIDE 107 98 - 107 mmol/L 10/01/2024 12:30 PM EST [facility] CO2 23 22 - 32 mmol/L 10/01/2024 12:30 PM EST [facility] ANION GAP 11 7 - 15 mmol/L 10/01/2024 12:30 PM EST [facility] GLUCOSE 172(H) 70 - 120 mg/dL 10/01/2024 12:30 PM EST [facility] CALCIUM 8.6 8.4 - 10.2 mg/dL 10/01/2024 12:30 PM EST [facility] Blood Arterial blood specimen / Unknown Arterial Puncture / Unknown 10/01/2024 11:52 AM EST 10/01/2024 12:03 PM EST Flavio Bailon MD LAB BLOOD ORDERABLES Astrid l Result [facility] [address] [place] [address] * (ABNORMAL) CBC (10/01/2024 11:52 AM EST) Pathologist [facility] WBC 5.80 4.00 - 10.80 K/uL 10/01/2024 12:10 PM EST [facility] RBC 3.30 4.50 - 5.25 M/uL 10/01/2024 12:10 PM EST [facility] HGB 10.6(L) 14.0 - 16.8 g/dL 10/01/2024 12:10 PM EST [facility] HCT 32.0(L) 40.0 - 48.4 % 10/01/2024 12:10 PM EST [facility] MCV 97.0 82.0 - 99.5 fL 10/01/2024 12:10 PM EST [facility] MCH 32.1 27.0 - 34.0 pg 10/01/2024 12:10 PM EST [facility] MCHC 33.1 32.0 - 36.0 g/dL 10/01/2024 12:10 PM EST [facility] RDW 13.8 11.5 - 15.5 % 10/01/2024 12:10 PM EST [facility] PLT 171 140 - 400 K/uL 10/01/2024 12:10 PM EST [facility] MPV 10.1 6.6 - 11.1 fL 10/01/2024 12:10 PM EST [facility] nRBCs 0 <=0 /100 WBCs 10/01/2024 12:10 PM EST [facility] Blood Arterial blood specimen / Unknown Arterial Puncture / Unknown 10/01/2024 11:52 AM EST 10/01/2024 12:03 PM EST Flavio Bailon MD LAB BLOOD ORDERABLES Astrid l Result LABORATORY [facility] [address] [place] [address] * VASC PROCEDURE IN VASCULAR ANGIO SUITE (10/01/2024 10:49 AM EST) Narrative Scheduling, Silent - 10/01/2024 10:49 AM EST This procedure will not be read by a Radiologist. Please see operative note. Tboy Mccormick MD RAD SPECIAL PROCEDURES Fin al Result * (ABNORMAL) BLOOD GAS WITH CHEMISTRY, POINT OF CARE (10/01/2024 9:41 AM EST) Draw Site Arterial Draw 10/01/2024 9:36 PM EST [employer] pH i-STAT 7.317(L) 7.350 - 7.450 10/01/2024 9:36 PM EST [facility] pCO2 i-STAT 51.4(H) 35.0 - 45.0 mm Hg 10/01/2024 9:36 PM EST [facility] pO2 i-STAT 169(H) 75 - 100 mm Hg 10/01/2024 9:36 PM EST [facility] Base Excess i-STAT 0 -2 - 2 mmol/L 10/01/2024 9:36 PM EST [facility] Bicarbonate i-STAT 26.3 23.0 - 31.0 mmol/L 10/01/2024 9:36 PM EST [facility] O2 Saturation i-STAT 99.0(H) 94.0 - 98.0 % 10/01/2024 9:36 PM EST [facility] GLUCOSE - POCT 165(H) 70 - 120 mg/dL 10/01/2024 9:36 PM EST [facility] POTASSIUM - POCT 3.3(L) 3.5 - 5.1 mmol/L 10/01/2024 9:36 PM EST [facility] SODIUM - POCT 141 135 - 146 mmol/L 10/01/2024 9:36 PM EST [facility] Calcium, ionized 1.23 1.13 - 1.32 mmol/L 10/01/2024 9:36 PM EST [facility] Hemoglobin i-STAT 10.5(L) 14.0 - 16.8 g/dL 10/01/2024 9:36 PM EST [facility] Hematocrit i-STAT 31(L) 40 - 48 % 10/01/2024 9:36 PM EST [facility] Arterial Draw 10/01/2024 9:4 1 AM EST 10/01/2024 9:36 PM EST us Toby Mccormick MD LAB POINT OF CARE TEST DOCKED DEVICE UNSOLICITED RESULTS Final Result [facility] [address] [place] [address] * ACT, POINT OF CARE (10/01/2024 8:27 AM EST) ACT 128 50 - 1,000 secs 10/01/2024 9:36 PM EST [email or web address] Blood 10/01/2024 8:27 AM EST 10/01/2024 9:36 PM EST Narrative [facility] [employer] [facility] - 10/01/2024 9:36 PM EST NORMAL (NON-HEPARINIZED) 74-137 SECONDS HEPARINIZED 200+ SECONDS CRITICAL GREATER THAN 1000 SECONDS Toby Mccormick MD LAB POINT OF CARE TEST DOCKED DEVICE UNSOLICITED RESULTS Final Result Performing Organization Address City/[facility]/ZIP Co de Phone Number [place] [address] [place] [address] * (ABNORMAL) GLUCOSE METER, POINT OF CARE (10/01/2024 6:30 AM EST) GLUCOSE - POCT 155(H) 70 - 120 mg/dL 10/01/2024 6:49 AM EST [facility]ITALCar[facility] Blood Whole blood specimen / Unknown 10/01/2024 6:30 AM EST 10/01/2024 6:49 AM EST Toby Mccormick MD LAB POINT OF CARE TEST DOCKED DEVICE UNSOLICITED RESULTS Final Result Performing Organization Address City/[facility] Co de Phone Number [place] [address] [place] [address] * TYPE AND SCREEN (10/01/2024 6:22 AM EST) ABO O 10/01/2024 9:32 AM EST [facility] BLOOD BANK Rh Positive 10/01/2024 9:32 AM EST LABORATORY [facility] BLOOD BANK Red Blood Cell Antibody Screen Negative 10/01/2024 9:32 AM EST LABORATORY [facility] BLOOD BANK Specimen Expiration Date 10/04/2024 23:59 10/01/2024 9:32 AM EST LABORATORY [facility] BLOOD BANK Blood Venous blood specimen / Unknown Venipuncture / Unknown 10/01/2024 6:22 AM EST 10/01/2024 6:27 AM EST Aldo Diaz DO LAB BLOOD BANK TEST ORDERABLES Final Result LAB[facility]ATORY [facility] [address] [place] [address] * (ABNORMAL) CBC (10/01/2024 6:22 AM EST) WBC 6.66 4.00 - 10.80 K/uL 10/01/2024 6:39 AM EST [facility] RBC 4.11 4.50 - 5.25 M/uL 10/01/2024 6:39 AM EST [facility] HGB 12.9(L) 14.0 - 16.8 g/dL 10/01/2024 6:39 AM EST [facility] HCT 39.0(L) 40.0 - 48.4 % 10/01/2024 6:39 AM EST [facility] MCV 94.9 82.0 - 99.5 fL 10/01/2024 6:39 AM EST [facility] MCH 31.4 27.0 - 34.0 pg 10/01/2024 6:39 AM EST [facility] MCHC 33.1 32.0 - 36.0 g/dL 10/01/2024 6:39 AM EST [facility] RDW 13.8 11.5 - 15.5 % 10/01/2024 6:39 AM EST [facility] PLT 196 140 - 400 K/uL 10/01/2024 6:39 AM EST [facility] MPV 10.2 6.6 - 11.1 fL 10/01/2024 6:39 AM EST [facility] nRBCs 0 <=0 /100 WBCs 10/01/2024 6:39 AM EST [facility] Blood Venous blood specimen / Unknown Venipuncture / Unknown 10/01/2024 6:22 AM EST 10/01/2024 6:27 AM EST [employer] LAB BLOOD ORDERABLES Final Resu lt [facility]ORY [facility] [address] [place] [address] documented in this encounter Visit Diagnoses Diagnosis 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- Primary Blood vessel replaced by other means 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 Blood vessel replaced by other means Infrarenal abdominal aortic aneurysm (AAA) without rupture (HCC) Chest pain Chest pain, unspecified AAA (abdominal aortic aneurysm) without rupture (HCC) Abdominal aneurysm without mention of rupture KRISTEN on CPAP Obstructive sleep apnea (adult) (pediatric) Essential hypertension with goal blood pressure less than 130/80 COPD (chronic obstructive pulmonary disease) (HCC) Chronic airway obstruction, not elsewhere classified Dyslipidemia, goal LDL below 70 Other and unspecified hyperlipidemia documented in this encounter Administered Medications Inactive Administered Medications - up to 3 most recent administrations Medication Order MAR Action Action Date Dose Rate Site Acetaminophen (Tylenol) tab 975 mg 975 mg, Oral, PREOP, First dose on Tue10/01/24 at 0630, Last dose on Tue10/01/24 at 0630, For 1 dose, Maximum 4 g acetaminophen/day. Avoid in patients with severe hepatic impairment or severe active liver disease. 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 Use for 5 days, Post-op Given 10/02/2024 5:57 AM EST 975 mg Given 10/01/2024 9:18 PM EST 975 mg Given 10/01/2024 3:09 PM EST 975 mg amLODIPine (Norvasc) tab 5 mg 5 mg, Oral, Daily(AM), First dose on Tue10/01/24 at 1200, Until Discontinued Given 10/02/2024 8:53 AM EST 5 mg Given 10/01/2024 12:50 PM EST 5 mg aspirin enteric coated tab 81 mg 81 mg, Oral, Daily(AM), First dose on Tue10/01/24 at 1200, Until Discontinued, This med should NOT be Crushed or Chewed, Post-op Given 10/02/2024 8:53 AM EST 81 mg Given 10/01/2024 12:50 PM EST 81 mg chlorhexidine gluconate cloth 2 % pad 1 Pad 1 Pad, External, PREOP, First dose on Tue10/01/24 at 0630, Last dose on Tue10/01/24 at 0630, For 1 dose, Cleanse surgical site area immediately before transferring intra-op, Pre-OpIndications: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,Infrarenal abdominal aortic aneurysm (AAA) without rupture (HCC) Given 10/01/2024 6:44 AM EST 1 Pad clopidogrel (pLAVix) tab 75 mg 75 mg, Oral, Daily(AM), First dose on Tue10/02/24 at 0900, Until Discontinued Given 10/02/2024 8:53 AM EST 75 mg dextrose 50% inj 25 mL 25 mL, IV Push, PRN Hypoglycemia, Other, For blood glucose 54 - 69 mg/dL or 70 - 100 mg/dL with symptoms AND patient is unresponsive, NPO, OR unable to swallow, Starting on Tue10/01/24 at 1127, Until Tue10/02/24 at 1430, Administer IV. Recheck blood glucose after 15 minutes. Notify provider. dextrose 50% inj 50 mL 50 mL, IV Push, PRN Hypoglycemia, Other, For blood glucose below 54 mg/dL AND patient unresponsive, NPO, OR unable to swallow, Starting on Tue10/01/24 at 1127, Until Tue10/02/24 at 1430, Administer IV. Recheck blood glucose in 15 minutes. Notify provider. fluticasone furoate-vilanterol (BREO ellipta) 200-25 MCG/ACT inhaler 1 Puff 1 Puff, Inhalation, Daily(AM), First dose on Tue10/01/24 at 1200, Until Discontinued, NURSING TO FOLLOW PATIENT WITH MDI/DPI ADMINISTRATION Given 10/02/2024 8:12 AM EST 1 Puff glucagon (Glucagen) inj 1 mg 1 mg, Intramuscular, PRN Hypoglycemia, Other, If patient is unresponsive, or NPO and has no IV access, Starting on Tue10/01/24 at 1127, Until Tue10/02/24 at 1430, NPO and no IV access with either 1) blood glucose less than 100 mg/dL and symptomatic OR 2) blood glucose less than 70 mg/dL and asymptomatic Glucose (Glutose 15) 40 % gel 15 g of glucose 15 g of glucose, Oral, PRN Hypoglycemia (low sugar), Other, For blood glucose 54 - 69 mg/dL or 70 - 100 mg/dL with symptoms AND patient alert WITH difficulty chewing/swallowing, Starting on Tue10/01/24 at 1127, Until Tue10/02/24 at 1430, Administer gel. Recheck blood glucose after 15 minutes. Notify provider. 37.5 gram tube = 15 grams glucose = 1 each Glucose (Glutose 15) 40 % gel 30 g of glucose 30 g of glucose, Oral, PRN Hypoglycemia (low sugar), Other, For blood glucose below 54 mg/dL AND patient alert WITH difficulty chewing/swallowing, Starting on Tue10/01/24 at 1127, Until Tue10/02/24 at 1430, Administer gel. Recheck blood glucose after 15 minutes. Notify provider. 37.5 gram tube = 15 grams glucose = 1 each glucose chew tab 16 g 16 g, Oral, PRN Hypoglycemia, Other, For blood glucose 54 - 69 mg/dL or 70 - 100 mg/dL with symptoms and patient alert without difficulty chewing/swallowing., Starting on Tue10/01/24 at 1127, Until Tue10/02/24 at 1430 hEParin inj 5,000 Units 5,000 Units, Subcutaneous, Q8H, First dose on Tue10/01/24 at 1400, Until Discontinued, Post-op Given 10/02/2024 5:57 AM EST 5,000 Units Abdomen Right Lower Given 10/01/2024 9:19 PM EST 5,000 Units A bdomen Left Lower Given 10/01/2024 3:10 PM EST 5,000 Units A bdomen Right Lower insulin aspart (NovoLOG) inj Subcutaneous, W/MEALS AND HS, First dose on Tue10/01/24 at 1200, Until Discontinued, MEDIUM DOSE (Usual starting dose): Sliding Scale Correctional insulin may be given if the patient is NPO. Dose based on standard build from Insulin Calculator. Do not modify insulin doses in administration instructions!, Glucose less than 70 instructions: Obtain STAT lab blood glucose and call covering provider., Glucose 80-150 (units): 0, Glucose 151-200 (units): 2, Glucose 201-250 (units): 4, Glucose 251-300 (units): 6, Glucose greater than 300 (units): 8, Glucose greater than 300 instructions: Give suggested insulin dose and call covering provider. 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,Infrarenal abdominal aortic aneurysm (AAA) without rupture (HCC) Continue from Pre-Op 10/01/2024 7:34 AM EST 25 mL/hr New Bag 10/01/2024 6:47 AM EST 25 mL/hr Isolyte-S pH 7.4 infusion Intravenous, at 75 mL/hr, Plasma-LYTE 148, isolyte-S, and isolyte-S pH 7.4 are considered equivalent - including for MAR barcode scanning., CONTINUOUS, Starting on Tue10/01/24 at 1200, Until Tue10/02/24 at 0620, Post-op Rate Verify 10/02/2024 6:18 AM EST 75 mL/hr New Bag 10/02/2024 1:56 AM EST 75 mL/hr New Bag 10/01/2024 12:00 PM EST 75 mL/hr levothyroxine (Levoxyl) tab 137 mcg 137 mcg, Oral, [id number], First dose on Tue10/02/24 at 0630, Until Discontinued Given 10/02/2024 5:57 AM EST 137 mcg Lidocaine-Prilocaine (Emla) 2.5-2.5 % topical cream Topical, ONCE, On Tue10/01/24 at 0630, For 1 dose, Apply to area over bilateral radial arteries , Pre-Op Given 10/01/2024 6:45 AM EST naloxone (Narcan) 0.4 MG/ML inj 0.08 mg 0.08 mg, IV Push, PRN Other, If patient is oversedated or Respiratory Rate less than 8, Starting on Tue10/01/24 at 1123, Until Tue10/02/24 at 1430, Call provider if patient is oversedated or Respiratory Rate is less than 8, Post-op NSS 0.9% 500 mL bolus infusion Intravenous, at 500 mL/hr Administer over 60 Minutes, Administer entire volume within 60 minutes or less., PRN, 2 doses, Starting on Tue10/01/24 at 1123, Until Tue10/02/24 at 1430, Hypotension, PRN systolic less than 100, Post-op oxyCODONE (Oxy IR) tab 5 mg 5 mg, Oral, Q4H PRN Pain, Severe, Starting on Tue10/01/24 at 1123, Until Tue10/02/24 at 1430, Post-op Given 10/01/2024 5:57 PM EST 5 mg Given 10/01/2024 12:13 PM EST 5 mg oxygen GAS Inhalation, OXYGEN, First dose on Tue10/01/24 at 1600, Until Discontinued, Device/Managed by: Low Flow Device, Goal SPO2 (%): 91-95, Starting Device: Nasal Cannula, Initial Flow Rate (LPM): 2, Lowest Support: Nasal Cannula: Flow 0-6 LPM. Titrate up/down by 1 LPM., Titration Interval: Q2 minutes and as needed., Notify Provider: For sudden DECREASE in resting SPO2 to less than 85% and when escalating delivery device., Wean patient off Oxygen when the oxygen saturation is greater than or equal to 93% Povidone-Iodine nasal swab 4 Swab 4 Swab, Nasal, PREOP, First dose on Tue10/01/24 at 0630, Last dose on Tue10/01/24 at 0630, For 1 dose, Tilt the bottle slightly, dip one swab into solution and stir vigorously for 10 seconds. Withdraw the swab slowly to avoid wiping solution off during removal. Insert swab comfortably into one nostril and rotate for 15 seconds, covering all surfaces. Then focus on the inside tip of nostril and rotate for an additional 15 seconds. Using a new swab, Repeat above steps in the other nostril (Swab 2). Repeat the application in both nostrils using a fresh swab each times (Swab 3 and 4)., Pre-OpIndications: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,Infrarenal abdominal aortic aneurysm (AAA) without rupture (HCC) Given 10/01/2024 6:44 AM EST 4 Swabs rosuvastatin (Crestor) tab 10 mg 10 mg, Oral, Daily(AM), First dose on Tue10/01/24 at 1200, Until Discontinued Given 10/02/2024 8:53 AM EST 10 mg Given 10/01/2024 3:45 PM EST 10 mg Vancomycin (Vancocin) 1,250 mg in NSS 250 mL ivpb 1,250 mg, IV Piggyback, PREOP, 1 dose, First dose on Tue10/01/24 at 0630, Administer 90 to 210 minutes prior to skin incision, depending on infusion., Pre-OpIndications: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,Infrarenal abdominal aortic aneurysm (AAA) without rupture (HCC) New Bag 10/01/2024 6:43 AM EST 1,250 mg 178.33 mL/hr Vancomycin (Vancocin) 1,250 mg in NSS 250 mL ivpb 1,250 mg, IV Piggyback, Q12H, 1 dose, First dose on Tue10/01/24 at 1900, Give 12 hours after preop dose, Post-op Rate Verify 10/01/2024 8:55 PM EST 833.3 mg/hr 178 mL/hr New Bag 10/01/2024 7:43 PM EST 1,250 mg 178.33 mL/hr documented in this encounter Active and Recently Administered Medications Times are shown in EST. Scheduled Medication Order 09/30/2024 10/01/2024 10/02/2024 Acetaminophen (Tylenol) tab 975 mg (COMPLETED) 975 mg, Oral, PREOP, First dose on Tue10/01/24 at 0630, Last dose on Tue10/01/24 at 0630, For 1 dose, Maximum 4 g acetaminophen/day. Avoid in patients with severe hepatic impairment or severe active liver disease. Administer 60 minutes prior to OR., Pre-Op 0648 (Given - Provider: Danyelle Diaz RN) Acetaminophen (Tylenol) tab 975 mg 975 mg, Oral, Q8H, First dose on Tue10/01/24 at 1400, Last dose on Tue10/06/24 at 0600, For 5 days, Avoid in patients with severe hepatic impairment or severe active liver disease. Use for 5 days, Post-op 1509 (Given - Provider: Suzi Rodrigues RN)2118 (Given - Provider: Roberto Guillen RN) 0557 (Given - Provider: Roberto Guillen RN) amLODIPine (Norvasc) tab 5 mg 5 mg, Oral, Daily(AM), First dose on Tue10/01/24 at 1200, Until Discontinued 1250 (Given - Provider: Brissa Patel RN) 0853 (Given - Provider: Danyelle Paiz, OTONIEL) aspirin enteric coated tab 81 mg 81 mg, Oral, Daily(AM), First dose on Tue10/01/24 at 1200, Until Discontinued, This med should NOT be Crushed or Chewed, Post-op 1250 (Given - Provider: Brissa Patel RN) 0853 (Given - Provider: Danyelle Paiz, OTONIEL) chlorhexidine gluconate cloth 2 % pad 1 Pad (COMPLETED) 1 Pad, External, PREOP, First dose on Tue10/01/24 at 0630, Last dose on Tue10/01/24 at 0630, For 1 dose, Cleanse surgical site area immediately before transferring intra-op, Pre-Op 0644 (Given - Provider: Danyelle Diaz RN) clopidogrel (pLAVix) tab 75 mg 75 mg, Oral, Daily(AM), First dose on Tue10/02/24 at 0900, Until Discontinued 0853 (Given - Provid er: Danyelle Paiz RN) fluticasone furoate-vilanterol (BREO ellipta) 200-25 MCG/ACT inhaler 1 Puff 1 Puff, Inhalation, Daily(AM), First dose on Tue10/01/24 at 1200, Until Discontinued, NURSING TO FOLLOW PATIENT WITH MDI/DPI ADMINISTRATION 1200 (Not Given - Provider: Brissa Patel RN - Reason: Other- Please add reason in Comments - Comment: already took this am prior to surery) 0812 (Given - Provider: Patty House, SYSTEMS PROGRAMMER ANALYST) hEParin inj 5,000 Units 5,000 Units, Subcutaneous, Q8H, First dose on Tue10/01/24 at 1400, Until Discontinued, Post-op 1510 (Given - Provider: Suzi Rodrigues RN)2119 (Given - Provider: Roberto Guillen, OTONIEL) 0557 (Given - Provider: Roberto Guillen, OTONIEL) insulin aspart (NovoLOG) inj Subcutaneous, W/MEALS AND HS, First dose on Tue10/01/24 at 1200, Until Discontinued, MEDIUM DOSE (Usual starting dose): Sliding Scale Correctional insulin may be given if the patient is NPO. Dose based on standard build from Insulin Calculator. Do not modify insulin doses in administration instructions!, Glucose less than 70 instructions: Obtain STAT lab blood glucose and call covering provider., Glucose 80-150 (units): 0, Glucose 151-200 (units): 2, Glucose 201-250 (units): 4, Glucose 251-300 (units): 6, Glucose greater than 300 (units): 8, Glucose greater than 300 instructions: Give suggested insulin dose and call covering provider. 1200 (No Insulin - Provider: Brissa Patel RN - Reason: NPO)1700 (Not Given - Provider: Suzi Rodrigues RN - Reason: Parameter(s) Not Met)2200 (Not Given - Provider: Roberto Guillen RN - Reason: Parameter(s) Not Met) 0800 (No Insulin - Provider: Danyelle Paiz RN - Reason: Parameter(s) Not Met) levothyroxine (Levoxyl) tab 137 mcg 137 mcg, Oral, [id number], First dose on Tue10/02/24 at 0630, Until Discontinued 0557 (Given - Provid er: Roberto Guillen RN) Lidocaine-Prilocaine (Emla) 2.5-2.5 % topical cream (COMPLETED) Topical, ONCE, On Tue10/01/24 at 0630, For 1 dose, Apply to area over bilateral radial arteries , Pre-Op 0645 (Given - Provider: Danyelle Diaz RN) oxygen GAS Inhalation, OXYGEN, First dose on Tue10/01/24 at 1600, Until Discontinued, Device/Managed by: Low Flow Device, Goal SPO2 (%): 91-95, Starting Device: Nasal Cannula, Initial Flow Rate (LPM): 2, Lowest Support: Nasal Cannula: Flow 0-6 LPM. Titrate up/down by 1 LPM., Titration Interval: Q2 minutes and as needed., Notify Provider: For sudden DECREASE in resting SPO2 to less than 85% and when escalating delivery device., Wean patient off Oxygen when the oxygen saturation is greater than or equal to 93% 1600 (Oxygen Off - Provider: Suzi Rodrigues RN) 0000 (Oxygen Off - Provider: Roberto Guillen RN)0800 (Oxygen Off - Provider: Danyelle Paiz, OTONIEL) Povidone-Iodine nasal swab 4 Swab (COMPLETED) 4 Swab, Nasal, PREOP, First dose on Tue10/01/24 at 0630, Last dose on Tue10/01/24 at 0630, For 1 dose, Tilt the bottle slightly, dip one swab into solution and stir vigorously for 10 seconds. Withdraw the swab slowly to avoid wiping solution off during removal. Insert swab comfortably into one nostril and rotate for 15 seconds, covering all surfaces. Then focus on the inside tip of nostril and rotate for an additional 15 seconds. Using a new swab, Repeat above steps in the other nostril (Swab 2). Repeat the application in both nostrils using a fresh swab each times (Swab 3 and 4)., Pre-Op 0644 (Given - Provider: Danyelle Diaz, OTONIEL) rosuvastatin (Crestor) tab 10 mg 10 mg, Oral, Daily(AM), First dose on Tue10/01/24 at 1200, Until Discontinued 1545 (Given - Provider: Suzi Rodrigues RN) 0853 (Given - Provider: Danyelle Paiz, OTONIEL) Vancomycin (Vancocin) 1,250 mg in NSS 250 mL ivpb (COMPLETED) 1,250 mg, IV Piggyback, PREOP, 1 dose, First dose on Tue10/01/24 at 0630, Administer 90 to 210 minutes prior to skin incision, depending on infusion., Pre-Op 0643 (New Bag - Provider: Danyelle Diaz, OTONIEL) Vancomycin (Vancocin) 1,250 mg in NSS 250 mL ivpb (COMPLETED) 1,250 mg, IV Piggyback, Q12H, 1 dose, First dose on Tue10/01/24 at 1900, Give 12 hours after preop dose, Post-op 194 (New Bag - Provider: Roberto Guillen, OTONIEL)2054 (Rate Verify - Provider: Roberto Guillen, OTONIEL)2112 (Stopped - Provider: Roberto Guillen, RN) Continuous Medication Order 09/30/2024 10/01/2024 10/02/2024 Isolyte-S pH 7.4 infusion (CANCELED) Intravenous, at 25 mL/hr, Plasma-LYTE 148, isolyte-S, and isolyte-S pH 7.4 are considered equivalent - including for MAR barcode scanning., CONTINUOUS, Starting on Tue10/01/24 at 0630, Until Tue10/02/24 at 0620, Pre-Op 0647 (New Bag - Provider: Danyelle Diaz, OTONIEL)0734 (Continue from Pre-Op - Provider: Aldo Diaz DO)0901 (Anes Intra-Op Fluid - Provider: Aldo Diaz DO)1100 (Anes Intra-Op Fluid - Provider: Aldo Diaz DO) 0620 (Stopped - Provider: Roberto Guillen, OTONIEL) Isolyte-S pH 7.4 infusion (CANCELED) Intravenous, at 75 mL/hr, Plasma-LYTE 148, isolyte-S, and isolyte-S pH 7.4 are considered equivalent - including for MAR barcode scanning., CONTINUOUS, Starting on Tue10/01/24 at 1200, Until Tue10/02/24 at 0620, Post-op 1200 (New Bag - Provider: Brissa Patel RN) 0156 (New Bag - Provider: Lluvia Reed RN)0618 (Rate Verify - Provider: Roberto Guillen, RN)0620 (Stopped - Provider: Roberto Guillen, RN) PRN Medication Order 09/30/2024 10/01/2024 10/02/2024 Albuterol Sulfate (Proventil) (2.5 MG/3ML) 0.083% inhalation solution 2.5 mg 2.5 mg, Nebulizer, Q6H PRN Dyspnea, Starting on Tue10/01/24 at 1115, Until Tue10/02/24 at 1430 dextrose 50% inj 25 mL 25 mL, IV Push, PRN Hypoglycemia, Other, For blood glucose 54 - 69 mg/dL or 70 - 100 mg/dL with symptoms AND patient is unresponsive, NPO, OR unable to swallow, Starting on Tue10/01/24 at 1127, Until Tue10/02/24 at 1430, Administer IV. Recheck blood glucose after 15 minutes. Notify provider. dextrose 50% inj 50 mL 50 mL, IV Push, PRN Hypoglycemia, Other, For blood glucose below 54 mg/dL AND patient unresponsive, NPO, OR unable to swallow, Starting on Tue10/01/24 at 1127, Until Tue10/02/24 at 1430, Administer IV. Recheck blood glucose in 15 minutes. Notify provider. glucagon (Glucagen) inj 1 mg 1 mg, Intramuscular, PRN Hypoglycemia, Other, If patient is unresponsive, or NPO and has no IV access, Starting on Tue10/01/24 at 1127, Until Tue10/02/24 at 1430, NPO and no IV access with either 1) blood glucose less than 100 mg/dL and symptomatic OR 2) blood glucose less than 70 mg/dL and asymptomatic Glucose (Glutose 15) 40 % gel 15 g of glucose 15 g of glucose, Oral, PRN Hypoglycemia (low sugar), Other, For blood glucose 54 - 69 mg/dL or 70 - 100 mg/dL with symptoms AND patient alert WITH difficulty chewing/swallowing, Starting on Tue10/01/24 at 1127, Until Tue10/02/24 at 1430, Administer gel. Recheck blood glucose after 15 minutes. Notify provider. 37.5 gram tube = 15 grams glucose = 1 each Glucose (Glutose 15) 40 % gel 30 g of glucose 30 g of glucose, Oral, PRN Hypoglycemia (low sugar), Other, For blood glucose below 54 mg/dL AND patient alert WITH difficulty chewing/swallowing, Starting on Tue10/01/24 at 1127, Until Tue10/02/24 at 1430, Administer gel. Recheck blood glucose after 15 minutes. Notify provider. 37.5 gram tube = 15 grams glucose = 1 each glucose chew tab 16 g 16 g, Oral, PRN Hypoglycemia, Other, For blood glucose 54 - 69 mg/dL or 70 - 100 mg/dL with symptoms and patient alert without difficulty chewing/swallowing., Starting on Tue10/01/24 at 1127, Until Tue10/02/24 at 1430 hEParin 5,000 Units in NSS 500 mL infusion (CANCELED) ONCE PRN INTRA PROCEDURE, Starting on Tue10/01/24 at 0842, Until Tue10/01/24 at 1047, Intra-Op 0841 (Given - Provider: Toby Mccormick MD - Comment: intraop PRN)0842 (Given - Provider: Toby Mccormick MD - Comment: intraop PRN) Iopamidol (Isovue M 300) inj (CANCELED) ONCE PRN INTRA PROCEDURE, Starting on Tue10/01/24 at 1049, Until Tue10/01/24 at 1050, Intra-Op 1049 (Given - Provider: Toby Mccormick MD - Comment: intraop PRN) naloxone (Narcan) 0.4 MG/ML inj 0.08 mg 0.08 mg, IV Push, PRN Other, If patient is oversedated or Respiratory Rate less than 8, Starting on Tue10/01/24 at 1123, Until Tue10/02/24 at 1430, Call provider if patient is oversedated or Respiratory Rate is less than 8, Post-op NSS 0.9% 500 mL bolus infusion Intravenous, at 500 mL/hr Administer over 60 Minutes, Administer entire volume within 60 minutes or less., PRN, 2 doses, Starting on Tue10/01/24 at 1123, Until Tue10/02/24 at 1430, Hypotension, PRN systolic less than 100, Post-op oxyCODONE (Oxy IR) tab 5 mg 5 mg, Oral, Q4H PRN Pain, Severe, Starting on Tue10/01/24 at 1123, Until Tue10/02/24 at 1430, Post-op 1213 (Given - Provider: Brissa Patel RN)1757 (Given - Provider: Suzi Rodrigues RN) documented in this encounter Advance Directives * Full Code (Latest Code Status on File) Date Activated Date Inactivated Comments 10/01/2024 11:27 AM 10/02/2024 2:35 PM This ord er reflects the patients wishes and were consensually [...] 12:00 PM 01/03/2020 2:49 PM Care Teams Water Mangle Tender Relationship Specialty Start Date End Date Meenu Moralez DO [address] [place] [address] PCP - General Family Medicine 11/20/19 documented as of this encounter
--- OUTSIDE RECORDS SUMMARY | 2025-01-15 00:27 | External Medical Summary | Summary of Care ---
Author Name Unknown Organization [facility] Address [address] [place] [address] Phone [phone] Care Team Providers Care Restaurant Mgr Name Role Phone Meenu Avitia Primary Care Provider Reason for Referral * Precert (Within 10 days (routine)) - Authorized Specialty Diagnoses / Procedures Referred By Contac t Referred To Contact Radiology Diagnoses Infrarenal abdominal aortic aneurysm (AAA) without rupture (HCC) 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 Procedures CT RECON ENDOVASC ANEURYSM REPAIR SURGERY PLAN Milan Madrid PA-C [address] [place] [address] Phone: tel: fax: Referral ID Status Reason Start Date Expiration Date V isits Requested Visits Authorized [id number] Authorized 10/24/2024 999 999 * Precert (Within 10 days (routine)) - Pending Review Specialty Diagnoses / Procedures Referred By Contac t Referred To Contact Radiology Diagnoses Infrarenal abdominal aortic aneurysm (AAA) without rupture (HCC) 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 Procedures CTA ABD/PELVIS Milan Madrid PA-C [address] [place] [address] Phone: tel: fax: Referral ID Status Reason Start Date Expiration Date V isits Requested Visits Authorized [id number] Pending Review 10/24/2024 999 999 Reason for Visit * Reason Comments Follow Up Encounter Details Date Type Department Care Team (Late st Contact Info) Description 10/24/2024 2:30 PM EST Office Visit Vascular Surgery, [facility] [address] [facility] [place] [address] Toby Mccormick MD [address] [facility] [place] [address] Infrarenal abdominal aortic aneurysm (AAA) without rupture (HCC)*; 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 Allergies Active Allergy Reactions Criticality Noted Date Comments Cephalexin Hives,Rash Low 05/20/2021 Latex Rash Low 01/21/2023 Sertraline Rash High 11/20/2019 documented as of this encounter (statuses as of 10/24/2024) Medications Albuterol Sulfate (PROAIR HFA) 108 (90 [...] as of this encounter (statuses as of 10/24/2024) Active Problems Problem Noted Date Diagnosed Date [...] as of this encounter (statuses as of 10/24/2024) Resolved Problems Problem Noted Date Diagnosed Date Resolved Date Postoperative ileus 05/12/2022 05/12/20 RUFUS (acute kidney injury) 05/10/2022 Hypokalemia 05/10/2022 05/12/2022 Acute cholecystitis 05/08/2022 05/12/20 22 documented as of this encounter (statuses as of 10/24/2024) Immunizations Name Administration Dates Next Due COVID-19 mRNA, LNP-s, No Pre serve, 2-Dose Series (Moderna) 02/24/2021,01/22/2021 Season Influenza, Quad, PF, Adjuvanted, 65+ Yrs, IM (FLUAD) 08/05/2020 documented as of this encounter Social History Tobacco Use Types Packs/Day Years Used Date Smoking Tobacco: Former Cigarettes 1 53.6 0 11/07/1963 - 06/07/2017 Smokeless Tobacco: Never Tobacco Cessation:Counseling Given: No Alcohol Use Standard Drinks/Week Comments Yes 0 [...] Sign Reading Time Taken Comments Blood Pressure 178/92 10/24/2024 1:56 PM EST Pulse 78 10/24/2024 1:56 PM EST Temperature - - Respiratory Rate - - Oxygen Saturation - - Inhaled Oxygen Concentration - - Weight 92.5 kg (204 lb) 10/24/2024 1:56 PM EST Height - - Body Mass Index 31.95 10/01/2024 5:37 AM EST documented in this [...] Alisson Baker RN documented in this encounter Progress Notes * Milan Madrid PA-C - 10/24/2024 2:30 PM EST Images from the original note were not included. Date of Service: 10/24/2024 2:06 PM Parker Morrissey is a 79 year old male. Referring Physician: Meenu Avitia DO Chief Complaint: Post op return S/P embolization of left lumbar branch, embolization of right internal iliac artery, & delayed extension of right iliac limb of EVAR to the external iliac artery for post-EVAR endoleak leading tosac expansion on 10/01/[address] Mccormick OR findings revealed delayed type II endoleak from left internal iliac to lumbar collateralization no longer fills after embolization. No breana IB endoleak from right iliac limb compromised seal. After embolization of the right internal iliac artery and extension of the iliac limb into the right external iliac artery no obvious remaining endoleaks No new abd/flank/back pains Did not take BP med this AM HPI: Patient is a reformed smoker with dyslipidemia, HTN, COPD, and KRISTEN He underwent EVAR in 2015 by Amanda Clementona He states he did have follow-up imaging [...] to his previous vascular surgery provider in [place], or if he prefers to establish with [facility] vascular surgery, and he would like to establish with [facility]. I've therefore placed a referral. We obtained [...] aneurysm sac due to type 2 endoleak. Patient cancelled a scheduled RTC 6 month appointment for fall but did have CTA and abd aortic duplex done Previously lost to follow up, last seen 2020 FHx with his brother having a AAA. [...] Take 1 Tablet by mouth as needed. Triamcinolone Acetonide 0.1 % External Ointment (Aristocort) DULoxetine HCl 30 MG Oral Capsule Delayed Release Particles (Cymbalta) Take 1 Capsule by mouth in the morning. (Patient not taking: Reported on 10/24/2024) Aspirin 81 MG Oral Tablet Delayed Release Take 1 Tablet by mouth in the morning. (Patient not taking: Reported on 10/24/2024) 30 Tablet 2 oxyCODONE HCl 5 MG Oral Tablet (Oxy IR) Take 1 Tablet by mouth every 8 hours as needed for Pain, Severe for up to 9 doses. (Patient not taking: Reported on 10/24/2024) 9 Tablet 0 No current facility-administered medications for this visit. Review of patient's allergies indicates: Allergen Reactions Zoloft [Sertraline] Rash Cephalexin Hives and Rash Latex Rash Patient Active Problem List Diagnosis Dyslipidemia, goal LDL below 70 Tobacco abuse, in remission COPD (chronic obstructive pulmonary disease) (HCC) AAA (abdominal aortic aneurysm) without rupture (HCC) Essential hypertension with goal blood pressure less than 130/80 KRISTEN on CPAP 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 Past Medical History: Diagnosis Date COPD (chronic obstructive pulmonary disease) (HCC) Dyslipidemia Hypothyroidism KRISTEN on CPAP Tobacco abuse, in remission Past Surgical History: Procedure Laterality Date AORTOGRAM ABDOMINAL-TECH ONLY Bilateral 10/01/2024 IMAGING SUPERVISION & INTERPRETATION ABDOMINAL AO performed by Toby Mccormick MD at [facility] DELAYED PLACEMENT EXTENSION PROSTHESIS 1ST VESSEL Right 10/01/2024 PLACEMENT DISTAL OR PROXIMAL EXTENSION ENDOVASCULAR PROSTHESIS DELAYED, INC. RADIOLOGY SUPERVISION & INTERPRETATION, INFRARENAL AORTIC OR ILIAC ANEURYSM performed by Toby Mccormick MD at [facility] INTRODUCTION OF CATHETER, AORTA N/A 01/02/2020 CATHETER PLACEMENT, AORTA performed by Shawn Cordoba MD at [facility] IR EMBOLIZATION ARTERIAL NON HEMMORHAGE N/A 01/02/2020 trans-caval fenestrated embolization of aortic aneurysm sac with endoleak, and transcatheter embolization of left internal iliac artery branch performed by Shawn Cordoba MD at [facility] IR EMBOLIZATION ARTERIAL NON HEMMORHAGE Right 10/01/2024 EMBOLIZATION ARTERIAL; SUPERVISION & INTERPRETATION performed by Toby Mccormick MD at [facility] LAPAROSCOPY, CHOLECYSTECTOMY WITH CHOLANGIOGRAPHY N/A 05/09/2022 LAPAROSCOPIC CHOLECYSTECTOMY WITH CHOLANGIOGRAM performed by Shawn Samuel MD at [facility] PLACE CATHETER IN ARTERY, FIRST Bilateral 10/01/2024 CATHETER PLACEMENT, ABDOMINAL-LOWER EXTREMITY, FIRST ORDER BRANCH performed by Toby Mccormick MD at [facility] PL[place] CATHETER IN VENA CAVA Right 01/02/2020 CATHETER PLACEMENT, VENOUS ACCESS performed by Shawn Cordoba MD at [facility] VAS ENDOVASCULAR REPAIR AAA -TECH No family history on file. Social History [...] Social History Narrative Not on file Social Needs Financial Resource Strain: Not on file Food Insecurity: No Food Insecurity (10/01/2024) Food Insecurity Do you need food for this week? (Adult - for ages 18 years and over): No Are you able to get enough food for your family? (Household - for ages 0-17 years): Not on file Does your family need food this week? (Household - for ages 0-17 years): Not on file Do you always have enough food for your family? (Household - for ages 0-17 years): Not on file Transportation Needs: No Transportation Needs (10/01/2024) Transportation Needs Do you have trouble getting a ride to medical visits or work? (Adult - for ages 18 years and over):Not on file Does your family have a hard time getting a ride to doctors visits? (Household - for ages 0-17 years): Not on file Has lack of transportation kept you from medical appointments, meetings, work, or from getting things needed for daily living? Check all that apply. (Adult - for ages 18 years and over): No Do you (or your family) have trouble finding or paying for a ride (transportation)? (Household - for ages 0-17 years): Not on file Social Connections: Not on file Housing Stability: Low Risk (10/01/2024) Housing Stability Do you currently live in a jail or have no steady place to sleep at night? (Adult - for ages 18 years and over): Not on file Do you think you are at risk of becoming homeless? (Adult - for ages 18 years and over): Not on file Does your family worry about paying for your home or becoming homeless? (Household - for ages 0-17 years): Not on file Are you homeless or worried that you might be in the future? (Adult - for ages 18 years and over): No Are you (or your family) homeless or worried that you might be in the future? (Household - for ages0-17 years): Not on file REVIEW OF SYSTEMS: Constitutional: Denies fever/chills. Ear, Nose, Throat and Mouth: Hard of hearing. Cardiovascular: Denies GA, denies CHF, denies palpitations, occasional chest pain [...] 3=Normal; 2=Diminished; 1=Barely Palpable; 0=Absent DIAGNOSTIC STUDIES: 10/18/24 CTA Abd/Pelvis: 10 cm EVAR sac, no obvious endoleak, large amount of artifact from coils The above diagnostic images were directly visualized and independently interpreted by me on 10/24/2024 with results as above 07/17/24 CTA Abd/Pelvis: AAA sac 9.2 x 9.8 cm in axial views, 10 cm in coronal. No obvious endoleak but there is a degree of artifact from prior coils 06/29/24 Abd Aortic Duplex: 9.5 cm endosac, [...] of an endoleak. 10/27/20 Carotid Duplex KRISSY and LICA 59/. 10/27/20; Location of Study: [facility]; Modality: duplex; AAA measures 7.8 cm in greatest transverse dimension. No endoleak. 10/27/20; Location of Study: [facility]; Modality: CT; AAA measures 8.6 cm in greatest transverse dimension. (This is essentially unchanged compared to 04/25/20 CTA). No overt evidence of endoleak. Newfocal outpouching of the nez perce aneurysmal sac along the left lateral wall measuring approximately 2.7 x 1.82 cm. 10/27/20 BLE Art Duplex R [employer] W[employer]ER 1.2 cm, R SFA 1.2 cm, R Pop .9 cm, L [employer] 1.2 cm, L SFA .9 cm and [...] no aortic stenosis CARDIAC STUDIES: IMPRESSIONS: S/P Embolization of left lumbar branch, embolization of right internal iliac artery, & delayed extension of right iliac limb of EVAR to the external iliac artery for post-EVAR endoleak leading tosac expansion on 10/01/[address] Mccormick OR findings revealed delayed type II endoleak from left internal iliac to lumbar collateralization no longer fills after embolization. No breana IB endoleak from right iliac limb compromised seal. After embolization of the right internal iliac artery and extension of the iliac limb into the right external iliac artery no obvious remaining endoleaks S/P endoleak repair via transcaval laser fenestration approach with placement of multiple coils andfibrin sealant, inferior vena cavagram via right femoral venous approach, aortography via left femoral approach with aortic catheter and transcatheter coil embolization of left iliolumbar branch of internal iliac artery by Dr. Cordoba on 01/02/20 for management of >8 cm abdominal aortic aneurysm sac due to type 2 endoleak. Recent updated CTA revealed AAA sac upto 10 cm, as seen on coronal views, again w/out obvious endoleak S/P EVAR in 2014 at [facility]. 11/28/19 Nuc Stress Test negative for inducible ischemia. Chronic, since 2019, small pericardial effusion w/out tamponade physiology, followed by [facility]iology. Last routine visit 04/09/24 HTN Dyslipidemia Reformed smoker. COPD Known pulm nodule KRISTEN Hypothyroidism [facility]. PLAN: The patient was counseled regarding the pathophysiology and natural history of AAA, as well as the signs of rupture and the need to initiate emergency medical attention in that situation. Continue daily Plavix 75 mg for platelet inhibition Continue daily Crestor 10 mg for dyslipidemia Pt encouraged to take his BP med every day, as prescribed RTC 12 months, CTA w/ IMAR and recons, 1 wk prior The patient was seen and examined with Toby Mccormick MD. Milan Madrid MPAS, PA-C Section of Vascular and Endovascular Surgery [address] [address] I have reviewed the advanced practitioner's documentation on the date of service referenced in note, and I agree with, and take responsibility for the plan of care. S/p EVAR [place] S/p transcaval endoleak repair Beryl Cardona s/p embolization of lumbar and right limb extension to external iliac artery with embolization of right IIA Stable aneurysm sac on CT He now feels he is too old for any additional surgeries, would prefer not to have any additional surveillance, but will agree to a one year follow up CT at least this once Continue medical management as above Toby Mccormick MD Section of Vascular [place] [address] [phone] documented in this encounter Nursing Notes * Taylor Pino CMA - 10/24/2024 1:59 PM EST Reviewed the option of transferring scripts to [facility] pharmacy with patient and / or family. Taylor Pino CMA documented in this encounter Plan of Treatment Scheduled Orders Name Type Priority Associated Diagnoses Orde r Schedule CTA ABD/PELVIS Medical Imaging Routine Infrarenal abdominal aortic aneurysm (AAA) without rupture (HCC) 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 Ordered: 10/24/2024 CT RECON ENDOVASC ANEURYSM REPAIR SURGERY PLAN Medical Imaging Routine Infrarenal abdominal aortic aneurysm (AAA) without rupture (HCC) 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 Ordered: 10/24/2024 Health Maintenance Due Date Last Done Comments [...] this encounter Medical Devices Implanted Type Area Plastic Straightening Roll Operator Device Identifier Shelf Expiration Date Model / Serial / Lot Graft Excludr 75hix10.5x10cm - [id number] Implanted:Qty: 1 on 10/01/2024 by Toby Mccormick MD at [facility] Graft Right: Iliac [employer] [id number] 07/24/2027 [id number] / [id number] / [id number] Azur Peripheral Coil System Implanted:Qty: 9 on 01/02/2020 by Shawn Cordoba MD at [facility] N/A: Aorta [employer] 09/06/2022 [id number] 0 / / [id number] Coil Vortex 35 Pltinm [id number] - [id number] Implanted:Qty: 1 on 01/02/2020 by Shawn Cordoba MD at [facility] N/A: Aorta [employer] : NEURO INTR [id number] 07/11/2022 [id number] 061 / / [id number] Coil Vortex 35 Pltinm [id number] - [id number] Implanted:Qty: 1 on 01/02/2020 by Shawn Cordoba MD at [facility] Aorta [employer] : NEURO INTR [id number] 07/11/2022 [id number] 061 / / [id number] Coil Azur .035 [id number] - [id number] Implanted:Qty: 9 on 01/02/2020 by Shawn Cordoba MD at [facility] N/A: Aorta [employer] 05/06/2021 [id number] 0 / / [id number] Coil Azur .035 [id number] - [id number] Implanted:Qty: 9 on 01/02/2020 by Shawn Cordoba MD at [facility] N/A: Aorta [employer] 01/04/2021 [id number] 0 / / [id number] Coil Azur 16mm 20cm Implanted:Qty: 2 on 01/02/2020 by Shawn Cordoba MD at [facility] N/A: Aorta [employer] 05/06/2021 [id number] 0 / / [id number] Coil Azur 16mm 20cm Implanted:Qty: 3 on 01/02/2020 by Shawn Cordoba MD at [facility] N/A: Aorta [employer] 06/06/2021 [id number] 0 / / [id number] Coil Azur 16mm 20cm Implanted:Qty: 6 on 01/02/2020 by Shawn Cordoba MD at [facility] N/A: Aorta [employer] 09/06/2022 [id number] 0 / / [id number] Coil Azur 16mm 20cm Implanted:Qty: 3 on 01/02/2020 by Shawn Cordoba MD at [facility] N/A: Aorta [employer] 06/06/2021 [id number] 0 / / [id number] Coil Azur .035 [id number] - [id number] Implanted:Qty: 7 on 01/02/2020 by Shawn Cordoba MD at [facility] N/A: Aorta [employer] 05/06/2021 [id number] 0 / / [id number] Coil Vortex 35 Pltinm [id number] - [id number] Implanted:Qty: 1 on 01/02/2020 by Shawn Cordoba MD at [facility] N/A: Aorta [employer] : NEURO INTR [id number] 02/28/2022 [id number] 061 / / [id number] Coil Helical 2 20mm [id number] - [id number] Implanted:Qty: 1 on 10/01/2024 by Toby Mccormick MD at [facility] N/A: Abdomen [employer] : NEURO INTR [id number] 02/21/2026 [id number] / / [id number] Coil Vortex 2x4mm [id number] - [id number] Implanted:Qty: 1 on 10/01/2024 by Toby Mccormick MD at [facility] Left: Iliac [employer] : PERIPHL IV [id number] 07/27/2026 [id number] 041 / / [id number] Plug Vasc Ampl 12mm 9-Plug-012 - [id number] Implanted:Qty: 1 on 10/01/2024 by Toby Mccormick MD at [facility] Right: Iliac [employer] [id number] 05/06/2029 9-PLUG-0 12 / / [id number] 14.5mm X 14cm Contralateral Leg Endoprosthesis, Conformable Aaa Implanted:Qty: 1 on 10/01/2024 by Toby Mccormick MD at [facility] Right: Iliac [employer] [id number] 03/20/2027 [id number] / [id number] / [id number] documented as of this encounter Visit Diagnoses Diagnosis Infrarenal abdominal aortic aneurysm (AAA) without rupture (HCC)- Primary 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 Blood vessel replaced by other means documented in this encounter Advance Directives * [...] 12:00 PM 01/03/2020 2:49 PM Care Teams Restaurant Mgr Relationship Specialty Start Date End Date Meenu Avitia DO [address] [place] [address] PCP - General Family Medicine 11/20/19 documented as of this encounter
--- OUTSIDE RECORDS SUMMARY | 2025-01-15 00:27 | External Medical Summary ---
Author Name Unknown Address Unknown Organization : Laboratory Report Ordering Provider Test Date Status JANKI GARCIA 10/01/2024 21:10:18 Final Observation Date Value Abnormality Reference (Units ) Status Glucose Point of Care 10/01/2024 21:10:18 124 Above high normal 70-120 (mg/dL) Final Performing Location
--- OUTSIDE RECORDS SUMMARY | 2025-01-15 00:27 | External Medical Summary ---
Author Name Unknown Address Unknown Organization K01:[facility]ORY [facility] [place] - [facility] [address] [facility] [address] Laboratory Report Ordering Provider Test Date Status MAGGIE QUINN 10/02/2024 06:20:00 Final Observation Date Value Abnormality Reference (Units ) Status HbA1C 10/02/2024 06:20:00 7.2 Above high normal 4. 0-5.6 (%) Final The use of HbA1c to monitor glycemic status is based on normal hemoglobin and HbA composition. This test should not be used in patients with abnormal hemoglobin that affects the half life of the red blood cell or the in vivo glycation rates. Glucose, estimated average 10/02/2024 06:20:00 160 Above high normal <126 (mg/dL) Vazquez canales Performing Location [facility] [place] - [address] [facility] [address]
--- OUTSIDE RECORDS SUMMARY | 2025-01-15 00:28 | External Medical Summary | Summary of Care ---
Author Name Unknown Organization [facility] Address [address] [place] [address] Phone [phone] Care Team Providers Care Customer Complaint Service Supervisor Name Role Phone Meenu Avitia Primary Care Provider Reason for Visit * Reason Onset Date Comments Surgery 09/26/2024 Encounter Details Date Type Department Care Team (Late st Contact Info) Description 09/26/2024 Telephone Vascular Surg [facility] [address] [place] [address] Jose Carlos Jauregui CRNP [address] [place] [address] Surgery Allergies Active Allergy Reactions Criticality Noted Date Comments Cephalexin Hives,Rash Low 05/20/2021 Latex Rash Low 01/21/2023 Sertraline Rash High 11/20/2019 documented as of this encounter (statuses as of 09/28/2024) Medications Albuterol Sulfate (PROAIR HFA) 108 (90 [...] 0.1 % External Ointment (Aristocort) 4 Active documented as of this encounter (statuses as of 09/28/2024) Active Problems Problem Noted Date Diagnosed Date [...] as of this encounter (statuses as of 09/28/2024) Resolved Problems Problem Noted Date Diagnosed Date Resolved Date Postoperative ileus 05/12/2022 05/12/20 RUFUS (acute kidney injury) 05/10/2022 Hypokalemia 05/10/2022 05/12/2022 Acute cholecystitis 05/08/2022 05/12/20 22 documented as of this encounter (statuses as of 09/28/2024) Immunizations Name Administration Dates Next Due COVID-19 [...] of Binge Drinking Not on file 11/07 Sex and Gender Information Value Date Recorded Sex Assigned at Not on file Legal Sex Male 5:27 AM EST Gender Identity Not on file Sexual Orientation Not on file documented as of this encounter Functional Status * Are you deaf or do you have serious difficulty hearing? Answer Date of Assessment Author No 05/08/2022 12:51 AM Jagjit Henriquez RN * Are you blind or do you have serious difficulty seeing, even when wearing glasses? Answer Date of Assessment Author No 05/08/2022 12:51 AM Jagjit Henriquez RN * Do you have serious difficulty walking or climbing stairs? (5 years old or older) Answer Date of Assessment Author No 05/08/2022 12:51 AM Jagjit Henriquez RN * Do you have difficulty dressing or bathing? (5 years old or older) Answer Date of Assessment Author No 05/08/2022 12:51 AM Jagjit Henriquez RN * Because of a physical, mental, or emotional condition, do you have difficulty doing errands alone such as visiting a doctors office or shopping? (15 years old or older) Answer Date of Assessment Author No 05/08/2022 12:51 AM Jagjit Henriquez RN documented as of this encounter Mental Status * Because of a physical, mental, or emotional condition, do you have serious difficulty concentrating, remembering, or making decisions? (5 years old or older) Answer Entry Date Author No 05/08/2022 12:51 AM LORELEIT Jagjit Maddox RN documented in this encounter Miscellaneous Notes * Telephone Encounter - She Copeland LPN - 09/28/2024 8:18 AM EST Attempted to contact and daughter to see how patient is feeling. Left message to return phone call She Copeland LPN 09/28/2024 8:20 AM * Telephone Encounter - Jose Carlos Jauregui CRNP - 09/26/2024 2:25 PM EST She, Let's call patient on Tuesday (09/28) to confirm she is doing well and that we can proceed with scheduled surgery. RILEY Donnelly 09/26/2024 2:25 PM * Telephone Encounter - Herminio Man OSA - 09/26/2024 2:06 PM EST Pt daughter called. 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 KRISTEN Crews * Telephone Encounter - She Copeland LPN - 09/26/2024 1:20 PM EST Attempted to contact patient to see how he is doing. Left message to return phone call She Copeland LPN 09/26/2024 1:20 PM * Telephone Encounter - Jose Carlos Jauregui CRNP - 09/26/2024 1:07 PM EST She, Patient is scheduled for intervention for endoleak on 10/01/24 PAT nurse contacted me that patient saw PCP yesterday for a cough. Can you please call patient and see how he is doing? Do we need to postpone 10/01/24 surgery? RILEY Donnelly 09/26/2024 1:08 PM documented in this encounter Plan of Treatment Upcoming Encounters Date Type Department Care Team (Latest Contact Info) Description 10/01/2024 7:15 AM EST Hospital Encounter OR [facility], OPERATING ROOM [facility] [address] [place] [phone] Toby Mccormick MD [address], [place] [id number] 10/01/2024 7:15 AM EST - 10/01/2024 10:20 AM EST Surgery OR [facility], OPERATING ROOM [facility] [address] [facility] [place] [phone] Toby Mccormick MD [address] [place] [address] CATHETER PLACEMENT, ABDOMINAL-LOWER EXTREMITY, FIRST ORDER BRANCH 10/16/2024 2:30 PM EST Imaging [facility] [address] [facility] [place] [address] 10/24/2024 2:30 PM EST Office Visit Vascular Surgery, [facility] [address] [facility] [place] [address] Toby Mccormick MD [address] [place] [address] Scheduled Procedures Name Priority Associated Diagnoses Date/Ti me CATHETER PLACEMENT, ABDOMINAL-LOWER EXTREMITY, FIRST ORDER BRANCH Infrarenal abdominal aortic aneurysm (AAA) without rupture (HCC) KRISTEN on CPAP Essential hypertension with goal blood pressure less than 130/80 Chronic obstructive pulmonary disease, unspecified COPD type (HCC) Dyslipidemia, goal LDL below 70 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 10/01/2024 7:15 AM EST ANGIOGRAPHY EXTREMITY BILATERAL Infrarenal abdominal aortic aneurysm (AAA) without rupture (HCC) KRISTEN on CPAP Essential hypertension with goal blood pressure less than 130/80 Chronic obstructive pulmonary disease, unspecified COPD type (HCC) Dyslipidemia, goal LDL below 70 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 10/01/2024 7:15 AM EST EMBOLIZATION ARTERIAL; SUPERVISION & INTERPRETATION Infrarenal abdominal aortic aneurysm (AAA) without rupture (HCC) KRISTEN on CPAP Essential hypertension with goal blood pressure less than 130/80 Chronic obstructive pulmonary disease, unspecified COPD type (HCC) Dyslipidemia, goal LDL below 70 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 10/01/2024 7:15 AM EST Health Maintenance Due Date Last Done Comments Depression Screening 1955 Alpha-1 Antitrypsin 1961 O2 ASSESSMENT COMPLETED IN PAST YEAR FOR COPD 1961 DTap/Tdap Vaccines (1 - Tdap) 1962 Zoster Vaccines (1 of 2) 1993 *COPD SEVERITY VERIFIED BY PFT 12/15/2019 TSH 12/30/2022 12/30/2021, 11/08, 12/11/2019 COVID-19 Vaccine ( season) 2024 02/24/2021, 01/22/2021 Influenza Vaccine (FLU shot) (#1) 2024 08/24/2023, 09/22/2021, 09/22/2021, Additional history exists Albumin/Creatinine Ratio 12/30/2024 12/30/2021 GFR 06/22/2025 06/22/2024, 06/07, 03/16/2024, Additional history exists Pneumococcal Vaccine: 65+ Years [...] this encounter Medical Devices Implanted Type Area Retaining Room Cutter Device Identifier Shelf Expiration Date Model / Serial / Lot Azur Peripheral Coil System Implanted:Qty: 9 on 01/02/2020 by Shawn Cordoba MD at OR [facility] N/A: Aorta [id number]IST[employer] 09/06/2022 [id number] / / [id number] Coil Vortex 35 Pltinm [id number] - [id number] Implanted:Qty: 1 on 01/02/2020 by Shawn Cordoba MD at OR [facility] N/A: Aorta [employer] : NEURO INTR [id number] 07/11/2022 [id number] / / [id number] Coil Vortex 35 Pltinm [id number] - [id number] Implanted:Qty: 1 on 01/02/2020 by Shawn Cordoba MD at OR [facility] Aorta [employer] : NEURO INTR [id number] 07/11/2022 [id number] / / [id number] Coil Azur .035 [id number] - [id number] Implanted:Qty: 9 on 01/02/2020 by Shawn Cordoba MD at OR [facility] N/A: Aorta [employer] M[employer] 05/06/2021 [id number] / / [id number] Coil Azur .035 [id number] - [id number] Implanted:Qty: 9 on 01/02/2020 by Shawn Cordoba MD at OR [facility] N/A: Aorta [id number] MEDICAL MISTI 01/04/2021 [id number] / / [id number] Coil Azur 16mm 20cm Implanted:Qty: 2 on 01/02/2020 by Shawn Cordoba MD at OR [facility] N/A: Aorta [employer] 05/06/2021 [id number] / / [id number] Coil Azur 16mm 20cm Implanted:Qty: 3 on 01/02/2020 by Shawn Cordoba MD at OR [facility] N/A: Aorta [employer] 06/06/2021 [id number] / / [id number] Coil Azur 16mm 20cm Implanted:Qty: 6 on 01/02/2020 by Shawn Cordoba MD at OR [facility] N/A: Aorta [employer] 09/06/2022 [id number] / / [id number] Coil Azur 16mm 20cm Implanted:Qty: 3 on 01/02/2020 by Shawn Cordoba MD at OR [facility] N/A: Aorta [employer] 06/06/2021 [id number] / / [id number] Coil Azur .035 [id number] - [id number] Implanted:Qty: 7 on 01/02/2020 by Shawn Cordoba MD at OR [facility] N/A: Aorta [employer] MISTI 05/06/2021 [id number] / / [id number] Coil Vortex 35 Pltinm [id number] - [id number] Implanted:Qty: 1 on 01/02/2020 by Shawn Cordoba MD at OR [facility] N/A: Aorta [employer] : NEURO INTR [id number] 02/28/2022 [id number] / / [id number] documented as of this encounter Advance Directives * Limited Code (Latest Code Status on File) Date Activated Date Inactivated Comments 05/08/2022 1:51 [...] 12:00 PM 01/03/2020 2:49 PM Care Teams Customer Complaint Service Supervisor Relationship Specialty Start Date End Date Meenu Avitia DO [address] [place] [address] PCP - General Family Medicine 11/20/19 documented as of this encounter
--- OUTSIDE RECORDS SUMMARY | 2025-01-15 00:28 | External Medical Summary | Summary of Care ---
Author Name Unknown Organization [facility] Address [address] [place] [address] Phone [phone] Care Team Providers Care Retail Team Leader Name Role Phone Meenu Avitia Primary Care Provider Reason for Visit * Reason Onset Date Comments Surgery 09/26/2024 Encounter Details Date Type Department Care Team (Late st Contact Info) Description 09/26/2024 Telephone Vascular Surg [facility] [address] [place] [address] Jose Carlos Jauregui CRNP [address] [place] [address] Surgery Allergies Active Allergy Reactions Criticality Noted Date Comments Cephalexin Hives,Rash Low 05/20/2021 Latex Rash Low 01/21/2023 Sertraline Rash High 11/20/2019 documented as of this encounter (statuses as of 09/26/2024) Medications Albuterol Sulfate (PROAIR HFA) 108 (90 [...] as of this encounter (statuses as of 09/26/2024) Active Problems Problem Noted Date Diagnosed Date [...] as of this encounter (statuses as of 09/26/2024) Resolved Problems Problem Noted Date Diagnosed Date Resolved Date Postoperative ileus 05/12/2022 05/12/20 22 RUFUS (acute kidney injury) 05/10/2022 Hypokalemia 05/10/2022 05/12/2022 Acute cholecystitis 05/08/2022 05/12/20 22 documented as of this encounter (statuses as of 09/26/2024) Immunizations Name Administration Dates Next Due COVID-19 [...] Entry Date Author No 05/08/2022 12:51 AM Jagjit Henriquez RN documented in this encounter Miscellaneous Notes * Telephone Encounter - Jose Carlos Jauregui [...] 10/01/2024 7:15 AM EST Hospital Encounter OR [facility], OPERATING ROOM [facility] [address] [facility] [place] [place] [address] Toby Mccormick MD [address] [place], [place] [id number] 10/01/2024 7:15 AM EST - 10/01/2024 10:20 AM EST Surgery [facility], OPERATING ROOM [facility] [address] [facility] [place] [place] [address] Toby Mccormick MD [address] [place], [place] [address] CATHETER PLACEMENT, ABDOMINAL-LOWER EXTREMITY, FIRST ORDER BRANCH 10/16/2024 2:30 PM EST Imaging Radiology [facility] [address] [place] [address] 10/24/2024 2:30 PM EST Office Visit Vascular Surgery, [facility] [address] [place] [address] Toby Mccormick MD [address] [place], [place] [address] Scheduled Procedures Name Priority Associated Diagnoses Date/Ti [...] PLACEMENT DISTAL OR PROXIMAL EXTENSION ENDOVASCULAR PROSTHESIS [facility] RADIOLOGY SUPERVISION & INTERPRETATION, INFRARENAL AORTIC [...] this encounter Medical Devices Implanted Type Area Scissors Sharpener Device Identifier Shelf Expiration Date Model / Serial / Lot Azur Peripheral Coil System Implanted:Qty: 9 on 01/02/2020 by Shawn Cordoba MD at OR [facility] N/A: Aorta [employer] MEDICAL MISTI 09/06/2022 [id number] / / [id number] Coil Vortex 35 Pltinm [id number] - [id number] Implanted:Qty: 1 on 01/02/2020 by Shawn Cordoba MD at OR [facility] N/A: Aorta [employer] : NEURO INTR [id number] 07/11/2022 [id number] / / [id number] Coil Vortex 35 Pltinm [id number] - [id number] Implanted:Qty: 1 on 01/02/2020 by Shawn Cordoba MD at OR [facility] Aorta [employer] : NEURO INTR [id number] 07/11/2022 [id number] / / [id number] Coil Azur .035 [id number] - [id number] Implanted:Qty: 9 on 01/02/2020 by Shawn Cordoba MD at OR [facility] N/A: Aorta [employer] 05/06/2021 [id number] / / [id number] Coil Azur .035 [id number] - [id number] Implanted:Qty: 9 on 01/02/2020 by Shawn Cordoba MD at OR [facility] N/A: Aorta [employer] 01/04/2021 [id number] / / [id number] Coil Azur 16mm 20cm Implanted:Qty: 2 on 01/02/2020 by Shawn Cordoba MD at OR [facility] N/A: Aorta [employer] 05/06/2021 [id number] / / [id number] Coil Azur 16mm 20cm Implanted:Qty: 3 on 01/02/2020 by Shawn Cordoba MD at OR [facility] N/A: Aorta [employer] 06/06/2021 [id number] / / [id number] Coil Azur 16mm 20cm Implanted:Qty: 6 on 01/02/2020 by Shawn Cordoba MD at OR [facility] N/A: Aorta [employer] 09/06/2022 [id number] / / [id number] Coil Azur 16mm 20cm Implanted:Qty: 3 on 01/02/2020 by Shawn Cordoba MD at OR [facility] N/A: Aorta [employer] 06/06/2021 [id number] / / [id number] Coil Azur .035 [id number] - [id number] Implanted:Qty: 7 on 01/02/2020 by Shawn Cordoba MD at OR [facility] N/A: Aorta [employer] MISTI 05/06/2021 [id number] / / [id number] Coil Vortex 35 Pltinm [id number] - [id number] Implanted:Qty: 1 on 01/02/2020 by Shawn Cordoba MD at OR [facility] N/A: Aorta [employer] : NEURO INTR [id number] 02/28/2022 [id number] / / [id number] documented as of this encounter Advance Directives [...] 12:00 PM 01/03/2020 2:49 PM Care Teams Retail Team Leader Relationship Specialty Start Date End Date Meenu Avitia DO [address] [place] [address] [place] [address] PCP - General Family Medicine 11/20/19 documented as of this encounter
--- OUTSIDE RECORDS SUMMARY | 2025-01-15 00:28 | External Medical Summary | Summary of Care ---
Author Name Unknown Organization [facility] Address [address] [place] [address] Phone [phone] Care Team Providers Care It Audit Manager Name Role Phone Meenu Avitia Primary Care Provider Reason for Visit * Reason Onset Date Comments Surgery 09/26/2024 Encounter Details Date Type Department Care Team (Late st Contact Info) Description 09/26/2024 Telephone Vascular Surg [facility] [address] [place] [address] Jose Carlos Jauregui CRNP [address] [place] [address] Surgery Allergies Active Allergy Reactions [...] Entry Date Author No 05/08/2022 12:51 AM EDT Jagjit Maddox RN documented in this encounter [...] 10/01/2024 7:15 AM EST Hospital Encounter [place] [facility], OPER[place] ROOM [facility] [address] [place] [phone] Toby Mccormick MD [address] [place] [address] 10/01/2024 7:15 AM EST - 10/01/2024 10:20 AM EST Surgery [place] [facility] [address] [place] [phone] Toby Mccormick MD [address] [place] [address] CATHETER PLACEMENT, ABDOMINAL-LOWER EXTREMITY, FIRST ORDER BRANCH 10/16/2024 2:30 PM EST Imaging Radiology [facility] [address] [facility] [place] [address] 10/24/2024 2:30 PM EST Office Visit Vascular Surgery, [facility] [address] [facility] [place] [address] Toby Mccormick MD [address] [place] [address] Scheduled Procedures Name Priority Associated Diagnoses Date/Ti [...] this encounter Medical Devices Implanted Type Area Bending Frame Operator Device Identifier Shelf Expiration Date Model / Serial / Lot Azur Peripheral Coil System Implanted:Qty: 9 on 01/02/2020 by Shawn Cordoba MD at [place] [facility] N/A: Aorta [employer] 09/06/2022 [id number] / / [id number] Coil Vortex 35 Pltinm [id number] - [id number] Implanted:Qty: 1 on 01/02/2020 by Shawn Cordoba MD at [place] [facility] N/A: Aorta [employer] : NEURO INTR [id number] 07/11/2022 [id number] / / [id number] Coil Vortex 35 Pltinm [id number] - [id number] Implanted:Qty: 1 on 01/02/2020 by Shawn Cordoba MD at [place] [facility] Aorta [employer] : NEURO INTR [id number] 07/11/2022 [id number] / / [id number] Coil Azur .035 [id number] - [id number] Implanted:Qty: 9 on 01/02/2020 by Shawn Cordoba MD at [place] [facility] N/A: Aorta [employer] MISTI 05/06/2021 [id number] / / [id number] Coil Azur .035 [id number] - [id number] Implanted:Qty: 9 on 01/02/2020 by Shawn Cordoba MD at [place] [facility] N/A: Aorta [employer] MISTI 01/04/2021 [id number] / / [id number] Coil Azur 16mm 20cm Implanted:Qty: 2 on 01/02/2020 by Shawn Cordoba MD at [place] [facility] N/A: Aorta [employer] 05/06/2021 [id number] / / [id number] Coil Azur 16mm 20cm Implanted:Qty: 3 on 01/02/2020 by Shawn Cordoba MD at [place] [facility] N/A: Aorta [employer] 06/06/2021 [id number] / / [id number] Coil Azur 16mm 20cm Implanted:Qty: 6 on 01/02/2020 by Shawn Cordoba MD at [place] [facility] N/A: Aorta [employer] 09/06/2022 [id number] / / [id number] Coil Azur 16mm 20cm Implanted:Qty: 3 on 01/02/2020 by Shawn Cordoba MD at [place] [facility] N/A: Aorta [employer] 06/06/2021 [id number] / / [id number] Coil Azur .035 [id number] - [id number] Implanted:Qty: 7 on 01/02/2020 by Shawn Cordoba MD at [place] [facility] N/A: Aorta [employer] 05/06/2021 [id number] / / [id number] Coil Vortex 35 Pltinm [id number] - [id number] Implanted:Qty: 1 on 01/02/2020 by Shawn Cordoba MD at [place] [facility] N/A: Aorta [employer] : NEURO INTR [id number] 02/28/2022 [id number] / / [id number] documented as of this encounter Advance Directives [...] 12:00 PM 01/03/2020 2:49 PM Care Teams It Audit Manager Relationship Specialty Start Date End Date Meenu Avitia DO [address] [place] [address] [place] [address] PCP - General Family Medicine 11/20/19 documented as of this encounter
--- OUTSIDE RECORDS SUMMARY | 2025-01-15 00:28 | External Medical Summary ---
Author Name Unknown Address Unknown Organization K01:[facility] [place] [facility] [address] [place] [address] Laboratory Report Ordering Provider Test Date Status MAGGIE QUINN 10/01/2024 11:52:33 Final Labs in PACU Observation Date Value Abnormality Reference (Units ) Status BUN 10/01/2024 11:52:33 14 6-20 (mg/dL) Final Creatinine 10/01/2024 11:52:33 0.8 0.6-1.2 (mg/dL) Final Glomerular filtration rate/1.73 sq M.predicted [Volume Rate/Area] in Serum, Plasma or Blood by Creatinine-based formula (CKD-EPI) 10/01/2024 11:52:33 90 >=60 (mL/min) Final eGFR is calculated based on the CKD-EPI 2020 equation. Sodium 10/01/2024 11:52:33 141 135-146 (m mol/L) Final Potassium 10/01/2024 11:52:33 3.3 Below low normal 3.5 -5.1 (mmol/L) Final Cl 10/01/2024 11:52:33 107 98-107 (mm ol/L) Final CO2 10/01/2024 11:52:33 23 22-32 (mmo l/L) Final Anion gap 10/01/2024 11:52:33 11 7-15 (mmol /L) Final Glucose 10/01/2024 11:52:33 172 Above high normal 70 -120 (mg/dL) Final Calcium 10/01/2024 11:52:33 8.6 8.4-10.2 ( mg/dL) Final Performing Location [facility] [place] [address] [place] [address]
--- OUTSIDE RECORDS SUMMARY | 2025-01-15 00:28 | External Medical Summary | Summary of Care ---
Author Name Unknown Organization [facility] Address [address] [place] [address] Phone [phone] Care Team Providers Care Real Estate Administrator Name Role Phone Meenu Avitia Primary Care Provider Reason for Visit * Reason Onset Date Comments Surgery 09/26/2024 Encounter Details Date Type Department Care Team (Late st Contact Info) Description 09/26/2024 Telephone Vascular Surg [facility] [address] [place] [address] Jose Carlos Jauregui CRNP [address] [place] [address] Surgery Allergies Active Allergy Reactions [...] Encounter - She Copeland LPN - 09/28/2024 1:11 PM EST Attempted to contact patient and daughter to see how patient is feeling to make sure we can proceedwith surgery. Left message to return phone call She Copeland LPN 09/28/2024 1:12 PM * Telephone Encounter - She Copeland LPN [...] EST Hospital Encounter OR C, OPERATING ROOM [facility] [address] [facility] [address] Toby Mccormick MD [address] [place] [address] 10/01/2024 7:15 AM EST - 10/01/2024 10:20 AM EST Surgery OR [facility], OPERATING ROOM [facility] [address] [place] [address] Toby Mccormick MD [address] [place] [address] CATHETER PLACEMENT, ABDOMINAL-LOWER EXTREMITY, FIRST ORDER BRANCH 10/16/2024 2:30 PM EST Imaging Radiology [facility] [address] [place] [address] 10/24/2024 2:30 PM EST Office Visit [address] Surgery, [address] [address] Toby Mccormick MD [address] [place] [address] Scheduled Procedures Name Priority Associated Diagnoses Date/Ti [...] abdominal aortic aneurysm (AAA) without rupture (HCC) KRITSEN on CPAP Essential hypertension with goal blood [...] OR PROXIMAL EXTENSION ENDOVASCULAR PROSTHESIS [facility] RADIOLOGY SUPERVISION & INTERPRETATION, INFRARENAL AORTIC [...] this encounter Medical Devices Implanted Type Area Security Systems Technician Device Identifier Shelf Expiration Date Model / Serial / Lot Azur Peripheral Coil System Implanted:Qty: 9 on 01/02/2020 by Shawn Cordoba MD at OR [facility] N/A: Aorta [employer] 09/06/2022 [id number] / / [id number] Coil Vortex 35 Pltinm [id number] - [id number] Implanted:Qty: 1 on 01/02/2020 by Shawn Cordoba MD at OR [facility] N/A: Aorta [employer] : NEURO INTR [id number] 07/11/2022 [id number] 61 / / [id number] Coil Vortex 35 Pltinm 027808 - [id number] Implanted:Qty: 1 on 01/02/2020 by Shawn Cordoba MD at OR [facility] Aorta [employer] : NEURO INTR [id number] 07/11/2022 [id number] 61 / / [id number] Coil Azur .035 [id number] - [id number] Implanted:Qty: 9 on 01/02/2020 by Shawn Cordoba MD at OR [facility] N/A: Aorta [employer] M[employer] 05/06/2021 [id number] / / [id number] Coil Azur .035 [id number] - [id number] Implanted:Qty: 9 on 01/02/2020 by Shawn Cordoba MD at OR [facility] N/A: Aorta [employer] 01/04/2021 [id number] / / [id number] Coil Azur 16mm 20cm Implanted:Qty: 2 on 01/02/2020 by Shawn Cordoba MD at OR [facility] N/A: Aorta [employer] 05/06/2021 [id number] / / [id number] Coil Azur 16mm 20cm Implanted:Qty: 3 on 01/02/2020 by Shawn Cordoba MD at OR [facility] N/A: Aorta [employer] 06/06/2021 [id number] / / [id number] Coil Azur 16mm 20cm Implanted:Qty: 6 on 01/02/2020 by Shawn Cordoba MD at OR [facility] N/A: Aorta [employer] 09/06/2022 [id number] / / [id number] Coil Azur 16mm 20cm Implanted:Qty: 3 on 01/02/2020 by Shawn Cordoba MD at OR [facility] N/A: Aorta [employer] 06/06/2021 [id number] / / [id number] Coil Azur .035 [id number] - [id number] Implanted:Qty: 7 on 01/02/2020 by Shawn Cordoba MD at OR [facility] N/A: Aorta [employer] 05/06/2021 [id number] / / [id number] Coil Vortex 35 Pltinm 306716 - [id number] Implanted:Qty: 1 on 01/02/2020 by Shawn Cordoba MD at OR [facility] N/A: Aorta [employer] : NEURO INTR [id number] 02/28/2022 [id number] 61 / / [id number] documented as of this encounter Advance Directives [...] 12:00 PM 01/03/2020 2:49 PM Care Teams Real Estate Administrator Relationship Specialty Start Date End Date Meenu Avitia DO [address] [place] [address] [place] [address] PCP - General Family Medicine 11/20/19 documented as of this encounter
--- OUTSIDE RECORDS SUMMARY | 2025-01-15 00:28 | External Medical Summary ---
Author Name Unknown Address Unknown Organization K01:[facility] [place] [facility] [address] [place] [address] Laboratory Report Ordering Provider Test Date Status ROSA CLAIRE 10/01/2024 06:22:32 Final Observation Date Value Abnormality Reference (Units ) Status WBC, Total 10/01/2024 06:22:32 6.66 4.00-10.80 (K/uL) Final RBC 10/01/2024 06:22:32 4.11 4.50-5.25 (M/uL) Final Hemoglobin 10/01/2024 06:22:32 12.9 Below low normal 14.0-16.8 (g/dL) Final HCT 10/01/2024 06:22:32 39.0 Below low normal 40.0-48.4 (%) Final MCV 10/01/2024 06:22:32 94.9 82.0-99.5 (fL) Final MCH 10/01/2024 06:22:32 31.4 27.0-34.0 (pg) Final MCHC 10/01/2024 06:22:32 33.1 32.0-36.0 (g/dL) Final RDW 10/01/2024 06:22:32 13.8 11.5-15.5 (%) Final Platelets 10/01/2024 06:22:32 196 140-400 (K/uL) Final MPV 10/01/2024 06:22:32 10.2 6.6-11.1 (fL) Final Nucleated erythrocytes/100 leukocytes [Ratio] in Blood by Automated count 10/01/2024 06:22:32 0 <=0 (/100 WBCs) Final Performing Location [facility] [place] [address] [place] [address]
--- OUTSIDE RECORDS SUMMARY | 2025-01-15 00:28 | External Medical Summary | Summary of Care ---
Author Name Unknown Organization [facility] Address [address] [place] [address] Phone [phone] Care Team Providers Care Take Away Attendant Name Role Phone Meenu Avitia Primary Care Provider Reason for Visit * Reason Onset Date Comments Surgery 09/26/2024 Encounter Details Date Type Department Care Team (Late st Contact Info) Description 09/26/2024 Telephone Vascular Surg [facility] [address] [place] [address] Jose Carlos Jauregui CRNP [address] [place] [address] Surgery Allergies Active Allergy Reactions [...] EST Hospital Encounter OR C, OPERATING ROOM [facility] [address] [place] [phone] Toby Mccormick MD [address] [place] [address] 10/01/2024 7:15 AM EST - 10/01/2024 10:20 AM EST Surgery OR [facility], OPERATING ROOM [facility] [address] [place] [phone] Toby Mccormick MD [address] [place] [address] CATHETER PLACEMENT, ABDOMINAL-LOWER EXTREMITY, FIRST ORDER BRANCH 10/16/2024 2:30 PM EST Imaging Radiology [facility] 1st [facility] [place] [address] [facility] [place] [address] 10/24/2024 2:30 PM EST Office Visit Vascular [facility], [facility] [address] [facility] [place] [address] Toby Mccormick MD [address] [place] [address] Scheduled Procedures Name Priority Associated Diagnoses Date/Ti [...] this encounter Medical Devices Implanted Type Area Beverage Manager Device Identifier Shelf Expiration Date Model / Serial / Lot Azur Peripheral Coil System Implanted:Qty: 9 on 01/02/2020 by Shawn Cordoba MD at OR [facility] N/A: Aorta [employer] 09/06/2022 [id number] / / [id number] Coil Vortex 35 Pltinm 007537 - [id number] Implanted:Qty: 1 on 01/02/2020 by Shawn Cordoba MD at OR [facility] N/A: Aorta [employer] : NEURO INTR [id number] 07/11/2022 [id number] 61 / / [id number] Coil Vortex 35 Pltinm 458524 - [id number] Implanted:Qty: 1 on 01/02/2020 by Shawn Cordoba MD at OR [facility] Aorta [employer] : NEURO INTR [id number] 07/11/2022 [id number] 61 / / [id number] Coil Azur .035 [id number] - [id number] Implanted:Qty: 9 on 01/02/2020 by Shawn Cordoba MD at OR [facility] N/A: Aorta [employer]ICAL MISTI 05/06/2021 [id number] / / [id number] Coil Azur .035 [id number] - [id number] Implanted:Qty: 9 on 01/02/2020 by Shawn Cordoba MD at OR [facility] N/A: Aorta [employer] MISTI 01/04/2021 [id number] / / [id number] Coil Azur 16mm 20cm Implanted:Qty: 2 on 01/02/2020 by Shawn Cordoba MD at OR [facility] N/A: Aorta [employer] 05/06/2021 [id number] / / [id number] Coil Azur 16mm 20cm Implanted:Qty: 3 on 01/02/2020 by Shawn Cordoba MD at OR [facility] N/A: Aorta [employer] 06/06/2021 [id number] / / [id number] Coil Azur 16mm 20cm Implanted:Qty: 6 on 01/02/2020 by Shawn Cordoba MD at OR [facility] N/A: Aorta [employer] 09/06/2022 [id number] / / [id number] Coil Azur 16mm 20cm Implanted:Qty: 3 on 01/02/2020 by Shawn Cordoba MD at OR [facility] N/A: Aorta [employer] 06/06/2021 [id number] / / [id number] Coil Azur .035 [id number] - [id number] Implanted:Qty: 7 on 01/02/2020 by Shawn Cordoba MD at OR [facility] N/A: Aorta [employer] 05/06/2021 [id number] / / [id number] Coil Vortex 35 Pltinm 780324 - [id number] Implanted:Qty: 1 on 01/02/2020 by Shawn Cordoba MD at OR [facility] N/A: Aorta [employer] : NEURO INTR [id number] 02/28/2022 [id number] 61 / / [id number] documented as of this encounter Advance Directives [...] 12:00 PM 01/03/2020 2:49 PM Care Teams Take Away Attendant Relationship Specialty Start Date End Date Meenu Avitia DO [address] [place] [address] [place] [address] PCP - General Family Medicine 11/20/19 documented as of this encounter
--- OUTSIDE RECORDS SUMMARY | 2025-01-15 00:28 | External Medical Summary ---
Author Name Unknown Address Unknown Organization : Laboratory Report Ordering Provider Test Date Status JANKI GARCIA 10/01/2024 16:24:18 Final Observation Date Value Abnormality Reference (Units ) Status Glucose Point of Care 10/01/2024 16:24:18 133 Above high normal 70-120 (mg/dL) Final Performing Location
--- OUTSIDE RECORDS SUMMARY | 2025-01-15 00:28 | External Medical Summary ---
Author Name Unknown Address Unknown Organization : Laboratory Report Ordering Provider Test Date Status JANKI GARCIA 10/01/2024 09:41:54 Final Observation Date Value Abnormality Reference (Units) Status Blood draw [PhenX] 10/01/2024 09:41:54 Arterial Draw Final pH, POC (i-STAT) 10/01/2024 09:41:54 7.317 Below low normal 7.350-7.450 Final PCO2 POC (i-STAT) 10/01/2024 09:41:54 51.4 Above high normal 35.0-45.0 (mm Hg) Final PO2 POC (i-STAT) 10/01/2024 09:41:54 169 Above high normal 75-100 (mm Hg) Final Base excess standard in Arterial blood by calculation 10/01/2024 09:41:54 0 -2-2 (mmol/L) Final Bicarbonate, Venous, POC (i-STAT) 10/01/2024 09:41:54 26.3 23.0-31.0 (mmol/L) Final O2 Sat, calculated POC (i-STAT) 10/01/2024 09:41:54 99.0 Above high normal 94.0-98.0 (%) Final Glucose, whole blood 10/01/2024 09:41:54 165 Above high normal 70-120 (mg/dL) Final Potassium, Whole Blood 10/01/2024 09:41:54 3.3 Below low normal 3.5-5.1 (mmol/L) Final Sodium, Whole Blood 10/01/2024 09:41:54 141 135-146 (mmol/L) Final Calcium, Ionized, Whole Blood 10/01/2024 09:41:54 1.23 1.13-1.32 (mmol/L) Final Hemoglobin POC (i-STAT) 10/01/2024 09:41:54 10.5 Below low normal 14.0-16.8 (g/dL) Final HCT 10/01/2024 09:41:54 31 Below low normal 40-48 (%) Final Performing Location
--- OUTSIDE RECORDS SUMMARY | 2025-01-15 00:28 | External Medical Summary ---
Author Name Unknown Address Unknown Organization : Laboratory Report Ordering Provider Test Date Status JANKI GARCIA 10/01/2024 08:27:32 Final NORMAL (NON-HEPARINIZED) 74- 137 SECONDS
HEPARINIZED 200+ SECONDS
CRITICAL GREATER THAN 1000 SECONDS
null Observation Date Value Abnormality Reference (Units ) Status Kaolin activated time [Units/volume] in Blood 10/01/2024 08:27:32 128 50-1000 (secs) Final Performing Location
--- OUTSIDE RECORDS SUMMARY | 2025-01-15 00:28 | External Medical Summary ---
Author Name Unknown Address Unknown Organization K01:[facility]ORY [facility] [place] [facility] - [address] [place] [address] Laboratory Report Ordering Provider Test Date Status NATHALYVELIATOMMIEROSA Ingram 10/01/2024 06:22:32 Final Observation Date Value Abnormality Reference (Units ) Status ABO 10/01/2024 06:22:32 O Final RH 10/01/2024 06:22:32 Positive Final RED BLOOD CELL ANTIBODY SCREEN 10/01/2024 06:22:32 Negative Final SPECIMEN EXPIRATION DATE 10/01/2024 06:22:32 10/04/2024 23:59 Final Performing Location [facility]ORY [facility] - [address] [place] [address]
--- OUTSIDE RECORDS SUMMARY | 2025-01-15 00:28 | External Medical Summary | Summary of Care ---
Author Name Unknown Organization [facility] Address [address] [place] [address] Phone [phone] Care Team Providers Care International Manager Name Role Phone Meenu Avitia Primary Care Provider Reason for Visit * Reason Onset Date Comments Surgery 09/26/2024 Encounter Details Date Type Department Care Team (Late st Contact Info) Description 09/26/2024 Telephone Vascular Surg [facility] [address] [place] [address] Jose Carlos Jauregui CRNP [address] [place] [address] Surgery Allergies Active Allergy Reactions [...] EST Hospital Encounter OR C, OPERATING ROOM [facility] [address] [facility] [place] [address] Toby Mccormick MD [address] [place] [address] 10/01/2024 7:15 AM EST - 10/01/2024 10:20 AM EST Surgery OR [facility], OPERATING ROOM [facility] [address] [place] [address] Toyb Mccormick MD [address] [place] [address] CATHETER PLACEMENT, ABDOMINAL-LOWER EXTREMITY, FIRST ORDER BRANCH 10/16/2024 2:30 PM EST Imaging Radiology [facility] [address] [place] [address] 10/24/2024 2:30 PM EST Office Visit Vascular Surgery, [address] [address] Toby Mccormick MD [address] [place] [address] Scheduled Procedures Name Priority Associated Diagnoses Date/Ti [...] DISTAL OR PROXIMAL EXTENSION ENDOVASCULAR PROSTHESIS [facility] RADIOLOGY SUPERVISION & INTERPRETATION, INFRARENAL AORTIC [...] this encounter Medical Devices Implanted Type Area Chief Cruiser Device Identifier Shelf Expiration Date Model / Serial / Lot Azur Peripheral Coil System Implanted:Qty: 9 on 01/02/2020 by Shawn Cordoba MD at OR [facility] N/A: Aorta [employer] 09/06/2022 [id number] / / [id number] Coil Vortex 35 Pltinm 744771 - [id number] Implanted:Qty: 1 on 01/02/2020 by Shawn Cordoba MD at OR [facility] N/A: Aorta [employer] : NEURO INTR [id number] 07/11/2022 [id number] / / [id number] Coil Vortex 35 Pltinm 580473 - [id number] Implanted:Qty: 1 on 01/02/2020 by Shawn Cordoba MD at OR [facility] Aorta [employer] : NEURO INTR [id number] 07/11/2022 [id number] 61 / / [id number] Coil Azur .035 [id number] - [id number] Implanted:Qty: 9 on 01/02/2020 by Shawn Cordoba MD at OR [facility] N/A: Aorta [employer] 05/06/2021 [id number] / / [id number] Coil Azur .035 [id number] - [id number] Implanted:Qty: 9 on 01/02/2020 by Shawn Cordoba MD at OR [facility] N/A: Aorta [employer] 01/04/2021 [id number] / / [id number] Coil Azur 16mm 20cm Implanted:Qty: 2 on 01/02/2020 by Shawn Cordoba MD at OR [facility] N/A: Aorta [employer] 05/06/2021 [id number] / / [id number] Coil Azur 16mm 20cm Implanted:Qty: 3 on 01/02/2020 by Shawn Cordoba MD at OR [facility] N/A: Aorta [employer] 06/06/2021 [id number] / / [id number] Coil Azur 16mm 20cm Implanted:Qty: 6 on 01/02/2020 by Shawn Cordoba MD at OR [facility] N/A: Aorta [employer] 09/06/2022 [id number] / / [id number] Coil Azur 16mm 20cm Implanted:Qty: 3 on 01/02/2020 by Shawn Cordoba MD at OR [facility] N/A: Aorta [employer] 06/06/2021 [id number] / / [id number] Coil Azur .035 [id number] - [id number] Implanted:Qty: 7 on 01/02/2020 by Shawn Cordoba MD at OR [facility] N/A: Aorta [employer] 05/06/2021 [id number] / / [id number] Coil Vortex 35 Pltinm 535212 - [id number] Implanted:Qty: 1 on 01/02/2020 by Shawn Cordoba MD at OR [facility] N/A: Aorta [employer] : NEURO INTR [id number] 02/28/2022 [id number] 61 / / [id number] documented as of this encounter Advance Directives [...] 12:00 PM 01/03/2020 2:49 PM Care Teams International Manager Relationship Specialty Start Date End Date Meenu Avitia DO [address] [place] [address] [place] [address] PCP - General Family Medicine 11/20/19 documented as of this encounter
--- OUTSIDE RECORDS SUMMARY | 2025-01-15 00:28 | External Medical Summary | Summary of Care ---
Author Name Unknown Organization [facility] Address [address] [place] [address] Phone [phone] Care Team Providers Care Slot Operations Director Name Role Phone Meenu Avitia Primary Care Provider Reason for Visit * Reason Onset Date Comments Surgery 09/26/2024 Encounter Details Date Type Department Care Team (Late st Contact Info) Description 09/26/2024 Telephone Vascular Surg [facility] [address] [place] [address] Jose Carlos Jauregui CRNP [address] [place] [address] Surgery Allergies Active Allergy Reactions [...] encounter Miscellaneous Notes * Telephone Encounter - Herminio Man OSA [...] 10/01/2024 7:15 AM EST Hospital Encounter OR [facility], OPERATING ROOM [facility] [address] [place] [address] Toby Mccormick MD [address] [place], [place] [address] 10/01/2024 7:15 AM EST - 10/01/2024 10:20 AM EST Surgery OR [facility], OPERATING ROOM [facility], [facility] [address] [place] [address] Toby Mccormick MD [address] [place] [address] CATHETER PLACEMENT, ABDOMINAL-LOWER EXTREMITY, FIRST ORDER BRANCH 10/16/2024 2:30 PM EST Imaging Radiology [facility] 1st [facility], [address] [address] 10/24/2024 2:30 PM EST Office Visit Vascular Surgery, [address] [address] Toby Mccormick MD [address] [place], [place] [address] Scheduled Procedures Name Priority Associated Diagnoses Date/Ti [...] this encounter Medical Devices Implanted Type Area Emulsification Operator Device Identifier Shelf Expiration Date Model / Serial / Lot Azur Peripheral Coil System Implanted:Qty: 9 on 01/02/2020 by Shawn Cordoba MD at OR [facility] N/A: Aorta [employer]yn MISTI 09/06/2022 [id number] / / [id number] Coil Vortex 35 Pltinm 373874 - [id number] Implanted:Qty: 1 on 01/02/2020 by Shawn Cordoba MD at OR [facility] N/A: Aorta [employer] : NEURO INTR [id number] 07/11/2022 [id number] / / [id number] Coil Vortex 35 Pltinm 111529 - [id number] Implanted:Qty: 1 on 01/02/2020 by Shawn Cordoba MD at OR [facility] Aorta [employer] : NEURO INTR [id number] 07/11/2022 [id number] 61 / / [id number] Coil Azur .035 [id number] - [id number] Implanted:Qty: 9 on 01/02/2020 by Shawn Cordoba MD at OR [facility] N/A: Aorta [employer] 05/06/2021 [id number] / / [id number] Coil Azur .035 [id number] - [id number] Implanted:Qty: 9 on 01/02/2020 by Shawn Cordoba MD at OR [facility] N/A: Aorta [employer] 01/04/2021 [id number] / / [id number] Coil Azur 16mm 20cm Implanted:Qty: 2 on 01/02/2020 by Shawn Cordoba MD at OR [facility] N/A: Aorta [employer] 05/06/2021 [id number] / / [id number] Coil Azur 16mm 20cm Implanted:Qty: 3 on 01/02/2020 by Shawn Cordoba MD at OR [facility] N/A: Aorta [employer] 06/06/2021 [id number] / / [id number] Coil Azur 16mm 20cm Implanted:Qty: 6 on 01/02/2020 by Shawn Cordoba MD at OR [facility] N/A: Aorta [employer] 09/06/2022 [id number] / / [id number] Coil Azur 16mm 20cm Implanted:Qty: 3 on 01/02/2020 by Shawn Cordoba MD at OR [facility] N/A: Aorta [employer] 06/06/2021 [id number] / / [id number] Coil Azur .035 [id number] - [id number] Implanted:Qty: 7 on 01/02/2020 by Shawn Cordoba MD at OR [facility] N/A: Aorta [employer] 05/06/2021 [id number] / / [id number] Coil Vortex 35 Pltinm [id number] - [id number] Implanted:Qty: 1 on 01/02/2020 by Shawn Cordoba MD at OR [facility] N/A: Aorta [employer] : NEURO INTR [id number] 02/28/2022 [id number] 61 / / [id number] documented as of this encounter Advance Directives [...] 12:00 PM 01/03/2020 2:49 PM Care Teams Slot Operations Director Relationship Specialty Start Date End Date Meenu Avitia DO [address] [place] [address] [place] [address] PCP - General Family Medicine 11/20/19 documented as of this encounter
--- OUTSIDE RECORDS SUMMARY | 2025-01-15 00:28 | External Medical Summary | Summary of Care ---
Author Name Unknown Organization [facility] Address [address] [place] [address] Phone [phone] Care Team Providers Care Lubricator Granulator Name Role Phone Meenu Avitia Primary Care Provider Reason for Visit * Reason Onset Date Comments Surgery 09/17/2024 Encounter Details Date Type Department Care Team (Late st Contact Info) Description 09/17/2024 Telephone Vascular Surg [facility] [address], [place] [id number] Services, Scheduling [address] [place] [address] Surgery Allergies Active Allergy Reactions Criticality Noted Date Comments Cephalexin Hives,Rash Low 05/20/2021 Latex Rash Low 01/21/2023 Sertraline Rash High 11/20/2019 documented as of this encounter (statuses as of 09/20/2024) Medications Albuterol Sulfate (PROAIR HFA) 108 (90 [...] as of this encounter (statuses as of 09/20/2024) Active Problems Problem Noted Date Diagnosed Date [...] as of this encounter (statuses as of 09/20/2024) Resolved Problems Problem Noted Date Diagnosed Date Resolved Date Postoperative ileus 05/12/2022 05/12/20 22 RUFUS (acute kidney injury) 05/10/2022 Hypokalemia 05/10/2022 05/12/2022 Acute cholecystitis 05/08/2022 05/12/20 22 documented as of this encounter (statuses as of 09/20/2024) Immunizations Name Administration Dates Next Due COVID-19 [...] encounter Miscellaneous Notes * Telephone Encounter - Gina Gallegos CRNP - 09/20/2024 3:29 PM EST Noted, orders already pended in case. * Telephone Encounter - Hortencia Thomas OSA - 09/20/2024 2:52 PM EST Spoke to patients daughter and she said patient is worked up that the surgery was moved to November.He would like it done sooner. Accepted 10/01. OR notified to reschedule case. * Telephone Encounter - Andrew Bertrand CRNP - 09/20/2024 10:06 AM EST Hortencia/Shakir, Please work with Dr. Mccormick to find a date in November. Jey Morales * Telephone Encounter - Herminio Man OSA - 09/20/2024 10:00 AM EST Pt daughter called. Pt is "worked up" about surg being moved to November Please advise if any openings [facility] Jane [phone] KRISTEN Crews * Telephone Encounter - Hortencia Thomas OSA - 09/17/2024 11:19 AM EST LVMM for daughter. I mailed a new copy of pre-op instructions to patient. * Telephone Encounter - Andrew Bertrand CRNP - 09/17/2024 11:10 AM EST Hortencia/Shakir, Please call Mr. Morrissey and/or daughter back and enforce that he should follow the initial preoperative instructions provided back at his clinic visit on 07/25/2024. Offer to resend a copy by mail if needed. Jey Morales * Telephone Encounter - Hortencia Thomas OSA - 09/17/2024 10:55 AM EST Spoke to daughter. Offered 10/01 and 10/19. She asked what was available after the new year. She accepted 11/16/24. I confirmed with Dr. Mccormick that this would be ok. * Telephone Encounter - Samantha Kingston PA-C - 09/17/2024 10:07 AM EST Please reschedule patient FYI Dr. Mccormick * Telephone Encounter - Brissa Rosenberg - Mira Ob/Or, KRISTEN - 09/17/2024 9:54 AM EST Osmin daughter mitzy called osmin is sick and needs to reschedule 11.13 surgery Please call her back Thank you brissa documented in this encounter Plan of Treatment Upcoming Encounters Date Type Department Care Team (Latest Contact Info) Description 10/01/2024 9:32 AM EST Hospital Encounter OR [facility], OPERATING ROOM [facility] [address] [place] [address] Toby Mccormick MD [address], [place] [id number] 10/01/2024 9:32 AM EST - 10/01/2024 12:57 PM EST Surgery OR [facility], OPERATING ROOM [facility], [facility] [address] [place] [address] Toby Mccormick MD [address], [place] [id number] CATHETER PLACEMENT, ABDOMINAL-LOWER EXTREMITY, FIRST ORDER BRANCH 10/16/2024 2:30 PM EST Imaging Radiology [facility] 1st [facility] [place] [address] [place] [address] 10/24/2024 2:30 PM EST Office Visit Vascular Surgery, [facility] [address] [place] [address] Toby Mccormick MD [address] [place] [address] Scheduled Procedures Name Priority Associated Diagnoses Date/Ti me CATHETER PLACEMENT, ABDOMINAL-LOWER EXTREMITY, FIRST ORDER BRANCH Infrarenal abdominal aortic aneurysm (AAA) without rupture (HCC) KRISTEN on CPAP Essential hypertension with goal blood pressure less than 130/80 Chronic obstructive pulmonary disease, unspecified COPD type (HCC) Dyslipidemia, goal LDL below 70 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 10/01/2024 9:32 AM EST ANGIOGRAPHY EXTREMITY BILATERAL Infrarenal abdominal aortic aneurysm (AAA) without rupture (HCC) KRISTEN on CPAP Essential hypertension with goal blood pressure less than 130/80 Chronic obstructive pulmonary disease, unspecified COPD type (HCC) Dyslipidemia, goal LDL below 70 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 10/01/2024 9:32 AM EST EMBOLIZATION ARTERIAL; SUPERVISION & INTERPRETATION Infrarenal abdominal aortic aneurysm (AAA) without rupture (HCC) KRISTEN on CPAP Essential hypertension with goal blood pressure less than 130/80 Chronic obstructive pulmonary disease, unspecified COPD type (HCC) Dyslipidemia, goal LDL below 70 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 10/01/2024 9:32 AM EST Health Maintenance Due Date Last [...] this encounter Medical Devices Implanted Type Area Switchgear Repairer Device Identifier Shelf Expiration Date Model / Serial / Lot Azur Peripheral Coil System Implanted:Qty: 9 on 01/02/2020 by Shawn Cordoba MD at OR [facility] N/A: Aorta [employer] MISTI 09/06/2022 [id number] / / [id number] Coil Vortex 35 Pltinm [id number] - [id number] Implanted:Qty: 1 on 01/02/2020 by Shawn Cordboa MD at OR [facility] N/A: Aorta [employer] : NEURO INTR [id number] 07/11/2022 [id number] 61 / / [id number] Coil Vortex 35 Pltinm [id number] - [id number] Implanted:Qty: 1 on 01/02/2020 by Shawn Cordoba MD at OR [facility] Aorta [employer] : NEURO INTR [id number] 07/11/2022 [id number] / / [id number] Coil Azur .035 [id number] - [id number] Implanted:Qty: 9 on 01/02/2020 by Shawn Cordoba MD at OR [facility] N/A: Aorta [employer] MISTI 05/06/2021 [id number] / / [id number] Coil Azur .035 [id number] - [id number] Implanted:Qty: 9 on 01/02/2020 by Shawn Cordoba MD at OR [facility] N/A: Aorta [employer] M[employer] 01/04/2021 [id number] / / [id number] Coil Azur 16mm 20cm Implanted:Qty: 2 on 01/02/2020 by Shawn Cordoba MD at OR [facility] N/A: Aorta [employer] 05/06/2021 [id number] / / [id number] Coil Azur 16mm 20cm Implanted:Qty: 3 on 01/02/2020 by Shawn Cordoba MD at OR [facility] N/A: Aorta [employer] 06/06/2021 [id number] / / [id number] Coil Azur 16mm 20cm Implanted:Qty: 6 on 01/02/2020 by Shawn Cordoba MD at OR [facility] N/A: Aorta [employer] 09/06/2022 [id number] / / [id number] Coil Azur 16mm 20cm Implanted:Qty: 3 on 01/02/2020 by Shawn Cordoba MD at OR [facility] N/A: Aorta [employer] 06/06/2021 [id number] / / [id number] Coil Azur .035 [id number] - [id number] Implanted:Qty: 7 on 01/02/2020 by Shawn Cordoba MD at OR [facility] N/A: Aorta [employer] M[employer] 05/06/2021 [id number] / / [id number] Coil Vortex 35 Pltinm [id number] - [id number] Implanted:Qty: 1 on 01/02/2020 by Shawn Cordoba MD at OR [facility] N/A: Aorta [employer] : NEURO INTR [id number] 02/28/2022 [id number] 61 / / [id number] documented as of this encounter Advance Directives [...] 12:00 PM 01/03/2020 2:49 PM Care Teams Lubricator Granulator Relationship Specialty Start Date End Date Meenu Avitia DO [address] [place] [address] [place] [address] PCP - General Family Medicine 11/20/19 documented as of this encounter
--- OUTSIDE RECORDS SUMMARY | 2025-01-15 00:29 | External Medical Summary | Summary of Care ---
Author Name Unknown Organization [facility] Address [address] [place] [address] Phone [phone] Care Team Providers Care Cd Storage And Materials Make Up Helper Name Role Phone Meenu Avitia Primary Care Provider Reason for Visit * Reason Onset Date Comments Surgery 09/17/2024 Encounter Details Date Type Department Care Team (Late st Contact Info) Description 09/17/2024 Telephone Vascular Surg [facility] [address], [place] [phone] Services, Scheduling [address] [place] [address] Surgery Allergies Active Allergy Reactions Criticality Noted Date Comments Cephalexin Hives,Rash Low 05/20/2021 Latex Rash Low 01/21/2023 Sertraline Rash High 11/20/2019 documented as of this encounter (statuses as of 09/17/2024) Medications Albuterol Sulfate (PROAIR HFA) 108 (90 [...] as of this encounter (statuses as of 09/17/2024) Active Problems Problem Noted Date Diagnosed Date [...] as of this encounter (statuses as of 09/17/2024) Resolved Problems Problem Noted Date Diagnosed Date Resolved Date Postoperative ileus 05/12/2022 05/12/20 22 RUFUS (acute kidney injury) 05/10/2022 Hypokalemia 05/10/2022 05/12/2022 Acute cholecystitis 05/08/2022 05/12/20 22 documented as of this encounter (statuses as of 09/17/2024) Immunizations Name Administration Dates Next Due COVID-19 [...] encounter Miscellaneous Notes * Telephone Encounter - Samantha Kingston PA-C - 09/17/2024 10:07 AM EST Please reschedule patient JELLY Dr. Mccormick * Telephone Encounter - Brissa Rosenberg S - No Ob/Or, KRISTEN - 09/17/2024 9:54 AM EST Osmin daughter mitzy called osmin is sick and needs to reschedule 11.13 surgery Please call her back Thank you brissa documented in this encounter Plan of Treatment Upcoming Encounters Date Type Department Care Team (Latest Contact Info) Description 09/19/2024 9:38 AM EST Hospital Encounter [place] [facility] [facility] [facility] [facility] [address] [facility] [address] Toby Mccormick MD [address] [facility], [place] [address] 09/19/2024 9:38 AM EST - 09/19/2024 1:03 PM EST Surgery OR [facility] [address] [facility] [place] [address] Toby Mccormick MD [address] [facility] [address] CATHETER PLACEMENT, ABDOMINAL-LOWER EXTREMITY, FIRST ORDER BRANCH 10/16/2024 2:30 PM EST Imaging Radiology [facility] [address] [facility] [place] [address] 10/24/2024 2:30 PM EST Office Visit Vascular Surgery, [facility] [address] [facility] [place] [address] Toby Mccormick MD [address] [place] [address] Scheduled Procedures Name Priority Associated Diagnoses Date/Ti me CATHETER PLACEMENT, ABDOMINAL-LOWER EXTREMITY, FIRST ORDER BRANCH Infrarenal abdominal aortic aneurysm (AAA) without rupture (HCC) KRISTEN on CPAP Essential hypertension with goal blood pressure less than 130/80 Chronic obstructive pulmonary disease, unspecified COPD type (HCC) Dyslipidemia, goal LDL below 70 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 09/19/2024 9:38 AM EST ANGIOGRAPHY EXTREMITY BILATERAL Infrarenal abdominal aortic aneurysm (AAA) without rupture (HCC) KRISTEN on CPAP Essential hypertension with goal blood pressure less than 130/80 Chronic obstructive pulmonary disease, unspecified COPD type (HCC) Dyslipidemia, goal LDL below 70 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 09/19/2024 9:38 AM EST EMBOLIZATION ARTERIAL; SUPERVISION & INTERPRETATION Infrarenal abdominal aortic aneurysm (AAA) without rupture (HCC) KRISTEN on CPAP Essential hypertension with goal blood pressure less than 130/80 Chronic obstructive pulmonary disease, unspecified COPD type (HCC) Dyslipidemia, goal LDL below 70 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 09/19/2024 9:38 AM EST Health Maintenance Due Date Last [...] this encounter Medical Devices Implanted Type Area Gameplay Engineer Device Identifier Shelf Expiration Date Model / Serial / Lot Azur Peripheral Coil System Implanted:Qty: 9 on 01/02/2020 by Shawn Cordoba MD at [place] [facility] N/A: Aorta [employer] MISTI 09/06/2022 [id number] / / [id number] Coil Vortex 35 Pltinm [id number] - [id number] Implanted:Qty: 1 on 01/02/2020 by Shawn Cordoba MD at [place] [facility] N/A: Aorta [employer] : NEURO INTR [id number] 07/11/2022 [id number] / / [id number] Coil Vortex 35 Pltinm 149057 - [id number] Implanted:Qty: 1 on 01/02/2020 by Shawn Cordoba MD at [place] [facility] Aorta [employer] : NEURO INTR [id number] 07/11/2022 [id number] 61 / / [id number] Coil Azur .035 [id number] - [id number] Implanted:Qty: 9 on 01/02/2020 by Shawn Cordoba MD at [place] [facility] N/A: Aorta [employer] MIST[employer] 05/06/2021 [id number] / / [id number] Coil Azur .035 [id number] - [id number] Implanted:Qty: 9 on 01/02/2020 by Shawn Cordoba MD at [place] [facility] [place]/A: Aorta [employer] MIST[employer] 01/04/2021 [id number] / / [id number] Coil Azur 16mm 20cm Implanted:Qty: 2 on 01/02/2020 by Shawn Cordoba MD at [place] [facility] N/A: Aorta [employer] 05/06/2021 [id number] / / [id number] Coil Azur 16mm 20cm Implanted:Qty: 3 on 01/02/2020 by Shawn Cordoba MD at [place] [facility] N/A: Aorta [employer] 06/06/2021 [id number] / / [id number] Coil Azur 16mm 20cm Implanted:Qty: 6 on 01/02/2020 by Shawn Cordoba MD at [place] [facility] N/A: Aorta [employer] 09/06/2022 [id number] / / [id number] Coil Azur 16mm 20cm Implanted:Qty: 3 on 01/02/2020 by Shawn Cordoba MD at [place] [facility] N/A: Aorta [employer] 06/06/2021 [id number] / / [id number] Coil Azur .035 [id number] - [id number] Implanted:Qty: 7 on 01/02/2020 by Shawn Cordoba MD at [place] [facility] N/A: Aorta [employer] 05/06/2021 [id number] / / [id number] Coil Vortex 35 Pltinm [id number] - [id number] Implanted:Qty: 1 on 01/02/2020 by Shawn Cordoba MD at [place] [facility] N/A: Aorta [employer] : NEURO INTR [id number] 02/28/2022 [id number] / / [id number] documented as of this encounter Advance Directives [...] 12:00 PM 01/03/2020 2:49 PM Care Teams Cd Storage And Materials Make Up Helper Relationship Specialty Start Date End Date Meenu Avitia DO [address] [place] [address] [place] [address] PCP - General Family Medicine 11/20/19 documented as of this encounter
--- OUTSIDE RECORDS SUMMARY | 2025-01-15 00:29 | External Medical Summary | Summary of Care ---
Author Name Unknown Organization [facility] Address [address] [place] [address] Phone [phone] Care Team Providers Care Certified Art Therapist Name Role Phone Meenu Avitia Primary Care Provider Reason for Visit * Reason Onset Date Comments Surgery 09/17/2024 Encounter Details Date Type Department Care Team (Late st Contact Info) Description 09/17/2024 Telephone Vascular Surg [facility] [address] [place], [place] [id number] Services, Scheduling [address] [place] [address] Surgery Allergies Active Allergy Reactions Criticality Noted [...] encounter Miscellaneous Notes * Telephone Encounter - Hortencia Thomas OSA - 09/17/2024 10:55 AM EST Spoke to daughter. Offered 10/01 and 10/19. She asked what was available after the new year. She accepted 11/16/24. I confirmed with Dr. Mccormick that this would be ok. * Telephone Encounter - Samantha Kingston PA-C - 09/17/2024 10:07 AM EST Please reschedule patient FYI Dr. Mccormick * Telephone Encounter - Shakira Brissa Jagjit - No Ob/Or, KRISTEN - 09/17/2024 9:54 AM EST Osmin daughter mitzy called osmin is sick and needs to reschedule 11.13 surgery Please call her back Thank you brissa documented in this encounter Plan of Treatment Upcoming Encounters Date Type Department Care Team (Latest Contact Info) Description 10/16/2024 2:30 PM EST Imaging Radiology [facility] 1st [facility] [address] [place] [address] 10/24/2024 2:30 PM EST Office Visit Vascular Surgery, [facility] [address] [place] [address] Toby Mccormick MD [address] [place] [address] 11/16/2024 7:15 AM EST Hospital Encounter OR [facility], OPERATING ROOM [facility] [address] [place] [address] Toby Mccormick MD [address] [place] [address] 11/16/2024 7:15 AM EST - 11/16/2024 10:40 AM EST Surgery OR [facility], OPERATING ROOM [facility], [facility] [address] [place] [address] Toby Mccormick MD [address] [place], [place] [id number] CATHETER PLACEMENT, ABDOMINAL-LOWER EXTREMITY, FIRST ORDER BRANCH Scheduled Procedures Name Priority Associated Diagnoses Date/Ti me CATHETER PLACEMENT, ABDOMINAL-LOWER EXTREMITY, FIRST ORDER BRANCH Infrarenal abdominal aortic aneurysm (AAA) without rupture (HCC) KRISTEN on CPAP Essential hypertension with goal blood pressure less than 130/80 Chronic obstructive pulmonary disease, unspecified COPD type (HCC) Dyslipidemia, goal LDL below 70 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 11/16/2024 7:15 AM EST ANGIOGRAPHY EXTREMITY BILATERAL Infrarenal abdominal aortic aneurysm (AAA) without rupture (HCC) KRISTEN on CPAP Essential hypertension with goal blood pressure less than 130/80 Chronic obstructive pulmonary disease, unspecified COPD type (HCC) Dyslipidemia, goal LDL below 70 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 11/16/2024 7:15 AM EST EMBOLIZATION ARTERIAL; SUPERVISION & INTERPRETATION Infrarenal abdominal aortic aneurysm (AAA) without rupture (HCC) KRISTEN on CPAP Essential hypertension with goal blood pressure less than 130/80 Chronic obstructive pulmonary disease, unspecified COPD type (HCC) Dyslipidemia, goal LDL below 70 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 11/16/2024 7:15 AM EST Health Maintenance Due Date [...] this encounter Medical Devices Implanted Type Area Fuel Island Attendant Device Identifier Shelf Expiration Date Model / Serial / Lot Azur Peripheral Coil System Implanted:Qty: 9 on 01/02/2020 by Shawn Cordoba MD at OR [facility] N/A: Aorta [employer] MIST[employer] 09/06/2022 [id number] / / [id number] Coil Vortex 35 Pltinm [id number] - [id number] Implanted:Qty: 1 on 01/02/2020 by Shawn Cordoba MD at OR [facility] N/A: Aorta [employer] : NEURO INTR [id number] 07/11/2022 [id number] / / [id number] Coil Vortex 35 Pltinm [id number] - [id number] Implanted:Qty: 1 on 01/02/2020 by Shawn Cordoba MD at OR [facility] Aorta [employer] : NEURO INTR [id number] 07/11/2022 [id number] / / [id number] Coil Azur .035 [id number] - [id number] Implanted:Qty: 9 on 01/02/2020 by Shawn Cordoba MD at OR [facility] N/A: Aorta TER[employer]odong[employer]ing MEDICAL MISTI 05/06/2021 45-127313 / / [id number] Coil Azur .035 [id number] - [id number] Implanted:Qty: 9 on 01/02/2020 by Shawn Cordoba MD at OR [facility] N/A: Aorta [employer] MISTI 01/04/2021 [id number] / / [id number] Coil Azur 16mm 20cm Implanted:Qty: 2 on 01/02/2020 by Shawn Cordoba MD at OR [facility] N/A: Aorta [employer] 05/06/2021 [id number] / / [id number] Coil Azur 16mm 20cm Implanted:Qty: 3 on 01/02/2020 by Shawn Cordoba MD at OR [facility] N/A: Aorta [employer] 06/06/2021 [id number] / / [id number] Coil Azur 16mm 20cm Implanted:Qty: 6 on 01/02/2020 by Shawn Cordoba MD at OR [facility] N/A: Aorta [employer] 09/06/2022 [id number] / / [id number] Coil Azur 16mm 20cm Implanted:Qty: 3 on 01/02/2020 by Shawn Cordoba MD at OR [facility] N/A: Aorta [employer] 06/06/2021 [id number] / / [id number] Coil Azur .035 24ofp58cm - [id number] Implanted:Qty: 7 on 01/02/2020 by Shawn Cordoba MD at OR [facility] N/A: Aorta [employer] MISTI 05/06/2021 [id number] / / [id number] Coil Vortex 35 Pltinm [id number] - [id number] Implanted:Qty: 1 on 01/02/2020 by Shawn Cordoba MD at OR [facility] N/A: Aorta [employer] : NEURO INTR [id number] 02/28/2022 [id number] / / [id number] documented as of this encounter Advance Directives [...] 12:00 PM 01/03/2020 2:49 PM Care Teams Certified Art Therapist Relationship Specialty Start Date End Date Meenu Avitia DO [address] [place] [address] [place] [address] PCP - General Family Medicine 11/20/19 documented as of this encounter
--- OUTSIDE RECORDS SUMMARY | 2025-01-15 00:29 | External Medical Summary | Summary of Care ---
Author Name Unknown Organization [facility] Address [address] [place] [address] Phone [phone] Care Team Providers Care Head Of Marketing Name Role Phone Meenu Avitia Primary Care Provider Reason for Visit * Reason Onset Date Comments Surgery 09/17/2024 Encounter Details Date Type Department Care Team (Late st Contact Info) Description 09/17/2024 Telephone Vascular Surg [facility] [address] [place], [place] [id number] Services, Scheduling [address] [place] [address] Surgery Allergies Active Allergy Reactions Criticality Noted [...] encounter Miscellaneous Notes * Telephone Encounter - Andrew Bertrand CRNP - 09/20/2024 10:06 AM EST Terence, Please work with Dr. Mccormick to find a date in November. Thanks Andrew * Telephone Encounter - Herminio Man OSA - 09/20/2024 10:00 AM EST Pt daughter called. Pt is "worked up" about surg being moved to November Please advise [phone] KRISTEN Crews * Telephone Encounter - Hortencia Thomas OSA - 09/17/2024 11:19 AM EST LVMM for daughter. I mailed a new copy of pre-op instructions to patient. * Telephone Encounter - Andrew Bertrand CRNP - 09/17/2024 11:10 AM EST Terence, Please call Mr. Morrissey and/or daughter back and enforce that he should follow the initial preoperative instructions provided back at his clinic visit on 07/25/2024. Offer to resend a copy by mail if needed. Thanks Andrew * Telephone Encounter - Hortencia Thomas OSA [...] * Telephone Encounter - Brissa Rosenberg - No Ob/Or, KRISTEN - 09/17/2024 9:54 AM EST Osmin daughter mitzy called osmin is sick and needs to reschedule 11.13 surgery Please call her back Thank you brissa documented in this encounter Plan of Treatment Upcoming Encounters Date Type Department Care Team (Latest Contact Info) Description 10/16/2024 2:30 PM EST Imaging Radiology [facility] 1st [facility] [address] [place] [address] 10/24/2024 2:30 PM EST Office Visit Vascular Surgery, [facility] [address] [place] [address] Toby Mccormick MD [address] [place] [address] 11/16/2024 7:15 AM EST Hospital En[place] [facility] [place] [facility] [place] [facility] [address] [place] [id number] Toby Mccormick MD [address] [place] [address] 11/16/2024 7:15 AM EST - 11/16/2024 10:40 AM EST Surgery [place] [facility] [place] [facility] [place] [facility] [address] [facility] [place] [address] Toby Mccormick MD [address] [place] [address] CATHETER PLACEMENT, ABDOMINAL-LOWER EXTREMITY, FIRST ORDER BRANCH [...] DISTAL OR PROXIMAL EXTENSION ENDOVASCULAR PROSTHESIS [facility] RADIOLOGY SUPERVISION & INTERPRETATION, INFRARENAL AORTIC [...] VERIFIED BY PFT 12/15/2019 TSH 12/30/2022 12/30/2021, 2 04/2022, 12/11/2019 COVID-19 Vaccine (3 - 2024-25 season) 2024 02/24/2021, 01/22/2021 Influenza Vaccine (FLU [...] this encounter Medical Devices Implanted Type Area Chemistry Technician Device Identifier Shelf Expiration Date Model / Serial / Lot Azur Peripheral Coil System Implanted:Qty: 9 on 01/02/2020 by Shawn Cordoba MD [place] [facility] [place]: Aorta [employer] 09/06/2022 [id number] / / [id number] Coil Vortex 35 Pltinm [id number] - [id number] Implanted:Qty: 1 on 01/02/2020 by Shawn Cordoba MD [place] [facility] [place]: Aorta [employer] : NEURO INTR [id number] 07/11/2022 [id number] / / [id number] Coil Vortex 35 Pltinm [id number] - [id number] Implanted:Qty: 1 on 01/02/2020 by Shawn Cordoba MD [place] [facility] [place] Aorta [employer] : NEURO INTR [id number] 07/11/2022 [id number] / / [id number] Coil Azur .035 [id number] - [id number] Implanted:Qty: 9 on 01/02/2020 by Shawn Cordoba MD [place] [facility] [place]: Aorta [employer] 05/06/2021 [id number] / / [id number] Coil Azur .035 [id number] - [id number] Implanted:Qty: 9 on 01/02/2020 by Shawn Cordoba MD [place] [facility] [place]: Aorta [employer] 01/04/2021 [id number] / / [id number] Coil Azur 16mm 20cm Implanted:Qty: 2 on 01/02/2020 by Shawn Cordoba MD [place] [facility] [place]: Aorta [employer] 05/06/2021 [id number] / / [id number] Coil Azur 16mm 20cm Implanted:Qty: 3 on 01/02/2020 by Shawn Cordoba MD [place] [facility] [place]: Aorta [employer] 06/06/2021 [id number] / / [id number] Coil Azur 16mm 20cm Implanted:Qty: 6 on 01/02/2020 by Shawn Cordoba MD [place] [facility] [place]: Aorta [employer] 09/06/2022 [id number] / / [id number] Coil Azur 16mm 20cm Implanted:Qty: 3 on 01/02/2020 by Shawn Cordoba MD [place] [facility] [facility] [place]: Aorta [employer] 06/06/2021 [id number] / / [id number] Coil Azur .035 [id number] - [id number] Implanted:Qty: 7 on 01/02/2020 by Shawn Cordoba MD [place] [facility] [place]: Aorta [employer] 05/06/2021 [id number] / / [id number] Coil Vortex 35 Pltinm [id number] - [id number] Implanted:Qty: 1 on 01/02/2020 by Shawn Cordoba MD [place] [facility] [place]: Aorta [employer] : NEURO INTR [id number] 02/28/2022 [id number] / / [id number] documented as of this encounter Advance Directives [...] 12:00 PM 01/03/2020 2:49 PM Care Teams Head Of Marketing Relationship Specialty Start Date End Date Meenu Avitia DO [address] [place] [address] PCP - General Family Medicine 11/20/19 documented as of this encounter
--- OUTSIDE RECORDS SUMMARY | 2025-01-15 00:29 | External Medical Summary | Summary of Care ---
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 Name Role Phone Meenu Avitia Primary Care Provider Reason for Visit * Reason Onset Date Comments STAIR AAA 07/26/2024 Encounter Details Date Type Department Care Team (Late st Contact Info) Description 07/26/2024 Telephone STAIR [facility] [address] [place] [address] Program, Stair [address] [place] [address] STAIR [facility] Allergies Active Allergy Reactions Criticality Noted Date Comments Cephalexin Hives,Rash Low 05/20/2021 Latex Rash Low 01/21/2023 Sertraline Rash High 11/20/2019 documented as of this encounter (statuses as of 07/26/2024) Medications Medication Sig Dispensed Refills Start Date End Date Status Albuterol Sulfate (PROAIR HFA) 108 (90 Base) [...] mouth at bedtime as needed. Active fluticasone furoate-vilanterol (BREO ELLIPTA) 200-25 MCG/INH AEPB Inhale 1 Puff by mouth in the morning. 03/18/2020 Active Levothyroxine Sodium 137 MCG Tablet daily. 03/07/2020 Active B-12 Compliance Injection 1000 MCG/ML Injection Kit (Cyanocobalamin) Inject 1,000 mcg into a large muscle every 30 days. Active CPAP every night at bedtime . Active metFORMIN HCl 500 MG Oral Tablet (Glucophage) Take 1 Tablet by mouth daily with breakfast. 02/12/2024 Active Rosuvastatin Calcium 10 MG Oral Tablet (Crestor) Take 1 Tablet by mouth in the morning. 90 Tablet 3 04/09/2024 Active Meloxicam 15 MG Oral Tablet (Mobic) Take 1 Tablet by mouth as needed. 06/15/2024 Active DULoxetine HCl 30 MG Oral Capsule Delayed Release Particles (Cymbalta) Take 1 Capsule by mouth in the morning. 07/03/2024 Active Triamcinolone Acetonide 0.1 % External Ointment (Aristocort) 07/19/2024 Active documented as of this encounter (statuses as of 07/26/2024) Active Problems Problem Noted Date Diagnosed Date History of endovascular sten t graft for abdominal aortic aneurysm 07/25/2024 KRISTEN on CPAP 05/08/2022 Essential hypertension with goal blood pressure less than 130/80 01/22/2020 AAA (abdominal aortic aneurysm) without rupture 12/31/2019 Overview: S/p repair Dyslipidemia, goal LDL below 70 Tobacco abuse, in remission COPD (chronic obstructive pulmonary disease) documented as of this encounter (statuses as of 07/26/2024) Resolved Problems Problem Noted Date Diagnosed Date Resolved Date Postoperative ileus 05/12/2022 05/12/20 RUFUS (acute kidney injury) 05/10/2022 Hypokalemia 05/10/2022 05/12/2022 Acute cholecystitis 05/08/2022 05/12/20 22 documented as of this encounter (statuses as of 07/26/2024) Immunizations Name Administration Dates Next Due COVID-19 [...] Recorded Sex Assigned at Not on file Gender Identity Not on file Sexual Orientation Not on file Job Start Date Occupation Industry Not on file Not on file Not on file documented as of this encounter Functional Status Functional Status Response Date of Assess ment Are you deaf or do you have serious difficulty h earing? No 05/08/2022 Are you blind or do you have serious difficulty seeing, even when wearing glasses? No 05/08/2022 Do you have serious difficul ty walking or climbing stairs? (5 years old or older) No 05/08/2022 Do you have difficulty dress ing or bathing? (5 years old or older) No 05/08/2022 Because of a physical, menta l, or emotional condition, do you have difficulty doing errands alone such as visiting a doctor s office or shopping? (15 years old or older) No 05/08/20 22 Cognitive Status Response Date of Assessm ent Because of a physical, menta l, or emotional condition, do you have serious difficulty concentrating, remembering, or making decisions? (5 years old or older) No 05/08/2022 documented as of this encounter Miscellaneous Notes * Telephone Encounter - Ann Puri LPN - 07/26/2024 7:20 AM EDT AAA - Clinical Summary Name: Parker Morrissey Age: [age] year old AAA Review: Follow-up Follow-up Encounter Provider: Toby Mccormick MD Patient Identified by: Problem List Report Imaging Interpretation: CT Type of Result: SP EVAR AAA Care Plan Imaging Recommendation: CTA - details below Details: Abdomen/Pelvis in 3 months AAA Care Plan Visit Recommendation: Return visit in Vascular Surgery Details: in 3 months Next steps: No action needed at this time. Patient was seen by vascular surgery yesterday. Next clinic visit with testing prior is already scheduled. Will continue to track. Time spent: 10 minutes Ann Puri LPN Coordinator STAIR (System to Track Abnormalities of Importance Reliably) CT RECON ENDOVASC ANEURYSM REPAIR SURGERY PLAN 07/17/2024 Narrative EXAM: CTA ABDOMEN PELVIS WITH CONTRAST HISTORY: H/O EVAR COMPARISON: CT abdomen and pelvis from 09/23/2021. TECHNIQUE: CTA abdomen pelvis with intravenous contrast was performed. Reformatted MIP images were obtained and reviewed. CONTRAST: 80 ml intravenously. FINDINGS: LOWER CHEST: Small pericardial effusion. LIVER: Unremarkable. GALLBLADDER/BILE DUCTS: Cholecystectomy. PANCREAS: Cystic lesion in the mid pancreatic body measuring up to 25 mm common not significantly changed since prior exam. No pancreatic ductal dilatation. GI TRACT: No evidence of bowel obstruction. SPLEEN: Unremarkable. LYMPH NODES: Prominent right retrocrural lymph node measuring up to 22 mm, unchanged. ADRENAL GLANDS: Unremarkable. KIDNEYS/URETERS: Unremarkable. URINARY BLADDER: So severe bladder wall concentric thickening, likely on the basis of chronic outlet obstruction. REPRODUCTIVE ORGANS: Prostate gland is unremarkable. VASCULATURE: Status post aorta bi-iliac endograft repair of a infrarenal abdominal aortic aneurysm.There is coil mass embolization of the nulato aneurysmal sac. Artifact from coil aneurysm limits optimal evaluation for endoleak. Within this limitation there is no evidence of endoleak. Aneurysm sac measures up to 101 mm, unchanged since prior exam when measured similarly. Right common iliac artery aneurysm measures up 25 mm. Left common iliac artery aneurysm measures upto 19 mm. TONO is occluded at its origin. Celiac artery is patent. SMA is patent with mild ostial calcifications. Accessory renal artery on the right. Renal arteries are patent. Mild atherosclerotic plaque at the origin of the left renal artery. MISCELLANEOUS: No free fluid or free air. MUSCULOSKELETAL: Polyarticular degenerative changes. No acute osseous abnormalities. Impression : Status post aorta bi-iliac abdominal aortic aneurysm endograft repair with subsequent coil embolization. No evidence of endoleak. Maximum size of the excluded aneurysm sac measures up to 10 cm, unchanged. 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 documented in this encounter Plan of Treatment Upcoming Encounters Date Type Department Care Team (Late st Contact Info) Description 09/19/2024 Hospital Encounter [facility], OPERATING ROOM [facility] [place] [place] [facility] [address] [place] [address] Toby Mccormick MD [address] [place], [place] [id number] 10/16/2024 2:30 PM EST Imaging Radiology [facility] 1st [facility] [address] [place] [address] 10/24/2024 2:30 PM EST Office Visit Vascular Surgery, [facility] [address] [place] [address] Toby Mccormick MD [address] [place], [place] [id number] Scheduled Procedures Name Priority Associated Diagnoses Date/Ti me CATHETER PLACEMENT, ABDOMINAL-LOWER EXTREMITY, FIRST ORDER BRANCH Infrarenal abdominal aortic aneurysm (AAA) without rupture (HCC) KRISTEN on CPAP Essential hypertension with goal blood pressure less than 130/80 Chronic obstructive pulmonary disease, unspecified COPD type (HCC) Dyslipidemia, goal LDL below 70 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 ANGIOGRAPHY EXTREMITY BILATERAL Infrarenal abdominal aortic aneurysm (AAA) without rupture (HCC) KRISTEN on CPAP Essential hypertension with goal blood pressure less than 130/80 Chronic obstructive pulmonary disease, unspecified COPD type (HCC) Dyslipidemia, goal LDL below 70 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 IMAGING SUPERVISION & INTERPRETATION ABDOMINAL AO Infrarenal abdominal aortic aneurysm (AAA) without rupture (HCC) KRISTEN on CPAP Essential hypertension with goal blood pressure less than 130/80 Chronic obstructive pulmonary disease, unspecified COPD type (HCC) Dyslipidemia, goal LDL below 70 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 PLACEMENT DISTAL OR PROXIMAL EXTENSION [facility]ASCULAR [facility]ES[facility] 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 EMBOLIZATION ARTERIAL; SUPER VISION & INTERPRETATION Infrarenal abdominal aortic aneurysm (AAA) without rupture (HCC) KRISTEN on CPAP Essential hypertension with goal blood pressure less than 130/80 Chronic obstructive pulmonary disease, unspecified COPD type (HCC) Dyslipidemia, goal LDL below 70 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 Health Maintenance Due Date Last Done Comments [...] Pneumococcal Vaccine: 65+ Years Completed 06/29/2017, 09/25/2015 Lung Cancer Screening Completed 02/22/2019 , 10/06/2016, 08/06/2015 HPV (Gardasil) Vaccine Aged Out No lo nger eligible based on patient's age to complete this topic Hepatitis B Vaccine Aged Out No longe r eligible based on patient's age to complete this topic MENINGOCOCCAL (MENACTRA/MENVEO) Aged Out No longer eligible based on patient's age to complete this topic documented as of this encounter Medical Devices Implanted Type Area Calendering Machine Operator Device Identifier Shelf Expiration Date Model / Serial / Lot Azur Peripheral Coil System Implanted:Qty: 9 on 01/02/2020 by Shawn Cordoba MD at [place] [facility] [place] N/A: Aorta [employer] 09/06/2022 [id number] / / [id number] Coil Vortex 35 Pltinm [id number] - [id number] Implanted:Qty: 1 on 01/02/2020 by Shawn Cordoba MD at [place] [facility] [place] [place] N/A: Aorta [employer] : NEURO INTR [id number] 07/11/2022 [id number] / / [id number] Coil Vortex 35 Pltinm [id number] - [id number] Implanted:Qty: 1 on 01/02/2020 by Shawn Cordoba MD at [place] [facility] [place] Aorta [employer] : NEURO INTR [id number] 07/11/2022 [id number] / / [id number] Coil Azur .035 [id number] - [id number] Implanted:Qty: 9 on 01/02/2020 by Shawn Cordoba MD at [place] [facility] [place] [place] N/A: Aorta [employer] 05/06/2021 [id number] / / [id number] Coil Azur .035 [id number] - [id number] Implanted:Qty: 9 on 01/02/2020 by Shawn Cordoba MD at [place] [facility] [place] [place] N/A: Aorta [employer] 01/04/2021 [id number] / / [id number] Coil Azur 16mm 20cm Implanted:Qty: 2 on 01/02/2020 by Shawn Cordoba MD at [place] [facility] [place] [place] N/A: Aorta [employer] 05/06/2021 [id number] / / [id number] Coil Azur 16mm 20cm Implanted:Qty: 3 on 01/02/2020 by Shawn Cordoba MD at [place] [facility] [place] [place] N/A: Aorta [employer] 06/06/2021 [id number] / / [id number] Coil Azur 16mm 20cm Implanted:Qty: 6 on 01/02/2020 by Shawn Cordoba MD at [place] [facility] [place] [place] N/A: Aorta [employer] 09/06/2022 [id number] / / [id number] Coil Azur 16mm 20cm Implanted:Qty: 3 on 01/02/2020 by Shawn Cordoba MD at [place] [facility] [place] [place] N/A: Aorta [employer] 06/06/2021 [id number] / / [id number] Coil Azur .035 [id number] - [id number] Implanted:Qty: 7 on 01/02/2020 by Shawn Cordoba MD at [place] [facility] [place] [place] N/A: Aorta [employer] 05/06/2021 [id number] / / [id number] Coil Vortex 35 Pltinm [id number] - [id number] Implanted:Qty: 1 on 01/02/2020 by Shawn Cordoba MD at [place] [facility] [place] [place] N/A: Aorta [employer] : NEURO INTR [id number] 02/28/2022 [id number] / / [id number] documented as of this encounter Advance Directives [...] 12:00 PM 01/03/2020 2:49 PM Care Teams [employer] History 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
--- OUTSIDE RECORDS SUMMARY | 2025-01-15 00:29 | External Medical Summary | Summary of Care ---
Author Name Unknown Organization [facility] Address [address] [place] [address] Phone [phone] Care Team Providers Care Maritime Officer Name Role Phone Meenu Avitia Primary Care Provider Reason for Referral * Evaluate & Treat - Unlimited Visits (Within 10 days (routine)) - Authorized Specialty Diagnoses / Procedures Referred By Michel t Referred To Contact Anesthesiology Diagnoses Infrarenal abdominal aortic aneurysm (AAA) without rupture (HCC) KRISTEN on CPAP Essential hypertension with goal blood pressure less than 130/80 Chronic obstructive pulmonary disease, unspecified COPD type (HCC) Dyslipidemia, goal LDL below 70 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 Braulio Madrid PA-C [address] [place] [address] Referral ID Status Reason Start Date Expiration Date Visits Requested Visits Authorized [id number] Authorized Specialty Services Required 07/25/2024 1 1 Question Answer Referral Priority: Within 28 days (routine) Where should this appointment be scheduled? [facility] * Precert (Within 10 days (routine)) - Pending Review Specialty Diagnoses / Procedures Referred By Contac t Referred To Contact Radiology Diagnoses Infrarenal abdominal aortic aneurysm (AAA) without rupture (HCC) Procedures CTA ABD/PELVIS Braulio Madrid PA-C [address] [place] [address] Referral ID Status Reason Start Date Expiration Date V isits Requested Visits Authorized [id number] Pending Review 07/25/2024 999 999 Reason for Visit * Reason Comments Follow Up Encounter Details Date Type Department Care Team (Late st Contact Info) Description 07/25/2024 11:50 AM EDT Office Visit Vascular Surgery, [facility] [address] [place] [address] Toby Mccormick MD [address] [facility] [place] [address] Infrarenal abdominal aortic aneurysm (AAA) without rupture (HCC)*; KRISTEN on CPAP; Essential hypertension with goal blood pressure less than 130/80; Chronic obstructive pulmonary disease, unspecified COPD type (HCC); Dyslipidemia, goal LDL below 70; 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 Allergies Active Allergy Reactions Criticality Noted Date Comments Cephalexin Hives,Rash Low 05/20/2021 Latex Rash Low 01/21/2023 Sertraline Rash High 11/20/2019 documented as of this encounter (statuses as of 07/25/2024) Medications Medication Sig Dispensed Refills Start Date [...] as of this encounter (statuses as of 07/25/2024) Active Problems Problem Noted Date Diagnosed Date [...] as of this encounter (statuses as of 07/25/2024) Resolved Problems Problem Noted Date Diagnosed Date Resolved Date Postoperative ileus 05/12/2022 05/12/20 22 RUFUS (acute kidney injury) 05/10/2022 Hypokalemia 05/10/2022 05/12/2022 Acute cholecystitis 05/08/2022 05/12/20 22 documented as of this encounter (statuses as of 07/25/2024) Immunizations Name Administration Dates Next Due COVID-19 [...] Sign Reading Time Taken Comments Blood Pressure 150/80 07/25/2024 12:03 PM EDT Pulse 78 07/25/2024 12:03 PM EDT Temperature 36.4 C (97.5 F) 07/25/2024 12:03 PM E DT Respiratory Rate - - Oxygen Saturation - - Inhaled Oxygen Concentration - - Weight 90.3 kg (199 lb 1.6 oz) 07/25/2024 12:03 PM EDT Height - - Body Mass Index 31.18 07/04/2024 9:00 AM EDT documented in this encounter Functional Status Functional Status Response [...] (15 years old or older) No 05/08/20 Cognitive Status Response Date of Assessm ent Because of a physical, menta l, or emotional condition, do you have serious difficulty concentrating, remembering, or making decisions? (5 years old or older) No 05/08/2022 documented as of this encounter Progress Notes * Braulio Madrid PA-C - 07/25/2024 11:50 AM EDT Images from the original note were not included. Date of Service: 07/25/2024 12:11 PM Parker Morrissey is a 78 year old male. Referring Physician: Meenu Avitia DO Chief Complaint: Return, following updated CTA [...] after this repair, last imaging being in 2017/early 2018 He does recall being told there [...] to his previous vascular surgery provider in [place], or if he prefers to establish with [facility] vascular surgery, and he would like to establish with [facility]. I've therefore placed a referral. We [...] than 130/80 KRISTEN on CPAP Past Medical History: Diagnosis Date COPD (chronic obstructive pulmonary disease) (HCC) Dyslipidemia Hypothyroidism KRISTEN on CPAP Tobacco abuse, in remission Past Surgical History: Procedure Laterality Date INTRODUCTION OF CATHETER, AORTA N/A 01/02/2020 CATHETER PLACEMENT, AORTA performed by Shawn Cordoba MD at OR [facility] IR EMBOLIZATION ARTERIAL NON HEMMORHAGE N/A 01/02/2020 trans-caval fenestrated embolization of aortic aneurysm sac with endoleak, and transcatheter embolization of left internal iliac artery branch performed by Shawn Cordoba MD at [facility] LAPAROSCOPY, CHOLECYSTECTOMY WITH CHOLANGIOGRAPHY N/A 05/09/2022 LAPAROSCOPIC CHOLECYSTECTOMY WITH CHOLANGIOGRAM performed by Shawn Samuel MD at [facility] PLACE CATHETER IN VENA CAVA Right 01/02/2020 CATHETER PLACEMENT, VENOUS ACCESS performed by Shawn Cordoba MD at [facility] ENDOVASCULAR REPAIR AAA -TECH No family history [...] and Mouth: Hard of hearing. Cardiovascular: Denies OR, denies CHF, denies palpitations, occasional chest pain [...] of an endoleak. 10/27/20 Carotid Duplex KRISSY 61/ and LICA 59/19. 10/27/20; Location of Study: [facility]; Modality: duplex; AAA measures 7.8 cm in greatest transverse dimension. No endoleak. 10/27/20; Location of Study: [facility]; Modality: CT; AAA measures 8.6 cm in greatest transverse dimension. (This is essentially unchanged compared to 04/25/20 CTA). No overt evidence of endoleak. Newfocal outpouching of the point hope ira aneurysmal sac along the left lateral wall measuring approximately 2.7 x 1.82 cm. 10/27/20 BLE Art Duplex R RURAL SOCIOLOGIST 1.2 cm, R SFA 1.2 cm, R Pop .9 cm, L RURAL SOCIOLOGIST 1.2 cm, L SFA .9 cm and L Ppop .9 cm. 04/25/20; Location of Study: [facility]; Modality: CT; AAA measures 8.0 cm in greatest transverse dimension. 8.2 on coronal view. No overt evidence of endoleak. 04/25/20; Location of Study: [facility]; Modality: duplex; AAA measures 8.0 cm in greatest transversedimension. No endoleak appreciated. 12/12/19; Location of Study: [facility]; Modality: CT; AAA measures 8.2 cm in [...] endoleak S/P EVAR in 2014 at [facility]. 11/28/19 Nuc Stress Test negative for inducible ischemia. Chronic, since 2019, small pericardial effusion w/out tamponade physiology, followed by [facility]. Last routine visit 04/09/24 HTN. Dyslipidemia Reformed smoker. COPD Known pulm nodule KRISTEN Hypothyroidism [place]. PLAN: The patient was counseled regarding the [...] Continue daily Crestor 10 mg for dyslipidemia The patient was seen and examined with Toby Mccormick MD. KATELIN Linares, PA-C Section of Vascular and Endovascular Surgery [address] [address] I have reviewed the advanced practitioner's documentation on the date of service referenced in note, and I agree with, and take responsibility for the plan of care. S/p EVAR [place] S/p transcaval endoleak repair Beryl Aortic duplex 9 cm AAA sac which is similar to old CTs CT updated, aneurysm sac has increased in size by several mm in the past two- three years No clear endoleak on CT, however right iliac seal zone is tenuous at best. Uncertain whether TONO communicates to sac or not, there are some lumbar vessels as well that come close to sac but unable tosee communication. Will plan for aortogram with possible endoleak embolization and extension of right iliac seal zone with either RICHIE or coil/cover R IIA The patient was counseled at length regarding the nature of aortic disease and the risks, benefits and alternatives of this surgery. I have discussed with the patient that they are at very high risk for the following anticipated complications due to the patient's co-morbidities including , heart attack, respiratory complications, pneumonia, bleeding, infection or urinary tract infection, stroke and the development of buttock claudication or necrosis, intestinal infarction requiring colostomy, kidney failure requiring dialysis, transfusion reaction, graft failure, wound complications such as infection or hematoma requiring surgery, paralysis, and embolus to the legs which would require additional surgery or even amputation. Less common complications discussed were deep vein thrombosis or pulmonary embolism requiring anticoagulation, nerve injury causing such things as weakness, discomfort or burning pain, dye allergy, endoleak, graft migration. The patient understands that there may be a need for immediate or late open conversion to standard aneurysm surgery. The patient understands the graft will have to be monitored life-long with periodic imaging tests such as CT scans with IV contrast. The patient understands that there may be a need for additional interventions such as angiograms, stents, and other interventional radiological or surgical procedures in the future. The patient understands the seriousness of the situation and would like to proceed with surgery. All questions were answered, and informed consent was obtained. The [facility] Abdominal Aortic Aneurysm Stent Graft Booklet was given to the patient. Toby Mccormick MD Section of Vascular and Endovascular [place] [address] [phone] documented in this encounter Nursing Notes * Taylor Pino CMA - 07/25/2024 12:06 PM EDT Reviewed the option of transferring scripts to [facility] pharmacy with patient and / or family. Taylor Pino CMA documented in this encounter Miscellaneous Notes * Addendum Note - Braulio Madrid PA-C - 07/25/2024 3:12 PM EDTAddended by: BRAULIO MADRID on: 07/25/2024 03:12 PM Modules accepted: Orders documented in this encounter Plan of Treatment Upcoming Encounters Date Type Department Care Team (Late st Contact Info) Description 09/19/2024 Hospital Encounter OR [facility], OPERATING ROOM [facility], [facility] [address] [place] [address] Toby Mccormick MD [address], [place] [id number] 10/16/2024 2:30 PM EST Imaging Radiology [address] [address] 10/24/2024 2:30 PM EST Office Visit Vascular Surgery, [facility] [address] [place] [address] Toby Mccormick MD [address] [place] [address] Scheduled Orders Name Type Priority Associated Diagnoses Orde r Schedule CTA ABD/PELVIS Medical Imaging Routine Infrarenal abdominal aortic aneurysm (AAA) without rupture (HCC) Ordered: 07/25/2024 CREATININE Lab Routine Infrarenal abdominal aortic aneurysm (AAA) without rupture (HCC) 1 Occurrences starting 07/25/2024 until 07/25/2025 Scheduled Procedures Name Priority Associated Diagnoses Date/Ti [...] endovascular stent graft for abdominal aortic aneurysm Scheduled Referrals Name Type Priority Associated Diagnoses Orde r Schedule RAPID PREP ANES SURG (RPAS) REFERRAL OP Referral Routine Infrarenal abdominal aortic aneurysm (AAA) without rupture (HCC) KRISTEN on CPAP Essential hypertension with goal blood pressure less than 130/80 Chronic obstructive pulmonary disease, unspecified COPD type (HCC) Dyslipidemia, goal LDL below 70 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 Ordered: 07/25/2024 Health Maintenance Due Date Last Done Comments [...] this encounter Medical Devices Implanted Type Area Honing Machine Try Out Setter Device Identifier Shelf Expiration Date Model / Serial / Lot Azur Peripheral Coil System Implanted:Qty: 9 on 01/02/2020 by Shawn Cordoba MD at OR [facility] N/A: Aorta TER[employer]ing5O MEDICAL MISTI 09/06/2022 [id number] / / [id number] Coil Vortex 35 Pltinm [id number] - [id number] Implanted:Qty: 1 on 01/02/2020 by Shawn Cordoba MD at OR [facility] N/A: Aorta [employer] : NEURO INTR [id number] 07/11/2022 [id number] / / [id number] Coil Vortex 35 Pltinm [id number] - [id number] Implanted:Qty: 1 on 01/02/2020 by Shawn Cordoba MD at OR [facility] Aorta [employer] : NEURO INTR [id number] 07/11/2022 [id number] / / [id number] Coil Azur .035 [id number] - [id number] Implanted:Qty: 9 on 01/02/2020 by Shawn Cordoba MD at OR [facility] N/A: Aorta TERUM[employer] MISTI 05/06/2021 [id number] / / [id number] Coil Azur .035 [id number] - [id number] Implanted:Qty: 9 on 01/02/2020 by Shawn Cordoba MD at OR [facility] N/A: Aorta [employer] MEDICAL MISTI 01/04/2021 [id number] / / [id number] Coil Azur 16mm 20cm Implanted:Qty: 2 on 01/02/2020 by Shawn Cordoba MD at OR [facility] N/A: Aorta [employer] 05/06/2021 [id number] / / [id number] Coil Azur 16mm 20cm Implanted:Qty: 3 on 01/02/2020 by Shawn Cordoba MD at OR [facility] N/A: Aorta [employer] 06/06/2021 [id number] / / [id number] Coil Azur 16mm 20cm Implanted:Qty: 6 on 01/02/2020 by Shawn Cordoba MD at OR [facility] N/A: Aorta [employer] 09/06/2022 [id number] / / [id number] Coil Azur 16mm 20cm Implanted:Qty: 3 on 01/02/2020 by Shawn Cordoba MD at OR [facility] N/A: Aorta [employer] 06/06/2021 [id number] / / [id number] Coil Azur .035 [id number] - [id number] Implanted:Qty: 7 on 01/02/2020 by Shawn Cordoba MD at OR [facility] N/A: Aorta Santo[employer] MISTI 05/06/2021 [id number] / / [id number] Coil Vortex 35 Pltinm [id number] - [id number] Implanted:Qty: 1 on 01/02/2020 by Shawn Cordoba MD at OR [facility] N/A: Aorta [employer] : NEURO INTR [id number] 02/28/2022 [id number] / / [id number] documented as of this encounter Visit Diagnoses Diagnosis Infrarenal abdominal aortic aneurysm (AAA) without rupture (HCC)- Primary KRISTEN on CPAP Obstructive sleep apnea (adult) (pediatric) Essential hypertension with goal blood pressure less than 130/80 Chronic obstructive pulmonary disease, unspecified COPD type (HCC) Dyslipidemia, goal LDL below 70 Other and unspecified hyperlipidemia 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 Blood vessel replaced by other means 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- Primary Blood vessel replaced by other means 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 Blood vessel replaced by other means Infrarenal abdominal aortic aneurysm (AAA) without rupture (HCC) AAA (abdominal aortic aneurysm) without rupture (HCC) Abdominal aneurysm without mention of rupture KRISTEN on CPAP Obstructive sleep apnea (adult) (pediatric) Essential hypertension with goal blood pressure less than 130/80 COPD (chronic obstructive pulmonary disease) (HCC) Chronic airway obstruction, not elsewhere classified Dyslipidemia, goal LDL below 70 Other and unspecified hyperlipidemia documented in this encounter Advance Directives * Limited Code [...] 12:00 PM 01/03/2020 2:49 PM Care Teams Maritime Officer Relationship Specialty Start Date End Date Meenu Avitia DO [address] [place] [address] PCP - General Family Medicine 11/20/19 documented as of this encounter
--- OUTSIDE RECORDS SUMMARY | 2025-01-15 00:29 | External Medical Summary | Summary of Care ---
Author Name Unknown Organization [facility] Address [address] [place] [address] Phone [phone] Care Team Providers Care Gravity Prospecting Operator Helper Name Role Phone Meenu Avitia Primary Care Provider Reason for Visit * Reason Onset Date Comments Surgery 09/17/2024 Encounter Details Date Type Department Care Team (Late st Contact Info) Description 09/17/2024 Telephone Vascular Surg [facility] [place] [address], [place] [phone] Services, Scheduling [address] [place] [address] Surgery Allergies Active Allergy Reactions Criticality Noted [...] osmin is sick and needs to reschedule 13 surgery Please call her back Thank you brissa documented in this encounter Plan of Treatment Upcoming Encounters Date Type Department Care Team (Latest Contact Info) Description 10/16/2024 2:30 PM EST Imaging Radiology [facility] [facility] [address] [place] [address] 10/24/2024 2:30 PM EST Office Visit Vascular Surgery, [facility] [address] [place], [place] [address] Toby Mccormick MD [address] [place], [place] [phone] 11/16/2024 7:15 AM EST Hospital Encounter OR [facility], OPERATING ROOM [facility], [facility] [address] [place] [phone] Toby Mccormick MD [address] [place], [place] [phone] 11/16/2024 7:15 AM EST - 11/16/2024 10:40 AM EST Surgery OR [facility], OPERATING ROOM [facility], [facility] [address] [place] [facility] [phone] Toby Mccormick MD [address] [place] [address] CATHETER PLACEMENT, ABDOMINAL-LOWER EXTREMITY, FIRST [...] this encounter Medical Devices Implanted Type Area Restaurant Hostess Device Identifier Shelf Expiration Date Model / Serial / Lot Azur Peripheral Coil System Implanted:Qty: 9 on 01/02/2020 by Shawn Cordoba MD at OR [facility] N/A: Aorta TER[employer] MISTI 09/06/2022 [id number] / / [id number] Coil Vortex 35 Pltinm [id number] - [id number] Implanted:Qty: 1 on 01/02/2020 by Shawn Cordoba MD at OR [facility] N/A: Aorta [employer] : NEURO INTR [id number] 07/11/2022 [id number] / / [id number] Coil Vortex 35 Pltinm [id number] - [id number] Implanted:Qty: 1 on 01/02/2020 by Shawn Cordoba MD at OR [facility] Aorta [employer] : NEURO INTR [id number] 07/11/2022 [id number] / / [id number] Coil Azur .035 [id number] - [id number] Implanted:Qty: 9 on 01/02/2020 by Shawn Cordoba MD at OR [facility] N/A: Aorta TERProtez Pharm[employer]O MEDICAL MISTI 05/06/2021 [id number] / / [id number] Coil Azur .035 [id number] - [id number] Implanted:Qty: 9 on 01/02/2020 by Shawn Cordoba MD at OR [facility] N/A: Aorta TERUM[employer] MEDICAL MISTI 01/04/2021 [id number] / / [id number] Coil Azur 16mm 20cm Implanted:Qty: 2 on 01/02/2020 by Shawn Cordoba MD at OR [facility] N/A: Aorta [employer] 05/06/2021 [id number] / / [id number] Coil Azur 16mm 20cm Implanted:Qty: 3 on 01/02/2020 by Shawn Cordoba MD at OR [facility] N/A: Aorta [employer] 06/06/2021 [id number] / / [id number] Coil Azur 16mm 20cm Implanted:Qty: 6 on 01/02/2020 by Shawn Cordoba MD at OR [facility] N/A: Aorta [employer] 09/06/2022 [id number] / / [id number] Coil Azur 16mm 20cm Implanted:Qty: 3 on 01/02/2020 by Shawn Cordoba MD at OR [facility] N/A: Aorta [employer] 06/06/2021 [id number] / / [id number] Coil Azur .035 [id number] - [id number] Implanted:Qty: 7 on 01/02/2020 by Shawn Cordoba MD at OR [facility] N/A: Aorta Yoovi MISTI 05/06/2021 [id number] / / [id number] Coil Vortex 35 Pltinm [id number] - [id number] Implanted:Qty: 1 on 01/02/2020 by Shawn Cordoba MD at OR [facility] N/A: Aorta [employer] : NEURO INTR [id number] 02/28/2022 [id number] / / [id number] documented as of this encounter Advance Directives [...] 12:00 PM 01/03/2020 2:49 PM Care Teams Gravity Prospecting Operator Helper Relationship Specialty Start Date End Date Meenu Avitia DO [address] [place] [address] [place] [address] PCP - General Family Medicine 11/20/19 documented as of this encounter
--- OUTSIDE RECORDS SUMMARY | 2025-01-15 00:29 | External Medical Summary | Summary of Care ---
Author Name Unknown Organization [facility] Address [address] [place] [address] Phone [phone] Care Team Providers Care Scales Inspector Name Role Phone Meenu Avitia Primary Care Provider Reason for Visit * Reason Onset Date Comments Surgery 09/17/2024 Encounter Details Date Type Department Care Team (Late st Contact Info) Description 09/17/2024 Telephone Vascular Surg [facility] [address] [place], [place] [phone] Services, Scheduling [address] [place] [address] Surgery Allergies Active Allergy Reactions Criticality Noted [...] 09/19/2024 9:38 AM EST Hospital Encounter [place] [facility] OPERATING ROOM [facility] [address] [place] [address] Toby Mccormick MD [address] [facility], [place] [address] 09/19/2024 9:38 AM EST - 09/19/2024 1:03 PM EST Surgery [place] [facility], OPERATING ROOM [facility] [address] [facility] [place] [address] Toby Mccormick MD [address] [facility] [place] [address] CATHETER PLACEMENT, ABDOMINAL-LOWER EXTREMITY, FIRST ORDER BRANCH 10/16/2024 2:30 PM EST Imaging [facility] [address] [facility] [place] [address] 10/24/2024 2:30 PM EST Office Visit Vascular Surgery, [facility] [address] [facility] [place] [address] Toby Mccormick MD [address] [place] [address] Scheduled Procedures Name Priority Associated Diagnoses Date/Ti [...] this encounter Medical Devices Implanted Type Area Boat Joiner Helper Device Identifier Shelf Expiration Date Model / Serial / Lot Azur Peripheral Coil System Implanted:Qty: 9 on 01/02/2020 by Shawn Cordoba MD at [place] [facility] N/A: Aorta M[employer] MISTI 09/06/2022 [id number] / / [id number] Coil Vortex 35 Pltinm 875897 - [id number] Implanted:Qty: 1 on 01/02/2020 by Shawn Cordoba MD at [place] [facility] N/A: Aorta [employer] : NEURO INTR [id number] 07/11/2022 [id number] 61 / / [id number] Coil Vortex 35 Pltinm 281949 - [id number] Implanted:Qty: 1 on 01/02/2020 by Shawn Cordoba MD at [place] [facility] Aorta [employer] : NEURO INTR [id number] 07/11/2022 [id number] 61 / / [id number] Coil Azur .035 [id number] - [id number] Implanted:Qty: 9 on 01/02/2020 by Shawn Cordoba MD at [place] [facility] N/A: Aorta [employer] M[employer] 05/06/2021 45-489537 / / [id number] Coil Azur .035 [id number] - [id number] Implanted:Qty: 9 on 01/02/2020 by Shawn Cordoba MD at [place] [facility] N/A: Aorta [employer] M[employer] 01/04/2021 45-288155 / / [id number] Coil Azur 16mm 20cm Implanted:Qty: 2 on 01/02/2020 by Shawn Cordoba MD at [place] [facility] N/A: Aorta [employer] 05/06/2021 45-318123 / / [id number] Coil Azur 16mm 20cm Implanted:Qty: 3 on 01/02/2020 by Shawn Cordoba MD at [place] [facility] N/A: Aorta [employer] 06/06/2021 [id number] / / [id number] Coil Azur 16mm 20cm Implanted:Qty: 6 on 01/02/2020 by Shawn Cordoba MD at [place] [facility] N/A: Aorta [employer] 09/06/2022 [id number] / / [id number] Coil Azur 16mm 20cm Implanted:Qty: 3 on 01/02/2020 by Shawn Cordoba MD at [place] [facility] N/A: Aorta [employer] 06/06/2021 45-428634 / / [id number] Coil Azur .035 [id number] - [id number] Implanted:Qty: 7 on 01/02/2020 by Shawn Cordoba MD at [place] [facility] N/A: Aorta [employer] 05/06/2021 45-815743 / / [id number] Coil Vortex 35 Pltinm 128708 - [id number] Implanted:Qty: 1 on 01/02/2020 by Shawn Cordoba MD at [place] [facility] N/A: Aorta [employer] : NEURO INTR [id number] 02/28/2022 [id number] 61 / / [id number] documented as of this encounter Advance Directives [...] 12:00 PM 01/03/2020 2:49 PM Care Teams Scales Inspector Relationship Specialty Start Date End Date Meenu Avitia DO [address] [place] [address] [place] [address] PCP - General Family Medicine 11/20/19 documented as of this encounter
--- OUTSIDE RECORDS SUMMARY | 2025-01-15 00:29 | External Medical Summary | Summary of Care ---
Author Name Unknown Organization [facility] Address [address] [place] [address] Phone [phone] Care Team Providers Care Pavilion Cutter Name Role Phone Meenu Avitia Primary Care Provider Reason for Visit * Reason Onset Date Comments Surgery 09/17/2024 Encounter Details Date Type Department Care Team (Late st Contact Info) Description 09/17/2024 Telephone Vascular Surg [facility] [address] [place], [place] [phone] Services, Scheduling [address] [place] [address] Surgery Allergies Active Allergy Reactions Criticality Noted [...] Description 10/16/2024 2:30 PM EST Imaging Radiology [facility] 1st [facility] [address] [facility] [place] [address] 10/24/2024 2:30 PM EST Office Visit Vascular Surgery, [address] [place] [address] Toby Mccormick MD [address] [place], [place] [address] 11/16/2024 7:15 AM EST Hospital Encounter [place] [facility], [facility]PER[facility] [address] [place] [address] Toby Mccormick MD [address] [place], [place] [address] 11/16/2024 7:15 AM EST - 11/16/2024 10:40 AM EST Surgery [place] [facility], [facility] [address] [place] [address] Toby Mccormick MD [address] [place], [place] [id number] CATHETER PLACEMENT, ABDOMINAL-LOWER EXTREMITY, FIRST ORDER BRANCH [...] this encounter Medical Devices Implanted Type Area Sole Conforming Machine Operator Device Identifier Shelf Expiration Date Model / Serial / Lot Azur Peripheral Coil System Implanted:Qty: 9 on 01/02/2020 by Shawn Cordoba MD at [place] [facility] N/A: Aorta [employer] 09/06/2022 45-863342 / / [id number] Coil Vortex 35 Pltinm 134497 - [id number] Implanted:Qty: 1 on 01/02/2020 by Shawn Cordoba MD at [place] [facility] N/A: Aorta [employer] : NEURO INTR [id number] 07/11/2022 [id number] 61 / / [id number] Coil Vortex 35 Pltinm 273390 - [id number] Implanted:Qty: 1 on 01/02/2020 by Shawn Cordoba MD at [place] [facility] Aorta [employer] : NEURO INTR [id number] 07/11/2022 [id number] 61 / / [id number] Coil Azur .035 [id number] - [id number] Implanted:Qty: 9 on 01/02/2020 by Shawn Cordoba MD at [place] [facility] N/A: Aorta [employer] M[employer] 05/06/2021 45-437269 / / [id number] Coil Azur .035 [id number] - [id number] Implanted:Qty: 9 on 01/02/2020 by Shawn Cordoba MD at [place] [facility] N/A: Aorta [employer] M[employer] 01/04/2021 45-157597 / / [id number] Coil Azur 16mm 20cm Implanted:Qty: 2 on 01/02/2020 by Shawn Cordoba MD at [place] [facility] N/A: Aorta [employer] 05/06/2021 45-344569 / / [id number] Coil Azur 16mm 20cm Implanted:Qty: 3 on 01/02/2020 by Shawn Cordoba MD at OR [facility] N/A: Aorta [employer] 06/06/2021 45-977311 / / [id number] Coil Azur 16mm 20cm Implanted:Qty: 6 on 01/02/2020 by Shawn Cordoba MD at OR [facility] N/A: Aorta [employer] 09/06/2022 45-936967 / / [id number] Coil Azur 16mm 20cm Implanted:Qty: 3 on 01/02/2020 by Shawn Cordoba MD at [place] [facility] N/A: Aorta [employer] 06/06/2021 45-913252 / / [id number] Coil Azur .035 [id number] - [id number] Implanted:Qty: 7 on 01/02/2020 by Shawn Cordoba MD at [place] [facility] N/A: Aorta [employer] 05/06/2021 45-571624 / / [id number] Coil Vortex 35 Pltinm 253078 - [id number] Implanted:Qty: 1 on 01/02/2020 by Shawn Cordoba MD at [place] [facility] N/A: Aorta [employer] : NEURO INTR [id number] 02/28/2022 [id number] 61 / / [id number] documented as of this encounter Advance Directives [...] 12:00 PM 01/03/2020 2:49 PM Care Teams Pavilion Cutter Relationship Specialty Start Date End Date Meenu Avitia DO [address] [place] [address] PCP - General Family Medicine 11/20/19 documented as of this encounter
--- OUTSIDE RECORDS SUMMARY | 2025-01-15 00:29 | External Medical Summary | Summary of Care ---
Author Name Unknown Organization [facility] Address [address] [place] [address] Phone [phone] Care Team Providers Care Cassandra Architect Name Role Phone Meenu Avitia Primary Care Provider Reason for Visit * Reason Onset Date Comments Surgery 09/17/2024 Encounter Details Date Type Department Care Team (Late st Contact Info) Description 09/17/2024 Telephone Vascular Surg [facility] [address] [place], [place] [phone] Services, Scheduling [address] [place] [address] Surgery Allergies Active Allergy Reactions Criticality Noted [...] of Assessment Author No 05/08/2022 12:51 AM aJgjit Henriquez RN * Do you have difficulty [...] Please advise if any openings and call [place] [phone] KRISTEN Crews * Telephone Encounter - Hortencia [...] Mccormick * Telephone Encounter - Brissa Rosenberg Ob/OrKRISTEN - 09/17/2024 9:54 AM EST Osmin daughter mitzy called osmin is sick and needs to reschedule 11.13 surgery Please call her back Thank you brissa documented in this encounter Plan of Treatment Upcoming Encounters Date Type Department Care Team (Latest Contact Info) Description 10/16/2024 2:30 PM EST Imaging Radiology [facility]st [facility] [address] [place] [address] 10/24/2024 2:30 PM EST Office Visit Vascular Surgery, [address] [address] Toby Mccormick MD [address] [place] [address] 11/16/2024 7:15 AM EST Hospital Encounter OR [facility], OPERATING ROOM [facility] [address] [place] [address] Toby Mccormick MD [address] [place], [place] [address] 11/16/2024 7:15 AM EST - 11/16/2024 10:40 AM EST Surgery OR [facility], OPERATING ROOM [facility], [facility] [address] [place] [address] Toby Mccormick MD [address] [place] [address] CATHETER PLACEMENT, ABDOMINAL-LOWER EXTREMITY, FIRST ORDER BRANCH [...] PLACEMENT DISTAL OR PROXIMAL EXTENSION ENDOVASCULAR PROSTHESIS [facility] RADIOLOGY SUPERVISION & INTERPRETATION, INFRARENAL AORTIC [...] TSH 12/30/2022 12/30/2021, 11/08, 12/11/2019 COVID-19 Vaccine (3 - season) 2024 02/24/2021, 01/22/2021 Influenza Vaccine (FLU [...] this encounter Medical Devices Implanted Type Area Baseball Glove Shaper Device Identifier Shelf Expiration Date Model / Serial / Lot Azur Peripheral Coil System Implanted:Qty: 9 on 01/02/2020 by Shawn Cordoba MD at OR [facility] N/A: Aorta [employer] 09/06/2022 45-538951 / / [id number] Coil Vortex 35 Pltinm 716186 - [id number] Implanted:Qty: 1 on 01/02/2020 by Shawn Cordoba MD at OR [facility] N/A: Aorta [employer] : NEURO INTR [id number] 07/11/2022 [id number] 61 / / [id number] Coil Vortex 35 Pltinm 523877 - [id number] Implanted:Qty: 1 on 01/02/2020 by Shawn Cordoba MD at OR [facility] Aorta [employer] : NEURO INTR [id number] 07/11/2022 [id number] 61 / / [id number] Coil Azur .035 [id number] - [id number] Implanted:Qty: 9 on 01/02/2020 by Shawn Cordoba MD at OR [facility] N/A: Aorta [employer] 05/06/2021 [id number] / / [id number] Coil Azur .035 [id number] - [id number] Implanted:Qty: 9 on 01/02/2020 by Shawn Cordoba MD at OR [facility] N/A: Aorta [employer] M[employer] 01/04/2021 45-226609 / / [id number] Coil Azur 16mm 20cm Implanted:Qty: 2 on 01/02/2020 by Shawn Cordoba MD at OR [facility] N/A: Aorta [employer] 05/06/2021 [id number] / / [id number] Coil Azur 16mm 20cm Implanted:Qty: 3 on 01/02/2020 by Shawn Cordoba MD at OR [facility] N/A: Aorta [employer] 06/06/2021 [id number] / / [id number] Coil Azur 16mm 20cm Implanted:Qty: 6 on 01/02/2020 by Shawn Cordoba MD at OR [facility] N/A: Aorta [employer] 09/06/2022 [id number] / / [id number] Coil Azur 16mm 20cm Implanted:Qty: 3 on 01/02/2020 by Shawn Cordoba MD at OR [facility] N/A: Aorta [employer] 06/06/2021 45-663289 / / [id number] Coil Azur .035 [id number] - [id number] Implanted:Qty: 7 on 01/02/2020 by Shawn Cordoba MD at OR [facility] N/A: Aorta [employer] MIST[employer] 05/06/2021 45-160225 / / [id number] Coil Vortex 35 Pltinm 192040 - [id number] Implanted:Qty: 1 on 01/02/2020 by Shawn Cordboa MD at OR [facility] N/A: Aorta [employer] : NEURO INTR [id number] 02/28/2022 [id number] / / [id number] documented as of this encounter Advance Directives [...] 12:00 PM 01/03/2020 2:49 PM Care Teams Cassandra Architect Relationship Specialty Start Date End Date Meenu Avitia DO [address] [place] [address] PCP - General Family Medicine 11/20/19 documented as of this encounter
--- OUTSIDE RECORDS SUMMARY | 2025-01-15 00:29 | External Medical Summary | Summary of Care ---
Author Name Unknown Organization [facility] Address [address] [place] [address] Phone [phone] Care Team Providers Care Contract Admin Name Role Phone Meenu Avitia Primary Care Provider Reason for Visit * Reason Onset Date Comments Surgery 09/17/2024 Encounter Details Date Type Department Care Team (Late st Contact Info) Description 09/17/2024 Telephone Vascular Surg [facility] [address] [place], [place] [phone] Services, Scheduling [address] [place] [address] Surgery Allergies Active Allergy Reactions Criticality Noted [...] Please advise if any openings and call drob Lara [phone] KRISTEN Crews * Telephone Encounter - Hortencia [...] Jey Morales * Telephone Encounter - Hortencia Thomas, KRISTEN - 09/17/2024 10:55 AM EST Spoke to [...] Description 10/16/2024 2:30 PM EST Imaging Radiology [facility]st [facility] [address] [place] [address] 10/24/2024 2:30 PM EST Office Visit Vascular Surgery, [facility] [address] [place] [address] Toby Mccormick MD [address] [place], [place] [address] 11/16/2024 7:15 AM EST Hospital Encounter [place] [facility] [facility] [address] [place] [facility] [place] [address] Toby Mccormick MD [address] [place], [place] [address] 11/16/2024 7:15 AM EST - 11/16/2024 10:40 AM EST Surgery [place] [facility] [facility] [address] [place] [address] Toby cMcormick MD [address] [place], [place] [address] CATHETER PLACEMENT, ABDOMINAL-LOWER EXTREMITY, FIRST ORDER BRANCH Scheduled Procedures Name Priority Associated Diagnoses Date/Ti al CATHETER PLACEMENT, ABDOMINAL-LOWER EXTREMITY, FIRST ORDER BRANCH [...] OR PROXIMAL EXTENSION ENDOVASCULAR PROSTHESIS [facility] RADIOLOGY SUPERVISION & INTERPRETATION, INFRARENAL [...] this encounter Medical Devices Implanted Type Area Medical Social Consultant Device Identifier Shelf Expiration Date Model / Serial / Lot Azur Peripheral Coil System Implanted:Qty: 9 on 01/02/2020 by Shawn Cordoba MD [place] [facility] [place]: Aorta [employer] MEDICAL MISTI 09/06/2022 45-851266 / / [id number] Coil Vortex 35 Pltinm 188600 - [id number] Implanted:Qty: 1 on 01/02/2020 by Shawn Cordoba MD [place] [facility] [place]/A: Aorta [employer] : NEURO INTR [id number] 07/11/2022 [id number] / / [id number] Coil Vortex 35 Pltinm 775332 - [id number] Implanted:Qty: 1 on 01/02/2020 by Shawn Cordoba MD at [place] [facility] Aorta [employer] : NEURO INTR [id number] 07/11/2022 [id number] 61 / / [id number] Coil Azur .035 [id number] - [id number] Implanted:Qty: 9 on 01/02/2020 by Shawn Cordoba MD at [place] [facility] [place]/A: Aorta [employer] M[employer]I 05/06/2021 45-351917 / / [id number] Coil Azur .035 [id number] - [id number] Implanted:Qty: 9 on 01/02/2020 by Shawn Cordoba MD at [place] [facility] [place]/A: Aorta [employer] MEDICAL MISTI 01/04/2021 45-873612 / / [id number] Coil Azur 16mm 20cm Implanted:Qty: 2 on 01/02/2020 by Shawn Cordoba MD at [place] [facility] [place]/A: Aorta [employer] 05/06/2021 45-983954 / / [id number] Coil Azur 16mm 20cm Implanted:Qty: 3 on 01/02/2020 by Shawn Cordoba MD at [place] [facility] [place]/A: Aorta [employer] 06/06/2021 45-339445 / / [id number] Coil Azur 16mm 20cm Implanted:Qty: 6 on 01/02/2020 by Shawn Cordoba MD at [place] [facility] [place]/A: Aorta [employer] 09/06/2022 45-413007 / / [id number] Coil Azur 16mm 20cm Implanted:Qty: 3 on 01/02/2020 by Shawn Cordoba MD at [place] [facility] N/A: Aorta [employer] 06/06/2021 45-595577 / / [id number] Coil Azur .035 [id number] - [id number] Implanted:Qty: 7 on 01/02/2020 by Shawn Cordoba MD at [place] [facility] [place]/A: Aorta [employer] MISTI 05/06/2021 45-559427 / / [id number] Coil Vortex 35 Pltinm 333990 - [id number] Implanted:Qty: 1 on 01/02/2020 by Shawn Cordoba MD at [place] [facility] [place]/A[place] Aorta [employer] : NEURO INTR [id number] 02/28/2022 [id number] / / [id number] documented as of this encounter Advance Directives [...] 12:00 PM 01/03/2020 2:49 PM Care Teams Contract Admin Relationship Specialty Start Date End Date Meenu Avitia DO [address] [place] [address] PCP - General Family Medicine 11/20/19 documented as of this encounter
--- OUTSIDE RECORDS SUMMARY | 2025-01-15 00:30 | External Medical Summary | Summary of Care ---
Author Name Unknown Organization [facility] Address [address] [place] [address] Phone [phone] Care Team Providers Care Signal Tower Operator Name Role Phone Meenu Avitia Primary Care Provider Reason for Referral * Precert (Within 10 days (routine)) - Pending Review Specialty Diagnoses / Procedures Referred By Contac t Referred To Contact Radiology Diagnoses Infrarenal abdominal aortic aneurysm (AAA) without rupture (HCC) Procedures CTA ABD/PELVIS Milan Madrid PA-C [address] [place] [address] Referral ID Status Reason Start Date Expiration Date V isits Requested Visits Authorized [id number] Pending Review 07/25/2024 999 999 Reason for Visit * Reason Comments Follow Up Encounter Details Date Type Department Care Team (Late st Contact Info) Description 07/25/2024 11:50 AM EDT Office Visit Vascular Surgery, [facility] [address] [facility] [place] [address] Toby Mccormick MD [address] [place] [address] Infrarenal abdominal aortic aneurysm (AAA) without rupture [...] Active Problems Problem Noted Date Diagnosed Date KRISTEN on CPAP 05/08/2022 Essential hypertension with [...] as of this encounter Progress Notes * Milan Madrid PA-C - 07/25/2024 11:50 AM EDT [...] KRISTEN He underwent EVAR in 2014 by Amanda Clementona He states he did [...] to his previous vascular surgery provider in [place], or if he prefers to establish with [facility] vascular surgery, and he would like to establish with [facility]. I've therefore placed a referral. We [...] performed by Shawn Cordoba MD at [place] [facility] [place] EMBOLIZATION ARTERIAL NON HEMMORHAGE N/A 01/02/2020 trans-caval fenestrated embolization of aortic aneurysm sac with endoleak, and transcatheter embolization of left internal iliac artery branch performed by Shawn Cordoba MD at [place] [facility] LAPAROSCOPY, CHOLECYSTECTOMY WITH CHOLANGIOGRAPHY N/A 05/09/2022 LAPAROSCOPIC CHOLECYSTECTOMY WITH CHOLANGIOGRAM performed by Shawn Samuel MD at [place] [facility] [place] CATHETER IN VENA CAVA Right 01/02/2020 CATHETER PLACEMENT, VENOUS ACCESS performed by Shawn Cordoba MD at [place] [facility] VAS ENDOVASCULAR REPAIR AAA -TECH No family [...] and Mouth: Hard of hearing. Cardiovascular: Denies [place], denies CHF, denies palpitations, occasional chest pain [...] evidence of endoleak. Newfocal outpouching of the [place] aneurysmal sac along the left lateral wall measuring approximately 2.7 x 1.82 cm. 10/27/20 BLE Art Duplex R INPATIENT NURSING AIDE 1.2 cm, R SFA 1.2 cm, R Pop .9 cm, L INPATIENT NURSING AIDE 1.2 cm, L SFA .9 cm and [...] obvious endoleak S/P EVAR in [address] [facility]. 11/28/19 Nuc Stress Test negative for inducible ischemia. Chronic, since 2019, small pericardial effusion w/out tamponade physiology, followed by [facility]. Last routine visit 04/09/24 HTN. Dyslipidemia Reformed smoker. COPD Known pulm nodule KRISTEN Hypothyroidism KIANA. PLAN: The patient was counseled regarding the [...] PA-C Section of Vascular [place] [address] I have reviewed the advanced practitioner's documentation on the date of service referenced in note, and I agree with, and take responsibility for the plan of care. S/p EVAR [place] S/p transcaval endoleak repair Cindric Aortic duplex 9 cm AAA sac which [...] answered, and informed consent was obtained. The [facility] Abdominal Aortic Aneurysm Stent Graft Booklet was given to the patient. Toby Mccormick MD Section of Vascular [place] [address] [phone] documented in this encounter Nursing Notes * Taylor Pino CMA - 07/25/2024 12:06 PM EDT Reviewed the option of transferring scripts to [facility] pharmacy with patient and / or family. Taylor Pino CMA documented in this encounter Plan of Treatment Upcoming Encounters Date Type Department Care Team (Late st Contact Info) Description 10/16/2024 2:30 PM EST Imaging Radiology [address] [address] 10/24/2024 2:30 PM EST Office Visit Vascular Surgery, [address] [address] Toby Mccormick MD [address] [place] [address] Scheduled Orders Name Type Priority Associated Diagnoses Orde r Schedule CTA ABD/PELVIS Medical Imaging Routine Infrarenal abdominal aortic aneurysm (AAA) without rupture (HCC) Ordered: 07/25/2024 CREATININE Lab Routine Infrarenal abdominal aortic aneurysm (AAA) without rupture (HCC) 1 Occurrences starting 07/25/2024 until 07/25/2025 Health Maintenance Due Date Last Done Comments [...] this encounter Medical Devices Implanted Type Area Provisioning Specialist Device Identifier Shelf Expiration Date Model / Serial / Lot Azur Peripheral Coil System Implanted:Qty: 9 on 01/02/2020 by Shawn Cordoba MD at [place] [facility] [place]/A: Aorta TERison furniture MEDICAL MISTI 09/06/2022 [id number] / / [id number] Coil Vortex 35 Pltinm [id number] - [id number] Implanted:Qty: 1 on 01/02/2020 by Shawn Cordoba MD at [place] [facility] N/A: Aorta MetaMed SCIENTIFIC : NEURO INTR [id number] 07/11/2022 [id number] / / [id number] Coil Vortex 35 Pltinm [id number] - [id number] Implanted:Qty: 1 on 01/02/2020 by Shawn Cordoba MD at [place] [facility] Aorta BOSTON SCIENTIFIC : NEURO INTR [id number] 07/11/2022 [id number] / / [id number] Coil Azur .035 [id number] - [id number] Implanted:Qty: 9 on 01/02/2020 by Shawn Cordoba MD at [place] [facility] N/A: Aorta TERUMO MEDICAL MISTI 05/06/2021 [id number] / / [id number] Coil Azur .035 [id number] - [id number] Implanted:Qty: 9 on 01/02/2020 by Shawn Cordoba MD at [place] [facility] N/A: Aorta TERUMO MEDICAL MISTI 01/04/2021 [id number] / / [id number] Coil Azur 16mm 20cm Implanted:Qty: 2 on 01/02/2020 by Shawn Cordoba MD at [place] [facility] N/A: Aorta [employer]UR [employer]AR[employer] INC 05/06/2021 [id number] / / [id number] Coil Azur 16mm 20cm Implanted:Qty: 3 on 01/02/2020 by Shawn Cordoba MD at [place] [facility] N/A: Aorta [employer]UR [employer] 06/06/2021 [id number] / / [id number] Coil Azur 16mm 20cm Implanted:Qty: 6 on 01/02/2020 by Shawn Cordoba MD at [place] [facility] N/A: Aorta [employer] 09/06/2022 [id number] / / [id number] Coil Azur 16mm 20cm Implanted:Qty: 3 on 01/02/2020 by Shawn Cordoba MD at [place] [facility] N/A: Aorta [employer] 06/06/2021 [id number] / / [id number] Coil Azur .035 [id number] - [id number] Implanted:Qty: 7 on 01/02/2020 by Shawn Cordoba MD at [place] [facility] N/A: Aorta TERUMO MEDICAL MISTI 05/06/2021 [id number] / / [id number] Coil Vortex 35 Pltinm [id number] - [id number] Implanted:Qty: 1 on 01/02/2020 by Shawn Cordoba MD at [place] [facility] N/A: Aorta BOSTON SCI[employer] : NEURO INTR [id number] 02/28/2022 [id number] / / [id number] documented as of this encounter Visit Diagnoses [...] 12:00 PM 01/03/2020 2:49 PM Care Teams Signal Tower Operator Relationship Specialty Start Date End Date Meenu Avitia DO [address] [place] [address] [place] [address] PCP - General Family Medicine 11/20/19 documented as of this encounter
--- OUTSIDE RECORDS SUMMARY | 2025-01-15 00:30 | External Medical Summary | Summary of Care ---
Author Name Unknown Organization [facility] Address [address] [place] [address] Phone [phone] Care Team Providers Care Press Maintainer Name Role Phone Meenu Avitia Primary Care Provider Reason for Referral * Precert (Within 10 days (routine)) - Pending Review Specialty Diagnoses / Procedures Referred By Contac t Referred To Contact Radiology Diagnoses Infrarenal abdominal aortic aneurysm (AAA) without rupture (HCC) Procedures CTA ABD/PELVIS Milan Madrid PA-C [address] [place] [address] Referral ID Status Reason Start Date Expiration Date V isits Requested Visits Authorized [id number] Pending Review 07/25/2024 999 999 Reason for Visit * Reason Comments Follow Up Encounter Details Date Type Department Care Team (Late st Contact Info) Description 07/25/2024 11:50 AM EDT Office Visit Vascular Surgery, [facility] [address] [facility] [place] [address] Toby Mccormick MD [address] [place] [address] Infrarenal abdominal aortic aneurysm (AAA) [...] to his previous vascular surgery provider in [place], or if he prefers to establish with [facility] vascular surgery, and he would like to establish with [facility]. I've therefore placed a referral. We obtained [...] performed by Shawn Cordoba MD at [place] [facility] [place] EMBOLIZATION ARTERIAL NON HEMMORHAGE N/A 01/02/2020 trans-caval fenestrated embolization of aortic aneurysm sac with endoleak, and transcatheter embolization of left internal iliac artery branch performed by Shawn Cordoba MD at [place] [facility] LAPAROSCOPY, CHOLECYSTECTOMY WITH CHOLANGIOGRAPHY N/A 05/09/2022 LAPAROSCOPIC CHOLECYSTECTOMY WITH CHOLANGIOGRAM performed by Shawn Samuel MD at [place] [facility] [place] CATHETER IN VENA CAVA Right 01/02/2020 CATHETER PLACEMENT, VENOUS ACCESS performed by Shawn Cordoba MD at [place] [facility] VAS ENDOVASCULAR REPAIR AAA -TECH No family [...] and Mouth: Hard of hearing. Cardiovascular: Denies [place], denies CHF, denies palpitations, occasional chest pain [...] evidence of endoleak. Newfocal outpouching of the [place] aneurysmal sac along the left lateral wall measuring approximately 2.7 x 1.82 cm. 10/27/20 BLE Art Duplex R STEVEDORING SUPERVISOR 1.2 cm, R SFA 1.2 cm, R Pop .9 cm, L STEVEDORING SUPERVISOR 1.2 cm, L SFA .9 cm and [...] obvious endoleak S/P EVAR in 2014 at [facility]. 11/28/19 Nuc Stress Test negative for inducible ischemia. Chronic, since 2019, small pericardial effusion w/out tamponade physiology, followed by [facility]iology. Last routine visit 04/09/24 HTN. Dyslipidemia Reformed smoker. COPD Known pulm nodule KRISTEN Hypothyroidism EEK. PLAN: The patient was counseled regarding the [...] PA-C Section of Vascular [place] [address] I have reviewed the advanced practitioner's documentation on the date of service referenced in note, and I agree with, and take responsibility for the plan of care. S/p EVAR [place] S/p transcaval endoleak repair Cindric Aortic duplex [...] answered, and informed consent was obtained. The [facility] Abdominal Aortic Aneurysm Stent Graft Booklet was given to the patient. Toby Mccormick MD Section of Vascular [place] [address] [phone] documented in this encounter Nursing Notes * Taylor Pino CMA - 07/25/2024 12:06 PM EDT Reviewed the option of transferring scripts to [facility] pharmacy with patient and / or family. Taylor Pino CMA documented in this encounter Plan of Treatment Upcoming Encounters Date Type Department Care Team (Late st Contact Info) Description 10/16/2024 2:30 PM EST Imaging Radiology [address] [address] 10/24/2024 2:30 PM EST Office Visit Vascular Surgery, [address] [address] Toby Mccormick MD [address] [place] [address] Scheduled Orders Name Type Priority Associated Diagnoses [...] this encounter Medical Devices Implanted Type Area Air Brake Man Device Identifier Shelf Expiration Date Model / Serial / Lot Azur Peripheral Coil System Implanted:Qty: 9 on 01/02/2020 by Shawn Cordoba MD at [place] [facility] N/A: Aorta TERHelical IT [employer] MEDICAL MISTI 09/06/2022 [id number] / / [id number] Coil Vortex 35 Pltinm [id number] - [id number] Implanted:Qty: 1 on 01/02/2020 by Shawn Cordoba MD at [place] [facility] N/A: Aorta LocalBanya SCIENTIFIC : NEURO INTR [id number] 07/11/2022 [id number] / / [id number] Coil Vortex 35 Pltinm 461636 - [id number] Implanted:Qty: 1 on 01/02/2020 by Shawn Cordoba MD at [place] [facility] Aorta BOSTON SCIENTIFIC : NEURO INTR [id number] 07/11/2022 [id number] / / [id number] Coil Azur .035 [id number] - [id number] Implanted:Qty: 9 on 01/02/2020 by Shawn Cordoba MD at [place] [facility] N/A: Aorta TERUMO MEDICAL MISTI 05/06/2021 [id number] / / [id number] Coil Azur .035 [id number] - [id number] Implanted:Qty: 9 on 01/02/2020 by Shawn Cordoba MD at [place] [facility] N/A: Aorta TERUMO MEDICAL MISTI 01/04/2021 [id number] / / [id number] Coil Azur 16mm 20cm Implanted:Qty: 2 on 01/02/2020 by Shawn Cordoba MD at [place] [facility] N/A: Aorta AZUR [employer]AR[employer] INC 05/06/2021 [id number] / / [id number] Coil Azur 16mm 20cm Implanted:Qty: 3 on 01/02/2020 by Shawn Cordoba MD at [place] [facility] N/A: Aorta [employer]UR [employer] 06/06/2021 [id number] / / [id number] Coil Azur 16mm 20cm Implanted:Qty: 6 on 01/02/2020 by Shawn Cordoba MD at [place] [facility] N/A: Aorta [employer]UR [employer] 09/06/2022 [id number] / / [id number] Coil Azur 16mm 20cm Implanted:Qty: 3 on 01/02/2020 by Shawn Cordoba MD at [place] [facility] N/A: Aorta [employer] 06/06/2021 [id number] / / [id number] Coil Azur .035 [id number] - [id number] Implanted:Qty: 7 on 01/02/2020 by Shawn Cordoba MD at [place] [facility] N/A: Aorta TERUMO MEDICAL MISTI 05/06/2021 [id number] / / [id number] Coil Vortex 35 Pltinm [id number] - [id number] Implanted:Qty: 1 on 01/02/2020 by Shawn Cordoba MD at [place] [facility] N/A: Aorta BOSTON SCIENTIFIC : NEURO INTR [id number] 02/28/2022 [id number] / / [id number] documented as of this encounter Visit Diagnoses [...] 12:00 PM 01/03/2020 2:49 PM Care Teams Press Maintainer Relationship Specialty Start Date End Date Meenu Avitia DO [address] [place] [address] [place] [address] PCP - General Family Medicine 11/20/19 documented as of this encounter
--- OUTSIDE RECORDS SUMMARY | 2025-01-15 00:30 | External Medical Summary | Summary of Care ---
Author Name Unknown Organization [facility] Address [address] [place] [address] Phone [phone] Care Team Providers Care Technical Healthcare Consultant Name Role Phone Meenu Avitia Primary Care [...] endovascular stent graft for abdominal aortic aneurysm Milan Madrid PA-C [address] [place] [address] Referral ID Status Reason Start Date Expiration Date Visits Requested Visits Authorized [id number] Authorized Specialty Services Required 07/25/2024 1 1 Question Answer Referral Priority: Within 28 days (routine) Where should this appointment be scheduled? [facility] * Precert (Within 10 days (routine)) - Pending Review Specialty Diagnoses / Procedures Referred By Contac t Referred To Contact Radiology Diagnoses Infrarenal abdominal aortic aneurysm (AAA) without rupture (HCC) Procedures CTA ABD/PELVIS Milan Madrid PA-C [address] [place] [address] Referral ID Status Reason Start Date Expiration Date V isits Requested Visits Authorized [id number] Pending Review 07/25/2024 999 999 Reason for Visit * Reason Comments Follow Up Encounter Details Date Type Department Care Team (Late st Contact Info) Description 07/25/2024 11:50 AM EDT Office Visit Vascular Surgery, [facility] [address] [place] [address] Toby Mccormick MD [address] [facility] [place] [address] Infrarenal abdominal aortic aneurysm (AAA) without rupture [...] to his previous vascular surgery provider in [place], or if he prefers to establish with [facility] vascular surgery, and he would like to establish with [facility]. I've therefore placed a referral. We obtained [...] branch performed by Shawn Cordoba MD at [facility] LAPAROSCOPY, CHOLECYSTECTOMY WITH CHOLANGIOGRAPHY N/A 05/09/2022 LAPAROSCOPIC CHOLECYSTECTOMY WITH CHOLANGIOGRAM performed by Shawn Samuel MD at [facility] PLACE CATHETER IN VENA CAVA Right 01/02/2020 CATHETER PLACEMENT, VENOUS ACCESS performed by Shawn Cordoba MD at [facility] ENDOVASCULAR REPAIR AAA -TECH No family history [...] and Mouth: Hard of hearing. Cardiovascular: Denies [place], denies CHF, denies palpitations, occasional chest pain [...] evidence of endoleak. Newfocal outpouching of the [place] aneurysmal sac along the left lateral wall measuring approximately 2.7 x 1.82 cm. 10/27/20 BLE Art Duplex R MANAGER CAFE 1.2 cm, R SFA 1.2 cm, R Pop .9 cm, L MANAGER CAFE 1.2 cm, L SFA .9 cm and L Ppop .9 cm. 04/25/20; Location of Study: [facility]; Modality: CT; AAA measures 8.0 cm in greatest transverse dimension. 8.2 on coronal view. No overt evidence of endoleak. 04/25/20; Location of Study: [facility]; Modality: duplex; AAA measures 8.0 cm in greatest transversedimension. No endoleak appreciated. 12/12/19; Location of Study: [facility]; Modality: CT; AAA measures 8.2 cm in [...] endoleak S/P EVAR in 2014 at [facility]. 11/28/19 Nuc Stress Test negative for inducible ischemia. Chronic, since 2019, small pericardial effusion w/out tamponade physiology, followed by [facility]. Last routine visit 04/09/24 HTN. Dyslipidemia Reformed smoker. COPD Known pulm nodule KRISTEN Hypothyroidism CH[place]. PLAN: The patient was counseled regarding the [...] PA-C Section of Vascular and Endovascular Surgery [address] [address] I have reviewed the advanced practitioner's documentation on the date of service referenced in note, and I agree with, and take responsibility for the plan of care. S/p EVAR [place] S/p transcaval endoleak repair Beryl Aortic duplex [...] answered, and informed consent was obtained. The [facility] Abdominal Aortic Aneurysm Stent Graft Booklet was given to the patient. Toby Mccormick MD Section of Vascular [place] [address] [phone] documented in this encounter Nursing Notes * Taylor Pino CMA - 07/25/2024 12:06 PM EDT Reviewed the option of transferring scripts to [facility] pharmacy with patient and / or family. Taylor Pino CMA documented in this encounter Plan of Treatment Upcoming Encounters Date Type Department Care Team (Late st Contact Info) Description 09/19/2024 Hospital Encounter OR [facility], OPERATING ROOM [facility], [facility] [address] [place] [address] Toby Mccormick MD [address] [place] [address] 10/16/2024 2:30 PM EST Imaging Radiology [facility] [address] [address] [address] 10/24/2024 2:30 PM EST Office Visit Vascular Surgery, [address] [address] Toby Mccormick MD [address] [place] [address] Scheduled Orders Name Type Priority Associated Diagnoses [...] this encounter Medical Devices Implanted Type Area Vending Mechanic Device Identifier Shelf Expiration Date Model / Serial / Lot Azur Peripheral Coil System Implanted:Qty: 9 on 01/02/2020 by Shawn Cordoba MD at [place] [facility] [place]/A: Aorta TERHashtrack MEDICAL MISTI 09/06/2022 [id number] / / [id number] Coil Vortex 35 Pltinm [id number] - [id number] Implanted:Qty: 1 on 01/02/2020 by Shawn Cordoba MD at [place] [facility] N/A: Aorta BOSTON SCIENTIFIC : NEURO INTR [id number] 07/11/2022 [id number] / / [id number] Coil Vortex 35 Pltinm [id number] - [id number] Implanted:Qty: 1 on 01/02/2020 by Shawn Cordoba MD at [place] [facility] Aorta BOSTON SCIENTIFIC : NEURO INTR [id number] 07/11/2022 [id number] 61 / / [id number] Coil Azur .035 [id number] - [id number] Implanted:Qty: 9 on 01/02/2020 by Shawn Cordoba MD at OR [facility] N/A: Aorta [employer] 05/06/2021 45-694546 / / [id number] Coil Azur .035 [id number] - [id number] Implanted:Qty: 9 on 01/02/2020 by Shawn Cordoba MD at [place] [facility] N/A: Aorta F[employer]how MISTI 01/04/2021 [id number] / / [id number] Coil Azur 16mm 20cm Implanted:Qty: 2 on 01/02/2020 by Shawn Cordoba MD at OR [facility] N/A: Aorta eTimesheets.comUR PHARMA [employer] 05/06/2021 45-153309 / / [id number] Coil Azur 16mm 20cm Implanted:Qty: 3 on 01/02/2020 by Shawn Cordoba MD at OR [facility] N/A: Aorta AZUR [employer]AR[employer] INC 06/06/2021 45-309630 / / [id number] Coil Azur 16mm 20cm Implanted:Qty: 6 on 01/02/2020 by Shawn Cordoba MD at OR [facility] N/A: Aorta AZUR [employer]AR[employer] 09/06/2022 45-183670 / / [id number] Coil Azur 16mm 20cm Implanted:Qty: 3 on 01/02/2020 by Shawn Cordoba MD at OR [facility] N/A: Aorta [employer]UR [employer]AR[employer] 06/06/2021 [id number] / / [id number] Coil Azur .035 [id number] - [id number] Implanted:Qty: 7 on 01/02/2020 by Shawn Cordoba MD at OR [facility] N/A: Aorta [employer] MISTI 05/06/2021 45-314094 / / [id number] Coil Vortex 35 Pltinm 220049 - [id number] Implanted:Qty: 1 on 01/02/2020 by Shawn Cordoba MD at OR [facility] N/A: Aorta BOSTON SCIENTIFIC : NEURO INTR [id number] 02/28/2022 [id number] / / [id number] documented as of this encounter Visit Diagnoses [...] Primary Blood vessel replaced by other means AAA (abdominal aortic aneurysm) without rupture (HCC) [...] 12:00 PM 01/03/2020 2:49 PM Care Teams Technical Healthcare Consultant Relationship Specialty Start Date End Date Meenu Avitia DO [address] [place] [address] [place] [address] PCP - General Family Medicine 11/20/19 documented as of this encounter
[2025-01-15] MEDS: ATORVASTATIN 40 MG TAB PO SCH (01:33)
[2025-01-15] MEDS: ACETAMINOPHEN 500 MG TAB PO PRN (01:34)
[2025-01-15] MEDS: MELATONIN 3 MG TAB PO PRN (01:34)
[2025-01-15] MEDS: LORazepam 0.5 MG TAB PO PRN (01:34)
[2025-01-15] MEDS: ENOXAPARIN INJ 40 MG/0.4 ML SYR SQ SCH (01:34)
--- NOTE | 2025-01-15 03:58 | Billing Data ---
Date of Service January 15, 2025 Coding Level of Care Code 49022 INT INP/OBS CARE
[2025-01-15] MEDS: LEVOTHYROXINE SODIUM 137 MCG TABLET PO SCH (05:52)
[2025-01-15 06:06] LABS: Basophils # (auto) 0.04 K/uL (0.00-0.20); Basophils % (auto) 0.9 %; Eosinophils # (auto) 0.16 K/uL (0.00-0.50); Eosinophils % (auto) 3.6 %; Hematocrit (blood only) 30.6 % (42.0-52.0); Hemoglobin 9.7 g/dl (14.0-18.0); Immature Granulocytes # (auto) 0.01 K/uL (0.01-0.20); Immature Granulocytes % (auto) 0.2 %; Lymphocytes # (auto) 0.76 K/uL (1.20-3.40); Mean Corpuscular Hgb Conc 31.7 g/dL (32.0-36.0); Mean Corpuscular Volume 91.6 fL (80.0-100.0); Monocytes # (auto) 0.55 K/uL (0.11-0.59); Monocytes % (auto) 12.3 %; Neutrophils # (auto) 2.94 K/uL (1.40-6.50); Platelet Count 182 K/uL (130-400); RDW Coefficient of Variation 14.4 % (11.5-14.5); RDW Standard Deviation 47.9 fL (36.4-46.3); Red Blood Count 3.34 M/uL (4.70-6.10); White Blood Count 4.46 K/ul (4.8-10.8)
[2025-01-15 06:31] LABS: BUN Creatinine Ratio 11.1 (10-20); Calcium 9.5 mg/dl (8.6-10.3); Chol HDL Ratio 2.4 (0-5); Creatinine Clr Calc Pharmacy 64.8 ml/min; Magnesium 1.8 mg/dl (1.7-2.4); Potassium 3.6 mmol/L (3.5-5.1)
--- NOTE | 2025-01-15 06:33 | Electrocardiogram Report ---
Test Reason : Blood Pressure : */* mmHG Vent. Rate : 78 BPM Atrial Rate : 78 BPM P-R Int : 190 ms QRS Dur : 82 ms QT Int : 400 ms P-R-T Axes : 78 13 45 degrees QTcB Int : 456 ms Normal sinus rhythm Normal ECG When compared with ECG of 07-May-2022 03:03, No significant change Confirmed by Paulo Johnson ([id number]) on 01/15/2025 6:32:53 AM Referred By: REFERRED SELF Confirmed By: Paulo Johnson
[2025-01-15 08:08] LABS: Estimated Average Glucose 180 mg/dl; Hemoglobin A1C 7.9 % (4.5-5.6)
[2025-01-15] MEDS: amLODIPine BESYLATE 5 MG TAB PO SCH (08:53)
[2025-01-15] MEDS: ASPIRIN 81 MG ECTAB PO SCH (08:53)
[2025-01-15] MEDS: PANTOprazole 40 MG TAB PO SCH (08:53)
[2025-01-15] MEDS: INSULIN ASPART PER UNIT CHARGE SC SCH (08:59)
--- NOTE | 2025-01-15 09:36 | Neurology Consultation ---
Date of Consultation January 15, 2025 Assessment & Plan (1) Stroke-like symptoms: History of Present Illness Attending Physician: Daniel Barlow MD History of Present Illness S: pt this morning resolved symptoms. no deficits. CT head negative. CTA negative. chart reviewed. no weakness. Admission HPI: 79 yo male PMHx previous CVA 2019 on Plavix, T2DM not on insulin, HTN, COPD, CECILE, GERD, hypothyroidism, PVD admitted with R facial droop, slurred speech. Per pts , these symptoms have been present all day today and he did have headache yesterday. Of note, he has had slightly worsening gait over the course of the last year, this is not acute. Denies dizziness, CP, SOB, N/V/D, LE edema. No recent illness or changes to medications. Of note, patient reports being under a great deal of stress re: finances currently. His family states that when he has periods of increased stress he tends to have some of the deficits described above. It has been suggested that h e be on anxiety medication in the past but the patient refuses, states that he does not like the way the medications he has tried make him feel. At the time of admission, symptoms have resolved. ED course: Pt was made a stroke alert CT head, angio brain, angio neck negative for acute process, does note metal in the r eyelid present since at least 2019 Mild HTN in emergency department, otherwise VSS Labs largely unremarkable Received 1L NSS Allergies Allergy/AdvReac Type Severity Reaction Status Date / Time sertraline [From Zoloft] Allergy Intermediate Rash Verified 05/07/22 00:53 ciprofloxacin Allergy Unknown Unverified 01/14/25 21:26 Home Medications Medication Instructions Recorded Confirmed Type albuterol sulfate 90 mcg/actuation 2 puff inhalation Q6H PRN Wheezing 09/12/20 01/14/25 History aerosol inhaler amlodipine 5 mg tablet 5 mg PO DAILY 09/12/20 01/14/25 History clopidogrel 75 mg tablet 75 mg PO HS 09/12/20 01/14/25 History fluticasone furoate 200 1 inh inhalation HS 09/12/20 01/14/25 History mcg-vilanterol 25 mcg/dose inhalation powder (Breo Ellipta) levothyroxine 137 mcg tablet 137 mcg PO DAILYBB 09/12/20 01/14/25 History lorazepam 0.5 mg tablet 0.5 mg PO BID PRN Anxiety 09/12/20 01/14/25 History melatonin 5 mg tablet 5 mg PO HS PRN Sleep 09/12/20 01/14/25 History atorvastatin 40 mg tablet 40 mg PO HS #90 tabs 09/14/20 01/14/25 Rx metformin 500 mg tablet,extended 500 mg PO BID 05/23/21 01/14/25 History release 24 hr cyanocobalamin (vitamin B-12) 1,000 mcg IM MONTHLY 01/14/25 01/14/25 History 1,000 mcg/mL injection solution pantoprazole 40 mg tablet,delayed 40 mg PO DAILY 01/14/25 01/14/25 History release rosuvastatin 10 mg tablet 10 mg PO DAILY 01/14/25 01/14/25 History Patient History Medical History Hypertension Hypothyroidism Social History (Updated 05/07/22 @ 05:47 by Rowdy Krause PA-C) Smoking Status: Former smoker Smoking End Date: 10 years ago; Second Hand Exposure: No; Do You Dip or Chew Tobacco: No; Hx Alcohol Use: Yes Alcohol type: beer Hx Substance Use: No Preferred Language: Lithuanian Communication Ability: Effective Communication Ability Comment: trouble using right hand to sign Farm Supervisor Required: No Beliefs That Will Affect Care: None Current Living Situation: Spouse Other Information That Helps Us Care for You: No Feels Safe at Home: Yes Safety Concerns: Feels Safe At This Time Assistive Devices: CPAP and Glasses Review of Systems Review of Systems: All systems reviewed & are unremarkable except as noted in Subjective Constitutional: as per Subjective / HPI Eyes: as per Subjective / HPI Ear, Nose, Mouth, Throat: as per Subjective / HPI Respiratory: as per Subjective / HPI Cardiovascular: as per Subjective / HPI Gastrointestinal: as per Subjective / HPI Musculoskeletal: as per Subjective / HPI Integumentary: as per Subjective / HPI Neurologic: as per Subjective / HPI Psychiatric: as per Subjective / HPI Endocrine: as per Subjective / HPI Hematologic / Lymphatic: as per Subjective / HPI Allergy / Immunological: as per Subjective / HPI Exam (Neuro) Physical Exam: HEENT: normocephalic Neuro: Mental: AOx4, fluent speech, normal comprehension, no apraxia, no L/R confusion, no neglect CN: PERRL, Full EOM, symmetric face, midline T/U/P, 5/5 SCM/traps. Motor: No abnormal movements, normal tone and bulk, 5/5 t/o bilaterally Sens: intact to touch b/l grossly Coord: intact DTR: 2+ sym b/l Impression: 79 yo male with resolved ?speech change and rt face droop. CT /CTA head/neck negative. Pt with hx of anxiety and prior similar events. overall picture not very suggestive of vascular event. Recommendations: 1. Standard stroke work up as planned 2. continue DAPT as before. 3. Images: MRI brain not able to get it due to metal in eye, TTE with bubble, repeat CT head, if negative, no further imaging needed. 4. Permissive Hypertension for next 24 h rs. Keep SBP goal range less than 220. Avoid hypotension. Do not stop beta-saúl if on it. 6. Long-term SBP goal less than 130. 7. Plenty of hydration including IV flui d if possible (use isotonic solution) next 1-2 days. Avoid hypovolemia and hypotension. 8. Initiate DVT prevention therapy. 9. Avoid hypoglycemia, serum glucose goa l during hospitalization: 140-180. 10. Long-term HgA1c goal less than 7. 11. Start statin if not on it and no abs olute contraindication, long-term LDL goal less than 70. 12. Head of bed up 30 degrees if possibl e. 13. Stroke education by nursing and appr opriate staff. 14. Telemetry monitoring. Consider jail cardiac monitoring, i.e. MCOT (mobile cardiac outpatient telemetry) or ICM (insertable nuclear monitoring technician, e.g. LINQ), if never had jail cardiac monitoring done previously. And if found to have atrial flutter or fibrillation, should consider anticoagulation therapy if no contraindication. not much to add from neurology. call again if new question. Chart reviewed I have spent more than 50% educating patient about potential diagnosis and neurological evaluation and coordinating care with patient's treatment team. Total time spent (including chart review and coordination of care): 60 min (this includes chart review). Results & Data Vital Signs (Past 12 Hours) Vital Signs Temp Pulse Pulse Pulse Resp BP BP 01/15/25 09:19 69 01/15/25 07:54 36.5 C 70 20 150/84 H 01/15/25 02:58 72 18 154/84 H 01/15/25 02:40 72 13 01/15/25 01:10 01/15/25 01:10 36.6 C 72 20 172/76 H 01/15/25 01:08 71 01/15/25 00:14 75 01/15/25 00:00 79 18 152/90 H 01/14/25 23:30 75 17 163/88 H 01/14/25 23:00 74 18 149/84 H 01/14/25 22:42 72 21 01/14/25 22:30 160/90 H 01/14/25 22:00 78 17 153/87 H 01/14/25 22:00 153/87 H 01/14/25 21:51 77 16 Pulse Ox O2 Del Method 01/15/25 09:19 01/15/25 07:54 96 Room Air 01/15/25 02:58 96 Room Air, CPAP 01/15/25 02:40 96 01/15/25 01:10 Room Air 01/15/25 01:10 100 Room Air 01/15/25 01:08 01/15/25 00:14 01/15/25 00:00 97 Room Air 01/14/25 23:30 96 Room Air 01/14/25 23:00 98 Room Air 01/14/25 22:42 96 01/14/25 22:30 01/14/25 22:00 93 01/14/25 22:00 01/14/25 21:51 93 PG Care Time/CCT Total # of Minutes Spent Total Time Spent with Patient: Total time spent is greater than 50% in coordination of care (as documented) at patient's floor/unit and/or counseling patient: Coding Level of Care Code 85519 IN/OBS CONSULT LVL 4,60M Diagnoses Stroke-like symptoms R29.90
--- NOTE | 2025-01-15 14:21 | Hospitalist Progress Note ---
Date of Service January 15, 2025 Assessment & Plan (1) CVA (cerebral vascular accident): (2) Hypertension: (3) COPD (chronic obstructive pulmonary disease): (4) Hypothyroidism: (5) Type 2 diabetes mellitus: (6) Generalized anxiety disorder: (7) Peripheral vascular disease: (8) GERD (gastroesophageal reflux disease): Plan 79 yo male PMHx previous CVA 2020 on Plavix, T2DM not on insulin, HTN, COPD, CECILE, GERD, hypothyroidism, PVD admitted with R facial droop, slurred speech. #CVA CT head, angio head/neck w/o acute change No MRI 2/2 metal present in R eyelid Repeating CT head today. Order placed. Check echo, pending Cont. Plavix, add ASA 81 daily A1c 7.9. Known diabetic. Long-term A1c goal less than 7. On statin Lipid panel reviewed PT/OT/Speech consults ordered Passed bedside dysphagia screen in ED Permissive HTN, labetalol for BP > 180 Neuro consult appreciated #T2DM A1c 7.9 On metformin outpatient. Hold while inpatient #HLD Med rec states pt taking Crestor and Lipitor Will continue Lipitor, hold Crestor Patient confirms that he takes Lipitor and not Crestor. #CECILE Pt with diagnosis of anxiety that is not managed on chronic controller medication States that he has had increased stress recently with regard to money/bills Family states that during times of stress he may exhibit some of the weakness type symptoms observed today Would be worth further conversation re: chronic control medication on discharge #COPD Not in acute exacerbation Continue Breo Albuterol PRN #GERD Cont Protonix #Hypothyroid Cont Synthroid FENGI: heart healthy, T2DM Code status: DNR/DNI DVT prophylaxis: Lovenox Isolation: none Disposition: med/tele Admission and Anticipated Discharge Date Admission Date: January 14, 2025 Subjective Patient feels well. Denies chest pain or shortness of breath. Review of Systems Review of Systems: All systems reviewed & are unremarkable except as noted in Subjective Physical Exam Physical Exam: General: Awake, conversant. Facial droop not evident today. Speech is not s lurred today either. Heart: S1, S2/regular rate and rhythm, no murmur rubs or gallops Lungs: Clear to auscultation bilaterally. Normal effort Abdomen: Soft/nontender/nondistended. No hepatosplenomegaly Extremities: No clubbing/cyanosis. No edema Behavior: Appropriate, cooperative Results & Data Results & Data Vital Signs (Past 12 Hours) Vital Signs Temp Pulse Pulse Resp BP Pulse Ox O2 Del Method 01/15/25 11:37 37.3 C 79 16 176/87 H 94 Room Air 01/15/25 11:16 Room Air 01/15/25 09:19 69 01/15/25 07:54 36.5 C 70 20 150/84 H 96 Room Air 01/15/25 02:58 72 18 154/84 H 96 Room Air, CPAP 01/15/25 02:40 72 13 96 Laboratory Results Abnormal lab results 01/14/25 01/14/25 01/14/25 Range/Units 19:46 19:51 22:19 WBC (4.8-10.8) K/ul RBC 3.89 L (4.70-6.10) M/uL Hgb 11.2 L (14.0-18.0) g/dl POC Hgb 12.2 L (14.0-18.0) g/dl Hct 35.5 L (42.0-52.0) % POC Hct 36 L (42-52) % MCHC 31.5 L (32.0-36.0) g/dL RDW Std Deviation 48.0 H (36.4-46.3) fL Lymph # (Auto) 0.84 L (1.20-3.40) K/uL Glucose 126 H (70-99(Fasting)) mg/dl POC Glucose (70-99) mg/dl POC Glucose (other) 122 H (70-99) mg/dl Hemoglobin A1c (4.5-5.6) % Calcium 10.5 H (8.6-10.3) mg/dl Alkaline Phosphatase 121 H (34-104) U/L Ur Specific [place] 1.039 H (1.000-1.030) 01/15/25 01/15/25 01/15/25 Range/Units 05:36 08:15 12:19 WBC 4.46 L (4.8-10.8) K/ul RBC 3.34 L (4.70-6.10) M/uL Hgb 9.7 L (14.0-18.0) g/dl POC Hgb (14.0-18.0) g/dl Hct 30.6 L (42.0-52.0) % POC Hct (42-52) % MCHC 31.7 L (32.0-36.0) g/dL RDW Std Deviation 47.9 H (36.4-46.3) fL Lymph # (Auto) 0.76 L (1.20-3.40) K/uL Glucose 126 H (70-99(Fasting)) mg/dl POC Glucose 123 H 124 H (70-99) mg/dl POC Glucose (other) (70-99) mg/dl Hemoglobin A1c 7.9 H (4.5-5.6) % Calcium (8.6-10.3) mg/dl Alkaline Phosphatase (34-104) U/L Ur Specific [place] (1.000-1.030) Diagnostic Findings Chest X-Ray 01/14/25 19:51 Exam(s): XR CXR 1 VIEW EXAM: XR Chest, 1 View CLINICAL HISTORY: Reason for exam: neuro deficit, acute stroke suspected. TECHNIQUE: Frontal view of the chest. COMPARISON: None. FINDINGS: Lungs: No definite focal infiltrate, pleural effusion or consolidation. There is scattered atelectasis or scarring. Lungs are otherwise clear. Pleural space: No pneumothorax. Heart: Mild to moderate cardiomegaly. Mediastinum: Atherosclerotic aorta. Bones/Soft Tissues: No acute abnormality. IMPRESSION: 1. No acute process in the chest. Electronically signed by: Joyce Alexandre M.D. 01/14/25 20:[address] 01/14/25 19:51 CR Exam(s): CT HEAD Without Contrast EXAM: CT Head Without Intravenous Contrast CLINICAL HISTORY: Reason for exam: neuro deficit, acute stroke suspected. TECHNIQUE: Axial computed tomography images of the head/brain without intravenous contrast. CTDI is 63 mGy and DLP is 961 mGy-cm. Automated exposure control was utilized for the study. A dose lowering technique was utilized adhering to the principles of ALARA. Mild motion artifact. COMPARISON: None. FINDINGS: Brain: No mass effect or acute infarct. No acute hemorrhage. Moderate atrophy and chronic white matter disease. Ventricles: No hydrocephalus or midline shift. Bones/joints: No skull fracture. Soft tissues: No scalp hematoma. Visualized Sinuses: Clear. Mastoid air cells: No mastoid effusion. IMPRESSION: 1. Moderate age-related findings. 2. No acute infarct, bleed, or acute intracranial abnormality. Communications: Call Doctor Stroke Electronically signed by: Joyce Alexandre M.D. 01/14/25 20:25 PM Head CTA 01/14/25 19:51 CR Exam(s): CTA HEAD With Contrast IV Amt: 115 ml optiray 320 EXAM: CT Angiography Head With Intravenous Contrast CLINICAL HISTORY: Reason for exam: neuro deficit, acute stroke suspected. TECHNIQUE: Axial computed tomographic angiography images of the head with intravenous contrast. CTDI is 63 mGy and DLP is 961 mGy-cm. Automated exposure control was utilized for the study. A dose lowering technique was utilized adhering to the principles of ALARA. MIP reconstructed images were created and reviewed. CONTRAST: 115 ml optiray 320 given IV COMPARISON: Head CT same day. FINDINGS: Right internal carotid artery: Patent. Right anterior cerebral artery: Patent. Right middle cerebral artery: Patent. Right posterior cerebral artery: Patent. origin. Right vertebral artery: Patent. Left internal carotid artery: Patent. Left anterior cerebral artery: Patent. Left middle cerebral artery: Patent. Left posterior cerebral artery: Patent. Left vertebral artery: Patent. Basilar artery: Patent. Other: Moderate atherosclerosis bilateral cavernous ICA which are also ectatic. No significant stenosis. IMPRESSION: 1. No aneurysm or large vessel occlusion. Communications: Call Doctor Stroke Electronically signed by: Joyce Alexandre M.D. 01/14/25 20:25 PM Neck CTA 01/14/25 19:51 CR Exam(s): CTA NECK With Contrast IV Amt: 115 ml optiray 320 EXAM: CT Angiography Neck With Intravenous Contrast CLINICAL HISTORY: Reason for exam: neuro deficit, acute stroke suspected. TECHNIQUE: Routine carotid CT angiography protocol was performed with intravenous contrast. NASCET criteria using the distal ICAs for comparison were used for evaluation of stenoses. Automated exposure control was utilized for the study. A dose lowering technique was utilized adhering to the principles of ALARA. MIP reconstructed images were created and reviewed. Mild motion artifact. CONTRAST: 115 ml optiray 320 given IV COMPARISON: None. FINDINGS: Right common carotid artery: Patent. Right internal carotid artery: Patent. Right vertebral artery: Patent. Codominant. Left common carotid artery: Patent. Left internal carotid artery: Patent. Left vertebral artery: Patent. Other: Moderate to severe atherosclerosis aortic arch, great vessels and carotid bifurcations. No significant stenosis, vessel narrowing or occlusion. IMPRESSION: 1. Moderate to severe atherosclerosis. 2. No dissection, occlusion, or significant stenosis. CAROTID STENOSIS REFERENCE USING NASCET CRITERIA: % ICA stenosis = (1 - narrowest ICA diameter/diameter of distal cervical ICA) x 100. Mild - <50% stenosis. Moderate - 50-69% stenosis. Severe - 70-94% stenosis. Near occlusion - 95-99% stenosis. Occluded - 100% stenosis. Communications: Call Doctor Stroke Electronically signed by: Joyce Alexandre M.D. 01/14/25 20:25 PM PG Care Time/CCT Total # of Minutes Spent Total Time Spent with Patient: Total time spent is greater than 50% in coordination of care (as documented) at patient's floor/unit and/or counseling patient: Coding Level of Care Code 49498 SUB INP/OBS CARE 2/35MIN Diagnoses CVA (cerebral vascular accident) I63.9 Hypertension I10 Hypertension type: essential hypertension COPD (chronic obstructive pulmonary disease) J44.9 Hypothyroidism E03.9 Type 2 diabetes mellitus E11.9 Generalized anxiety disorder F41.1 Peripheral vascular disease I73.9 GERD (gastroesophageal reflux disease) K21.9 (2) Hypertension Hypertension type: essential hypertension Qualified Code(s): I10 - Essential (primary) hypertension
--- NOTE | 2025-01-15 15:53 | CT Scan Report ---
CT head/brain wo con CLINICAL HISTORY: F/u CT for stroke. MRI contraindicated. TECHNIQUE: Multiple axial CT images of the head were obtained without contrast. Sagittal and coronal reconstructions were done. A dose lowering technique was utilized adhering to the principles of OZZY Cardoza. CT DOSE: 625.8 mGy.cm COMPARISON: 01/14/2025 FINDINGS: The CT findings are unchanged. There is no stroke in evolution identified. In particular, t here is no intra-axial or extra-axial fluid collection, hemorrhage, or mass. There is no developing g ray-white interface blurring. Senescent atrophy and small vessel insufficiency changes remain pronoun jemal. The bone windows are negative. IMPRESSION: Stable exam; no acute intracranial process identified. ACT 112: Negative or not required by law. The above report was generated using voice recognition software. It may contain grammatical, syntax o r spelling errors. Electronically signed by: Brenda Davis M.D. 01/15/2025 3:51 PM
--- NOTE | 2025-01-15 17:15 | XCELERA ---
[id number]\[id number]
[2025-01-15] MEDS ORDERED: GABAPENTIN 600 MG TAB PO ONE (19:24)
[2025-01-15] MEDS: THIAMINE HCL 100 MG TAB PO SCH (20:10)
[2025-01-15] MEDS: MULTIVITAMIN TAB PO SCH (20:10)
[2025-01-15] MEDS: GABAPENTIN 1200MG LOADING DOSE PO SCH (20:10)
[2025-01-15] MEDS: FOLIC ACID 1 MG TAB PO SCH (20:10)
[2025-01-15] MEDS: LORazepam 1 MG TAB PO PRN (20:10)
[2025-01-15] MEDS: CLOPIDOGREL BISULFATE 75 MG TAB PO SCH (20:10)
[2025-01-15] MEDS: FLUTICASONE/VILANTEROL 200/25MCG 14 PUFFS/INHALER INH SCH (20:11)
[2025-01-15] MEDS: GABAPENTIN 1200MG ALCOHOL WITHDRAWAL LOAD PO STA (20:23)
[2025-01-15] MEDS ORDERED: LORazepam 1 MG TAB PO PRN ×3 (20:29)
[2025-01-15] MEDS ORDERED: Ativan PO Alcohol Withdrawal--Active Protocol PO PRN (20:29)
[2025-01-16] MEDS: GABAPENTIN 600MG Q6H DOSE PO SCH (06:34)
--- NOTE | 2025-01-16 08:22 | Hospitalist Progress Note ---
Date of Service January 16, 2025 Assessment & Plan (1) CVA (cerebral vascular accident): Plan: 79-year-old male who presented with right facial droop, slurred speech and he was not a thrombolytic candidate due to time of onset of symptoms who was admitted for stroke evaluation. CThead, CTAhead/neck were without acute changes; MRI was not able to be performed due to presence of foreign metal in patient's right eyelid. 24-hour interval CT head was obtained. Interval CT head was without any acute intracranial process. Patient was clinically stable and was continued on aspirin/Plavix. He was seen by physical therapy and was noted to have poor safety awareness generalized weakness and significant balance deficits not safe to return home and was recommended for ongoing PT/OT. #CVA CT head, angio head/neck w/o acute change MRI is not able to be performed due to metal present in right eyelid CT head without acute findings on repeat - TTE with EF 55 to 60%, no regional wall motion abnormalities, moderate concentric LVH. RV not well-visualized? Dilation with normal function. Moderate circumferential pericardial effusion without evidence of tamponade. Suboptimal image quality but no interarterial shunt noted with agitated saline administration. - Cont. Plavix, add ASA 81 daily Continue statin Passed bedside dysphagia screen Alcohol use Patient endorses 3-4 beers per day alcohol use. Is tremulous but not diaphoretic or tachycardic Patient reports he felt much worse after receiving gabapentin. Per discussing with nursing staff does seem to have potentially worsened around this. Given limited data for benefit of gabapentin in general, patient feeling that he worsened following this, and lack of diaphoresis/tachycardia/hallucinations we will discontinue gabapentin. Continue to monitor for withdrawal, if signs of this are apparent then would transition to a benzodiazepine taper protocol versus phenobarbital if severe May have some degree of alcohol related leukopenia. Trended Pericardial effusion Moderate circumferential pericardial effusion without hemodynamic compromise or evidence of tamponade physiology No acute infectious symptoms Lyme test pending Patient is not uremic CRP pending Drainage at time of admission is not recommended as it is moderate without evidence of hemodynamic involvement, and patient is on DAPT therapy for his CVA. Recommend continued monitoring and outpatient cardiology follow-up T2DM A1c 7.9 On metformin outpatient. Hold while inpatient HLD Med rec states pt taking Crestor and Lipitor Patient confirms that he takes Lipitor and not Crestor. CECILE Pt with diagnosis of anxiety that is not managed on chronic controller medication States that he has had increased stress recently with regard to money/bills Family states that during times of stress he may exhibit some of the weakness type symptoms observed today Commend follow-up for CECILE as outpatient COPD Not in acute exacerbation Continue Breo Albuterol PRN GERD Cont Protonix Hypothyroid Cont Synthroid Update given to daughter Danna who is a nurse by phone. Confirms that starting on Tuesday was tired, lethargic and struggling to walk. Speech slurred and appeared weaker than normal. FENGI: heart healthy, T2DM Code status: DNR/DNI DVT prophylaxis: Lovenox Isolation: none Disposition: med/tele (2) Hypertension: (3) COPD (chronic obstructive pulmonary disease): (4) Hypothyroidism: (5) Type 2 diabetes mellitus: (6) Generalized anxiety disorder: (7) Peripheral vascular disease: (8) GERD (gastroesophageal reflux disease): Admission and Anticipated Discharge Date Admission Date: January 14, 2025 Subjective Seen at the bedside. Patient ambulated with assistance from the bedside to the toilet however he is extremely unstable, weak, easily fatigued. Denies chest pain, chest pressure. Denies focal arm or leg weakness. Prefers to go home, constipation that given his current unsteadiness and strength if gets this is not likely to be a safe option for him and anticipate rehab needs. Seen in afternoon on reassessment. Tearful regarding the thought of not being able to go straight home, but expresses an understanding of the risk of returning home and is agreeable to working on placement with case management. Additionally did clarify alcohol use reports that he drinks around 3-4 beers per evening but has not been alcohol free in some time. Has continued on JUS S protocol. At time of evaluation he is not significantly tachycardic or diaphoretic. Somewhat tremulous on attempted exertion but will resting tremor on extension. Does feel that the gabapentin made him worse and more confused yesterday, this has been discontinued. Review of Systems Review of Systems: General: A&Ox3. NAD. Cooperative. HEENT: Atraumatic, normocephalic. Vision/hearing intact Pulm: Symmetrical chest rise. No increased work of breathing. No respiratory distress. Cardiac: RRR, -mrg. Radial pulses intact and symmetrical. Strength: Able to ambulate with assistance to toilet however is generally weak and unsteady on his feet. [employer] Judge strength is intact and symmetrical. Does appear slightly tremulous but on active extension tremor does improve. His skin is not diaphoretic Results & Data Results & Data Vital Signs (Past 12 Hours) Vital Signs Temp Pulse Pulse Resp BP Pulse Ox O2 Del Method 01/16/25 07:46 36.7 C 76 16 156/77 H 97 Room Air 01/16/25 07:18 79 01/16/25 03:29 36.7 C 83 18 175/92 H 95 Room Air 01/16/25 03:09 17 01/15/25 22:36 61 17 96 01/15/25 22:27 75 18 153/83 H 95 Room Air, CPAP 01/15/25 21:45 77 01/15/25 20:43 37.1 C 82 18 155/85 H 95 Room Air PG Care Time/CCT Total # of Minutes Spent Total Time Spent with Patient: Total time spent is greater than 50% in coordination of care (as documented) at patient's floor/unit and/or counseling patient: Coding Level of Care Code 34630 SUB INP/OBS CARE 3/50MIN Diagnoses CVA (cerebral vascular accident) I63.9 Hypertension I10 Hypertension type: essential hypertension COPD (chronic obstructive pulmonary disease) J44.9 Hypothyroidism E03.9 Type 2 diabetes mellitus E11.9 Generalized anxiety disorder F41.1 Peripheral vascular disease I73.9 GERD (gastroesophageal reflux disease) K21.9 (2) Hypertension Hypertension type: essential hypertension Qualified Code(s): I10 - Essential (primary) hypertension
[2025-01-16 10:33] LABS: C Reactive Protein 3.08 mg/dl (0-0.5)
[2025-01-16 12:26] LABS: Thyroid Stimulating Hormone 4.379 uIu/ml (0.300-4.500)
[2025-01-16] MEDS: THIAMINE HCL 300 MG in SODIUM CHLORIDE 0.9% 50 ML IV ONE (12:31)
[2025-01-16 12:34] LABS: Basophils # (auto) 0.02 K/uL (0.00-0.20); Basophils % (auto) 0.5 %; Eosinophils # (auto) 0.04 K/uL (0.00-0.50); Eosinophils % (auto) 0.9 %; Hematocrit (blood only) 32.8 % (42.0-52.0); Hemoglobin 10.5 g/dl (14.0-18.0); Immature Granulocytes # (auto) 0.02 K/uL (0.01-0.20); Immature Granulocytes % (auto) 0.5 %; Lymphocytes % (auto) 16.5 %; Mean Corpuscular Hemoglobin 29.2 pg (25.0-34.0); Mean Corpuscular Volume 91.1 fL (80.0-100.0); Mean Platelet Volume 9.9 fL (9.4-12.4); Monocytes # (auto) 0.51 K/uL (0.11-0.59); Monocytes % (auto) 12.1 %; Neutrophils # (auto) 2.94 K/uL (1.40-6.50); Neutrophils % (auto) 69.5 %; Platelet Count 199 K/uL (130-400); RDW Coefficient of Variation 14.6 % (11.5-14.5); RDW Standard Deviation 48.1 fL (36.4-46.3); White Blood Count 4.23 K/ul (4.8-10.8)
[2025-01-16 16:06] LABS: Adenovirus PCR Not Detected (NotDetected); Bordetella parapertussis PCR Not Detected (NotDetected); Bordetella pertussis PCR Not Detected (NotDetected); Chlamydia pneumoniae PCR Not Detected (NotDetected); Coronavirus 229E PCR Not Detected (NotDetected); Coronavirus CoV-2 (COVID19)PCR DETECTED (NotDetected); Coronavirus HKU1 PCR Not Detected (NotDetected); Coronavirus NL63 PCR Not Detected (NotDetected); Coronavirus OC43PCR Not Detected (NotDetected); Human Metapneumovirus PCR Not Detected (NotDetected); Influenza A PCR Not Detected (NotDetected); Influenza B PCR Not Detected (NotDetected); Mycoplasma pneumoniae PCR Not Detected (NotDetected); Parainfluenza Virus 1 PCR Not Detected (NotDetected); Parainfluenza Virus 2 PCR Not Detected (NotDetected); Parainfluenza Virus 3 PCR Not Detected (NotDetected); Parainfluenza Virus 4 PCR Not Detected (NotDetected); Respiratory Syncytial VirusPCR Not Detected (NotDetected); Rhinovirus/Enterovirus PCR Not Detected (NotDetected)
[2025-01-16] MEDS ORDERED: GABAPENTIN 600MG Q8H DOSE PO SCH (22:00)
[2025-01-17] MEDS: ALBUTEROL HFA 8 GM INHALER INH PRN (08:17)
[2025-01-17 09:31] LABS: Basophils # (auto) 0.03 K/uL (0.00-0.20); Basophils % (auto) 0.6 %; Eosinophils # (auto) 0.06 K/uL (0.00-0.50); Eosinophils % (auto) 1.2 %; Hematocrit (blood only) 34.4 % (42.0-52.0); Hemoglobin 11.1 g/dl (14.0-18.0); Immature Granulocytes # (auto) 0.02 K/uL (0.01-0.20); Immature Granulocytes % (auto) 0.4 %; Lymphocytes # (auto) 1.16 K/uL (1.20-3.40); Mean Corpuscular Hemoglobin 29.3 pg (25.0-34.0); Mean Corpuscular Hgb Conc 32.3 g/dL (32.0-36.0); Mean Corpuscular Volume 90.8 fL (80.0-100.0); Monocytes # (auto) 0.63 K/uL (0.11-0.59); Neutrophils # (auto) 2.93 K/uL (1.40-6.50); Neutrophils % (auto) 60.8 %; Platelet Count 215 K/uL (130-400); RDW Coefficient of Variation 14.6 % (11.5-14.5); RDW Standard Deviation 48.7 fL (36.4-46.3); Red Blood Count 3.79 M/uL (4.70-6.10); White Blood Count 4.83 K/ul (4.8-10.8)
[2025-01-17] MEDS: dexAMETHasone 4 MG TAB PO SCH (09:44)
[2025-01-17 09:47] LABS: BUN Creatinine Ratio 15.9 (10-20); C Reactive Protein 3.74 mg/dl (0-0.5); Calcium 9.7 mg/dl (8.6-10.3); Creatinine Clr Calc Pharmacy 59.1 ml/min; Potassium 3.4 mmol/L (3.5-5.1)
--- NOTE | 2025-01-17 12:51 | Hospitalist Progress Note ---
Date of Service January 17, 2025 Assessment & Plan (1) CVA (cerebral vascular accident): Plan: 79-year-old male who presented with right facial droop, slurred speech and he was not a thrombolytic candidate due to time of onset of symptoms who was admitted for stroke evaluation. CThead, CTAhead/neck were without acute changes; MRI was not able to be performed due to presence of foreign metal in patient's right eyelid. 24-hour interval CT head was obtained. Interval CT head was without any acute intracranial process. Patient was clinically stable and was continued on aspirin/Plavix. He was seen by physical therapy and was noted to have poor safety awareness generalized weakness and significant balance deficits not safe to return home and was recommended for ongoing PT/OT. Subsequently found to have COVID likely explaining his acute on chronic weakness COVID-19 Without hypoxia CRP mildly elevated Remdesivir not indicated as no hypoxia however given history of COPD and development of an expiratory wheezing will initiate steroids. Dexamethasone 6 mg course ordered Weakness Multifactorial. Suspect his acute on chronic weakness is due to some baseline deconditioning and additionally with acute COVID-19. Initial presentation considering from stroke however no evidence of this on CT were serial CT, this cannot be definitively ruled out his MRI is not able to be obtained as noted Pending placement. Insurance Auth submitted to [employer]. #CVA CT head, angio head/neck w/o acute change MRI is not able to be performed due to metal present in right eyelid CT head without acute findings on repeat - TTE with EF 55 to 60%, no regional wall motion abnormalities, moderate concentric LVH. RV not well-visualized? Dilation with normal function. Moderate circumferential pericardial effusion without evidence of tamponade. Suboptimal image quality but no interarterial shunt noted with agitated saline administration. - Cont. Plavix. Suspect his symptoms were more due to COVID however not unreasonable to continue 3 weeks of DAPT with aspirin and then switching back to monotherapy given increased risk of thromboembolism and that stroke process cannot be definitively ruled out Continue statin Passed bedside dysphagia screen Alcohol use Tremulousness improved, no signs of withdrawal today 3-4. Alcohol use per day Feel his symptoms and leukopenia were likely due to COVID/viral infection and are improving Continue monitoring. Taper regimen not indicated Pericardial effusion Moderate circumferential pericardial effusion without hemodynamic compromise or evidence of tamponade physiology ? Viral. Patient has a prior trace effusion with similar distribution. Lyme test pending Patient is not uremic CRP pending Drainage at time of admission is not recommended as it is moderate without evidence of hemodynamic involvement, and patient is on DAPT therapy for his CVA. Recommend continued monitoring and outpatient cardiology follow-up T2DM A1c 7.9 On metformin outpatient. Hold while inpatient HLD Med rec states pt taking Crestor and Lipitor Patient confirms that he takes Lipitor and not Crestor. CECILE Pt with diagnosis of anxiety that is not managed on chronic controller medication States that he has had increased stress recently with regard to money/bills Family states that during times of stress he may exhibit some of the weakness type symptoms observed today Commend follow-up for CECILE as outpatient COPD Not in acute exacerbation Continue Breo Albuterol PRN GERD Cont Protonix Hypothyroid Cont Synthroid FENGI: heart healthy, T2DM Code status: DNR/DNI DVT prophylaxis: Lovenox Isolation: none Disposition: med/tele (2) Hypertension: (3) COPD (chronic obstructive pulmonary disease): (4) Hypothyroidism: (5) Type 2 diabetes mellitus: (6) Generalized anxiety disorder: (7) Peripheral vascular disease: (8) GERD (gastroesophageal reflux disease): Admission and Anticipated Discharge Date Admission Date: January 14, 2025 Subjective Seen the bedside. Reports he feels "terrible but better ". Does continue to have some wheezing and notes that his Breo helped last night but does have some feeling of wheeziness in the morning. Endorses fatigue. Oxygen levels have been normal. Much less tremulous today. Feels the strength is a little better but does endorse that he is with some poor balance at home. No questions or concerns other than wanting to progress out of the hospital as soon as able. Review of Systems Review of Systems: General: A&Ox3. NAD. Cooperative. HEENT: Atraumatic, normocephalic. Vision/hearing intact Pulm: End expiratory wheezing on forced expiration. Symmetrical chest rise. No increased work of breathing. No respiratory distress. Cardiac: RRR, -mrg. Radial pulses intact and symmetrical. Extremities: Tremor improved today. Results & Data Results & Data Vital Signs (Past 12 Hours) Vital Signs Temp Pulse Pulse Resp BP BP Pulse Ox 01/17/25 12:19 36.5 C 75 18 168/75 H 95 01/17/25 09:17 01/17/25 08:34 36.6 C 91 H 22 166/81 H 97 01/17/25 08:18 79 16 93 01/17/25 07:11 85 01/17/25 05:05 36.9 C 81 20 162/81 H 94 01/17/25 01:11 36.6 C 18 178/86 H 95 O2 Del Method 01/17/25 12:19 Room Air 01/17/25 09:17 Room Air 01/17/25 08:34 Room Air 01/17/25 08:18 Room Air 01/17/25 07:11 01/17/25 05:05 Room Air 01/17/25 01:11 Room Air PG Care Time/CCT Total # of Minutes Spent Total Time Spent with Patient: Total time spent is greater than 50% in coordination of care (as documented) at patient's floor/unit and/or counseling patient: Coding Level of Care Code 39244 SUB INP/OBS CARE 3/50MIN Diagnoses CVA (cerebral vascular accident) I63.9 Hypertension I10 Hypertension type: essential hypertension COPD (chronic obstructive pulmonary disease) J44.9 Hypothyroidism E03.9 Type 2 diabetes mellitus E11.9 Generalized anxiety disorder F41.1 Peripheral vascular disease I73.9 GERD (gastroesophageal reflux disease) K21.9 (2) Hypertension Hypertension type: essential hypertension Qualified Code(s): I10 - Essential (primary) hypertension
[2025-01-17] MEDS: POLYETHYLENE (MIRALAX) 17 GM PACK PO PRN (13:56)
[2025-01-17] MEDS: LABETALOL HCL IV 5 MG/ML 20ML IV PRN (22:05)
[2025-01-18] MEDS ORDERED: GABAPENTIN 600MG Q12H DOSE PO SCH
[2025-01-18 08:01] LABS: Hematocrit (blood only) 31.8 % (42.0-52.0); Hemoglobin 10.2 g/dl (14.0-18.0); Immature Granulocytes # (auto) 0.02 K/uL (0.01-0.20); Immature Granulocytes % (auto) 0.4 %; Lymphocytes # (auto) 0.94 K/uL (1.20-3.40); Lymphocytes % (auto) 17.5 %; Mean Corpuscular Hemoglobin 28.6 pg (25.0-34.0); Mean Corpuscular Hgb Conc 32.1 g/dL (32.0-36.0); Mean Corpuscular Volume 89.1 fL (80.0-100.0); Mean Platelet Volume 10.1 fL (9.4-12.4); Monocytes # (auto) 0.49 K/uL (0.11-0.59); Monocytes % (auto) 9.1 %; Neutrophils # (auto) 3.92 K/uL (1.40-6.50); Platelet Count 214 K/uL (130-400); RDW Coefficient of Variation 14.4 % (11.5-14.5); RDW Standard Deviation 46.5 fL (36.4-46.3); Red Blood Count 3.57 M/uL (4.70-6.10); White Blood Count 5.37 K/ul (4.8-10.8)
[2025-01-18 08:18] LABS: Calcium 9.7 mg/dl (8.6-10.3); Creatinine Clr Calc Pharmacy 60.9 ml/min; Potassium 3.6 mmol/L (3.5-5.1)
--- NOTE | 2025-01-18 13:31 | Hospitalist Progress Note ---
Date of Service January 18, 2025 Assessment & Plan (1) CVA (cerebral vascular accident): Plan: 79-year-old male who presented with right facial droop, slurred speech and he was not a thrombolytic candidate due to time of onset of symptoms who was admitted for stroke evaluation. CThead, CTAhead/neck were without acute changes; MRI was not able to be performed due to presence of foreign metal in patient's right eyelid. 24-hour interval CT head was obtained. Interval CT head was without any acute intracranial process. Patient was clinically stable and was continued on aspirin/Plavix. He was seen by physical therapy and was noted to have poor safety awareness generalized weakness and significant balance deficits not safe to return home and was recommended for ongoing PT/OT. Subsequently found to have COVID likely explaining his acute on chronic weakness COVID-19 Without hypoxia CRP mildly elevated Remdesivir not indicated as no hypoxia however given history of COPD and development of an expiratory wheezing will initiate steroids. Dexamethasone 4 mg course ordered Clinically improving strength improving, progressing well Weakness Multifactorial. Suspect his acute on chronic weakness is due to some baseline deconditioning and additionally with acute COVID-19. Initial presentation considering from stroke however no evidence of this on CT were serial CT, this cannot be definitively ruled out his MRI is not able to be obtained as noted Acute rehab denied on peer to peer PT reeval progressing well and will be okay for discharge to home with home health services/PT. Discussed this with family, arrangements cannot be made for patient to return home until the morning. Is being arranged for a 10 AM discharge 01/[address] #[address] head, angio head/neck w/o acute change MRI is not able to be performed due to metal present in right eyelid CT head without acute findings on repeat - TTE with EF 55 to 60%, no regional wall motion abnormalities, moderate concentric LVH. RV not well-visualized? Dilation with normal function. Moderate circumferential pericardial effusion without evidence of tamponade. Suboptimal image quality but no interarterial shunt noted with agitated saline administration. - Cont. Plavix. Suspect his symptoms were more due to COVID however not unreasonable to continue 3 weeks of DAPT with aspirin and then switching back to monotherapy given increased risk of thromboembolism and that stroke process cannot be definitively ruled out Continue statin Passed bedside dysphagia screen Alcohol use Tremulousness improved, no signs of withdrawal today 3-4. Alcohol use per day Feel his symptoms and leukopenia were likely due to COVID/viral infection and are improving Continue monitoring. Taper regimen not indicated Pericardial effusion Moderate circumferential pericardial effusion without hemodynamic compromise or evidence of tamponade physiology ? Viral. Patient has a prior trace effusion with similar distribution. Lyme test pending Patient is not uremic Drainage not currently recommended T2DM A1c 7.9 On metformin outpatient. Hold while inpatient HLD Med rec states pt taking Crestor and Lipitor Patient confirms that he takes Lipitor and not Crestor. CECILE Pt with diagnosis of anxiety that is not managed on chronic controller medication States that he has had increased stress recently with regard to money/bills Family states that during times of stress he may exhibit some of the weakness type symptoms observed today Commend follow-up for CECILE as outpatient COPD Not in acute exacerbation Continue Breo Albuterol PRN GERD Cont Protonix Hypothyroid Cont Synthroid FENGI: heart healthy, T2DM Code status: DNR/DNI DVT prophylaxis: Lovenox Isolation: none Disposition: med/tele (2) Hypertension: (3) COPD (chronic obstructive pulmonary disease): (4) Hypothyroidism: (5) Type 2 diabetes mellitus: (6) Generalized anxiety disorder: (7) Peripheral vascular disease: (8) GERD (gastroesophageal reflux disease): Admission and Anticipated Discharge Date Admission Date: January 14, 2025 Subjective Seen at the bedside this morning. Feeling improved. Eager to return home. On reevaluation with his goal therapy patient has improved strength and mobility. Recommended return home. Discussed with patient's daughter who is able to arrange home resource for him and he will have home health services. Unfortunately cannot make accommodations for patient to return home until tomorrow morning. Patient updated and will be plan for 10 AM discharge Physical Exam Physical Exam: General: A&Ox3. NAD. Cooperative. HEENT: Atraumatic, normocephalic.Vision and hearing grossly intact Pulm: Diminished but grossly clear. Symmetrical chest rise. No increased work of breathing. No respiratory distress. Cardiac: RRR, -mrg. Radial pulses intact and symmetrical. Abdominal: Nontender, nondistended, soft. BS present. Extremities: Moving upper and lower extremities equally. S/p right index finger amputation well-healed Results & Data Results & Data Vital Signs (Past 12 Hours) Vital Signs Temp Pulse Pulse Resp BP Pulse Ox O2 Del Method 01/18/25 11:23 36.5 C 77 16 173/90 H 98 BiPAP 01/18/25 07:29 36.6 C 71 16 170/89 H 95 Room Air 01/18/25 05:35 72 01/18/25 03:28 36.4 C L 70 16 159/77 H 94 Room Air 01/18/25 03:17 21 93 FiO2 01/18/25 11:23 01/18/25 07:29 01/18/25 05:35 01/18/25 03:28 01/18/25 03:17 21 PG Care Time/CCT Total # of Minutes Spent Total Time Spent with Patient: Total time spent is greater than 50% in coordination of care (as documented) at patient's floor/unit and/or counseling patient: Coding Level of Care Code 90705 SUB INP/OBS CARE 2MIN Diagnoses CVA (cerebral vascular accident) I63.9 Hypertension I10 Hypertension type: essential hypertension COPD (chronic obstructive pulmonary disease) J44.9 Hypothyroidism E03.9 Type 2 diabetes mellitus E11.9 Generalized anxiety disorder F41.1 Peripheral vascular disease I73.9 GERD (gastroesophageal reflux disease) K21.9 (2) Hypertension Hypertension type: essential hypertension Qualified Code(s): I10 - Essential (primary) hypertension
[2025-01-19 05:57] LABS: Hematocrit (blood only) 32.4 % (42.0-52.0); Hemoglobin 10.5 g/dl (14.0-18.0); Immature Granulocytes # (auto) 0.04 K/uL (0.01-0.20); Immature Granulocytes % (auto) 0.5 %; Lymphocytes # (auto) 1.07 K/uL (1.20-3.40); Lymphocytes % (auto) 13.5 %; Mean Corpuscular Hemoglobin 28.8 pg (25.0-34.0); Mean Corpuscular Hgb Conc 32.4 g/dL (32.0-36.0); Mean Corpuscular Volume 88.8 fL (80.0-100.0); Monocytes # (auto) 0.56 K/uL (0.11-0.59); Monocytes % (auto) 7.1 %; Neutrophils # (auto) 6.24 K/uL (1.40-6.50); Neutrophils % (auto) 78.9 %; Platelet Count 244 K/uL (130-400); RDW Coefficient of Variation 14.4 % (11.5-14.5); RDW Standard Deviation 46.4 fL (36.4-46.3); Red Blood Count 3.65 M/uL (4.70-6.10); White Blood Count 7.91 K/ul (4.8-10.8)
[2025-01-19 06:11] LABS: Calcium 10.3 mg/dl (8.6-10.3); Creatinine Clr Calc Pharmacy 60.9 ml/min; Potassium 3.8 mmol/L (3.5-5.1)
--- NOTE | 2025-01-19 07:11 | Discharge Summary ---
Discharge Summary Date of Service January 19, 2025 Principal Dx & Hospital Course #1 = Principal Diagnosis (1) CVA (cerebral vascular accident): 79-year-old male who presented with right facial droop, slurred speech and he was not a thrombolytic candidate due to time of onset of symptoms who was admitted for stroke evaluation. CThead, CTAhead/neck were without acute changes; MRI was not able to be performed due to presence of foreign metal in patient's right eyelid. 24-hour interval CT head was obtained. Interval CT head was without any acute intracranial process. Patient was clinically stable and was continued on aspirin/Plavix. He was seen by physical therapy and was noted to have poor safety awareness generalized weakness and significant balance deficits not safe to return home and was recommended for ongoing PT/OT. Subsequently found to have COVID likely explaining his acute on chronic weakness To do as outpatient: Complete 3 weeks of DAPT in case symptoms were related to TIA/CVA. MRI not able to be performed for definitive rule out and suspected COVID and deconditioning more likely Outpatient home health PT Routine outpatient follow-up to PCP Follow-up with cardiology for monitoring of nonhemodynamically significant moderate pericardial effusion Complete course of dexamethasone for COVID with significant wheezing. Patient was not hypoxic, 4 mg dose reduced dexamethasone was used with good clinical benefit by patient COVID-19 Without hypoxia CRP mildly elevated Remdesivir not indicated as no hypoxia however given history of COPD and development of an expiratory wheezing will initiate steroids. Dexamethasone 4 mg course ordered Clinically improving strength improving, progressing well Weakness Multifactorial. Suspect his acute on chronic weakness is due to some baseline deconditioning and additionally with acute COVID-19. Initial presentation considering from stroke however no evidence of this on CT were serial CT, this cannot be definitively ruled out his MRI is not able to be obtained as noted Acute rehab denied on peer to peer PT reeval progressing well and will be okay for discharge to home with home health services/PT. was able to accept patient home bmet #CVA CT head, angio head/neck w/o acute change MRI is not able to be performed due to metal present in right eyelid CT head without acute findings on repeat - TTE with EF 55 to 60%, no regional wall motion abnormalities, moderate concentric LVH. RV not well-visualized? Dilation with normal function. Moderate circumferential pericardial effusion without evidence of tamponade. Suboptimal image quality but no interarterial shunt noted with agitated saline administration. - Cont. Plavix. Suspect his symptoms were more due to COVID however not unreasonable to continue 3 weeks of DAPT with aspirin and then switching back to monotherapy given increased risk of thromboembolism and that stroke process cannot be definitively ruled out Continue statin Passed bedside dysphagia screen Alcohol use Tremulousness improved with supportive care, no signs of withdrawal subsequent to first day of admission 3-4 drinks of beer per day [employer] Feel his symptoms and leukopenia were likely due to COVID/viral infection and are improving Continue monitoring. Taper regimen not indicated Pericardial effusion Moderate circumferential pericardial effusion without hemodynamic compromise or evidence of tamponade physiology ? Viral. Patient has a prior trace effusion with similar distribution. Lyme test pending Patient is not uremic Drainage not currently recommended (2) Hypertension: (3) COPD (chronic obstructive pulmonary disease): (4) Hypothyroidism: (5) Type 2 diabetes mellitus: (6) Generalized anxiety disorder: (7) Peripheral vascular disease: (8) GERD (gastroesophageal reflux disease): Admission HPI Per Admitting Provider 79 yo male PMHx previous CVA 2019 on Plavix, T2DM not on insulin, HTN, COPD, CECILE, GERD, hypothyroidism, PVD admitted with R facial droop, slurred speech. Per pts , these symptoms have been present all day today and he did have headache yesterday. Of note, he has had slightly worsening gait over the course of the last year, this is not acute. Denies dizziness, CP, SOB, N/V/D, LE edema. No recent illness or changes to medications. Of note, patient reports being under a great deal of stress re: finances currently. His family states that when he has periods of increased stress he tends to have some of the deficits described above. It has been suggested that he be on anxiety medication in the past but the patient refuses, states that he does not like the way the medications he has tried make him feel. At the time of admission, symptoms have resolved. ED course: Pt was made a stroke alert CT head, angio brain, angio neck negative for acute process, does note metal in the r eyelid present since at least 2019 Mild HTN in emergency department, otherwise VSS Labs largely unremarkable Received 1L NSS Discharge Exam General: A&Ox3. NAD. Cooperative. Already dressed and eager to go home at time of visit HEENT: Atraumatic, normocephalic.Vision and hearing grossly intact Pulm: CTAB symmetrical chest rise. No increased work of breathing. No respiratory distress. Cardiac: RRR, -mrg. Radial pulses intact and symmetrical. Abdominal: Nontender, nondistended, soft. BS present. Extremities: Moving upper and lower extremities equally. s/p right index finger amputation well-healed Discharge Plan Discharge Items Patient Disposition: Home - Home Health Services Reason For Visit: CVA VS TIA Discharge Diagnosis: Weakness, COVID. Mini stroke cannot definitively ruled out Activity: Resume your previous activity Non-emergency contact: Primary Care Provider Call non-emergency contact if: you have any medication questions, your symptoms worsen and your pain is not controlled Follow-up/Referrals: Meenu Avitia DO [Primary Care Provider] - Diet: Heart Healthy Addtl Attending Provider Instructions: You were seen in the hospital for weakness. Prior to admission there were concerns for strokelike deficits. A CAT scan of your head and a CAT scan of the blood vessels in your head and neck were normal and did not show any evidence of stroke. A repeat CT scan at 24 hours was performed due to inability to obtain an MRI due to metal present in your eyelid. This did not show any evidence of stroke. During admission you did test positive for COVID and gradually improved with steroids and supportive care. Your symptoms may have been due to COVID however a stroke cannot be ruled out as MRI was not able to be performed, and a mini stroke does not show up on any imaging. Due to the report of potential strokelike symptoms prior to admission you have been continued on aspirin 81 mg daily and Plavix 75 mg daily for 3 weeks to help minimize the risk of stroke. There is an increased risk of bleeding while on these medications. After 3 weeks you may discontinue aspirin and take daily Plavix alone. You are initially recommended for acute rehab/therapy training. A peer to peer was performed however this was declined by insurance. On reassessment by physical therapy the following days your strength improved and you were recommended for discharge home with home health/physical therapy. You have been prescribed a course of dexamethasone. Please take 7 additional days of dexamethasone for wheezing/COVID. These may disrupt sleep and make you feel slightly agitated. If you develop any new or worsening symptoms including fever, chills, sweats, chest pain, chest pressure, difficulty breathing, uncontrolled nausea/vomiting, rash, wheezing, passing out or nearly passing out, bleeding, black/bloody bowel movements, or other new or concerning symptoms please call your primary care physician, or call 911 for re-evaluation in the emergency department if you are very concerned. Pending Studies at Discharge: No Stand-Alone Forms: [facility], Smoking Cessation Medications and DC Order Prescriptions: New aspirin 81 mg Tablet,Delayed Release (Dr/Ec) 81 mg PO DAILY Qty: 21 0RF dexamethasone 4 mg Tablet 4 mg PO DAILY Qty: 7 0RF Continued levothyroxine 137 mcg tablet 137 mcg PO DAILYBB clopidogrel 75 mg tablet 75 mg PO HS amlodipine 5 mg tablet 5 mg PO DAILY lorazepam 0.5 mg tablet 0.5 mg PO BID PRN (Reason: Anxiety) albuterol sulfate 90 mcg/actuation HFA aerosol inhaler 2 puff INHALATION Q6H PRN (Reason: Wheezing) melatonin 5 mg Tablet 5 mg PO HS PRN (Reason: Sleep) fluticasone furoate-vilanterol [Breo Ellipta] 200-25 mcg/dose blister with device 1 inh INHALATION HS atorvastatin 40 mg tablet 40 mg PO HS Qty: 90 3RF metformin 500 mg tablet extended release 24 hr 500 mg PO BID pantoprazole 40 mg tablet,delayed release (DR/EC) 40 mg PO DAILY cyanocobalamin (vitamin B-12) 1,000 mcg/mL Solution 1,000 mcg IM MONTHLY rosuvastatin 10 mg tablet 10 mg PO DAILY Discharge Orders: Discharge Order (Routine); Ordered 01/19/25 Ordered By: Mukul Peters/Other Patient Handouts: A1C, Managing Type 2 Diabetes Admission Data Admit Date/Time: 01/14/25 21:10 Attending Provider: Mukul Gonzalez Admit Provider: Shai Alvarez Primary Care Provider: Meenu Avitia Other Providers: Ricky Rolle; Gio Rosado; [facility] Other Interventions: Discharge Summary Assessment (RN) Last Done: 01/19/25 07:45 Hospital Stay Data Consultations 01/14/25 20:57 ED Decision to Admit Stat 01/14/25 22:58 Consult Neurology Routine Diagnostic Imagining Performed 01/14/25 19:51 CT angio head w con Stat CT angio neck with con Stat CT head/brain wo con Stat 01/15/25 14:[address] [CT head/brain wo con] Routine Discharge Instructions Given to Patient (Per Discharging Provider) You were seen in the hospital for weakness. Prior to admission there were concerns for strokelike deficits. A CAT scan of your head and a CAT scan of the blood vessels in your head and neck were normal and did not show any evidence of stroke. A repeat CT scan at 24 hours was performed due to inability to obtain an MRI due to metal present in your eyelid. This did not show any evidence of stroke. During admission you did test positive for COVID and gradually improved with steroids and supportive care. Your symptoms may have been due to COVID however a stroke cannot be ruled out as MRI was not able to be performed, and a mini stroke does not show up on any imaging. Due to the report of potential strokelike symptoms prior to admission you have been continued on aspirin 81 mg daily and Plavix 75 mg daily for 3 weeks to help minimize the risk of stroke. There is an increased risk of bleeding while on these medications. After 3 weeks you may discontinue aspirin and take daily Plavix alone. You are initially recommended for acute rehab/therapy training. A peer to peer was performed however this was declined by insurance. On reassessment by physical therapy the following days your strength improved and you were recommended for discharge home with home health/physical therapy. You have been prescribed a course of dexamethasone. Please take 7 additional days of dexamethasone for wheezing/COVID. These may disrupt sleep and make you feel slightly agitated. If you develop any new or worsening symptoms including fever, chills, sweats, chest pain, chest pressure, difficulty breathing, uncontrolled nausea/vomiting, rash, wheezing, passing out or nearly passing out, bleeding, black/bloody bowel movements, or other new or concerning symptoms please call your primary care physician, or call 911 for re-evaluation in the emergency department if you are very concerned. Total Time Total Time Spent Total Time Spent (In Minutes): Time spend day of discharge 35 minutes including direct patient care, documentation, review of labs and images, and coordination of care. Coding Level of Care Code 21019 INP/OBS DISCH >30 MIN Diagnoses CVA (cerebral vascular accident) I63.9 Hypertension I10 Hypertension type: essential hypertension COPD (chronic obstructive pulmonary disease) J44.9 Hypothyroidism E03.9 Type 2 diabetes mellitus E11.9 Generalized anxiety disorder F41.1 Peripheral vascular disease I73.9 GERD (gastroesophageal reflux disease) K21.9
[2025-01-19 07:26] VITALS: PULSE 65; RESP 16; TEMP 97.9; O2SAT 97
[2025-01-19] MEDS ORDERED: GABAPENTIN 600 MG TAB PO SCH (07:30)
[2025-01-19 07:45] VITALS: BP 166/81
[2025-01-19] MEDS ORDERED: GABAPENTIN 600MG X1 DOSE PO SCH (12:00)
== END 2025-01-19 10:13 | disposition home health service (06) | DRG 64 ==
LOC: SUATTDRO → ED 19:31 → SUATTDRO 21:10 → EDINP 21:10 → 2W 01-15 00:36